=== PATIENT | male | born 1965 | race Caucasian/White ===

== ENCOUNTER 2018-01-03 21:51 | Emergency (ER) | payer MEDICARE, MEDICAID, SELFPAY ==
[2018-01-03 21:54] VITALS: BP 145/87; PULSE 72; RESP 16; TEMP 36.6; O2SAT 100; BMI 29.7
--- NOTE | 2018-01-03 22:09 | CT_ITS ---
STUDY: CT BRAIN WITHOUT CONTRAST REASON FOR EXAM: Male, 52 years old. Left arm weakness RADIATION DOSAGE (If Supplied By Facility): CTDIvol = ( 44.99 ) mGy, DLP = ( 863.60 ) mGycm TECHNIQUE: Transaxial CT imaging of the brain was performed without administration of intravenous contrast material. Individualized dose optimization techniques were used for this CT. COMPARISON: 12/06/2017. FINDINGS: Normal soft tissue structures. Normal calvarium. Normal size ventricles and extra-axial spaces for the patient's age. Normal white matter tracts of the cerebral hemispheres. Normal basal ganglia and thalami. Normal brainstem. Normal cerebellum. There is no intracranial hemorrhage. There are no findings of an acute ischemic infarction. Normal visualized paranasal sinuses. CT/Brain/Head without Contrast IMPRESSION: Normal unenhanced CT scan of the brain. Electronically Signed: Homer Kaiser MD at 23:28 EST , Service support ,
--- NOTE | 2018-01-03 22:09 | EKG12_ITS ---
Test Reason : CP Blood Pressure : / mmHG Vent. Rate : 072 BPM Atrial Rate : 072 BPM P-R Int : 176 ms QRS Dur : 100 ms QT Int : 440 ms P-R-T Axes : 050 007 050 degrees QTc Int : 481 ms Sinus rhythm with occasional Premature ventricular complexes Prolonged QT Abnormal ECG Confirmed by PENELOPE DC, SARY ([id number]), market editor GERDA MALIK ([id number] on 01/07/2018 2:11:31 PM Referred By: KRISTINE Confirmed By:SARY NEGRETE MD
--- NOTE | 2018-01-03 22:12 | RAD_ITS ---
STUDY: X-RAY CHEST REASON FOR EXAM: Male, 52 years old. Chest pain TECHNIQUE: AP COMPARISON: 11/01/2017 FINDINGS: EKG leads project over the chest. Operative changes in the lower cervical spine partially visualized. The lungs are clear and expanded. There is no demonstrated pleural abnormality. Normal size heart. Normal mediastinum and hema. Normal visualized pulmonary arteries. There is atherosclerotic tortuosity of the aortic arch and descending thoracic aorta. No acute bony process. There is no demonstrated abnormality of the visualized soft tissue structures of the upper abdomen. RAD/Chest 1 View (Portable) IMPRESSION: 1. No airspace consolidation or pleural effusion. Stable exam. Electronically Signed: Jesus Quezada MD at 22:47 EST , Service support ,
--- NOTE | 2018-01-03 22:15 | ED.DCSUM_ITS ---
- ER Visit Summary Date of Service: 01/03/18 Chief Complaint: [] Chest pain History of Present Illness: The patient is a 52 M [] planing of chest pain that started today 10 minutes ago upon arrival to the department. At rest intermittent sharp pain in the center of his chest. Occasionally gets some pain in his back. He has IVC filter secondary to a DVT remotely. He is on Xarelto. He came in however because he felt some tingling in his left arm over the last 2 days. Occasionally his arm feels weak and occasional paresthesia. He has had this before. He was admitted to the hospital last month with a full stroke workup that was negative including MRI and MRA of his head. Physical Examination: [] Vital signs reviewed General: Well-nourished well-developed Head: Normocephalic atraumatic Eyes: Pupils equal round and reactive to light extraocular movements intact ENT: TMs clear no hemotympanum no trauma Neck: Nontender full range of motion Cardiovascular: Regular rate rhythm no murmurs normal S1-S2 Respiratory: No distress clear to auscultation bilaterally chest nontender Abdomen: Soft nontender nondistended normal bowel sounds no masses Back: Nontender no CVA tenderness Extremities: Nontender is moving his left arm normally when I watch him from the hallway and texting easily and moving around. When I do the exam he acts like he cannot move his arm. I have a suspicion that he is malingering. He has normal sensation. Skin: Normal color no trauma Neuro alert oriented cranial nerves II through XII intact normal strength sensation reflexes Test Results: [] Emergency Department Course and Treatment: [] EKG shows sinus rhythm at a rate of 72. PVCs noted. No ischemia. Unchanged from prior. Chemistry normal. Troponin negative. CT head showed nothing acute. Chest x-ray negative. The patient is resting comfortably. I have a feeling the patient is having malingering. He has had multiple visits with multiple imaging studies that have been negative. He will follow-up in the last with his family doctor. He has a neuro appointment in January. I feel his chest pain is noncardiac. I feel he can follow-up. Treatment Plan: [] Disposition: [] Impression: [] Chest pain nonspecific Left arm weakness and numbness suspected malingering This note was generated with [employer] software. It may contain incorrect words, spelling, and punctuation that were not noted in review of the chart prior to signing ED Disposition - Plan for ED Patient: Disposition: Home or Assisted Living Chief Complaint: Chest Pain Instructions: ED Chest Pain NonCardiac, ED Weakness [facility] Referrals: America Houser [Primary Care Provider] -
[2018-01-03] MEDS: Aspirin 81 MG TAB.CHEW 324 MG PO (22:23)
[2018-01-03 22:47] LABS: Anion Gap 6 (5-15); BUN 13 mg/dL (7-18); BUN/Creat Ratio 12.3 RATIO (10-20); Calcium,Total 8.9 mg/dL (8.5-10.1); Chloride 107 mmol/L (98-107); Creatinine, Serum 1.06 mg/dL (0.70-1.30); EST Glomerular Filtration Rate 78 mL/min (>60); Est Glom Filt Rate - Afr Amer 94 mL/min (>60); Estimated Creatinine Clearance 88.46 ml/min; Glucose 85 mg/dL (74-106); Potassium 3.8 mmol/L (3.5-5.1); Sodium Level 143 mmol/L (136-145)
--- NOTE | 2018-01-03 22:50 | ED.DEP ---
ED Disposition - Plan for ED Patient: Disposition: Home or Assisted Living Chief Complaint: Chest Pain Instructions: ED Chest Pain NonCardiac, ED Weakness [facility] Referrals: America Houser [Primary Care Provider] -
[2018-01-03 23:36] VITALS: BP 150/90; PULSE 81; RESP 18; O2SAT 95
[2018-01-08 07:16] LABS: Bedside Glucose 80 mg/dL (70-110)
== END 2018-01-03 23:41 | disposition home or self-care (01) ==
PROVIDERS: Emergency Provider Emergency Medicine; Family Provider Family Medicine; PCP Family Medicine
DX: R07.9 Chest pain, unspecified (principal); M62.81 Muscle weakness (generalized); R20.0 Anesthesia of skin; I10 Essential (primary) hypertension; F32.9 Major depressive disorder, single episode, unspecified; F41.9 Anxiety disorder, unspecified; Z86.718 Personal history of other venous thrombosis and embolism; Z86.73 Personal history of transient ischemic attack (TIA), and cerebral infarction without residual deficits; Z79.01 Long term (current) use of anticoagulants; Z79.899 Other long term (current) drug therapy; Z72.0 Tobacco use
CPT/HCPCS: 70450; 71045; 80048; 82962; 84484; 93005; 99284; A4216

== ENCOUNTER 2018-01-26 18:34 | Emergency (ER) | payer MEDICARE, MEDICAID, SELFPAY ==
[2018-01-26 18:35] VITALS: BP 151/90; PULSE 76; RESP 16; TEMP 37; O2SAT 98; BMI 40.0
--- NOTE | 2018-01-26 18:38 | EKG12_ITS ---
Test Reason : CP Blood Pressure : / mmHG Vent. Rate : 062 BPM Atrial Rate : 062 BPM P-R Int : 138 ms QRS Dur : 108 ms QT Int : 440 ms P-R-T Axes : 006 014 047 degrees QTc Int : 446 ms Normal sinus rhythm Normal ECG Confirmed by CELIA GALLO MD ([id number]), content editor GERDA MALIK ([id number] on 01/28/2018 3:41:59 PM Referred By: Confirmed By:CELIA GALLO MD
--- NOTE | 2018-01-26 18:38 | RAD_ITS ---
STUDY: X-RAY CHEST REASON FOR EXAM: Male, 52 years old. Chest pain. TECHNIQUE: PA and lateral views of the chest. COMPARISON: November 01, 2017. FINDINGS: There is hyperinflation of the lungs consistent with chronic obstructive lung disease (COPD). There is no demonstrated pleural abnormality. Normal size heart. Normal mediastinum and hema. There is prominence of the pulmonary hilar arteries without peripheral pulmonary vascular congestion. There is atherosclerotic calcification of the aortic arch with tortuosity. There are diffuse degenerative changes of the visualized thoracic spine. Normal visualized ribs, clavicles, and shoulders. The patient has had previous surgery on the cervical spine. There is no demonstrated abnormality of the visualized soft tissue structures of the upper abdomen. RAD/Chest PA and Lateral IMPRESSION: COPD without radiographic evidence of acute cardiopulmonary disease. Electronically Signed: Maggie Verdin MD at 19:28 EDT , Service support ,
[2018-01-26 18:58] LABS: Absolute Lymphocyte Count 1.76 X10^3/ul (0.83-4.51); Basophil# 0.02 X10^3/uL; Basophil% 0.3 % (0-1); Eosinophil# 0.12 X10^3/uL; Eosinophils% 1.8 % (0-5); Hematocrit 39.4 % (40-54); Hemoglobin 13.5 g/dl (13.0-16.5); Lymphocyte # 1.76 X10^3/ul (4.0); Lymphocyte % 26.8 % (19-41); Mean Corp Hgb Conc 34.3 g/gl (32-36); Mean Corpuscular Hgb 29.9 pg (27.0-32.0); Mean Corpuscular Volume 87.4 fL (80-94); Mean Platelet Vol. 9.1 fl (6.2-12.0); Monocyte# 0.64 X10^3/uL; Monocyte% 9.7 % (0-10); Neutrophil # 4.02 X10^3/uL (2.7-7.7); Neutrophil % 61.2 % (47-70); Platelet Count 137 K/mm3 (150-450); RBC Distribution Width CV 12.8 % (11.6-14.6); RBC Distribution Width SD 41.1 fl (35.1-43.9); Red Blood Count 4.51 M/mm3 (4.6-6.2); White Blood Count 6.6 K/mm3 (4.4-11.0)
[2018-01-26 19:00] LABS: POSITIVE COUNT NO; POSITIVE DIFFERENTIAL NO; POSITIVE MORPHOLOGY NO
[2018-01-26 19:19] LABS: Anion Gap 5 (5-15); BUN 13 mg/dL (7-18); BUN/Creat Ratio 13.8 RATIO (10-20); Calcium,Total 8.6 mg/dL (8.5-10.1); Chloride 110 mmol/L (98-107); Creatinine, Serum 0.94 mg/dL (0.70-1.30); EST Glomerular Filtration Rate 89 mL/min (>60); Est Glom Filt Rate - Afr Amer 107 mL/min (>60); Estimated Creatinine Clearance 64.27 ml/min; Glucose 88 mg/dL (74-106); Potassium 3.7 mmol/L (3.5-5.1); Sodium Level 142 mmol/L (136-145)
[2018-01-26 20:08] VITALS: BP 156/96; PULSE 74; RESP 12; O2SAT 99
[2018-01-26] MEDS: Ondansetron 4 MG/2 ML Vial IV (21:52)
[2018-01-26 21:53] VITALS: BP 150/86; PULSE 55; RESP 19; O2SAT 99
[2018-01-26 22:12] VITALS: BP 141/90; PULSE 63; RESP 20; O2SAT 97
[2018-01-26 23:02] VITALS: BP 145/83; PULSE 59; RESP 18; O2SAT 99
--- NOTE | 2018-01-26 23:43 | ED.VISSUMM ---
- ER Visit Summary Date of Service: 01/26/18 Chief Complaint: Chest pain History of Present Illness: The patient is a 52 M presenting with chest pain which started around 4 PM. He states he has had intermittent pain in his left chest and left arm. It is associated with lightheadedness. He denies nausea, vomiting, diaphoresis, shortness of breath. He has a history of hypertension, early history of family heart disease and is a smoker. Previous history of DVT and he is on Xarelto. Physical Examination: Vitals are stable. Patient is afebrile. Alert no acute distress. HEENT exam is unremarkable. Neck is supple. Lungs are clear and equal bilaterally. Heart is regular rate and rhythm. Abdomen is soft nontender nondistended. Extremities are unremarkable. Skin is warm and dry. No focal neurologic deficit. Remainder of exam is unremarkable. Emergency Department Course and Treatment: EKG is sinus rhythm rate of 62. Chest x-ray shows no acute process, COPD. CBC normal except platelets 137. Chemistries unremarkable. Troponin is negative. Delta troponin was obtained and is also negative. He is given aspirin on arrival. He is given morphine. On reevaluation he is pain-free. Due to his multiple risk factors, I recommend admission for further testing. Patient refuses admission at this time. He is advised of risks of leaving AGAINST MEDICAL ADVICE including [place] and . Patient understands and signed out AGAINST MEDICAL ADVICE. Disposition: AGAINST MEDICAL ADVICE Impression: Chest pain This note was generated with [employer] dictation software. It may contain incorrect words, spelling, and punctuation that were not noted in review of the chart prior to signing ED Disposition - Plan for ED Patient: Chief Complaint: Chest Pain Referrals: America Houser [Primary Care Provider] -
--- NOTE | 2018-01-26 23:45 | ED.DEP ---
ED Disposition - Plan for ED Patient: Chief Complaint: Chest Pain Instructions: ED Chest Pain Atypical Unkn Cause Referrals: America Houser [Primary Care Provider] -
[2018-01-27 00:02] VITALS: BP 148/78; PULSE 71; RESP 18; O2SAT 99
== END 2018-01-27 00:03 | disposition home or self-care (01) ==
LOC: ED 20:04
PROVIDERS: Emergency Provider Emergency Medicine; Family Provider Family Medicine; PCP Family Medicine
DX: R07.9 Chest pain, unspecified (principal); I10 Essential (primary) hypertension; F17.200 Nicotine dependence, unspecified, uncomplicated; E03.9 Hypothyroidism, unspecified; D68.9 Coagulation defect, unspecified; Z86.718 Personal history of other venous thrombosis and embolism; Z79.01 Long term (current) use of anticoagulants; Z86.73 Personal history of transient ischemic attack (TIA), and cerebral infarction without residual deficits; Z79.899 Other long term (current) drug therapy; Z82.49 Family history of ischemic heart disease and other diseases of the circulatory system
CPT/HCPCS: 36415; 71046; 80048; 84484; 85025; 93005; 96374; 96375; 99284; J2405

== ENCOUNTER 2018-02-09 21:59 | Emergency (ER) | payer MEDICARE, MEDICAID, SELFPAY ==
[2018-02-09 22:00] VITALS: BP 146/75; PULSE 74; RESP 16; TEMP 37.1; O2SAT 99; BMI 27.2
--- NOTE | 2018-02-09 22:15 | EKG12_ITS ---
Test Reason : Blood Pressure : / mmHG Vent. Rate : 071 BPM Atrial Rate : 071 BPM P-R Int : 176 ms QRS Dur : 106 ms QT Int : 426 ms P-R-T Axes : 036 -14 047 degrees QTc Int : 462 ms Normal sinus rhythm Normal ECG Confirmed by CELIA GALLO MD ([id number]), damage assessor GERDA MALIK ([id number]) on 02/12/2018 2:52:18 PM Referred By: SHANIKA Confirmed By:CELIA GALLO MD
--- NOTE | 2018-02-09 22:34 | ED.VISSUMM ---
- ER Visit Summary Date of Service: 02/09/18 Chief Complaint: [] Dizziness History of Present Illness: The patient is a 52 M patient stated in the waiting room as he brought a friend and he felt dizzy. He did not pass out. He felt like he had double vision and has had a mild headache. He works out daily. He was on Xarelto but stopped it is he supposed to have a cystoscopy tomorrow. He has frequent visits and full workups for dizziness. He has had a negative MRI MRA of his head just a couple months ago. I saw the patient recently and he was faking neurologic complaints including weakness and slurred speech. This is secondary to malingering behavior. Tonight he was waiting outside the room until the staff came up and then faked an episode of weakness. When I went into the room he is texting on the phone and then starts shaking left arm weakness. Physical Examination: Vital signs reviewed General: Well-nourished well-developed Head: Normocephalic atraumatic Eyes: Pupils equal round and reactive to light extraocular movements intact ENT: TMs clear no hemotympanum no trauma Neck: Nontender full range of motion Cardiovascular: Regular rate rhythm no murmurs normal S1-S2 Respiratory: No distress clear to auscultation bilaterally chest nontender Abdomen: Soft nontender nondistended normal bowel sounds no masses Back: Nontender no CVA tenderness Extremities: Nontender active range of motion ?4 extremities no trauma Skin: Normal color no trauma Neuro alert oriented cranial nerves II through XII intact normal strength sensation reflexes Test Results: [] Shows sinus rhythm 71 without arrhythmia or ischemia. Emergency Department Course and Treatment: [] Light panel shows a sodium of 147, chloride 112, creatinine 1.3. At this time I feel the patient is malingering. He has these intermittent episodes and he has been doing this for some time. He has had negative workups. I do not feel he has had an acute neurologic event. During my interview with him he had no outward signs of illness. He will be discharged. Treatment Plan: [] Disposition: [] Impression: [] Confusion and dizziness with reported headache- suspected malingering This note was generated with [employer] dictation software. It may contain incorrect words, spelling, and punctuation that were not noted in review of the chart prior to signing ED Disposition - Plan for ED Patient: Chief Complaint: Dizziness Referrals: America Houser [Primary Care Provider] -
[2018-02-09 23:23] LABS: Anion Gap 9 (5-15); BUN 15 mg/dL (7-18); BUN/Creat Ratio 11.2 RATIO (10-20); Calcium,Total 8.4 mg/dL (8.5-10.1); Chloride 112 mmol/L (98-107); Creatinine, Serum 1.34 mg/dL (0.70-1.30); EST Glomerular Filtration Rate 59 mL/min (>60); Est Glom Filt Rate - Afr Amer 72 mL/min (>60); Estimated Creatinine Clearance 69.98 ml/min; Glucose 111 mg/dL (74-106); Potassium 3.7 mmol/L (3.5-5.1); Sodium Level 147 mmol/L (136-145)
--- NOTE | 2018-02-09 23:28 | ED.DEP ---
ED Disposition - Plan for ED Patient: Disposition: Home or Assisted Living Chief Complaint: Dizziness Instructions: ED Dizziness [facility] Referrals: America Houser [Primary Care Provider] -
[2018-02-09 23:39] VITALS: BP 124/78; PULSE 73; RESP 16; O2SAT 99
== END 2018-02-09 23:39 | disposition home or self-care (01) ==
PROVIDERS: Emergency Provider Emergency Medicine; Family Provider Family Medicine; PCP Family Medicine
DX: R41.0 Disorientation, unspecified (principal); R42 Dizziness and giddiness; R51 Headache; Z76.5 Malingerer [conscious simulation]; I10 Essential (primary) hypertension; E03.9 Hypothyroidism, unspecified; F41.9 Anxiety disorder, unspecified; Z86.73 Personal history of transient ischemic attack (TIA), and cerebral infarction without residual deficits; Z86.718 Personal history of other venous thrombosis and embolism; Z79.01 Long term (current) use of anticoagulants
CPT/HCPCS: 80048; 93005; 99282

== ENCOUNTER → 2018-03-06 16:03 | Outpatient (CLI) | payer MEDICARE, MEDICAID, SELFPAY ==
--- NOTE | 2018-03-06 16:12 | RAD_ITS ---
STUDY: X-RAY - CERVICAL SPINE REASON FOR EXAM: Male, 52 years old. Pain TECHNIQUE: Seven view(s) of the cervical spine were obtained. COMPARISON: Neck CTA dated October 27, 2017 FINDINGS: Normal anterior atlantoaxial articulation. Normal odontoid process. Normal cervical lordosis. A plate and screws are seen anterior to C4, C5 and C6. There is fusion of the disc at C4-5. There is mild disc space narrowing at C5-6. There is moderate foraminal narrowing on the right at C3-4. There is mild foraminal narrowing on the right at C5-6. There is mild foraminal narrowing on the left at C3-4. There is moderate foraminal narrowing on the left at C5-6. There is no prevertebral soft tissue swelling. The lung apices are unremarkable. RAD/Cerv Spine Obl/Flex/Ext Comp IMPRESSION: There are surgical changes from C4 through C6. The appearance is stable compared to the prior CT. There is normal alignment of the vertebral bodies in neutral positioning as well as flexion and extension. There are surgical changes in the discs at C4-5 and C5-6. There is bilateral foraminal narrowing at C3-4 and C5-6. Electronically Signed: Brunilda Shah MD at 16:10 EDT Tel Direct: [phone], Service support ,
== END ==
PROVIDERS: Family Provider Family Medicine; PCP Family Medicine
DX: M54.12 Radiculopathy, cervical region (principal)
CPT/HCPCS: 72052

== ENCOUNTER 2018-03-18 20:46 | Emergency (ER) | payer MEDICARE, MEDICAID, SELFPAY ==
[2018-03-18 20:46] VITALS: BP 138/92; PULSE 84; RESP 16; TEMP 36.6; O2SAT 98; BMI 27.8
--- NOTE | 2018-03-18 21:00 | ED.VISSUMM ---
- ER Visit Summary Date of Service: 03/18/18 Chief Complaint: Back pain History of Present Illness: The patient is a 52 M who has had 3 weeks of an exacerbation of his chronic back pain. He has pain in the neck and middle part of his thoracic area. He states everything makes it worse. Denies any numbness or tingling. No bowel or bladder incontinence. No urinary retention. He saw his pain management doctor who gave him tramadol but he states that that is not helping. He also takes Advil. He also takes blood thinning medications for a DVT. He does have an IVC filter in place Physical Examination: Vital signs reviewed. HEENT exam unremarkable. Heart is regular rate and rhythm without murmurs. Lungs are clear to auscultation. Abdomen is soft and nontender. Back is nontender. Extremities reveal no edema. Skin exam normal. Neurologic exam normal. Test Results: None indicated Emergency Department Course and Treatment: Patient is having an acute exacerbation of his chronic back pain. I will give him a dose of morphine and Norflex here. I will give him lidocaine patches that he can take at home. I will not give him any narcotics for home as this is chronic pain and he also is in pain management. Treatment Plan: [] Disposition: Discharge Impression: Acute on chronic back pain This note was generated with [employer] dictation software. It may contain incorrect words, spelling, and punctuation that were not noted in review of the chart prior to signing ED Disposition - Plan for ED Patient: Chief Complaint: Back Referrals: America Houser [Primary Care Provider] -
--- NOTE | 2018-03-18 21:02 | ED.DEP ---
ED Disposition - Plan for ED Patient: Disposition: Home or Assisted Living Chief Complaint: Back Instructions: ED Neck Back Pain General Prescriptions: Lidocaine [Lidoderm Patch] 1 patch TOPICAL DAILY #10 patch Referrals: America Houser [Primary Care Provider] -
[2018-03-18] MEDS: Morphine 4 MG/ML Syringe SC (21:29)
[2018-03-18] MEDS: Orphenadrine 60 MG/2 ML Ampul IM (21:29)
[2018-03-18 21:44] VITALS: BP 135/72; PULSE 75; RESP 18; O2SAT 97
== END 2018-03-18 21:47 | disposition home or self-care (01) ==
LOC: ED 21:04
PROVIDERS: Emergency Provider Emergency Medicine; Family Provider Family Medicine; PCP Family Medicine
DX: M54.6 Pain in thoracic spine (principal); G89.29 Other chronic pain; I82.409 Acute embolism and thrombosis of unspecified deep veins of unspecified lower extremity; Z95.828 Presence of other vascular implants and grafts; Z79.01 Long term (current) use of anticoagulants; Z79.899 Other long term (current) drug therapy; Z72.0 Tobacco use
CPT/HCPCS: 96372; 99282

== ENCOUNTER 2018-03-23 20:47 | Emergency (ER) | payer MEDICARE, MEDICAID, SELFPAY ==
[2018-03-23 20:49] VITALS: BP 160/86; PULSE 80; RESP 20; TEMP 36.8; O2SAT 100; BMI 27.8
--- NOTE | 2018-03-23 21:12 | ED.RN ---
PT WITH NECK AND BACK PAIN. HAS [facility] [place]. PT REPORTS TINGLING AND NUMBNESS IN BILATERAL ARMS, C/O RESTLESSNESS. HX OF NECK/BACK SURGERY.
--- NOTE | 2018-03-23 21:15 | ED.VISSUMM ---
- ER Visit Summary Date of Service: 03/23/18 Chief Complaint: [Neck and back pain] History of Present Illness: The patient is a 52 M [presents the emergency department with neck pain ?2 days. Patient states that he has chronic neck and back pain and is currently in pain management. Patient had recent x-rays of his neck and was just able to get his results today. Patient has had prior cervical fusion C4 through C6. Patient denies any recent injury. Patient describes pain going down into both arms. Patient denies weakness in extremities. Patient denies IV drug use. Patient was seen for similar complaint last week in the emergency department.] Physical Examination: [HEENT-PERRLA, EOMI. Cranial nerves II through XII grossly intact. TMs clear. Mucous membranes moist. No adenopathy. Patient has diffuse tenderness over the cervical spine. No erythema or warmth noted. Cardiovascular-regular rate and rhythm without murmur or ectopy Lungs-clear to auscultation, chest wall stable without crepitus or subcu emphysema Abdomen-normoactive bowel sounds, soft, nontender, no rebound or rigidity, no peritoneal signs. Back exam-patient has some mild tenderness over the thoracic spine. Deep tendon reflexes are plus 2 out of 4 in the upper and lower extremities. Patient has normal certified executive chef strength bilaterally. Extremities-intact ?4, normal range of motion, normal pulses, atraumatic] Test Results: [None indicated] Emergency Department Course and Treatment: [Given 1 dose of Dilaudid 1 mg IM as well as Norflex 60 mg IM and Toradol 30 mill grams IM. Patient understands I will not write him for narcotic pain medication given the chronic nature of his pain. Patient also seen his pain management doctor tomorrow.] Treatment Plan: [Patient to see his management doctor tomorrow] Disposition: [Discharged home in stable condition]. Patient understands that if symptoms continue to worsen may need further imaging such as possibly MRI to evaluate further. Impression: [Acute exacerbation of chronic neck pain.] This note was generated with [employer] dictation software. It may contain incorrect words, spelling, and punctuation that were not noted in review of the chart prior to signing ED Disposition - Plan for ED Patient: Chief Complaint: Other, Pain/Inj Referrals: America Houser [Primary Care Provider] -
--- NOTE | 2018-03-23 21:18 | ED.DCSUM_ITS ---
- ER Visit Summary Date of Service: 03/23/18 Chief Complaint: [Neck and back pain] History of Present Illness: The patient is a 52 M [presents the emergency department with neck pain ?2 days. Patient states that he has chronic neck and back pain and is currently in pain management. Patient had recent x-rays of his neck and was just able to get his results today. Patient has had prior cervical fusion C4 through C6. Patient denies any recent injury. Patient describes pain going down into both arms. Patient denies weakness in extremities. Patient denies IV drug use. Patient was seen for similar complaint last week in the emergency department.] Physical Examination: [HEENT-PERRLA, EOMI. Cranial nerves II through XII grossly intact. TMs clear. Mucous membranes moist. No adenopathy. Patient has diffuse tenderness over the cervical spine. No erythema or warmth noted. Cardiovascular-regular rate and rhythm without murmur or ectopy Lungs-clear to auscultation, chest wall stable without crepitus or subcu emphysema Abdomen-normoactive bowel sounds, soft, nontender, no rebound or rigidity, no peritoneal signs. Back exam-patient has some mild tenderness over the thoracic spine. Deep tendon reflexes are plus 2 out of 4 in the upper and lower extremities. Patient has normal wind farm support specialist strength bilaterally. Extremities-intact ?4, normal range of motion, normal pulses, atraumatic] Test Results: [None indicated] Emergency Department Course and Treatment: [Given 1 dose of Dilaudid 1 mg IM as well as Norflex 60 mg IM and Toradol 30 mill grams IM. Patient understands I will not write him for narcotic pain medication given the chronic nature of his pain. Patient also seen his pain management doctor tomorrow.] Treatment Plan: [Patient to see his management doctor tomorrow] Disposition: [Discharged home in stable condition]. Patient understands that if symptoms continue to worsen may need further imaging such as possibly MRI to evaluate further. Impression: [Acute exacerbation of chronic neck pain.] This note was generated with [employer] dictation software. It may contain incorrect words, spelling, and punctuation that were not noted in review of the chart prior to signing ED Disposition - Plan for ED Patient: Chief Complaint: Other, Pain/Inj Referrals: America Houser [Primary Care Provider] -
--- NOTE | 2018-03-23 21:19 | ED.DEP ---
ED Disposition - Plan for ED Patient: Chief Complaint: Other, Pain/Inj Instructions: ED Neck Pain No Trauma Referrals: America Houser [Primary Care Provider] - Additional Instructions: See Dr. Johnson tomorrow
--- NOTE | 2018-03-23 21:30 | ED.RN ---
LEFT A MESSAGE WITH AMARJIT ED YARD SWITCH OPERATOR FOR REFERRAL FOR POSSIBLE CARE PLAN.
[2018-03-23] MEDS: Ketorolac 30 MG/ML Syringe IM (21:36)
[2018-03-23] MEDS: Orphenadrine 60 MG/2 ML Ampul IM (21:36)
[2018-03-23] MEDS: HYDROmorphone 1 MG/ML Syringe IM (21:36)
[2018-03-23 22:12] VITALS: BP 141/86; PULSE 86; RESP 17; O2SAT 98
--- NOTE | 2018-03-23 22:12 | ED.RN ---
PT EDUCATED ON D/C INSTRUCTIONS AND VERBALIZES UNDERSTANDING. PT TO FOLLOW UP WITH TOMORROW. EDUCATED NOT TO DRIVE FOR THE NEXT 6 HOURS. AMBULATES OUT OF DEPARTMENT WITH GIRLFRIEND.
== END 2018-03-23 22:14 | disposition home or self-care (01) ==
PROVIDERS: Emergency Provider Emergency Medicine; Family Provider Family Medicine; PCP Family Medicine
DX: M54.2 Cervicalgia (principal); M54.6 Pain in thoracic spine; G89.29 Other chronic pain; E03.9 Hypothyroidism, unspecified; Z86.718 Personal history of other venous thrombosis and embolism; Z79.01 Long term (current) use of anticoagulants; Z79.899 Other long term (current) drug therapy; Z72.0 Tobacco use
CPT/HCPCS: 96372; 99282

== ENCOUNTER 2018-04-27 21:32 | Emergency (ER) | payer MEDICARE, MEDICAID, SELFPAY ==
--- NOTE | 2018-04-27 21:32 | DT_ITS ---
This patient was seen during an EMR downtime April 20, 2018 - April 27, 2018. This patient may have a combination of paper and electronic documentation or all paper documentation. All documentation is viewable within the e-chart portion of [facility] for each patient visit.
[2018-04-27 21:33] VITALS: BP 150/93; PULSE 67; RESP 16; TEMP 36.7; O2SAT 100; BMI 28.1
[2018-04-27 22:07] VITALS: BP 142/85; PULSE 72; RESP 16; O2SAT 98
[2018-04-27 22:43] LABS: Absolute Lymphocyte Count 2.04 X10^3/ul (0.83-4.51); Absolute Neutrophil Count 4.7 X10^3/uL (2.0-7.7); Basophil# 0.02 X10^3/uL; Basophil% 0.3 % (0-1); Eosinophils% 1.4 % (0-5); Hematocrit 42.3 % (40-54); Hemoglobin 14.9 g/dl (13.0-16.5); Lymphocyte # 2.04 X10^3/ul (4.0); Lymphocyte % 27.9 % (19-41); Mean Corp Hgb Conc 35.2 g/gl (32-36); Mean Corpuscular Hgb 30.4 pg (27.0-32.0); Mean Corpuscular Volume 86.3 fL (80-94); Monocyte# 0.48 X10^3/uL; Monocyte% 6.6 % (0-10); Neutrophil # 4.67 X10^3/uL (2.7-7.7); Neutrophil % 63.7 % (47-70); POSITIVE COUNT NO; POSITIVE DIFFERENTIAL NO; POSITIVE MORPHOLOGY NO; Platelet Count 152 K/mm3 (150-450); RBC Distribution Width CV 12.6 % (11.6-14.6); RBC Distribution Width SD 39.8 fl (35.1-43.9); White Blood Count 7.3 K/mm3 (4.4-11.0)
[2018-04-27 22:53] LABS: Anion Gap 5 (5-15); BUN 9 mg/dL (7-18); BUN/Creat Ratio 8.5 RATIO (10-20); Calcium,Total 8.9 mg/dL (8.5-10.1); Chloride 109 mmol/L (98-107); Creatinine, Serum 1.06 mg/dL (0.70-1.30); EST Glomerular Filtration Rate 78 mL/min (>60); Est Glom Filt Rate - Afr Amer 94 mL/min (>60); Glucose 95 mg/dL (74-106); Potassium 3.8 mmol/L (3.5-5.1); Sodium Level 145 mmol/L (136-145)
--- NOTE | 2018-04-27 23:23 | ED.DCSUM_ITS ---
- ER Visit Summary Date of Service: 04/27/18 Chief Complaint: Weakness, tingling, dizziness which he describes as vertigo and diplopia History of Present Illness: The patient is a 52 M who presents with the aforementioned chief complaint. He states the diplopia has been going on for weeks to months with no etiology. He had a similar presentation and was admitted in December with significant workup including MRI and MRA which were negative. He presently denies any dizziness. He is unable to report any exacerbating, precipitating or alleviating factors. He states he had an episode that occurred while at the gym. He states he is on disability because of cervical and lumbar disc problems. He reports a C4 through 6 fusion and L5- S1 discectomy. He presently denies dizziness. He presently denies any visual symptoms. He denies any trouble with speech or swallowing. States is having difficulty using his left upper extremity and reported shaking of his left lower extremity. He denies headache. He denies any blurred or loss of vision. He denies nausea or vomiting. He denied unsteady gait. 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 He also has an IVC filter. Physical Examination: Vital signs are remarkable for slight elevation blood pressure 142 every 3. Patient appears in no distress. He does not appear anxious. He is tanned. He demonstrated the weakness of his left upper extremity. He would attempt to touch tip of his nose. He would raise his forearm 4-6 inches from the bed and then fall to the bed. He then raised to 12 inches and it felt to the back on the fourth or fifth attempt he was able to touch his nose with no ataxia. Head is atraumatic normocephalic. Pupils are equal round reactive. Extraocular muscles are intact. Funduscopic exam is normal. TMs are pearly white with landmarks noted. Nares patent with no drainage. Posterior pharynx without erythema or exudate. Uvula is midline. There is no dysphonia or dysphasia. Trachea is midline. There is no stridor with auscultation of the neck. There is no carotid bruits noted. Heart is regular without murmur, gallop or rub. S1 and S2 are normal. Lungs are clear to auscultation with good movement of air bilaterally. He is alert and oriented ?3. Sensory is intact. DTRs are symmetric with no clonus or Babinski sign. Cranial 2 through 12 are intact. He has no cell bladder dysfunction. There was one episode when his left arm began to shake (abduction and abduction). Test Results: CBC and BMP are unremarkable. Emergency Department Course and Treatment: CBC was obtained to see if he was anemic or any abnormality would explain his unusual symptoms. Electrolytes to specifically look for hyponatremia, hypo-and hyperkalemia. Patient's neurologic exam is unusual and is not consistent with stroke or any motor or sensory deficit. Patient was told that his exam is confusing and suggestive of anything. His significant other, girlfriend, stated he is under a lot of stress this is not his first rodeo . Treatment Plan: One would expect absent deep tendon reflexes if there was a true motor deficit. His response when asked to raise his arm is not consistent with Parkinson's disease or any neurologic disorder. Concerned this represents/ has a psychological basis. Disposition: Discharged to home with significant other and follow-up with his primary care physician Dr. La Impression: Reported weakness and abnormal movement Conversion reaction This note was generated with [employer] dictation software. It may contain incorrect words, spelling, and punctuation that were not noted in review of the chart prior to signing ED Disposition - Plan for ED Patient: Disposition: Home or Assisted Living Chief Complaint: Weakness Instructions: ED Weakness UKO Referrals: Gilson Yusuf MD [Primary Care Provider] - 1-2 Days if not improving
[2018-04-27 23:29] VITALS: PULSE 67; RESP 18; O2SAT 96
== END 2018-04-27 23:31 | disposition home or self-care (01) ==
PROVIDERS: Emergency Provider Emergency Medicine; Family Provider Family Medicine; PCP Family Medicine
DX: F44.4 Conversion disorder with motor symptom or deficit (principal); R53.1 Weakness; Z86.718 Personal history of other venous thrombosis and embolism; Z79.01 Long term (current) use of anticoagulants; Z79.899 Other long term (current) drug therapy
CPT/HCPCS: 36415; 80048; 85025; 99283

== ENCOUNTER 2018-07-09 22:28 | Emergency (ER) | payer MEDICARE, MEDICAID, SELFPAY ==
[2018-07-09 22:30] VITALS: BP 137/92; PULSE 77; RESP 22; TEMP 36.8; O2SAT 99; BMI 27.9
[2018-07-09] MEDS: Morphine 4 MG/ML Syringe IM (23:28)
[2018-07-09] MEDS: Ondansetron 4 MG/2 ML Vial IM (23:28)
--- NOTE | 2018-07-09 23:44 | ED.VISSUMM ---
- ER Visit Summary Date of Service: 07/09/18 Chief Complaint: [Head and neck injury] History of Present Illness: The patient is a 52 M [presents the emergency department with complaint of head injury that occurred earlier today. Patient states that he was getting in to significant others vehicle and he struck his head on the side of the vehicle getting in. Patient initially did not think much of it but now experiencing headache and severe pain in his neck that radiates into his arms. Patient has history of chronic neck and back issues and used to be in pain management with a Dr. Johnson in [facility] up until earlier this year. Patient states that he is currently trying to find a pain management physician through the [facility] that is more local. Patient tells me he has had prior cervical spine fusion. Patient scheduled to see orthopedics on August 01 for some chronic neck and back pain issues.] Patient also currently on Xarelto for history of DVT and he does have a Charly filter in place. Physical Examination: [HEENT-PERRLA, EOMI. Cranial nerves II through XII grossly intact. TMs clear. Mucous membranes moist. No adenopathy. No external evidence of trauma to his head. Patient has diffuse C-spine tenderness as well as paracervical muscular tenderness on palpation. Cardiovascular-regular rate and rhythm without murmur or ectopy Lungs-clear to auscultation, chest wall stable without crepitus or subcu emphysema Abdomen-normoactive bowel sounds, soft, nontender, no rebound or rigidity, no peritoneal signs. Extremities-intact ?4, normal range of motion, normal pulses, atraumatic]. Patient has normal strength in the upper extremities and normal deep tendon reflexes of plus 2 out of 4 bilaterally at the bicep, tricep, and brachioradialis. Test Results: [CT scan of the brain without contrast showed nothing acute. CT scan of the cervical spine show some degenerative changes and fusion at C4 6 however no acute findings.] Emergency Department Course and Treatment: [Patient was medicated with morphine and Zofran IM.] Treatment Plan: [Patient advised to follow-up with his primary care physician and pain management for his chronic neck and back issues.] Disposition: [Discharged home in stable condition] Impression: [Closed head injury Cervical strain/radiculopathy] This note was generated with [employer] software. It may contain incorrect words, spelling, and punctuation that were not noted in review of the chart prior to signing ED Disposition - Plan for ED Patient: Chief Complaint: Other, Pain/Inj Referrals: Gilson Yusuf MD [Primary Care Provider] -
--- NOTE | 2018-07-09 23:47 | ED.DEP ---
ED Disposition - Plan for ED Patient: Chief Complaint: Other, Pain/Inj Instructions: ED Chronic Pain Management, ED Head Injury Closed, ED Sprain Strain Neck Prescriptions: traMADol [Ultram] 50 mg PO Q4H PRN PRN 3 Days #20 tab PRN Reason: Pain Cyclobenzaprine [Flexeril] 10 mg PO TID PRN #20 tab PRN Reason: Muscle Spasm Referrals: Gilson Yusuf MD [Primary Care Provider] - 5-7 Days
[2018-07-09 23:55] VITALS: BP 138/90; PULSE 70; RESP 16; O2SAT 98
== END 2018-07-10 | disposition home or self-care (01) ==
LOC: ED 23:03
PROVIDERS: Emergency Provider Emergency Medicine; Family Provider Family Medicine; PCP Family Medicine
DX: S09.90XA Unspecified injury of head, initial encounter (principal); S16.1XXA Strain of muscle, fascia and tendon at neck level, initial encounter; W22.8XXA Striking against or struck by other objects, initial encounter; Y93.89 Activity, other specified; Y92.818 Other transport vehicle as the place of occurrence of the external cause; M54.12 Radiculopathy, cervical region; G89.29 Other chronic pain; I10 Essential (primary) hypertension; E03.9 Hypothyroidism, unspecified; Z86.718 Personal history of other venous thrombosis and embolism; Z79.01 Long term (current) use of anticoagulants; Z86.73 Personal history of transient ischemic attack (TIA), and cerebral infarction without residual deficits; Z79.899 Other long term (current) drug therapy; Z72.0 Tobacco use
CPT/HCPCS: 70450; 72125; 96372; 99282; J2405

== ENCOUNTER 2018-09-14 20:58 | Emergency (ER) | payer MEDICARE, MEDICAID, SELFPAY ==
[2018-09-14 20:58] VITALS: BP 168/95; PULSE 75; RESP 18; TEMP 36.6; O2SAT 100; BMI 28.5
--- NOTE | 2018-09-14 21:25 | RAD_ITS ---
STUDY: X-RAY - LEFT SHOULDER REASON FOR EXAM: Male, 53 years old. Trauma. Pain. TECHNIQUE: 4 view(s) of the shoulder. COMPARISON: None. FINDINGS: There is no evidence of fracture or dislocation. There are no significant degenerative changes. There are no radiodense foreign bodies. RAD/Shoulder min 2 Views IMPRESSION: No fracture or dislocation. Electronically Signed: Miguel Rajan, at 21:40 EDT Tel , Service support ,
[2018-09-14] MEDS: HYDROcodone Bitartrate/Apap 5/325 Tablet PO (21:34)
--- NOTE | 2018-09-14 21:52 | ED.VISSUMM ---
- ER Visit Summary Date of Service: 09/14/18 Chief Complaint: Left shoulder injury History of Present Illness: The patient is a 53 M presenting for evaluation secondary to a left shoulder injury. Patient reports that he was changing a tire yesterday and was pulling towards him forcibly with his left arm and felt a tearing sensation in his left shoulder. Now he states he has difficulty with raising his arm above his head. He states that the pain radiates all the way down his arm. Denies any numbness or weakness. Patient is chronically on pain medication secondary to chronic neck and back problems but that is not really alleviating his pain. Physical Examination: Physical exam unremarkable except for upper extremity exam. Normal sensation motor exams of the hand wrist and elbow. Patient has limited range of motion of the shoulder secondary to pain. He has difficulty with abduction and forward flexion of the shoulder with some laxity noted. He has normal internal and external rotation of the shoulder. Normal distal pulses. Test Results: X-ray of the shoulder is negative per radiology and my personal review Emergency Department Course and Treatment: Patient presented secondary to a shoulder injury. Patient does seem to have a slight amount of laxity with abduction and forward flexion of the shoulder which is suspicious for the possibility of a rotator cuff tear. Patient was immobilized in a sling, was recommended range of motion exercises 4-5 times a day, and he will be given a referral to orthopedics for potential advanced imaging. Disposition: Discharge Impression: Sprain left rotator cuff This note was generated with [employer] dictation software. It may contain incorrect words, spelling, and punctuation that were not noted in review of the chart prior to signing ED Disposition - Plan for ED Patient: Disposition: Home or Assisted Living Chief Complaint: Upper Extremity Injury Diagnosis: Rotator cuff strain Instructions: ED Torn Rotator Cuff Referrals: Miguel John MD [STAFF PHYSICIAN] - 1-2 Weeks
--- NOTE | 2018-09-14 21:55 | ED.DCSUM_ITS ---
- ER Visit Summary Date of Service: 09/14/18 Chief Complaint: Left shoulder injury History of Present Illness: The patient is a 53 M presenting for evaluation secondary to a left shoulder injury. Patient reports that he was changing a tire yesterday and was pulling towards him forcibly with his left arm and felt a tearing sensation in his left shoulder. Now he states he has difficulty with raising his arm above his head. He states that the pain radiates all the way down his arm. Denies any numbness or weakness. Patient is chronically on pain medication secondary to chronic neck and back problems but that is not really alleviating his pain. Physical Examination: Physical exam unremarkable except for upper extremity exam. Normal sensation motor exams of the hand wrist and elbow. Patient has limited range of motion of the shoulder secondary to pain. He has difficulty w ith abduction and forward flexion of the shoulder with some laxity noted. He has normal internal and external rotation of the shoulder. Normal distal pulses. Test Results: X-ray of the shoulder is negative per radiology and my personal review Emergency Department Course and Treatment: Patient presented secondary to a shoulder injury. Patient does seem to have a slight amount of laxity with abduction and forward flexion of the shoulder which is suspicious for the possibility of a rotator cuff tear. Patient was immobilized in a sling, was recommended range of motion exercises 4-5 times a day, and he will be given a referral to orthopedics for potential advanced imaging. Disposition: Discharge Impression: Sprain left rotator cuff This note was generated with [employer] dictation software. It may contain incorrect words, spelling, and punctuation that were not noted in review of the chart prior to signing ED Disposition - Plan for ED Patient: Disposition: Home or Assisted Living Chief Complaint: Upper Extremity Injury Diagnosis: Rotator cuff strain Instructions: ED Torn Rotator Cuff Referrals: Miguel John MD [STAFF PHYSICIAN] - 1-2 Weeks
== END 2018-09-14 22:03 | disposition home or self-care (01) ==
PROVIDERS: Emergency Provider Emergency Medicine; Family Provider Family Medicine; PCP Family Medicine
DX: S43.422A Sprain of left rotator cuff capsule, initial encounter (principal); X50.0XXA Overexertion from strenuous movement or load, initial encounter; Y93.89 Activity, other specified; Z79.01 Long term (current) use of anticoagulants; Z79.899 Other long term (current) drug therapy
CPT/HCPCS: 73030; 99283

== ENCOUNTER 2018-10-30 14:28 | Emergency (ER) | payer MEDICARE, MEDICAID, SELFPAY ==
[2018-10-30 14:28] VITALS: BP 142/77; PULSE 72; RESP 16; TEMP 36.4; O2SAT 98; BMI 29.1
[2018-10-30 15:04] VITALS: O2SAT 97
--- NOTE | 2018-10-30 15:05 | RAD_ITS ---
STUDY: X-RAY CHEST REASON FOR EXAM: Male, 53 years old. Chest pain. TECHNIQUE: Single AP portable view of the chest. COMPARISON: Comparison is made with prior study dated January 26, 2018. FINDINGS: EKG electrodes are seen. Hyperinflation. Scattered calcified granulomas. There is no demonstrated pleural abnormality. Normal size heart. Normal mediastinum and hema. Normal visualized pulmonary arteries. There is atherosclerotic calcification of the aortic arch with tortuosity. Normal visualized thoracic spine. Surgical fusion is seen in the lower cervical spine. There is no demonstrated abnormality of the visualized soft tissue structures of the upper abdomen. RAD/Chest 1 View (Portable) IMPRESSION: Hyperinflation. No acute abnormality is seen. Electronically Signed: Kishan Mcmahon MD at 15:28 EST Tel [phone], Service support ,
--- NOTE | 2018-10-30 15:05 | ED.VISSUMM ---
- ER Visit Summary Date of Service: 10/30/18 Chief Complaint: Chest pain History of Present Illness: The patient is a 53 M who states this morning 0900 hours he was sitting having coffee. He developed a pressure in his chest and radiates anteriorly and posteriorly. After 1 hour it went away. Around 1300 hrs. he went walking downtown. Chest pain returned he began to feel jittery. He decided to go to the gym and was walking by the hospital he decided to stop. He notes some left arm pain but notes he has been recently diagnosed with a rotator cuff tear. No nausea vomiting. No shortness of breath. He states that taking a breath makes it feel worse. 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 Physical Examination: Afebrile vital signs stable Gen: Well-nourished well-developed Head: Normocephalic atraumatic Eyes: Perrl EOMI ENT: TMs clear no rhinorrhea moist mucous membranes Neck: Supple no lymphadenopathy no JVD nontender CVS: Regular rate rhythm no murmurs normal S1-S2 Respiratory: No distress clear to auscultation bilaterally chest nontender Abdomen: Soft nontender nondistended normal bowel sounds no masses Back: Nontender Extremity: no edema strong distal pulses symmetrically Skin: Normal color no rash Neuro: alert orientated ?3 CN II-XII intact normal strength sensation reflexes gait cerebellar Psych: Normal affect normal mood Test Results: EKG demonstrates a normal sinus rhythm at a rate of 68. Patient's initial cardiac enzymes are negative. CT Carleen of the chest was obtained because the patient has had prior DVT PE. This was negative for dissection or PE. Emergency Department Course and Treatment: Patient initially received a GI cocktail. This provided no relief. He was given Toradol. This provided no relief. Patient became very upset that he was here for a couple hours. He states that he can go home and take pain medication. He does not want to stay for a second troponin. He was advised on the risk of and heart attack. Patient appears to have the capacity to make this decision. Patient can communicate his choice. He understands risk and benefits what we have done for him and what may happen to him. He can make a logical rational choice. His choice appears to be consistent with his values Impression: 1. Chest Pain 2. Left AMA This note was generated with [employer] dictation software. It may contain incorrect words, spelling, and punctuation that were not noted in review of the chart prior to signing ED Disposition - Plan for ED Patient: Disposition: Home or Assisted Living Chief Complaint: Chest Pain Instructions: ED Chest Pain Atypical Unkn Cause Referrals: Gilson Yusuf MD [Primary Care Provider] - As soon as possible
[2018-10-30 15:25] LABS: Absolute Neutrophil Count 5.5 X10^3/uL (2.0-7.7); Basophil# 0.02 X10^3/uL; Basophil% 0.2 % (0-1); Eosinophil# 0.06 X10^3/uL; Eosinophils% 0.7 % (0-5); Hematocrit 41.3 % (40-54); Hemoglobin 14.7 g/dl (13.0-16.5); Mean Corp Hgb Conc 35.6 g/gl (32-36); Mean Corpuscular Hgb 29.8 pg (27.0-32.0); Mean Corpuscular Volume 83.8 fL (80-94); Mean Platelet Vol. 8.8 fl (6.2-12.0); Monocyte# 0.83 X10^3/uL; Monocyte% 10.2 % (0-10); Neutrophil # 5.47 X10^3/uL (2.7-7.7); Neutrophil % 67.7 % (47-70); Platelet Count 179 K/mm3 (150-450); RBC Distribution Width CV 12.5 % (11.6-14.6); Red Blood Count 4.93 M/mm3 (4.6-6.2); White Blood Count 8.1 K/mm3 (4.4-11.0)
[2018-10-30] MEDS: Mag Hydrox/Al Hydrox/Simeth 30 ML UDC PO (15:27)
[2018-10-30 15:28] VITALS: BP 149/95; PULSE 70; RESP 12; O2SAT 97
[2018-10-30 15:29] LABS: POSITIVE COUNT NO; POSITIVE DIFFERENTIAL NO; POSITIVE MORPHOLOGY NO
[2018-10-30 15:45] LABS: Anion Gap 8 (5-15); BUN 19 mg/dL (7-18); BUN/Creat Ratio 17.1 RATIO (10-20); Calcium,Total 8.9 mg/dL (8.5-10.1); Chloride 105 mmol/L (98-107); Creatinine, Serum 1.11 mg/dL (0.70-1.30); EST Glomerular Filtration Rate 73 mL/min (>60); Est Glom Filt Rate - Afr Amer 89 mL/min (>60); Glucose 93 mg/dL (74-106); Potassium 3.7 mmol/L (3.5-5.1); Sodium Level 141 mmol/L (136-145)
--- NOTE | 2018-10-30 15:54 | CT_ITS ---
STUDY: CTA CHEST REASON FOR EXAM: Male, 53 years old. Acute shortness of breath RADIATION DOSAGE (If Supplied By Facility): CTDIvol = ( 16.99 ) mGy, DLP = ( 665.98 ) mGycm TECHNIQUE: The examination was performed with the intravenous administration of 100 ml of Isovue 370 contrast material. Post-processing of the angiographic images was performed, with multiplanar reformation and 3D reconstruction. Individualized dose optimization techniques were used for this CT. COMPARISON: 10/27/2017 FINDINGS: Normal enhancement of the main pulmonary artery and right and left pulmonary arteries. Normal enhancement of the bilateral peripheral pulmonary arteries. There is no demonstrated pulmonary embolism. Normal thoracic aorta and visualized great vessels. There is no demonstrated aortic dissection. Normal heart and pericardium. Normal mediastinum. Normal hilar regions. Normal visualized trachea and bronchi. The lungs are well expanded. Normal pulmonary parenchyma. Normal pleura. Normal chest wall structures. Normal osseous structures. Normal visualized upper abdomen. CT/CTA Chest W/WO Contrast IMPRESSION: Normal CTA chest examination, without a demonstrated pulmonary embolism or arterial dissection. No significant interval change Electronically Signed: Mateo Drake MD at 17:10 EST , Service support ,
[2018-10-30 16:00] VITALS: BP 118/70; PULSE 66; RESP 13; O2SAT 97
[2018-10-30] MEDS: Ketorolac 15 MG/ML Vial IV (16:50)
[2018-10-30 17:12] VITALS: BP 134/91; PULSE 59; RESP 12; O2SAT 97
--- NOTE | 2018-10-30 17:33 | ED.RN ---
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 PT ADVISED REPEAT TROPONIN DUE TO BE DRAWN AT 1800.
--- OUTSIDE RECORDS SUMMARY | 2019-02-03 06:27 | XMS RPT_ITS ---
:1965 Author Organization OHIP Support Name Relationship Address Phone D Unavailable Unavailable Unavailable MICHELLE LÓPEZ Unavailable [address] + [address] [place] [address] D Unavailable Unavailable Unavailable MICHELLE LÓPEZ Unavailable [address] + [address] [place] [address] D Unavailable Unavailable Unavailable MICHELLE LÓPEZ Unavailable [address] + [address] [place] [address] D Unavailable Unavailable Unavailable MICHELLE LÓPEZ Unavailable [address] + [address] [place] [address] D Unavailable Unavailable Unavailable MICHELLE LÓPEZ Unavailable [address] + [address] [place] [address] D Unavailable Unavailable Unavailable MICHELLE LÓPEZ Unavailable [address] + [address] [place] [address] D Unavailable Unavailable Unavailable MICHELLE LÓPEZ Unavailable [address] + [address] [place] [address] D Unavailable Unavailable Unavailable MICHELLE LÓPEZ Unavailable [address] + [address] [place] [address] D Unavailable Unavailable Unavailable MICHELLE LÓPEZ Unavailable [address] + [address] [place] [address] D Unavailable Unavailable Unavailable MICHELLE LÓPEZ Unavailable [address] + [address] [place] [address] D Unavailable Unavailable Unavailable MICHELLE LÓPEZ Unavailable [address] + [address] [place] [address] D Unavailable Unavailable Unavailable MICHELLE LÓPEZ Unavailable [address] + [place] [address] Care Team Providers Name Role Phone WHITI, ALEXIA Primary Care Unavailable Jameson Zamora Attending Unavailable LISHNEVSKI, ALEXIA Primary Care Unavailable Jillian Jaimes Attending Unavailable LISHNEVSKI, ALEXIA Primary Care Unavailable Jameson Zamora Attending Unavailable WILLIAM CADE Referring Unavailable LISHNEVSKI, ALEXIA Primary Care Unavailable WILLIAM CADE Attending Unavailable LISHNEVSKI, ALEXIA Primary Care Unavailable Rich Rogers Attending Unavailable LISHNEVSKI, ALEXIA Primary Care Unavailable Momo Lopez Attending Unavailable KeenJustin Attending Unavailable Sinan, Gilson Primary Care Unavailable Sinan, Gilson Primary Care Unavailable UngurMomo Attending Unavailable Sinan, Gilson Primary Care Unavailable Arthur Jack Attending Unavailable WILLIAM CADE Attending Unavailable WILLIAM CADE Referring Unavailable [place], Gilson Primary Care Unavailable WILLIAM CADE Consulting Unavailable [place], Gilson Primary Care Unavailable Maciel Bal Attending Unavailable LISHNEVSKI, ALEXIA Primary Care Unavailable Veronica Ocampo Admitting Unavailable Irais Perkins Attending Unavailable Zach Denis Consulting Unavailable KASANDRA, HERBERT Y Referring Unavailable SINAN, GILSON Sorto Attending Unavailable SINANGILSON Referring Unavailable SINAN, GILSON Sorto Referring Unavailable SINAN, GILSON Sorto Attending Unavailable SINANGILSON Attending Unavailable SINAN, GILSON Sorto Referring Unavailable SINAN, GILSON Sorto Referring Unavailable SINAN, GILSON Sorto Referring Unavailable SINAN, GILSON Sorto Attending Unavailable LC GOLDMAN Attending Unavailable LC GOLDMAN Referring Unavailable LC GOLDMAN Attending Unavailable SINAN, GILSON Sorto Referring Unavailable KASANDRA, HERBERT Y Attending Unavailable LISHNOUSMANEI, ALEXIA Referring Unavailable GINNA, YANIRA F Admitting Unavailable GINNAYANIRA F Attending Unavailable YANIRA DYER F Referring Unavailable YANIRA DYER F Referring Unavailable YANIRA DYER F Referring Unavailable CHERYL DWYER Attending Unavailable Ovi BRODY Attending Unavailable Ovi BRODY Referring Unavailable Ovi MARCANO Admitting Unavailable Ovi MARCANO Attending Unavailable Ovi BRODY Primary Care Unavailable Ovi MARCANO Admitting Unavailable Ovi MARCANO Attending Unavailable Ovi BRODY Primary Care Unavailable KAASNDRA, HERBERT Y Attending Unavailable Ovi BRODY Referring Unavailable Ovi BRODY Primary Care Unavailable Ovi DYER Referring Unavailable Ovi BRODY Primary Care Unavailable Ovi DYER Admitting Unavailable Ovi DYER Attending Unavailable Ovi BRODY Primary Care Unavailable Ovi DYER Referring Unavailable Ovi DYER Referring Unavailable Ovi BRODY Primary Care Unavailable KASANDRA, HERBERT Y Referring Unavailable Ovi BRODY Primary Care Unavailable KASANDRA, HERBERT Y Referring Unavailable Ovi BRODY Primary Care Unavailable KENYON GOLDMAN Attending Unavailable Gilson Menon MD Referring Unavailable Gilson Menon MD Primary Care Unavailable KENYON GOLDMAN Referring Unavailable Gilson Menon MD Primary Care Unavailable KENYON GOLDMAN Attending Unavailable IMCA Referring Unavailable Gilson Menon MD Primary Care Unavailable PROBLEMS PROBLEMS DATE TYPE CONDITION / CODE ATTENDING STATUS SOURCE 12/02/2018 Unknown M75.112 - Incomplete WILLIAM CADE Active [place] rotator cuff tear or Community rupture of left Hospital shoulder, not Repository specified as traumatic / M75.112(ICD-10) 10/26/2018 Active Incomplete rotator LC GOLDMAN Active [place] cuff tear or rupture Clinic Other of left shoulder, [place] not specified as Repository traumatic / M75.112(ICD-10) 10/22/2018 Active Pain in left Active [place] shoulder / Clinic Other M25.512(ICD-10) [place] Repository 10/05/2018 Active Impingement syndrome LC GOLDMAN Active [place] of left shoulder / Clinic Other M75.42(ICD-10) [place] Repository 09/03/2018 Active Complication of Active [place] surgical and medical [facility] Main care, unspecified, [place] subsequent encounter Repository / T88.9XXD(ICD-10) 09/03/2018 Active Radiculopathy, Active [place] cervicothoracic [facility] Main region / [place] M54.13(ICD-10) Repository 08/17/2018 Active Radiculopathy, NA Active [place] cervical region / Clinic Main M54.12(ICD-10) [place] Repository 08/17/2018 Active Pain in thoracic NA Active [place] spine / Clinic Main M54.6(ICD-10) [place] Repository 10/30/2016 Active Nicotine dependence, NA Active [place] unspecified, Clinic Main uncomplicated / [place] F17.200(ICD-10) Repository 07/21/2018 Active Encounter for NA [facility] screening for lipoid Clinic Main disorders / [place] Z13.220(ICD-10) Repository 07/21/2018 Active Essential (primary) NA Active [place] hypertension / Clinic Main I10(ICD-10) [place] Repository 07/07/2018 Active Cervicalgia / NA Active [place] M54.2(ICD-10) Clinic Main [place] Repository 05/30/2018 Admitting Other abnormalities YULIYA, Active [facility] Diagnosis of gait and mobility [facility] / R26.89(ICD-10) Repository 05/30/2018 Admitting Cervicalgia / YULIYA, [facility] M54.2(ICD-10) [facility] Repository 05/30/2018 Admitting Unspecified disorder YULIYA, Active [facility] Diagnosis of right middle ear [facility] and mastoid / Repository H74.91(ICD-10) 05/15/2018 Unknown R53.1 - Weakness / Keen, Justin Active [place] R53.1(ICD-10) Repository 03/12/2018 Active Other general NA [facility] symptoms and signs / Clinic Main R68.89(ICD-10) [place] Repository 07/15/2018 Unknown M54.12 - WILLIAM CADE Active [place] Radiculopathy, [facility] cervical region / Hospital M54.12(ICD-10) Repository 02/10/2018 Active Gross hematuria / GINNA YANIRA F Active [place] R31.0(ICD-10) Clinic Other [place] Repository 03/25/2018 Unknown R42 - Dizziness and Shundry, Active [place] giddiness / Jameson [facility] R42(ICD-10) Hospital Repository 02/02/2018 Active Encounter for other NA Active [place] preprocedural Clinic Other examination / [place] Z01.818(ICD-10) Repository 03/05/2018 Unknown R07.9 - Chest pain, [place], Active [place] unspecified / [facility] R07.9(ICD-10) Hospital Repository 12/24/2017 Admitting Unknown / Ovi MARCANO Active [place] diagnosis UNK(Unknown) [facility] Repository PROCEDURES PROCEDURES No Procedure Records FoundRESULTS RESULTS INITAL EVALUATION (1) Observed: 11/03/2018 Status: F Source: [place] - PT 7:13 AM [facility] REPOSITORY [facility] [address] [place] [address] Fax REHABILITATION SERVICES INITIAL EVALUATION MR#: [id number] Acct: [id number] Name: AYSHA SAVAGE Rep #: [id number] : 1965 53 From: Franklin Yeh PT, Cert. MDT, OCS Referring Dr.: Status: REG RCR Insurance: MEDICARE PART A B MEDICAID Patient's Visit Information AYSHA SAVAGE is a 53 year old M referred to Physical Therapy by LC GOLDMAN with a diagnosis of LEFT RTC TEAR. Date of Evaluation: 11/02/18 Physical Therapist: Franklin Yeh PT, Cert MDT, OCS - Visit Plan Frequency: 2x /Week Duration: 4 Weeks Plan: PATIENT HAD MRI SHOWED PARTIAL TEAR. RTC/SCAPULAR STRENGTHENING,POSTURAL EX'S,MODLATIES - Subjective Findings: This 53 y/o male presenst to physical therapy with left RTC tear since Aug 2018. Patient noticed some soreness intilally then tried to change tire felt at tear with associated pain with burning stabbing pain. Patient pain located anrterior -bicep/lateral deltoid. Patient pain affects ability to raise arm [place] with ADL's ,housework tasks above 90 degrees.Patient pain affects sleeping on right side. Denies parathesia/tingling. Patient pain affects affects QOL and function.Patient seen DR vignesh MRI showed RTC tear. VOCATION: disablity. SOCIAL: single - Pain Left Shoulder Pain Intensity (Out of 10): 7 Pain Intensity Range: 10 - Objective POSTURE: mild foward posture ,rounded shoulders head foward. PALAPTION: tender AC. NEURO: inact. AROM: shoulder flexion 80 degrees ,abduction 90 degrees pain ,ER 90 degrees,IR 70 degrees. FUNCTION: pain reaching behind back ,behind head. MMT: infraspinatous 4-/5,subscapularis4/5,supraspinatous 3+/5 pain,deltoid 3+/5 pain - Special Tests R Shoulder Lift Off Test - Subscapular Tear: Negative R Shoulder Drop Sign - IS Test: Negative R Shoulder Empty Can - SS: Positive R Shoulder Belly Press - SupScap: Negative R Shoulder Neer - Impingement: Positive R Shoulder Taveras Tomi - Impingement: Positive R Shoulder Biceps Load Test - Labrum: Negative - Goals Goal 1:: Independant with HEP Goal Time Frame: 4-6 Weeks Goal 2:: Decrease shoulder pain by 50% or greater to improve function with ADL'S Goal Time Frame: 4-6 Weeks Goal 3:: Patient increase AROM shoulder flexion/abduction 150 degrees to improve function with ADL Goal Time Frame: 4-6 Weeks Goal 4:: Patient to increase strength 4/5 RTC and deltoid 4-/5 to improve function Goal Time Frame: 4-6 Weeks Goal 5:: Patient improve ALBINO quich dash score by to improve QOL. Goal Time Frame: 4-6 Weeks - Rehabilitation Potential Physical Therapy Diagnosis: This patient has pain with weakness with RTC partial tear with pin ,decrease ROM ,strength which impairs ADL'S and function above 90 degrees thus benifit from skilled PT Rehabilitation Potential: Good - Anticipated Interventions Patient/Client Instruction: Educate patient on: Condition, Plan of Care For the Purpose of:: To decrease pain, To increase ROM, To improve muscle performance and motor function, To increase tolerance to activity/condition/position, To improve ability of physical actions for home/community/work/leisure, To improve gait and locomotor functions, To decrease soft tissue restriction, To increase flexibility/ROM, To improve ability to perform tasks related to life management Therapeutic Exercise to Include: Strength training, Postural training, Passive ROM, Sanjana Exercises Comment: RTC For the Purpose of:: To decrease pain, To increase ROM, To improve muscle performance and motor function, To improve ability to perform ADL's, To increase tolerance to activity/condition/position, To improve ability of physical actions for home/community/work/leisure, To improve health of tissue, To decrease soft tissue restriction, To increase flexibility/ROM, To improve ability to perform tasks related to life management TENS: Yes IF ES: Yes Cryotherapy (ice pack, ice massage): Yes Thermo therapy (hot pack): Yes Ultrasound (thermal/non thermal): Yes For the Purpose of:: To decrease pain, To decrease swelling/inflammation, To increase ROM, To improve nutrient delivery to tissue, To increase oxygenation perfusion, To improve health of tissue, To decrease soft tissue restriction Thank you for the opportunity to evaluate your patient. For Medicare and Medicare HMO plans, please review the plan of care and approve it. It will need to be FAXED BACK to us at [phone] for Medicare purposes. For Medicare only, by signing this I certify the plan of care. Please let me know if there are questions or concerns regarding this plan of care. Physician Signature: Date: <Electronically signed by Franklin Yeh PT, Cert. T, [facility]> 11/03/18 0713 CC: LC GOLDMAN; Gilson Menon MD JLA Signed EMERGENCY DEPARTMENT Observed: 10/30/2018 Status: F Source: [place] SUMMARY 10:39 PM [facility] REPOSITORY [facility] Medical Records Department [address] [place] [address] Emergency Department Summary 10/30/18 1505 MR#: [id number] Acct: [id number] Name: AYSHA SAVAGE Rep #: [id number] : 1965 53 From: Maciel Bal DO PCP: Gilson Menon MD Status: DEP ER - ER Visit Summary Date of Service: 10/30/18 Chief Complaint: Chest pain History of Present Illness: The patient is a 53 M who states this morning 0900 hours he was sitting having coffee. He developed a pressure in his chest and radiates anteriorly and posteriorly. After 1 hour it went away. Around 1300 hrs. he went walking downtown. Chest pain returned he began to feel jittery. He decided to go to the gym and was walking by the hospital he decided to stop. He notes some left arm pain but notes he has been recently diagnosed with a rotator cuff tear. No nausea vomiting. No shortness of breath. He states that taking a breath makes it feel worse. 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 Physical Examination: Afebrile vital signs stable Gen: Well-nourished well-developed Head: Normocephalic atraumatic Eyes: Perrl EOMI ENT: TMs clear no rhinorrhea moist mucous membranes Neck: Supple no lymphadenopathy no JVD nontender CVS: Regular rate rhythm no murmurs normal S1-S2 Respiratory: No distress clear to auscultation bilaterally chest nontender Abdomen: Soft nontender nondistended normal bowel sounds no masses Back: Nontender Extremity: no edema strong distal pulses symmetrically Skin: Normal color no rash Neuro: alert orientated 3 CN II-XII intact normal strength sensation reflexes gait cerebellar Psych: Normal affect normal mood Test Results: EKG demonstrates a normal sinus rhythm at a rate of 68. Patient's initial cardiac enzymes are negative. CT Carleen of the chest was obtained because the patient has had prior DVT PE. This was negative for dissection or PE. Emergency Department Course and Treatment: Patient initially received a GI cocktail. This provided no relief. He was given Toradol. This provided no relief. Patient became very upset that he was here for a couple hours. He states that he can go home and take pain medication. He does not want to stay for a second troponin. He was advised on the risk of and heart attack. Patient appears to have the capacity to make this decision. Patient can communicate his choice. He understands risk and benefits what we have done for him and what may happen to him. He can make a logical rational choice. His choice appears to be consistent with his values Impression: 1. Chest Pain 2. Left AMA This note was generated with [employer] dictation software. It may contain incorrect words, spelling, and punctuation that were not noted in review of the chart prior to signing ED Disposition - Plan for ED Patient: Disposition: Home or Assisted Living Chief Complaint: Chest Pain Instructions: ED Chest Pain Atypical Unkn Cause Referrals: Gilson Menon MD [Primary Care Provider] - As soon as possible What to do if you have Problems For any increased pain, shortness of breath, bleeding, nausea or vomiting, chest pain, or any unexpected problems, contact your Primary Care Provider. Call [facility] ([phone]) or report to the closest Emergency Room. Call 911 if necessary. 10/30/18 2239 <Electronically signed by Maciel Bal DO> Date Maciel Bal DO Cosigner Signature (If Indicated): Date CC: Gilson Menon MD CTA CHEST W/WO Observed: 10/30/2018 Status: F Source: [place] CONTRAST 3:55 PM [facility] REPOSITORY [facility] Imaging Services [address] [place] [address] [place] [address] CTA Chest W/WO Contrast MR#: [id number] Acct: [id number] Name: AYSHA SAVAGE Rep #: [id number] : 1965 M 53 From: Óscar Drake MD PCP: Gilson Menon MD Status: REG ER Study: CTA Chest W/WO Contrast Date of Exam: 10/30/18 Exam# [id number] Ordering Dr: Maciel Bal DO STUDY: CTA CHEST REASON FOR EXAM: Male, 53 years old. Acute shortness of breath RADIATION DOSAGE (If Supplied By Facility): CTDIvol = ( 16.99 ) mGy, DLP = ( 665.98 ) mGycm TECHNIQUE: The examination was performed with the intravenous administration of 100 ml of Isovue 370 contrast material. Post-processing of the angiographic images was performed, with multiplanar reformation and 3D reconstruction. Individualized dose optimization techniques were used for this CT. COMPARISON: 10/27/2017 FINDINGS: Normal enhancement of the main pulmonary artery and right and left pulmonary arteries. Normal enhancement of the bilateral peripheral pulmonary arteries. There is no demonstrated pulmonary embolism. Normal thoracic aorta and visualized great vessels. There is no demonstrated aortic dissection. Normal heart and pericardium. Normal mediastinum. Normal hilar regions. Normal visualized trachea and bronchi. The lungs are well expanded. Normal pulmonary parenchyma. Normal pleura. Normal chest wall structures. Normal osseous structures. Normal visualized upper abdomen. CT/CTA Chest W/WO Contrast IMPRESSION: Normal CTA chest examination, without a demonstrated pulmonary embolism or arterial dissection. No significant interval change Electronically Signed: Mateo Drake MD at 17:10 EST , Service support , CC: Maciel Bal DO; Gilson Menon MD 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: Signed CBC W/DIFF, AUTOMATED Collected: 10/30/2018 Status: F Source: [place] 3:14 PM [facility] REPOSITORY TYPE CODE TESTS RESULT OUT OF RANGE REFERENCE UNITS LAB L100.1000 4.4-11.0 K/mm3 Normal WBC 8.1 LAB L100.1200 4.6-6.2 M/mm3 Normal RBC 4.93 LAB L100.1300 13.0-16.5 g/dl Normal HGB 14.7 LAB L100.1400 40-54 % Normal HCT 41.3 LAB L100.1500 80-94 fL Normal MCV 83.8 LAB L100.1600 27.0-32.0 pg Normal MCH 29.8 LAB L100.1700 32-36 g/gl Normal MCHC 35.6 LAB L100.1810 11.6-14.6 % Normal RDW CV 12.5 LAB L100.1820 35.1-43.9 fl Normal RDW SD 38.0 LAB L100.1900 150-450 K/mm3 Normal PLT 179 LAB L100.2000 6.2-12.0 fl Normal MPV 8.8 LAB L100.2100 47-70 % Normal NEUT% 67.7 LAB L100.2200 19-41 % Normal LY% 21.0 LAB L100.2300 0-10 % High MONO% 10.2 LAB L100.2400 0-5 % Normal EO% 0.7 LAB L100.2500 0-1 % Normal BASO% 0.2 LAB L100.2550 0.0-0.9 % Normal IM GRAN % 0.200 Result Comment: IG% - Immature Granulocytes (promyelocytes, myelocytes and metamyelocytes) > 1% indicates that a LEFT SHIFT is Present. LAB L100.2620 2.0-7.7 X10 3/uL Normal Absolute Neut 5.5 LAB L100.2720 0.83-4.51 X10 3/ul Normal Absolute Lymph 1.70 Performed By: #### L100.0100 #### [facility] [address] [place], [address] BASIC METABOLIC Collected: 10/30/2018 Status: F Source: [place] PROFILE ([facility]) 3:14 PM [facility] REPOSITORY TYPE CODE TESTS RESULT OUT OF RANGE REFERENCE UNITS LAB L501.0100 74-106 mg/dL Normal GLU 93 Result Comment: Please note revised GLUCOSE reference range effective 2017. LAB L501.1000 7-18 mg/dL High BUN 19 LAB L501.1100 0.70-1.30 mg/dL Normal CREAT,SERUM 1.11 Result Comment: The validity of the calculated GFR AND GFRAA in patients over 70 years has not been determined. Clinical correlation is essential. LAB L501.1110 >60 mL/min Normal EST GFR 73 Result Comment: Non- GFR Calc LAB L501.1115 >60 mL/min Normal EST GFR - AA 89 Result Comment: GFR Calc LAB L501.1255 ml/min Normal Estimated CRCL 83.50 LAB L501.1300 10-20 RATIO Normal BUN/CRE 17.1 LAB L501.2200 8.5-10 mg/dL Normal .1 CA 8.9 LAB L501.5300 136-14 mmol/L Normal 5 NA 141 LAB L501.5600 3.5-5. mmol/L Normal 1 K 3.7 LAB L501.5900 98-107 mmol/L Normal CL 105 LAB L501.6100 21.0-3 mmol/L Normal 2.0 CO2 28.0 LAB L501.6200 5-15 Normal GAP 8 Performed By: #### L500.2500, L501.4010 #### [facility] [address] [place], [address] TROPONIN-I Collected: 10/30/2018 Status: F Source: [place] 3:14 PM [facility] REPOSITORY TYPE CODE TESTS RESULT OUT OF RANGE REFERENCE UNITS LAB L501.4010 <0.045 ng/mL Normal < 0.015 TROPONIN-I Result Comment: TROPONIN-I EXPECTED VALUES <0.045 Negative 0.045 - 0.590 Consistent with Cardiac Damage > OR = 0.600 Critical Value Not every elevated troponin is indicative of LA. These values should be used with clinical judgement in examining the patient's clinical picture for diagnosis. To establish a diagnosis of LA versus myocardial injury, there must be a demonstrated rise and/or fall in the troponin values, in addition to ischemic symptoms, EKG changes, new regional wall motion abnormality, and/or angiographical evidence. PLEASE NOTE: REFERENCE RANGES EDITED 18 Performed By: #### L500.2500, L501.4010 #### [facility] [address] [place], [address] CHEST 1 VIEW Observed: 10/30/2018 Status: F Source: [place] (PORTABLE) 3:05 PM [facility] REPOSITORY [facility] Imaging Services [address] [place] [address] Chest 1 View (Portable) MR#: [id number] Acct: [id number] Name: AYSHA SAVAGE Rep #: [id number] : 1965 M 53 From: Kishan Mcmahon MD PCP: Gilson Menon MD Status: REG ER Study: Chest 1 View (Portable) Date of Exam: 10/30/18 Exam# [id number] Ordering Dr: Maciel Bal DO STUDY: X-RAY CHEST REASON FOR EXAM: Male, 53 years old. Chest pain. TECHNIQUE: Single AP portable view of the chest. COMPARISON: Comparison is made with prior study dated January 26, 2018. FINDINGS: EKG electrodes are seen. Hyperinflation. Scattered calcified granulomas. There is no demonstrated pleural abnormality. Normal size heart. Normal mediastinum and hema. Normal visualized pulmonary arteries. There is atherosclerotic calcification of the aortic arch with tortuosity. Normal visualized thoracic spine. Surgical fusion is seen in the lower cervical spine. There is no demonstrated abnormality of the visualized soft tissue structures of the upper abdomen. RAD/Chest 1 View (Portable) IMPRESSION: Hyperinflation. No acute abnormality is seen. Electronically Signed: Kishan Mcmahon MD at 15:28 EST Tel [phone], Service support , CC: Maciel Bal DO; Gilson Menon MD 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: Signed PROGRESS Observed: 10/26/2018 Status: COMPLETED Source: [place] 3:25 PM CLINIC OTHER CAMPUS REPOSITORY HNO ID: [id number] Author: Lc Goldman Service: (none) Author Type: Physician Type: Progress Notes Filed: 10/26/2018 3:27 PM Note Text: Chief Complaint: Follow up post Left shoulder MRI History: Aysha is a 53 year old male who is here for follow- up of their Left shoulder. There has been minimal improvement of symptoms. He denies fevers, chills, night sweats or other constitutional symptoms. No calf pain. He quantitates the pain as 8/10. Physical Examination: Patient is alert, oriented and in no acute distress. Examination of the C-spine reveals no palpable tenderness. There is no atrophy or asymmetry. Examination of the shoulder reveals no evidence of atrophy and the skin is intact. No obvious soft tissue or bony abnormality. He has no pain with palpation along the SC joints. He does have pain along the AC joint, greater tuberosity and subacromial space. He exhibits active FE to 90 degrees with forward elevation and passively to 150 degrees. A positive impingement sign and positive Taveras test are noted. Crepitation noted along the subacromial space with ROM. He has decreased external strength 3/5 and painful internal rotation passively and actively as compared to the other side. He has a positive empty can test as compared to the other side. He has a positive drop arm test. External rotation testing reveals less strength as well as a negative lift-off test is noted. A negative cross body adduction test is seen as well as negative Yergason?s, Speed?s, and O? Loyd?s tests. He has full ROM of both elbows and wrists. Good pulses and good cap refill noted. Gross sensation is intact. Reflexes are symmetric bilaterally. The opposite joint reveals full ROM, no pain with palpation, good stability and good strength. MRI: Small focus of the immediate-hyperintense signal within the substance of the distal supraspinatus tendon as described above, suggesting tendinosis with possible mild interstitial partial tearing. There is no other evidence of rotator cuff tear. There is a paucity of the posterior superior and inferior glenoid labral tissue without discrete labral tear or displacement. Moderate soft tissue and marrow edema at the acromioclavicular joint. Correlate clinically with symptomatology. Mild heterogeneity of marrow signal. Findings are likely on the basis of residual or reconversion hematopoietic marrow. Correlate with CBC. Assessment: Incomplete tear of left rotator cuff (primary encounter diagnosis) Plan: A discussion with Aysha Savage regarding their diagnosis and the treatment alternatives was undertaken. For pain management purposes he would like to proceed with an subacromial corticosteroid injection along the left shoulder. The patient?s left shoulder was injected with intra-articular 2cc of Kenalog and 5cc 1% Lidocaine under aseptic conditions and with the patient?s informed consent. This was well tolerated and there were no complications. In addition, he was given a formal physical therapy program emphasizing RTC strengthening and ROM. He will ice their shoulder as instructed here in the office. I will see the patient back in 6 weeks. For pain management purposes he may take OTC NSAIDs such as Advil or Tylenol. Explanation of the risks, benefits, complications and alternative treatment were explained. The risks that were explained included but were not limited to: 1. GI disturbance as serious as GI bleed and 2. Liver damage 3. Kidney damages including renal failure He was also told that if any unusual symptoms develop, that the medication should be stopped immediately and that their primary care physician as well as our office should be notified. 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 medication extermination inspector, they understand the need for medication monitoring through their primary care physician. He is aware of the potential risks and side effects of this medication as well as the expected benefits, and wishes to proceed with its use. Lc Goldman MD CNOV Observed: 10/26/2018 Status: COMPLETED Source: [facility] 2:45 PM CLINIC OTHER CAMPUS REPOSITORY Office Visit (AGPOB1) AYSHA SAVAGE ([id number]) 1965 M Date Time Provider Department 10/26/18 2:45 PM LC GOLDMAN AGPOB1 During your visit today, we recorded the following information about you: Respiration Weight Height 14/minute 100.7 kg 1.803 m Omar Brandt LPN 10/26/2018 3:27 PM Signed REVIEW OF SYSTEMS: GENERAL: Well developed, well nourished. No acute distress PAIN: Pain left shoulder CARDIOVASCULAR: Negative for chest pain, leg swelling and palpations. MSK: joint pain Left shoulder SKIN: Negative for lesions, rash, itching, metal sensitivity NEURO: Negative for seizure, trauma, numbness/tingling of extremities. ENDOCRINE: Negative for Diabetes Type 1 and Type 2 HEMATOLOGY: Clots HX Lc Goldman MD 10/26/2018 3:27 PM Signed Chief Complaint: Follow up post Left shoulder MRI History: Aysha is a 53 year old male who is here for follow- up of their Left shoulder. There has been minimal improvement of symptoms. He denies fevers, chills, night sweats or other constitutional symptoms. No calf pain. He quantitates the pain as 8/10. Physical Examination: Patient is alert, oriented and in no acute distress. Examination of the C-spine reveals no palpable tenderness. There is no atrophy or asymmetry. Examination of the shoulder reveals no evidence of atrophy and the skin is intact. No obvious soft tissue or bony abnormality. He has no pain with palpation along the SC joints. He does have pain along the AC joint, greater tuberosity and subacromial space. He exhibits active FE to 90 degrees with forward elevation and passively to 150 degrees. A positive impingement sign and positive Taveras test are noted. Crepitation noted along the subacromial space with ROM. He has decreased external strength 3/5 and painful internal rotation passively and actively as compared to the other side. He has a positive empty can test as compared to the other side. He has a positive drop arm test. External rotation testing reveals less strength as well as a negative lift-off test is noted. A negative cross body adduction test is seen as well as negative Yergason?s, Speed?s, and O? Loyd?s tests. He has full ROM of both elbows and wrists. Good pulses and good cap refill noted. Gross sensation is intact. Reflexes are symmetric bilaterally. The opposite joint reveals full ROM, no pain with palpation, good stability and good strength. MRI: Small focus of the immediate-hyperintense signal within the substance of the distal supraspinatus tendon as described above, suggesting tendinosis with possible mild interstitial partial tearing. There is no other evidence of rotator cuff tear. There is a paucity of the posterior superior and inferior glenoid labral tissue without discrete labral tear or displacement. Moderate soft tissue and marrow edema at the acromioclavicular joint. Correlate clinically with symptomatology. Mild heterogeneity of marrow signal. Findings are likely on the basis of residual or reconversion hematopoietic marrow. Correlate with CBC. Assessment: Incomplete tear of left rotator cuff (primary encounter diagnosis) Plan: A discussion with Aysha Savage regarding their diagnosis and the treatment alternatives was undertaken. For pain management purposes he would like to proceed with an subacromial corticosteroid injection along the left shoulder. The patient?s left shoulder was injected with intra-articular 2cc of Kenalog and 5cc 1% Lidocaine under aseptic conditions and with the patient?s informed consent. This was well tolerated and there were no complications. In addition, he was given a formal physical therapy program emphasizing RTC strengthening and ROM. He will ice their shoulder as instructed here in the office. I will see the patient back in 6 weeks. For pain management purposes he may take OTC NSAIDs such as Advil or Tylenol. Explanation of the risks, benefits, complications and alternative treatment were explained. The risks that were explained included but were not limited to: 1. GI disturbance as serious as GI bleed and 2. Liver damage 3. Kidney damages including renal failure He was also told that if any unusual symptoms develop, that the medication should be stopped immediately and that their primary care physician as well as our office should be notified. 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 medication extermination inspector, they understand the need for medication monitoring through their primary care physician. He is aware of the potential risks and side effects of this medication as well as the expected benefits, and wishes to proceed with its use. Lc Goldman MD Referring Provider: SELF [[id number]] Allergies As of Date: 10/26/2018 (No Known Allergies) Date Reviewed: 10/26/2018 Reviewed by: Omar (Gabriela) Little - Fully Assessed Reason for Visit: Follow Up [171] Cmt: MRI left shoulder results Primary Visit Diagnosis:Incomplete tear of left rotator cuff [M75.112] Order(s):DRAIN/INJECT LARGE JOINT/BURSA [[id number]] Order #: [id number] [] lidocaine 10 mg/mL (1 %) injection (XYLOCAINE)Disp: Rfl: [] triamcinolone acetonide 80 mg injection (KENALOG 40)Disp: Rfl: CONSULT TO PHYSICAL THERAPY (AG) [[id number]] Order #: [id number]: 1 Prescriptions as of 10/26/2018 Sig: DICLOFENAC 1 % TOPICAL GEL Apply 2 g to affected area fo* HYDROCODONE 5 MG-ACETAMINOPHE* Take 1 tablet by mouth every * RIVAROXABAN 20 MG TABLET TAKE ONE TABLET BY MOUTH ONCE* LEVOTHYROXINE 75 MCG TABLET Take 1 tablet by mouth once d* MULTIVITAMIN TABLET Take 1 tablet by mouth once d* Problem List As Of Date 10/26/2018 Noted Resolved Postlaminectomy syndrome [M96.1] INVALID FOR* Migraine with typical aura [G43.109] INVALID FOR* 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] INVALID FOR* 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* Deep vein thrombosis (DVT) (HCC) [I82.409] 04/30/2017 History of DVT of lower extremity- 2009 [Z86.71*INVALID FOR* Chronic back pain [M54.9, G89.29] INVALID FOR* Mood disorder (HCC) [F39] INVALID FOR* HTN (hypertension) [I10] Hypothyroidism [E03.9] Smoking [F17.200] Asthma [J45.909] 10/30/2016 Bipolar disease, chronic (HCC) [F31.9] INVALID FOR* Family history of colon cancer [Z80.0] INVALID FOR* Cervical spine disease [M48.9] INVALID FOR* History of colonic polyps [Z86.010] INVALID FOR* Presence of IVC filter-2010 [Z95.828] INVALID FOR* Hyperglycemia [R73.9] INVALID FOR* History of blood clots [Z86.718] INVALID FOR* Gouty arthritis of toe of left foot [M10.9] INVALID FOR* Vertebral artery disease (HCC)-right vertebral *INVALID FOR* Congenital brain anomaly (HCC)Vertebral artery *INVALID FOR* Family history of malignant neoplasm of gastroi*INVALID FOR* More... BPH without urinary obstruction [N40.0] INVALID FOR* Gross hematuria [R31.0] INVALID FOR* Prescriptions ordered this encounter Disp Refills Start End LIDOCAINE 10 MG/ML (1 %) INJECTION S* 10/26/2018 10/26/2018 Route: OTHER TRIAMCINOLONE ACETONIDE 40 MG/ML FLETCHER* 10/26/2018 10/26/2018 Route: IAtc Disposition: Return in about 6 weeks (around 12/07/2018). Follow-up and Disposition History Recorded Encounter Status:Closed by LC GOLDMAN MD on 10/26/18 PROGRESS Observed: 10/26/2018 Status: COMPLETED Source: [facility] 2:38 PM CLINIC OTHER CAMPUS REPOSITORY HNO ID: [id number] Author: Omar Brandt Service: (none) Author Type: LICENSED NURSE Type: Progress Notes Filed: 10/26/2018 3:27 PM Note Text: REVIEW OF SYSTEMS: GENERAL: Well developed, well nourished. No acute distress PAIN: Pain left shoulder CARDIOVASCULAR: Negative for chest pain, leg swelling and palpations. MSK: joint pain Left shoulder SKIN: Negative for lesions, rash, itching, metal sensitivity NEURO: Negative for seizure, trauma, numbness/tingling of extremities. ENDOCRINE: Negative for Diabetes Type 1 and Type 2 HEMATOLOGY: Clots HX MRI SHOULDER WO IV Observed: 10/22/2018 Status: F Source: [facility] 5:47 PM HEALTH SYSTEM REPOSITORY Performed at [facility] APPROVED BY: Lc Valle MD MRI LEFT SHOULDER WITHOUT IV CONTRAST: CLINICAL INDICATION: Worsening left shoulder pain following injury two months ago. COMPARISON: Left shoulder radiographs 10/05/2018. Multiplanar multisequence images are obtained of the left shoulder without IV contrast. There is a small focus of intermediate-hyperintense signal within the substance of the anterior distal supraspinatus tendon, oblique coronal fat-saturated T2-weighted images 8 and 9 of series 5. The si gnal abnormality measures 6-7 mm AP, oblique sagittal fat-saturated T2-weighted image 16 of series 6. There is no other evidence of partial or full-thickness rotator cuff tear. There is no muscle edema, atrophy or fatty replacement. The long head biceps tendon is unremarkable. The tendon is present within the bicipital groove. There is a relative paucity of posterior superior and inferior glenoid labral tissue. Otherwise, there is no evidence for glenoid labral tear. There is no sizable glenohumeral effusion or fluid distended subacromial-subdeltoid bursa. There is soft tissue edema at the acromioclavicular joint with a moderate pattern of marrow edema within the distal clavicle and acromion process. Acromioclavicular articulation is preserved. The maisha coclavicular ligaments appear uninterrupted. There is a mild heterogeneity of marrow signal with involvement of the humeral head. IMPRESSION: Small focus of the immediate-hyperintense signal within the substance of the distal supraspinatus tendon as described above, suggesting tendinosis with possible mild interstitial partial tearing. There is no other evidence of rotator cuff tear. There is a paucity of the posterior superior and inferior glenoid labral tissue without discrete labral tear or displacement. Moderate soft tissue and marrow edema at the acromioclavicular joint. Correlate clinically with symptomatology. Mild heterogeneity of marrow signal. Findings are likely on the basis of residual or reconversion hematopoietic marrow. Correlate with CBC. CNOV Observed: 10/05/2018 Status: COMPLETED Source: [facility] 2:00 PM CLINIC OTHER CAMPUS REPOSITORY Office Visit (AGPOB1) AYSHA SAVAGE ([id number]) 1965 M Date Time Provider Department 10/05/18 2:00 PM LC GOLDMANB1 During your visit today, we recorded the following information about you: Respiration Weight Height 14/minute 100.7 kg 1.803 m Omar BrandtGABRIELA 10/05/2018 1:57 PM Signed REVIEW OF SYSTEMS: GENERAL: Well developed, well nourished. No acute distress PAIN: Pain Left shoulder CARDIOVASCULAR: Negative for chest pain, leg swelling and palpations. MSK: joint pain Left shoulder SKIN: Negative for lesions, rash, itching, metal sensitivity NEURO: Negative for seizure, trauma, numbness/tingling of extremities. ENDOCRINE: Negative for Diabetes Type 1 and Type 2 HEMATOLOGY: Clots DVT hx Lc Goldman MD 10/05/2018 1:57 PM Signed Chief Complaint: Right shoulder pain Consulting Physician: Gilson Menon History: Aysha is a 53 year old male who presents with several months of Left shoulder pain. He states he had a traumatic injury, felt a tearing sensation in left shoulder while moving a tire ~ 2 weeks ago. Previously, he had left shoulder soreness for a few months due to weight-lifting. The pain is located along the superior and lateral aspect of the shoulder. The pain is typically dull but can be sharp at times. The pain does not radiate below the elbow. He denies any neck, elbow, or wrist pain. No numbness or tingling in the extremity. The pain is exacerbated by overhead activities such as putting on a shirt, combing their hair, and lifting objects away from their body. No previous injury to the shoulder. He reports significant night pain and difficulty sleeping. He also reports weakness with lifting and overhead activities. No fever, chills, night sweats, weight loss, or other constitutional symptoms. Some popping and clicking noted but no locking or catching. He quantitates the pain as 8/10. FAMILY HISTORY Problem Relation Age of Onset - Coronary Artery Disease Mother - other (CHF) Mother - Colon Cancer Father - Cancer Father - Coronary Artery Disease Brother 54 mi PAST MEDICAL HISTORY Diagnosis Date - Deep vein thrombosis (DVT) (HCC) per patient has a clotting disorder, multiple blood clots, one in each leg and in left arm - Depression - Gross hematuria - HTN (hypertension) - Hypothyroidism - Obesity - Smoking PAST SURGICAL HISTORY Procedure Laterality Date - APPENDECTOMY - HERNIA REPAIR W/MESH 1996 bilateral inguinal repair - IVC FILTER SURGICAL 2010 - LUMBAR SPINE FUSION COMBINED 2002 L5-S1 posterior - NERVE STIMULATOR,0003 insertion AND removal x 2 - PAST SURGICAL HISTORY OF cervical surgery 2014 - PAST SURGICAL HISTORY OF 2003- lumbar - PAST SURGICAL HISTORY OF thoracic surgery 2009 - SKIN / WOUND CONSULT cellulitis (right hand) Social History Marital status: Spouse name: Years of education: Number of children: Social History Main Topics Smoking status: Former Smoker Packs/day: 1.00 Years: 0.00 Types: Cigarettes Quit date: 08/25/2018 Smokeless tobacco: Never Used Alcohol use: No Drug use: No Sexual activity: Not Currently Other Topics Concern Service No Blood Transfusions No Caffeine Concern Yes Comment:excessive Occupational Exposure No Hobby Hazards No Sleep Concern No Weight Concern Yes Special Diet No Back Care No Exercise Yes Bike Helmet No Seat Belt Yes Self-Exams Yes Current Outpatient Prescriptions: diclofenac sodium (VOLTAREN) 1 % topical gel Apply 2 g to affected area four times daily. HYDROcodone-acetaminophen (NORCO) 5-325 mg per tablet Take 1 tablet by mouth every 6 hours as needed. rivaroxaban (XARELTO) 20 mg tablet TAKE ONE TABLET BY MOUTH ONCE DAILY WITH DINNER levothyroxine (SYNTHROID) 75 mcg tablet Take 1 tablet by mouth once daily. multivitamin tablet Take 1 tablet by mouth once daily. No current facility-administered medications for this visit. ALLERGIES No Known Allergies Physical Examination: Patient is alert, oriented and in no acute distress. Examination of the C-spine reveals no palpable tenderness. There is no atrophy or asymmetry. Examination of the shoulder reveals no evidence of atrophy and the skin is intact. No obvious soft tissue or bony abnormality. He has no pain with palpation along the SC joints. He does have pain along the AC joint, greater tuberosity and subacromial space. He exhibits active FE to 90 degrees with forward elevation and passively to 150 degrees. A positive impingement sign and positive Taveras test are noted. Crepitation noted along the subacromial space with ROM. He has decreased external strength 3/5 and painful internal rotation passively and actively as compared to the other side. He has a positive empty can test as compared to the other side. He has a positive drop arm test. External rotation testing reveals less strength as well as a negative lift-off test is noted. A negative cross body adduction test is seen as well as negative Yergason?s, Speed?s, and O? Loyd?s tests. He has full ROM of both elbows and wrists. Good pulses and good cap refill noted. Gross sensation is intact. Reflexes are symmetric bilaterally. The opposite joint reveals full ROM, no pain with palpation, good stability and good strength. X-ray Evaluation: An AP, Y-view, and axillary views were ordered, obtained, and reviewed today which reveal a Type II acromion. The glenohumeral joint appears intact. No tumors or fractures noted. No significant OA changes noted. Assessment: Rotator cuff impingement syndrome of left shoulder (primary encounter diagnosis) Acute pain of left shoulder Plan: I had a discussion with Aysha today regarding their diagnosis and treatment options. Secondary to his weakness and pain along the shoulder region I am suspicious for a rotator cuff tear and as a result have recommended a MRI scan. He will return once the MRI is obtained. In the meantime he will proceed with a RTC home exercise program shown to him here in the office. All of his questions were answered and he wants to proceed with the treatment plan. For pain management purposes he may take OTC NSAIDS such as Advil or Tylenol. Explanation of the risks, benefits, complications and alternative treatment were explained. The risks that were explained included but were not limited to: 1. GI disturbance as serious as GI bleed and 2. Liver damage 3. Kidney damages including renal failure. He was also told that if any unusual symptoms develop, that the medication should be stopped immediately and that his primary care physician as well as our office should be notified. If he takes this medication extermination inspector, he understands the need for medication monitoring through his primary care physician. He is aware of the potential risks and side effects of this medication as well as the expected benefits, and wishes to proceed with its use. Lc Goldman MD Referring Provider: GILSON MENON [[id number]] Allergies As of Date: 10/05/2018 (No Known Allergies) Date Reviewed: 10/05/2018 Reviewed by: Omar Haro) Little - Fully Assessed Reason for Visit: Shoulder Injury [1216] Cmt: pt states months ago the pain began with tenderness in left shoulder. pt states he works out in the gym. pt states he was changing a tired a week ago and injured his shoulder. pt states he is right handed. pt states [place] or [employer] Gel is not working. Primary Visit Diagnosis:Rotator cuff impingement syndrome of left shoulder [M75.42] Other Visit Diagnosis:Acute pain of left shoulder [M25.512] Order(s):XR SHOULDER 3V AP/Y VIEW/AXILLARY LT (AK) [[id number]] Order #: [id number] MRI SHOULDER WO IVCON LT [[id number]] Order #: [id number] FUTURE Prescriptions as of 10/05/2018 Sig: DICLOFENAC 1 % TOPICAL GEL Apply 2 g to affected area fo* HYDROCODONE 5 MG-ACETAMINOPHE* Take 1 tablet by mouth every * RIVAROXABAN 20 MG TABLET TAKE ONE TABLET BY MOUTH ONCE* LEVOTHYROXINE 75 MCG TABLET Take 1 tablet by mouth once d* MULTIVITAMIN TABLET Take 1 tablet by mouth once d* Problem List As Of Date 10/05/2018 Noted Resolved Postlaminectomy syndrome [M96.1] INVALID FOR* Migraine with typical aura [G43.109] INVALID FOR* 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] INVALID FOR* 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* Deep vein thrombosis (DVT) (HCC) [I82.409] 04/30/2017 History of DVT of lower extremity- 2009 [Z86.71*INVALID FOR* Chronic back pain [M54.9, G89.29] INVALID FOR* Mood disorder (HCC) [F39] INVALID FOR* HTN (hypertension) [I10] Hypothyroidism [E03.9] Smoking [F17.200] Asthma [J45.909] 10/30/2016 Bipolar disease, chronic (HCC) [F31.9] INVALID FOR* Family history of colon cancer [Z80.0] INVALID FOR* Cervical spine disease [M48.9] INVALID FOR* History of colonic polyps [Z86.010] INVALID FOR* Presence of IVC filter-2010 [Z95.828] INVALID FOR* Hyperglycemia [R73.9] INVALID FOR* History of blood clots [Z86.718] INVALID FOR* Gouty arthritis of toe of left foot [M10.9] INVALID FOR* Vertebral artery disease (HCC)-right vertebral *INVALID FOR* Congenital brain anomaly (HCC)Vertebral artery *INVALID FOR* Family history of malignant neoplasm of gastroi*INVALID FOR* More... BPH without urinary obstruction [N40.0] INVALID FOR* Gross hematuria [R31.0] INVALID FOR* Disposition: Return for after MRI. Follow-up and Disposition History Recorded Encounter Status:Closed by LC GOLDMAN MD on 10/05/18 PROGRESS Observed: 10/05/2018 Status: COMPLETED Source: [facility] 1:46 PM CLINIC OTHER CAMPUS REPOSITORY HNO ID: [id number] Author: Lc Goldman Service: (none) Author Type: Physician Type: Progress Notes Filed: 10/05/2018 1:57 PM Note Text: Chief Complaint: Right shoulder pain Consulting Physician: Gilson Menon History: Aysha is a 53 year old male who presents with several months of Left shoulder pain. He states he had a traumatic injury, felt a tearing sensation in left shoulder while moving a tire ~ 2 weeks ago. Previously, he had left shoulder soreness for a few months due to weight- lifting. The pain is located along the superior and lateral aspect of the shoulder. The pain is typically dull but can be sharp at times. The pain does not radiate below the elbow. He denies any neck, elbow, or wrist pain. No numbness or tingling in the extremity. The pain is exacerbated by overhead activities such as putting on a shirt, combing their hair, and lifting objects away from their body. No previous injury to the shoulder. He reports significant night pain and difficulty sleeping. He also reports weakness with lifting and overhead activities. No fever, chills, night sweats, weight loss, or other constitutional symptoms. Some popping and clicking noted but no locking or catching. He quantitates the pain as 8/10. FAMILY HISTORY Problem Relation Age of Onset - Coronary Artery Disease Mother - other (CHF) Mother - Colon Cancer Father - Cancer Father - Coronary Artery Disease Brother 54 mi PAST MEDICAL HISTORY Diagnosis Date - Deep vein thrombosis (DVT) (HCC) per patient has a clotting disorder, multiple blood clots, one in each leg and in left arm - Depression - Gross hematuria - HTN (hypertension) - Hypothyroidism - Obesity - Smoking PAST SURGICAL HISTORY Procedure Laterality Date - APPENDECTOMY - HERNIA REPAIR W/MESH 1996 bilateral inguinal repair - IVC FILTER SURGICAL 2010 - LUMBAR SPINE FUSION COMBINED 2002 L5-S1 posterior - NERVE STIMULATOR,0003 insertion AND removal x 2 - PAST SURGICAL HISTORY OF cervical surgery 2013 - PAST SURGICAL HISTORY OF 2002- lumbar - PAST SURGICAL HISTORY OF thoracic surgery 2009 - SKIN / WOUND CONSULT cellulitis (right hand) Social History Marital status: Spouse name: Years of education: Number of children: Social History Main Topics Smoking status: Former Smoker Packs/day: 1.00 Years: 0.00 Types: Cigarettes Quit date: 08/25/2018 Smokeless tobacco: Never Used Alcohol use: No Drug use: No Sexual activity: Not Currently Other Topics Concern Service No Blood Transfusions No Caffeine Concern Yes Comment:excessive Occupational Exposure No Hobby Hazards No Sleep Concern No Weight Concern Yes Special Diet No Back Care No Exercise Yes Bike Helmet No Seat Belt Yes Self-Exams Yes Current Outpatient Prescriptions: diclofenac sodium (VOLTAREN) 1 % topical gel Apply 2 g to affected area four times daily. HYDROcodone-acetaminophen (NORCO) 5-325 mg per tablet Take 1 tablet by mouth every 6 hours as needed. rivaroxaban (XARELTO) 20 mg tablet TAKE ONE TABLET BY MOUTH ONCE DAILY WITH DINNER levothyroxine (SYNTHROID) 75 mcg tablet Take 1 tablet by mouth once daily. multivitamin tablet Take 1 tablet by mouth once daily. No current facility-administered medications for this visit. ALLERGIES No Known Allergies Physical Examination: Patient is alert, oriented and in no acute distress. Examination of the C-spine reveals no palpable tenderness. There is no atrophy or asymmetry. Examination of the shoulder reveals no evidence of atrophy and the skin is intact. No obvious soft tissue or bony abnormality. He has no pain with palpation along the SC joints. He does have pain along the AC joint, greater tuberosity and subacromial space. He exhibits active FE to 90 degrees with forward elevation and passively to 150 degrees. A positive impingement sign and positive Taveras test are noted. Crepitation noted along the subacromial space with ROM. He has decreased external strength 3/5 and painful internal rotation passively and actively as compared to the other side. He has a positive empty can test as compared to the other side. He has a positive drop arm test. External rotation testing reveals less strength as well as a negative lift-off test is noted. A negative cross body adduction test is seen as well as negative Yergason?s, Speed?s, and O? Loyd?s tests. He has full ROM of both elbows and wrists. Good pulses and good cap refill noted. Gross sensation is intact. Reflexes are symmetric bilaterally. The opposite joint reveals full ROM, no pain with palpation, good stability and good strength. X-ray Evaluation: An AP, Y-view, and axillary views were ordered, obtained, and reviewed today which reveal a Type II acromion. The glenohumeral joint appears intact. No tumors or fractures noted. No significant OA changes noted. Assessment: Rotator cuff impingement syndrome of left shoulder (primary encounter diagnosis) Acute pain of left shoulder Plan: I had a discussion with Aysha today regarding their diagnosis and treatment options. Secondary to his weakness and pain along the shoulder region I am suspicious for a rotator cuff tear and as a result have recommended a MRI scan. He will return once the MRI is obtained. In the meantime he will proceed with a RTC home exercise program shown to him here in the office. All of his questions were answered and he wants to proceed with the treatment plan. For pain management purposes he may take OTC NSAIDS such as Advil or Tylenol. Explanation of the risks, benefits, complications and alternative treatment were explained. The risks that were explained included but were not limited to: 1. GI disturbance as serious as GI bleed and 2. Liver damage 3. Kidney damages including renal failure. He was also told that if any unusual symptoms develop, that the medication should be stopped immediately and that his primary care physician as well as our office should be notified. If he takes this medication skilled nursing, he understands the need for medication monitoring through his primary care physician. He is aware of the potential risks and side effects of this medication as well as the expected benefits, and wishes to proceed with its use. Lc Goldman MD PROGRESS Observed: 10/05/2018 Status: COMPLETED Source: [place] 1:40 PM CLINIC OTHER CAMPUS REPOSITORY [facility] ID: [id number] Author: Omar Brandt Service: (none) Author Type: LICENSED NURSE Type: Progress Notes Filed: 10/05/2018 1:57 PM Note Text: REVIEW OF SYSTEMS: GENERAL: Well developed, well nourished. No acute distress PAIN: Pain Left shoulder CARDIOVASCULAR: Negative for chest pain, leg swelling and palpations. MSK: joint pain Left shoulder SKIN: Negative for lesions, rash, itching, metal sensitivity NEURO: Negative for seizure, trauma, numbness/tingling of extremities. ENDOCRINE: Negative for Diabetes Type 1 and Type 2 HEMATOLOGY: Clots DVT hx PROGRESS Observed: 09/28/2018 Status: COMPLETED Source: [place] 5:44 PM CLINIC MAIN CAMPUS REPOSITORY [facility] ID: [id number] Author: Gilson eMnon Service: (none) Author Type: Physician Type: Progress Notes Filed: 09/28/2018 5:59 PM Note Text: Patient presents with: Pain (Shoulder Pain): ER follow up HPI: Patient presents today for office visit for acute visit. Nursing Notes: Leanaaniket Camarachandu OCHOA 09/28/2018 5:36 PM Signed HOSPITAL/ER FOLLOW UP: Reason for visit: left shoulder pain Which facility: [facility] Date of visit: 09/14/18 Diagnosis: left shoulder sprain Testing done: x-ray Treatment given: was given one of his own norco and a sling Current symptoms: pain is getting worse ER told him this is probably a torn rotator cuff. Sling offers no relief. Is on anticoagulation so would avoid nsiads. Sees pain management for his pain control. Xray was negative. Moved the shoulder forcibly and noted something tearing. Pain hurts with abduction. Was told to see ortho but lost the name of the referral. Gets pain down the arm. No swelling. No bruising. Icing it. They gave him a sling. Has been using advil. Suggested. We avoid oral nsaids. MEDICATIONS: Current Outpatient Prescriptions: HYDROcodone-acetaminophen (NORCO) 5-325 mg per tablet Take 1 tablet by mouth every 6 hours as needed. rivaroxaban (XARELTO) 20 mg tablet TAKE ONE TABLET BY MOUTH ONCE DAILY WITH DINNER levothyroxine (SYNTHROID) 75 mcg tablet Take 1 tablet by mouth once daily. multivitamin tablet Take 1 tablet by mouth once daily. No current facility-administered medications for this visit. ALLERGIES: ALLERGIES No Known Allergies PAST MEDICAL HISTORY Diagnosis Date - Deep vein thrombosis (DVT) (HCC) per patient has a clotting disorder, multiple blood clots, one in each leg and in left arm - Depression - Gross hematuria - HTN (hypertension) - Hypothyroidism - Obesity - Smoking PAST SURGICAL HISTORY Procedure Laterality Date - APPENDECTOMY - HERNIA REPAIR W/MESH 1996 bilateral inguinal repair - IVC FILTER SURGICAL 2010 - LUMBAR SPINE FUSION COMBINED 2002 L5-S1 posterior - NERVE STIMULATOR,0003 insertion AND removal x 2 - PAST SURGICAL HISTORY OF cervical surgery 2013 - PAST SURGICAL HISTORY OF 2002- lumbar - PAST SURGICAL HISTORY OF thoracic surgery 2008 - SKIN / WOUND CONSULT cellulitis (right hand) FAMILY HISTORY Problem Relation Age of Onset - Coronary Artery Disease Mother - other (CHF) Mother - Colon Cancer Father - Cancer Father - Coronary Artery Disease Brother 54 mi Social History Marital status: Spouse name: Years of education: Number of children: Social History Main Topics Smoking status: Former Smoker Packs/day: 1.00 Years: 0.00 Types: Cigarettes Quit date: 08/25/2018 Smokeless tobacco: Never Used Alcohol use: No Drug use: No Sexual activity: Not Currently Other Topics Concern Service No Blood Transfusions No Caffeine Concern Yes Comment:excessive Occupational Exposure No Hobby Hazards No Sleep Concern No Weight Concern Yes Special Diet No Back Care No Exercise Yes Bike Helmet No Seat Belt Yes Self-Exams Yes Reviewed current medications, allergies, past medical history, surgical history, family history and social history today. REVIEW OF SYSTEMS All other reviewed and negative other than HPI. VITALS: BP 132/82 Pulse 64 Resp 18 Wt 100.7 kg (222 lb) BMI 31.18 kg/m? Last 4 Encounter Wt Readings: Date: Wt: 09/28/2018 100.7 kg (222 lb) 08/17/2018 95.7 kg (211 lb) 07/07/2018 94.3 kg (208 lb) 02/12/2018 93 kg (205 lb) PHYSICAL EXAMINATION: General appearance: Well appearing, alert, in no acute distress, well-hydrated, well nourished. Skin: Skin color, texture, turgor normal, no suspicious rashes or lesions Shoulder: Location: left. Redness: No. Warmth: No. Tenderness to palpation: none. Swelling: No. Range of motion: decreased abduction. . Empty can test: positive. Normal pp's. Normal neuro exam. ASSESSMENT/PLAN: 1. Acute pain of left shoulder - ICD9: 719.41, ICD10: M25.512 - ice and rest. Wear sling. Can try voltaren gel. Which would be a much safer alternative given his anticoagulation. Advised to monitor for any bleeding issues. Discussed risks and benefits of new medication with the patient. Advised them to call if any side effects or questions. - CONSULT TO ORTHOPAEDICS Gilson Menon MD CNOV Observed: 09/28/2018 Status: COMPLETED Source: [place] 5:00 PM [facility] MAIN CAMPUS REPOSITORY Office Visit (FAMPWS) AYSHA SAVAGE ([id number]) 1965 M Date Time Provider Department 09/28/18 5:00 PM GILSON MENON During your visit today, we recorded the following information about you: Pulse Respiration Blood pressure Weight 64/minute 18/minute 132/82 100.7 kg Leana Nunn GABRIELA 09/28/2018 5:36 PM Signed HOSPITAL/ER FOLLOW UP: Reason for visit: left shoulder pain Which facility: [facility] Date of visit: 09/14/18 Diagnosis: left shoulder sprain Testing done: x-ray Treatment given: was given one of his own norco and a sling Current symptoms: pain is getting worse ER told him this is probably a torn rotator cuff. Sling offers no relief. Gilson Menon MD 09/28/2018 5:59 PM Signed Patient presents with: Pain (Shoulder Pain): ER follow up HPI: Patient presents today for office visit for acute visit. Nursing Notes: Leana Arline OCHOA 09/28/2018 5:36 PM Signed HOSPITAL/ER FOLLOW UP: Reason for visit: left shoulder pain Which facility: [facility] Date of visit: 09/14/18 Diagnosis: left shoulder sprain Testing done: x-ray Treatment given: was given one of his own norco and a sling Current symptoms: pain is getting worse ER told him this is probably a torn rotator cuff. Sling offers no relief. Is on anticoagulation so would avoid nsiads. Sees pain management for his pain control. Xray was negative. Moved the shoulder forcibly and noted something tearing. Pain hurts with abduction. Was told to see ortho but lost the name of the referral. Gets pain down the arm. No swelling. No bruising. Icing it. They gave him a sling. Has been using advil. Suggested. We avoid oral nsaids. MEDICATIONS: Current Outpatient Prescriptions: HYDROcodone-acetaminophen (NORCO) 5-325 mg per tablet Take 1 tablet by mouth every 6 hours as needed. rivaroxaban (XARELTO) 20 mg tablet TAKE ONE TABLET BY MOUTH ONCE DAILY WITH DINNER levothyroxine (SYNTHROID) 75 mcg tablet Take 1 tablet by mouth once daily. multivitamin tablet Take 1 tablet by mouth once daily. No current facility-administered medications for this visit. ALLERGIES: ALLERGIES No Known Allergies PAST MEDICAL HISTORY Diagnosis Date - Deep vein thrombosis (DVT) (HCC) per patient has a clotting disorder, multiple blood clots, one in each leg and in left arm - Depression - Gross hematuria - HTN (hypertension) - Hypothyroidism - Obesity - Smoking PAST SURGICAL HISTORY Procedure Laterality Date - APPENDECTOMY - HERNIA REPAIR W/MESH 1996 bilateral inguinal repair - IVC FILTER SURGICAL 2010 - LUMBAR SPINE FUSION COMBINED 2002 L5-S1 posterior - NERVE STIMULATOR,0003 insertion AND removal x 2 - PAST SURGICAL HISTORY OF cervical surgery 2013 - PAST SURGICAL HISTORY OF 2002- lumbar - PAST SURGICAL HISTORY OF thoracic surgery 2008 - SKIN / WOUND CONSULT cellulitis (right hand) FAMILY HISTORY Problem Relation Age of Onset - Coronary Artery Disease Mother - other (CHF) Mother - Colon Cancer Father - Cancer Father - Coronary Artery Disease Brother 54 mi Social History Marital status: Spouse name: Years of education: Number of children: Social History Main Topics Smoking status: Former Smoker Packs/day: 1.00 Years: 0.00 Types: Cigarettes Quit date: 08/25/2018 Smokeless tobacco: Never Used Alcohol use: No Drug use: No Sexual activity: Not Currently Other Topics Concern Service No Blood Transfusions No Caffeine Concern Yes Comment:excessive Occupational Exposure No Hobby Hazards No Sleep Concern No Weight Concern Yes Special Diet No Back Care No Exercise Yes Bike Helmet No Seat Belt Yes Self-Exams Yes Reviewed current medications, allergies, past medical history, surgical history, family history and social history today. REVIEW OF SYSTEMS All other reviewed and negative other than HPI. VITALS: BP 132/82 Pulse 64 Resp 18 Wt 100.7 kg (222 lb) BMI 31.18 kg/m? Last 4 Encounter Wt Readings: Date: Wt: 09/28/2018 100.7 kg (222 lb) 08/17/2018 95.7 kg (211 lb) 07/07/2018 94.3 kg (208 lb) 02/12/2018 93 kg (205 lb) PHYSICAL EXAMINATION: General appearance: Well appearing, alert, in no acute distress, well-hydrated, well nourished. Skin: Skin color, texture, turgor normal, no suspicious rashes or lesions Shoulder: Location: left. Redness: No. Warmth: No. Tenderness to palpation: none. Swelling: No. Range of motion: decreased abduction. . Empty can test: positive. Normal pp's. Normal neuro exam. ASSESSMENT/PLAN: 1. Acute pain of left shoulder - ICD9: 719.41, ICD10: M25.512 - ice and rest. Wear sling. Can try voltaren gel. Which would be a much safer alternative given his anticoagulation. Advised to monitor for any bleeding issues. Discussed risks and benefits of new medication with the patient. Advised them to call if any side effects or questions. - CONSULT TO ORTHOPAEDICS Gilson Menon MD Referring Provider: SELF [[id number]] Allergies As of Date: 09/28/2018 (No Known Allergies) Date Reviewed: 07/07/2018 Reviewed by: Rhoda Muhammad LPN - Fully Assessed Reason for Visit: Pain (Shoulder Pain) [1343] Cmt: ER follow up Primary Visit Diagnosis:Acute pain of left shoulder [M25.512] Order(s):diclofenac sodium (VOLTAREN) 1 % topical gelApply 2 g to affected area four times daily.Disp: 240 gRfl: 0 CONSULT TO ORTHOPAEDICS [9072] Order #: [id number]: 1 Prescriptions as of 09/28/2018 Sig: HYDROCODONE 5 MG-ACETAMINOPHE* Take 1 tablet by mouth every * RIVAROXABAN 20 MG TABLET TAKE ONE TABLET BY MOUTH ONCE* LEVOTHYROXINE 75 MCG TABLET Take 1 tablet by mouth once d* MULTIVITAMIN TABLET Take 1 tablet by mouth once d* DICLOFENAC 1 % TOPICAL GEL Apply 2 g to affected area fo* Problem List As Of Date 09/28/2018 Noted Resolved Postlaminectomy syndrome [M96.1] INVALID FOR* Migraine with typical aura [G43.109] INVALID FOR* 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) [I82.409] 04/30/2017 History of DVT of lower extremity- 2009 [Z86.71*INVALID FOR* Chronic back pain [M54.9, G89.29] INVALID FOR* Mood disorder ([facility]) [F39] INVALID FOR* HTN (hypertension) [I10] Hypothyroidism [E03.9] Smoking [F17.200] Asthma [J45.909] 10/30/2016 Bipolar disease, chronic (HCC) [F31.9] INVALID FOR* Family history of colon cancer [Z80.0] INVALID FOR* Cervical spine disease [M48.9] INVALID FOR* History of colonic polyps [Z86.010] INVALID FOR* Presence of IVC filter-2010 [Z95.828] INVALID FOR* Hyperglycemia [R73.9] INVALID FOR* History of blood clots [Z86.718] INVALID FOR* Gouty arthritis of toe of left foot [M10.9] INVALID FOR* Vertebral artery disease (HCC)-right vertebral *INVALID FOR* Congenital brain anomaly (HCC)Vertebral artery *INVALID FOR* Family history of malignant neoplasm of gastroi*INVALID FOR* More... BPH without urinary obstruction [N40.0] INVALID FOR* Gross hematuria [R31.0] INVALID FOR* Visit Notes: >> Leana Nunn LPN Mon Sep 28, 2018 5:31 PM Status: Signed HOSPITAL/ER FOLLOW UP: Reason for visit: left shoulder pain Which facility: [facility] Date of visit: 09/14/18 Diagnosis: left shoulder sprain Testing done: x-ray Treatment given: was given one of his own norco and a sling Current symptoms: pain is getting worse ER told him this is probably a torn rotator cuff. Sling offers no relief. Prescriptions ordered this encounter Disp Refills Start End DICLOFENAC 1 % TOPICAL GEL 240 g 0 09/28/2018 10/28/2018 Route: TOPICAL Sig: Apply 2 g to affected area four times daily. Encounter Status:Closed by GILSON MENON MD on 09/28/18 EMERGENCY DEPARTMENT Observed: 09/15/2018 Status: F Source: [place] SUMMARY 12:04 AM [facility] REPOSITORY [facility] Medical Records Department [address] [place] [address] Emergency Department Summary 09/14/18 2152 MR#: [id number] Acct: [id number] Name: AYSHA SAVAGE Rep #: [id number] : 1965 53 From: Arthur Jack MD PCP: Gilson Menon MD Status: DEP ER - ER Visit Summary Date of Service: 09/14/18 Chief Complaint: Left shoulder injury History of Present Illness: The patient is a 53 M presenting for evaluation secondary to a left shoulder injury. Patient reports that he was changing a tire yesterday and was pulling towards him forcibly with his left arm and felt a tearing sensation in his left shoulder. Now he states he has difficulty with raising his arm above his head. He states that the pain radiates all the way down his arm. Denies any numbness or weakness. Patient is chronically on pain medication secondary to chronic neck and back problems but that is not really alleviating his pain. Physical Examination: Physical exam unremarkable except for upper extremity exam. Normal sensation motor exams of the hand wrist and elbow. Patient has limited range of motion of the shoulder secondary to pain. He has difficulty with abduction and forward flexion of the shoulder with some laxity noted. He has normal internal and external rotation of the shoulder. Normal distal pulses. Test Results: X-ray of the shoulder is negative per radiology and my personal review Emergency Department Course and Treatment: Patient presented secondary to a shoulder injury. Patient does seem to have a slight amount of laxity with abduction and forward flexion of the shoulder which is suspicious for the possibility of a rotator cuff tear. Patient was immobilized in a sling, was recommended range of motion exercises 4-5 times a day, and he will be given a referral to orthopedics for potential advanced imaging. Disposition: Discharge Impression: Sprain left rotator cuff This note was generated with [employer] dictation software. It may contain incorrect words, spelling, and punctuation that were not noted in review of the chart prior to signing ED Disposition - Plan for ED Patient: Disposition: Home or Assisted Living Chief Complaint: Upper Extremity Injury Diagnosis: Rotator cuff strain Instructions: ED Torn Rotator Cuff Referrals: Miguel John MD [STAFF PHYSICIAN] - 1-2 Weeks What to do if you have Problems For any increased pain, shortness of breath, bleeding, nausea or vomiting, chest pain, or any unexpected problems, contact your Primary Care Provider. Call [employer] [facility] ([phone]) or report to the closest Emergency Room. Call 911 if necessary. 09/15/18 0004 <Electronically signed by Arthur Jack MD> Date Arthur Jack MD Cosigner Signature (If Indicated): Date CC: Gilson Menon MD SHOULDER MIN 2 VIEWS Observed: 09/14/2018 Status: F Source: [place] 9:18 PM [facility] REPOSITORY [facility] Imaging Services [address] [place] [address] Shoulder min 2 Views MR#: [id number] Acct: [id number] Name: AYSHA SAVAGE Rep #: [id number] : 1965 M 53 From: Miguel Rajan MD PCP: Gilson Menon MD Status: REG ER Study: Shoulder min 2 Views Date of Exam: 09/14/18 Exam# [id number] Ordering Dr: Arthur Jack MD STUDY: X-RAY - LEFT SHOULDER REASON FOR EXAM: Male, 53 years old. Trauma. Pain. TECHNIQUE: 4 view(s) of the shoulder. COMPARISON: None. FINDINGS: There is no evidence of fracture or dislocation. There are no significant degenerative changes. There are no radiodense foreign bodies. RAD/Shoulder min 2 Views IMPRESSION: No fracture or dislocation. Electronically Signed: Miguel Rajan, at 21:40 EDT Tel , Service support , CC: Arthur Jack; Gilson Menon MD 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: Signed MRI CERVICAL SPINE Observed: 09/03/2018 Status: F Source: [place] WO/W IVCON 10:25 AM CLINIC MAIN CAMPUS REPOSITORY * * *Final Report* * * DATE OF EXAM: Sep 03 2018 10:25AM [facility] 0298 - MRI CERVICAL SPINE WO/W IVCON / PROCEDURE REASON: multiple diagnoses * * * * Physician Interpretation * * * * EXAMINATION: MRI THORACIC SPINE WO/W IVCON, MRI CERVICAL SPINE WO/W IVCON CLINICAL HISTORY: Other (specify in question below) Post operative complication suspected Pain the neck and mid back. Previous surgery. TECHNIQUE: Routine cervical, thoracic, and lumbosacral spine MR protocol without and with intravenous gadolinium. MQ: [id number] Contrast: IV administration of 19ml ml of Dotarem COMPARISON: MR thoracic spine 08/13/2012. ; Cervical and thoracic radiographs 08/17/2018 RESULT: CERVICAL: Counting reference: Craniocervical junction. Anatomic Variants: None. Alignment: Alignment is anatomic. Craniocervical junction: Craniocervical junction is normal. Cord: The cervical spinal cord is within normal limits of signal intensity and morphology. No abnormal leptomeningeal or cord enhancement. Bone marrow signal/fracture: Postsurgical changes from C4- C6 instrumented anterior spinal fusion. No evidence of pathologic marrow infiltration. No evidence of prior fracture. Cervical soft tissues: The paraspinal soft tissues are within normal limits. C2-C3: Canal and foramina are patent. C3-C4: Canal and foramina are patent. C4-C5: Canal and foramina are patent. C5-C6: Uncovertebral and facet hypertrophy contribute to mild bilateral foraminal stenosis. Canal is patent. C6-C7: Disc osteophyte complex partially effaces left ventral thecal sac. Uncovertebral and facet hypertrophy contribute to mild to moderate left foraminal stenosis. C7-T1: Canal and foramina are patent. THORACIC: Counting reference: Craniocervical junction. The more conventional coagulating operator that include the lumbosacral junction are not available for comparison. Postop changes T8-T10 and the posterior elements and spinous process resection. Alignment: Alignment is anatomic. Cord: The thoracic spinal cord is within normal limits of signal intensity and morphology. No abnormal leptomeningeal or cord enhancement. Bone marrow signal/fracture: No evidence of pathologic marrow infiltration. No evidence of prior fracture. T11 intraosseous hemangioma. Thoracic soft tissues: The paraspinal soft tissues are within normal limits. Canal and foramina: Central disc herniation at T8-T9 contributes to mild canal stenosis. Central disc herniation and facet hypertrophy at T10-T11 contribute to mild/moderate canal stenosis. The thoracic canal and foramina are otherwise patent within the constraints of the study. IMPRESSION: Postoperative changes from C4 C6 anterior spinal fusion. Mild cervical thoracic spondylosis without severe canal or foraminal stenosis at any level. No significant thoracic canal or foraminal stenosis. Postoperative changes in the thoracic spine T8-T10 posterior elements. Cervical Anatomic Variant: None. Assume 7 cervical vertebrae with counting from the craniocervical junction. 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: [facility] Transcribe Date/Time: Sep 03 2018 11:33A Dictated by : ALE DA SILVA MD This examination was interpreted and the report reviewed and electronically signed by: MACIEL KRAMER MD on Sep 03 2018 12:51PM EST [id number] MRI THORACIC SPINE Observed: 09/03/2018 Status: F Source: [place] WO/W IVCON 10:25 AM [facility] REPOSITORY * * *Final Report* * * DATE OF EXAM: Sep 03 2018 10:25AM [facility] [id number] - MRI THORACIC SPINE WO/W IVCON / PROCEDURE REASON: multiple diagnoses * * * * Physician Interpretation * * * * EXAMINATION: MRI THORACIC SPINE WO/W IVCON, MRI CERVICAL SPINE WO/W IVCON CLINICAL HISTORY: Other (specify in question below) Post operative complication suspected Pain the neck and mid back. Previous surgery. TECHNIQUE: Routine cervical, thoracic, and lumbosacral spine MR protocol without and with intravenous gadolinium. MQ: [id number] Contrast: IV administration of 19ml ml of Dotarem COMPARISON: MR thoracic spine 08/13/2012. ; Cervical and thoracic radiographs 08/17/2018 RESULT: CERVICAL: Counting reference: Craniocervical junction. Anatomic Variants: None. Alignment: Alignment is anatomic. Craniocervical junction: Craniocervical junction is normal. Cord: The cervical spinal cord is within normal limits of signal intensity and morphology. No abnormal leptomeningeal or cord enhancement. Bone marrow signal/fracture: Postsurgical changes from C4- C6 instrumented anterior spinal fusion. No evidence of pathologic marrow infiltration. No evidence of prior fracture. Cervical soft tissues: The paraspinal soft tissues are within normal limits. C2-C3: Canal and foramina are patent. C3-C4: Canal and foramina are patent. C4-C5: Canal and foramina are patent. C5-C6: Uncovertebral and facet hypertrophy contribute to mild bilateral foraminal stenosis. Canal is patent. C6-C7: Disc osteophyte complex partially effaces left ventral thecal sac. Uncovertebral and facet hypertrophy contribute to mild to moderate left foraminal stenosis. C7-T1: Canal and foramina are patent. THORACIC: Counting reference: Craniocervical junction. The more conventional coagulating operator that include the lumbosacral junction are not available for comparison. Postop changes T8-T10 and the posterior elements and spinous process resection. Alignment: Alignment is anatomic. Cord: The thoracic spinal cord is within normal limits of signal intensity and morphology. No abnormal leptomeningeal or cord enhancement. Bone marrow signal/fracture: No evidence of pathologic marrow infiltration. No evidence of prior fracture. T11 intraosseous hemangioma. Thoracic soft tissues: The paraspinal soft tissues are within normal limits. Canal and foramina: Central disc herniation at T8-T9 contributes to mild canal stenosis. Central disc herniation and facet hypertrophy at T10-T11 contribute to mild/moderate canal stenosis. The thoracic canal and foramina are otherwise patent within the constraints of the study. IMPRESSION: Postoperative changes from C4 C6 anterior spinal fusion. Mild cervical thoracic spondylosis without severe canal or foraminal stenosis at any level. No significant thoracic canal or foraminal stenosis. Postoperative changes in the thoracic spine T8-T10 posterior elements. Cervical Anatomic Variant: None. Assume 7 cervical vertebrae with counting from the craniocervical junction. 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: [place] Transcribe Date/Time: Sep 03 2018 11:33A Dictated by : ALE DA SILVA MD This examination was interpreted and the report reviewed and electronically signed by: MACIEL KRAMER MD on Sep 03 2018 12:51PM EST [id number] PROGRESS Observed: 09/03/2018 Status: COMPLETED Source: [place] 10:19 AM [facility] REPOSITORY HNO ID: [id number] Author: Nelia (Tico [place] Service: (none) Author Type: Welfare Adviser Type: Progress Notes Filed: 09/03/2018 10:19 AM Note Text: Radiology Service Progress Note PATIENT NAME: Aysha Savage DATE OF SERVICE: September 03, 2018 TIME: 10:19 AM PATIENT IDENTITY VERIFICATION COMPLETED USING TWO (2) METHODS: Patient confirmed name verbally and Date of . PATIENT GENDER DATA: Male PATIENT RELEVANT IMPLANT DATA REVIEWED: Yes CONTRAST INDUCED NEPHROPATHY RISK FACTORS: Not applicable CREATININE: Creatinine Date Value Ref Range Status 07/21/2018 1.00 0.73 - 1.22 mg/dL Final 11/18/2017 0.96 0.67 - 1.17 mg/dL Final 10/21/2017 1.01 0.73 - 1.22 mg/dL Final eGFR-All Other Races Date Value Ref Range Status 07/21/2018 >60 . Final Comment: eGFR (Estimated GFR) Units of measure: mL/min/1.73 meters squared eGFR is derived from the reexpressed MDRD Study equation using the following parameters: serum creatinine, age, gender and race. The creatinine assay has been calibrated to be traceable to IDMS. An eGFR <60 mL/min/1.73m2 for >3 months is consistent with chronic kidney disease. Refer to KDOQI guidelines for clinical interpretation. In patients with unstable renal function, e.g. those with acute kidney injury, the eGFR may not accurately reflect actual GFR. eGFR- Date Value Ref Range Status 07/21/2018 >60 Final P.O.C.T. RESULTS: N/A September 03, 2018 RADIOLOGIST NOTIFIED?: No ALLERGIES: Reviewed and unchanged CONTRAST ALLERGY: NO. PERIPHERAL IV ACCESS: Ambulatory: IV type: A peripheral IV was started in the Left antecubital site with a Angio cath: 22 gauge., Site assessment: Clean,Dry and Intact, Site disposition Discontinued RADIOLOGY DEPARTMENT: MR; Exam(s) Completed: Spine: Cervical spine SIGNED BY: RT Eugenie September 03, 2018 10:19 AM PROGRESS Observed: 09/03/2018 Status: COMPLETED Source: [place] 10:17 AM [facility] REPOSITORY O ID: [id number] Author: Tico Traore (Rt) Service: (none) Author Type: Welfare Adviser Type: Progress Notes Filed: 09/03/2018 10:18 AM Note Text: Radiology Service Progress Note PATIENT NAME: Aysha Savage DATE OF SERVICE: September 03, 2018 TIME: 10:17 AM PATIENT IDENTITY VERIFICATION COMPLETED USING TWO (2) METHODS: Patient confirmed name verbally and Date of . PATIENT GENDER DATA: Male PATIENT RELEVANT IMPLANT DATA REVIEWED: Yes CONTRAST INDUCED NEPHROPATHY RISK FACTORS: Not applicable CREATININE: Creatinine Date Value Ref Range Status 07/21/2018 1.00 0.73 - 1.22 mg/dL Final 11/18/2017 0.96 0.67 - 1.17 mg/dL Final 10/21/2017 1.01 0.73 - 1.22 mg/dL Final eGFR-All Other Races Date Value Ref Range Status 07/21/2018 >60 . Final Comment: eGFR (Estimated GFR) Units of measure: mL/min/1.73 meters squared eGFR is derived from the reexpressed MDRD Study equation using the following parameters: serum creatinine, age, gender and race. The creatinine assay has been calibrated to be traceable to IDMS. An eGFR <60 mL/min/1.73m2 for >3 months is consistent with chronic kidney disease. Refer to KDOQI guidelines for clinical interpretation. In patients with unstable renal function, e.g. those with acute kidney injury, the eGFR may not accurately reflect actual GFR. eGFR- Date Value Ref Range Status 07/21/2018 >60 Final P.O.C.T. RESULTS: N/A September 03, 2018 RADIOLOGIST NOTIFIED?: No ALLERGIES: Reviewed and unchanged CONTRAST ALLERGY: NO. PERIPHERAL IV ACCESS: Ambulatory: IV type: A peripheral IV was started in the Left antecubital site with a Angio cath: 22 gauge., Site assessment: Clean,Dry and Intact, Site disposition Discontinued RADIOLOGY DEPARTMENT: MR; Exam(s) Completed: Spine: Thoracic spine SIGNED BY: RT Eugenie September 03, 2018 10:17 AM [facility] Observed: 09/03/2018 Status: COMPLETED Source: [place] 12:00 AM [facility] REPOSITORY Telephone (FAMPWS) AYSHA SAVAGE ([id number]) 1965 M Date Time Provider Department 09/03/18 GILSON MENON During your visit today, we recorded the following information about you: Gilson Menon MD 09/03/2018 1:05 PM Signed Let him know mri shows no acute changes in his spine. Still refer to spine surgery. Order already placed. Carolann Sosa LPN, LPN 09/03/2018 1:14 PM Signed Spoke with pt gave information provided. Pt voices understanding. Carolann Sosa LPN, LPN 09/03/2018 1:16 PM Signed Closed on accident.Please assist in scheduling to Spine center. February09/04/2018 10:27 AM Signed Scheduled Allergies As of Date: 09/03/2018 (No Known Allergies) Date Reviewed: 07/07/2018 Reviewed by: Rhoda Muhammad LPN - Fully Assessed Reason for Visit: Results [95] Prescriptions as of 09/03/2018 Sig: HYDROCODONE 5 MG-ACETAMINOPHE* Take 1 tablet by mouth every * RIVAROXABAN 20 MG TABLET TAKE ONE TABLET BY MOUTH ONCE* LEVOTHYROXINE 75 MCG TABLET Take 1 tablet by mouth once d* MULTIVITAMIN TABLET Take 1 tablet by mouth once d* Problem List As Of Date 09/03/2018 Noted Resolved Postlaminectomy syndrome [M96.1] INVALID FOR* Migraine with typical aura [G43.109] INVALID FOR* 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] INVALID FOR* 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* Deep vein thrombosis (DVT) (HCC) [I82.409] 04/30/2017 History of DVT of lower extremity- 2009 [Z86.71*INVALID FOR* Chronic back pain [M54.9, G89.29] INVALID FOR* Mood disorder (HCC) [F39] INVALID FOR* HTN (hypertension) [I10] Hypothyroidism [E03.9] Smoking [F17.200] Asthma [J45.909] 10/30/2016 Bipolar disease, chronic (HCC) [F31.9] INVALID FOR* Family history of colon cancer [Z80.0] INVALID FOR* Cervical spine disease [M48.9] INVALID FOR* History of colonic polyps [Z86.010] INVALID FOR* Presence of IVC filter-2010 [Z95.828] INVALID FOR* Hyperglycemia [R73.9] INVALID FOR* History of blood clots [Z86.718] INVALID FOR* Gouty arthritis of toe of left foot [M10.9] INVALID FOR* Vertebral artery disease (HCC)-right vertebral *INVALID FOR* Congenital brain anomaly (HCC)Vertebral artery *INVALID FOR* Family history of malignant neoplasm of gastroi*INVALID FOR* More... BPH without urinary obstruction [N40.0] INVALID FOR* Gross hematuria [R31.0] INVALID FOR* Encounter Status:Closed by CAROLANN SOSA LPN on 09/03/18 XR CERVICAL 4V Observed: 08/17/2018 Status: F Source: [place] AP/LAT/FLX/EXT 11:38 AM [facility] REPOSITORY * * *Final Report* * * DATE OF EXAM: Aug 17 2018 11:38AM [facility] [id number] - XR CERVICAL 4V AP/LAT/FLX/EXT / PROCEDURE REASON: multiple diagnoses * * * * Physician Interpretation * * * * 2 studies: Cervical spine/thoracic spine Cervical spine: HISTORY: Cervical radiculopathy Acute midline thoracic back pain No injury. Hx of prior surgery. Posterior neck and thoracic pain increasing over the last 4 months. Pain radiates down both arms to mid back. TECHNIQUE: Views obtained: XR THORACIC 3V AP/LAT/SWIMMERS, XR CERVICAL 4V AP/LAT/FLX/EXT Comparison: 07/07/2018. RESULT: Findings: Evidence of anterior fusion C4-C6 with a plate and multiple screws Disk spaces: Well-preserved. Spine alignment: The vertebra are in good alignment. No significant change in alignment with flexion and extension is seen. No fractures or dislocations are seen. Impression #1:(Cervical spine) : Postsurgical changes otherwise unremarkable. Thoracic spine: HISTORY: Indication: Cervical radiculopathy Acute midline thoracic back pain No injury. Hx of prior surgery. Posterior neck and thoracic pain increasing over the last 4 months. Pain radiates down both arms to mid back. No injury. Hx of prior surgery. Posterior neck and thoracic pain increasing over the last 4 months. Pain radiates down both arms to mid back. TECHNIQUE: Views obtained: Three views- AP lateral and swimmers views Comparison: 05/21/2015. RESULT: Findings: Moderate disc space narrowing in the mid and upper thoracic vertebral levels. Hhe vertebra are in good alignment. No fractures or dislocations are seen. IMPRESSION #2:(Thoracic spine) : Degenerative changes as discussed. Similar to the previous study 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: [employer] Transcribe Date/Time: Aug 17 2018 6:03P Dictated by : RUSSELL GORDON DO This examination was interpreted and the report reviewed and electronically signed by: RUSSELL GORDON DO on Aug 17 2018 6:06PM EST [id number] XR THORACIC 3V Observed: 08/17/2018 Status: F Source: [place] AP/LAT/SWIMMERS 11:38 AM [facility] REPOSITORY * * *Final Report* * * DATE OF EXAM: Aug 17 2018 11:38AM [facility] [id number] - XR THORACIC 3V AP/LAT/SWIMMERS / PROCEDURE REASON: multiple diagnoses * * * * Physician Interpretation * * * * 2 studies: Cervical spine/thoracic spine Cervical spine: HISTORY: Cervical radiculopathy Acute midline thoracic back pain No injury. Hx of prior surgery. Posterior neck and thoracic pain increasing over the last 4 months. Pain radiates down both arms to mid back. TECHNIQUE: Views obtained: XR THORACIC 3V AP/LAT/SWIMMERS, XR CERVICAL 4V AP/LAT/FLX/EXT Comparison: 07/07/2018. RESULT: Findings: Evidence of anterior fusion C4-C6 with a plate and multiple screws Disk spaces: Well-preserved. Spine alignment: The vertebra are in good alignment. No significant change in alignment with flexion and extension is seen. No fractures or dislocations are seen. Impression #1:(Cervical spine) : Postsurgical changes otherwise unremarkable. Thoracic spine: HISTORY: Indication: Cervical radiculopathy Acute midline thoracic back pain No injury. Hx of prior surgery. Posterior neck and thoracic pain increasing over the last 4 months. Pain radiates down both arms to mid back. No injury. Hx of prior surgery. Posterior neck and thoracic pain increasing over the last 4 months. Pain radiates down both arms to mid back. TECHNIQUE: Views obtained: Three views- AP lateral and swimmers views Comparison: 05/21/2015. RESULT: Findings: Moderate disc space narrowing in the mid and upper thoracic vertebral levels. Hhe vertebra are in good alignment. No fractures or dislocations are seen. IMPRESSION #2:(Thoracic spine) : Degenerative changes as discussed. Similar to the previous study 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: [employer] Transcribe Date/Time: Aug 17 2018 6:03P Dictated by : RUSSELL GORDON DO This examination was interpreted and the report reviewed and electronically signed by: RUSSELL GORDON DO on Aug 17 2018 6:06PM EST [id number] PROGRESS Observed: 08/17/2018 Status: COMPLETED Source: [place] 11:26 AM [facility] REPOSITORY HNO ID: [id number] Author: Kaitlynn Gamino (Rt) [place] Service: (none) Author Type: Welfare Adviser Type: Progress Notes Filed: 08/17/2018 11:38 AM Note Text: Radiology Service Progress Note PATIENT NAME: Aysha Savage DATE OF SERVICE: August 17, 2018 TIME: 11:26 AM PATIENT IDENTITY VERIFICATION COMPLETED USING TWO (2) METHODS: Patient confirmed name verbally and Date of . PATIENT GENDER DATA: Male PATIENT RELEVANT IMPLANT DATA REVIEWED: Not Applicable RADIOLOGY DEPARTMENT: General X-ray: Exam(s) Completed: Spine X-Ray(s): Cervical AP / LAT / FLEX-EXT and Thoracic PERIPHERAL IV DATA: Not applicable SIGNED BY: RT Anamaria August 17, 2018 11:26 AM PROGRESS Observed: 08/17/2018 Status: COMPLETED Source: [place] 10:42 AM [facility] REPOSITORY HNO ID: [id number] Author: Gilson Menon Service: (none) Author Type: Physician Type: Progress Notes Filed: 08/17/2018 3:22 PM Note Text: Patient presents with: Back Pain: since summer time HPI: Patient presents today for office visit for follow up. Seeing Dr. Johnson(sp?) in [place]. He is supposed to go back to see him on the . Is concerned about pain in his neck and thoracic spine. Has had new pain in his neck. Started over the summer. No trauma. Last ct was of the soft tissues of his neck. No xrays since 01/31. Pain into both arms. Some arm weakness. Left is greater than right. No new pain in the legs. He was scheduled to see spine center but cancelled at the request of his pain management doc. His initial c spine surgery was done at [facility]. No xrays or films were done. He wants an mri done or other work up. No worsening of pain if he coughs or sneezes. He specifically also wants to see a surgeon. MEDICATIONS: Current Outpatient Prescriptions: HYDROcodone-acetaminophen (NORCO) 5-325 mg per tablet Take 1 tablet by mouth every 6 hours as needed. rivaroxaban (XARELTO) 20 mg tablet TAKE ONE TABLET BY MOUTH ONCE DAILY WITH DINNER levothyroxine (SYNTHROID) 75 mcg tablet Take 1 tablet by mouth once daily. multivitamin tablet Take 1 tablet by mouth once daily. No current facility-administered medications for this visit. ALLERGIES: ALLERGIES No Known Allergies PAST MEDICAL HISTORY Diagnosis Date - Deep vein thrombosis (DVT) (HCC) per patient has a clotting disorder, multiple blood clots, one in each leg and in left arm - Depression - Gross hematuria - HTN (hypertension) - Hypothyroidism - Obesity - Smoking PAST SURGICAL HISTORY Procedure Laterality Date - APPENDECTOMY - HERNIA REPAIR W/MESH 1996 bilateral inguinal repair - IVC FILTER SURGICAL 2010 - LUMBAR SPINE FUSION COMBINED 2002 L5-S1 posterior - NERVE STIMULATOR,0003 insertion AND removal x 2 - PAST SURGICAL HISTORY OF cervical surgery 2013 - PAST SURGICAL HISTORY OF 2002- lumbar - PAST SURGICAL HISTORY OF thoracic surgery 2008 - SKIN / WOUND CONSULT cellulitis (right hand) FAMILY HISTORY Problem Relation Age of Onset - Coronary Artery Disease Mother - other (CHF) Mother - Colon Cancer Father - Cancer Father - Coronary Artery Disease Brother 54 mi Social History Marital status: Spouse name: Years of education: Number of children: Social History Main Topics Smoking status: Current Every Day Smoker Packs/day: 1.00 Years: 0.00 Types: Cigarettes Smokeless tobacco: Never Used Alcohol use: No Drug use: No Sexual activity: Not Currently Other Topics Concern Service No Blood Transfusions No Caffeine Concern Yes Comment:excessive Occupational Exposure No Hobby Hazards No Sleep Concern No Weight Concern Yes Special Diet No Back Care No Exercise Yes Bike Helmet No Seat Belt Yes Self-Exams Yes Reviewed current medications, allergies, past medical history, surgical history, family history and social history today. REVIEW OF SYSTEMS All other reviewed and negative other than HPI. HEALTH MAINTENANCE: Reviewed health maintenance issues today and recommended the following in detail. BP CONTROLLED (<130/80) due on 1982 DTAP,TDAP,TD(1 - Tdap) due on 1983 INFLUENZA(1) due on 07/18/2018 VITALS: BP 132/80 Pulse 68 Resp 20 Wt 95.7 kg (211 lb) BMI 29.64 kg/m? Last 4 Encounter Wt Readings: Date: Wt: 08/17/2018 95.7 kg (211 lb) 07/07/2018 94.3 kg (208 lb) 02/12/2018 93 kg (205 lb) 02/02/2018 93 kg (205 lb) PHYSICAL EXAMINATION: General appearance: Well appearing, alert, in no acute distress, well-hydrated, well nourished. Skin: Skin color, texture, turgor normal, no suspicious rashes or lesions Head: Normocephalic, no masses, lesions, tenderness or abnormalities Neck: Supple,neg spurling's Lungs: Lungs clear to auscultation. No wheezing, rhonchi, rales Heart: RRR without murmur, gallop, or rubs. No ectopy Abdomen: Normal abdominal exam, Abdomen soft, non-tender. Bowel sounds normal. No masses, organomegaly Extremities: No deformities, edema, skin discoloration, clubbing or cyanosis. Good capillary refill. Neuro: Gait normal. Reflexes normal and symmetric. Sensation grossly intact. Tender over midline of neck and thoracic spine. ASSESSMENT/PLAN: 1. Cervical radiculopathy - ICD9: 723.4, ICD10: M54.12 (primary diagnosis) - Consider mri depending on xrays. - Red flags for re-assessment reviewed with patient in detail. - XR THORACIC GENERAL 3V AP/LAT/SWIMMERS - XR CERV OTHER 4V AP/LAT/FLX/EXT - CONSULT TO SPINE SURGERY 2. Acute midline thoracic back pain - ICD9: 724.1, ICD10: M54.6 - XR THORACIC GENERAL 3V AP/LAT/SWIMMERS - XR CERV OTHER 4V AP/LAT/FLX/EXT - CONSULT TO SPINE SURGERY Gilson Menon MD CNOV Observed: 08/17/2018 Status: COMPLETED Source: [place] 10:00 AM [facility] REPOSITORY [facility] AYSHA SAVAGE ([id number]) 1965 M Date Time Provider Department 08/17/18 10:00 AM GILSON MENON During your visit today, we recorded the following information about you: Pulse Respiration Blood pressure Weight 68/minute 20/minute 132/80 95.7 kg Gilson Menon MD 08/17/2018 3:22 PM Signed Patient presents with: Back Pain: since summer time HPI: Patient presents today for office visit for follow up. Seeing Dr. Johnson(sp?) in [place]. He is supposed to go back to see him on the . Is concerned about pain in his neck and thoracic spine. Has had new pain in his neck. Started over the summer. No trauma. Last ct was of the soft tissues of his neck. No xrays since 01/31. Pain into both arms. Some arm weakness. Left is greater than right. No new pain in the legs. He was scheduled to see spine center but cancelled at the request of his pain management doc. His initial c spine surgery was done at [facility]. No xrays or films were done. He wants an mri done or other work up. No worsening of pain if he coughs or sneezes. He specifically also wants to see a surgeon. MEDICATIONS: Current Outpatient Prescriptions: HYDROcodone-acetaminophen (NORCO) 5-325 mg per tablet Take 1 tablet by mouth every 6 hours as needed. rivaroxaban (XARELTO) 20 mg tablet TAKE ONE TABLET BY MOUTH ONCE DAILY WITH DINNER levothyroxine (SYNTHROID) 75 mcg tablet Take 1 tablet by mouth once daily. multivitamin tablet Take 1 tablet by mouth once daily. No current facility-administered medications for this visit. ALLERGIES: ALLERGIES No Known Allergies PAST MEDICAL HISTORY Diagnosis Date - Deep vein thrombosis (DVT) (HCC) per patient has a clotting disorder, multiple blood clots, one in each leg and in left arm - Depression - Gross hematuria - HTN (hypertension) - Hypothyroidism - Obesity - Smoking PAST SURGICAL HISTORY Procedure Laterality Date - APPENDECTOMY - HERNIA REPAIR W/MESH 1996 bilateral inguinal repair - IVC FILTER SURGICAL 2010 - LUMBAR SPINE FUSION COMBINED 2002 L5-S1 posterior - NERVE STIMULATOR,0003 insertion AND removal x 2 - PAST SURGICAL HISTORY OF cervical surgery 2013 - PAST SURGICAL HISTORY OF 2002- lumbar - PAST SURGICAL HISTORY OF thoracic surgery 2009 - SKIN / WOUND CONSULT cellulitis (right hand) FAMILY HISTORY Problem Relation Age of Onset - Coronary Artery Disease Mother - other (CHF) Mother - Colon Cancer Father - Cancer Father - Coronary Artery Disease Brother 54 mi Social History Marital status: Spouse name: Years of education: Number of children: Social History Main Topics Smoking status: Current Every Day Smoker Packs/day: 1.00 Years: 0.00 Types: Cigarettes Smokeless tobacco: Never Used Alcohol use: No Drug use: No Sexual activity: Not Currently Other Topics Concern Service No Blood Transfusions No Caffeine Concern Yes Comment:excessive Occupational Exposure No Hobby Hazards No Sleep Concern No Weight Concern Yes Special Diet No Back Care No Exercise Yes Bike Helmet No Seat Belt Yes Self-Exams Yes Reviewed current medications, allergies, past medical history, surgical history, family history and social history today. REVIEW OF SYSTEMS All other reviewed and negative other than HPI. HEALTH MAINTENANCE: Reviewed health maintenance issues today and recommended the following in detail. BP CONTROLLED (<130/80) due on 1982 DTAP,TDAP,TD(1 - Tdap) due on 1983 INFLUENZA(1) due on 07/18/2018 VITALS: BP 132/80 Pulse 68 Resp 20 Wt 95.7 kg (211 lb) BMI 29.64 kg/m? Last 4 Encounter Wt Readings: Date: Wt: 08/17/2018 95.7 kg (211 lb) 07/07/2018 94.3 kg (208 lb) 02/12/2018 93 kg (205 lb) 02/02/2018 93 kg (205 lb) PHYSICAL EXAMINATION: General appearance: Well appearing, alert, in no acute distress, well-hydrated, well nourished. Skin: Skin color, texture, turgor normal, no suspicious rashes or lesions Head: Normocephalic, no masses, lesions, tenderness or abnormalities Neck: Supple,neg spurling's Lungs: Lungs clear to auscultation. No wheezing, rhonchi, rales Heart: RRR without murmur, gallop, or rubs. No ectopy Abdomen: Normal abdominal exam, Abdomen soft, non-tender. Bowel sounds normal. No masses, organomegaly Extremities: No deformities, edema, skin discoloration, clubbing or cyanosis. Good capillary refill. Neuro: Gait normal. Reflexes normal and symmetric. Sensation grossly intact. Tender over midline of neck and thoracic spine. ASSESSMENT/PLAN: 1. Cervical radiculopathy - ICD9: 723.4, ICD10: M54.12 (primary diagnosis) - Consider mri depending on xrays. - Red flags for re-assessment reviewed with patient in detail. - XR THORACIC GENERAL 3V AP/LAT/SWIMMERS - XR CERV OTHER 4V AP/LAT/FLX/EXT - CONSULT TO SPINE SURGERY 2. Acute midline thoracic back pain - ICD9: 724.1, ICD10: M54.6 - XR THORACIC GENERAL 3V AP/LAT/SWIMMERS - XR CERV OTHER 4V AP/LAT/FLX/EXT - CONSULT TO SPINE SURGERY Gilson Menon MD Referring Provider: SELF [200] Allergies As of Date: 08/17/2018 (No Known Allergies) Date Reviewed: 07/07/2018 Reviewed by: Rhoda Muhammad LPN - Fully Assessed Reason for Visit: Back Pain [12] Cmt: since summer time Primary Visit Diagnosis:Cervical radiculopathy [M54.12] Other Visit Diagnosis:Acute midline thoracic back pain [M54.6] Order(s):XR THORACIC GENERAL 3V AP/LAT/SWIMMERS [[id number]] Order #: [id number] FUTURE XR CERV OTHER 4V AP/LAT/FLX/EXT [[id number]] Order #: [id number] FUTURE CONSULT TO SPINE SURGERY [[id number]] Order #: [id number]: 1 Prescriptions as of 08/17/2018 Sig: HYDROCODONE 5 MG-ACETAMINOPHE* Take 1 tablet by mouth every * RIVAROXABAN 20 MG TABLET TAKE ONE TABLET BY MOUTH ONCE* LEVOTHYROXINE 75 MCG TABLET Take 1 tablet by mouth once d* MULTIVITAMIN TABLET Take 1 tablet by mouth once d* Problem List As Of Date 08/17/2018 Noted Resolved Postlaminectomy syndrome [M96.1] INVALID FOR* Migraine with typical aura [G43.109] INVALID FOR* 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) [I82.409] 04/30/2017 History of DVT of lower extremity- 2009 [Z86.71*INVALID FOR* Chronic back pain [M54.9, G89.29] INVALID FOR* Mood disorder (HCC) [F39] INVALID FOR* HTN (hypertension) [I10] Hypothyroidism [E03.9] Smoking [F17.200] Asthma [J45.909] 10/30/2016 Bipolar disease, chronic (HCC) [F31.9] INVALID FOR* Family history of colon cancer [Z80.0] INVALID FOR* Cervical spine disease [M48.9] INVALID FOR* History of colonic polyps [Z86.010] INVALID FOR* Presence of IVC filter-2010 [Z95.828] INVALID FOR* Hyperglycemia [R73.9] INVALID FOR* History of blood clots [Z86.718] INVALID FOR* Gouty arthritis of toe of left foot [M10.9] INVALID FOR* Vertebral artery disease (HCC)-right vertebral *INVALID FOR* Congenital brain anomaly (HCC)Vertebral artery *INVALID FOR* Family history of malignant neoplasm of gastroi*INVALID FOR* More... BPH without urinary obstruction [N40.0] INVALID FOR* Gross hematuria [R31.0] INVALID FOR* Disposition: Return if symptoms worsen or fail to improve. Follow-up and Disposition History Recorded Encounter Status:Closed by GILSON MENON MD on 08/17/18 CBC AND DIFFERENTIAL Collected: 07/21/2018 Status: F Source: [place] 9:14 AM [facility] REPOSITORY TYPE CODE TESTS RESULT OUT OF REFERENCE UNITS RANGE LAB WBC 3.70-11.00 k/uL WBC 6.39 LAB RBC 4.20-6.00 m/uL RBC 4.88 LAB HGB 13.0-17.0 g/dL Hemoglobin 14.4 LAB HCT 39.0-51.0 % Hematocrit 44.4 LAB MCV 80.0-100.0 fL MCV 91.0 LAB MCH 26.0-34.0 pG MCH 29.5 LAB MCHC 30.5-36.0 g/dL MCHC 32.4 LAB RDWCV 11.5-15.0 % RDW-CV 12.8 LAB PLTCT 150-400 k/uL Platelet Count 180 LAB MPV 9.0-12.7 fL MPV 9.7 LAB ANEUT % Neut% 56.8 LAB AANEUT 1.45-7.50 k/uL Abs Neut 3.61 LAB ALYMP % Lymph% 29.9 LAB AALYMP 1.00-4.00 k/uL Abs Lymph 1.91 LAB AMONO % Ector% 9.5 LAB AAMONO <0.87 k/uL Abs Ector 0.61 LAB AEOS % Eosin% 3.3 LAB AAEOS <0.46 k/uL Abs Eosin 0.21 LAB ABASO % Baso% 0.5 LAB AABASO <0.11 k/uL Abs Baso 0.03 LAB AUNRBC 0 /100 WBC NRBCs 0.0 LAB ABNRBC <0.01 k/uL Absolute nRBC <0.01 LAB DTYP DTYPE Auto Diff Performed By: #### CBCDIF, CMP, LIPB #### [facility] [address] [place], [place] [address] COMP METABOLIC PANEL Collected: 07/21/2018 Status: F Source: [place] 9:14 AM [facility] REPOSITORY TYPE CODE TESTS RESULT OUT OF REFERENCE UNITS RANGE LAB TP 6.3-8.0 g/dL Protein, Total 6.5 LAB ALB 3.9-4.9 g/dL Albumin 4.2 LAB CA 8.5-10.2 mg/dL Calcium, Total 8.8 LAB TBIL 0.2-1.3 mg/dL Bilirubin, Total 0.4 LAB ALKP 36-108 U/L Alkaline Phosphatase 42 LAB AST 14-40 U/L AST 21 LAB GLU 74-99 mg/dL Glucose 96 Result Comment: The [place] Diabetes Association (ADA) provides guidance for cutoff values for fasting glucose and random glucose. The ADA defines fasting as no caloric intake for at least 8 hours. Fas ting plasma glucose results between 100 to 125 mg/dL indicate increased risk for diabetes (prediabetes). Fasting plasma glucose results greater than or equal to 126 mg/dL meet the criteria for diagnosis of diabetes. In the absence of unequivocal hyperglycemia, results should be confirmed by repeat testing. In a patient with classic symptoms of hyperglycemia or hyperglycemic crisis, random plasma glucose results greater than or equal to 200 mg/dL meet the criteria for diagnosis of diabetes. Reference: Standards of Medical Care in Diabetes 2016, [place] Diabetes [employer]. Diabetes Care. 2016.39(Suppl 1). LAB BUN 9-24 mg/dL BUN 19 LAB CRET 0.73-1.22 mg/dL Creatinine 1.00 LAB NA 136-144 mmol/L Sodium 143 LAB K 3.7-5.1 mmol/L Potassium 4.4 LAB CL 97-105 mmol/L Chloride 103 LAB CO2 22-30 mmol/L CO2 26 LAB AGAP 9-18 mmol/L Anion Gap 14 LAB ALT 10-54 U/L ALT 14 LAB GFRAA eGFR- Amer. >60 LAB GFRNAA . eGFR-All Other Races >60 Result Comment: eGFR (Estimated GFR) Units of measure: mL/min/1.73 meters squared eGFR is derived from the reexpressed MDRD Study equation using the following parameters: serum creatinine, age, gender and race. The creatinine assay has been calibrated to be traceable to IDMS. An eGFR <60 mL/min/1.73m2 for >3 months is consistent with chronic kidney disease. Refer to KDOQI guidelines for clinical interpretation. In patients with unstable renal function, e.g. those with acute kidney injury, the eGFR may not accurately reflect actual GFR. Performed By: #### CBCDIF, CMP, LIPB #### [facility] [address] [place], [place] [address] LIPID PANEL, BASIC Collected: 07/21/2018 Status: F Source: [place] 9:14 AM [facility] REPOSITORY TYPE CODE TESTS RESULT OUT OF REFERENCE UNITS RANGE LAB CHOL <200 mg/dL Cholesterol 116 Result Comment: <200 mg/dL, Desirable 200-239 mg/dL, Borderline high >239 mg/dL, High LAB TRIGLY <150 mg/dL Triglyceride 80 Result Comment: <150 mg/dL, Normal 150-199 mg/dL, Borderline high 200-499 mg/dL, High >499 mg/dL, Very high LAB HDL >39 mg/dL HDL-Cholesterol Low 30 Result Comment: 40-59 mg/dL, Acceptable >59 mg/dL, High: Negative risk factor for coronary heart disease <40 mg/dL, Low: Positive risk factor for coronary heart disease LAB LDL <100 mg/dL LDL-Cholesterol 70 Result Comment: <100 mg/dL, Optimal 100-129 mg/dL, Near optimal/above optimal 130-159 mg/dL, Borderline high 160-189 mg/dL, High >189 mg/dL, Very high Secondary prevention optimal LDL Cholesterol levels are recommended to be < 70 mg/dL LAB NONHDL <130 mg/dL Non HDL Cholesterol 86 Result Comment: <130 mg/dL, Optimal 130-159 mg/dL, Near optimal/above optimal 160-189 mg/dL, Borderline high 190-219 mg/dL, High >219 mg/dL, Very high Secondary prevention optimal non HDL Cholesterol levels are recommended to be < 100 mg/dL LAB FT hrs Fasting Time 10 LAB VLDL <30 mg/dL VLDL Cholesterol 16 LAB TCHDL <5.10 TC:HDL Ratio 3.87 LAB LDLHDL <2.54 LDL:HDL Ratio 2.33 Result Comment: Reference: 1. National Cholesterol Education Program ATP III Guideline At-A-Glance Quick Desk Reference: National Heart, Lung, and Blood [place]. National Institutes of Health. 2001: NIH Publication No. 01-3305. 2. An International Atherosclerosis Society position paper: global recommendations for the management of dyslipidemia: executive summary, Atherosclerosis. 2014: 232(2):410-413. Performed By: #### CBCDIF, CMP, LIPB #### [facility] [address], [place] [address] DISCHARGE INSTRUCTION Observed: 07/09/2018 Status: F Source: [place] 11:49 PM [facility] REPOSITORY [facility] Medical Records Department [address] [place] [address] Discharge Instruction 07/09/18 2347 MR#: [id number] Acct: [id number] Name: AYSHA SAVAGE Rep #: [id number] : 1965 52 From: Momo Lopez DO PCP: Gilson Menon MD Status: REG ER ED Disposition - Plan for ED Patient: Chief Complaint: Other, Pain/Inj Instructions: ED Chronic Pain Management, ED Head Injury Closed, ED Sprain Strain Neck Prescriptions: traMADol [Ultram] 50 mg PO Q4H PRN PRN 3 Days #20 tab PRN Reason: Pain Cyclobenzaprine [Flexeril] 10 mg PO TID PRN #20 tab PRN Reason: Muscle Spasm Referrals: Gilson Menon MD [Primary Care Provider] - 5-7 Days What to do if you have Problems For any increased pain, shortness of breath, bleeding, nausea or vomiting, chest pain, or any unexpected problems, contact your Primary Care Provider. Call [employer] [facility] ([phone]) or report to the closest Emergency Room. Call 911 if necessary. 07/09/18 2349 <Electronically signed by Momo Lopez DO> Date Momo Lopez DO Cosigner Signature (If Indicated): Date CC: Gilson Menon MD EMERGENCY DEPARTMENT Observed: 07/09/2018 Status: F Source: [place] SUMMARY 11:47 PM [facility] REPOSITORY [facility] Medical Records Department [address] [place] [address] Emergency Department Summary 07/09/18 2344 MR#: [id number] Acct: [id number] Name: AYSHA SAVAGE Rep #: [id number] : 1965 52 From: Momo Lopez DO PCP: Gilson Menon MD Status: REG ER - ER Visit Summary Date of Service: 07/09/18 Chief Complaint: [Head and neck injury] History of Present Illness: The patient is a 52 M [presents the emergency department with complaint of head injury that occurred earlier today. Patient states that he was getting in to significant others vehicle and he struck his head on the side of the vehicle getting in. Patient initially did not think much of it but now experiencing headache and severe pain in his neck that radiates into his arms. Patient has history of chronic neck and back issues and used to be in pain management with a Dr. Johnson in [facility] up until earlier this year. Patient states that he is currently trying to find a pain management physician through the [facility] that is more local. Patient tells me he has had prior cervical spine fusion. Patient scheduled to see orthopedics on August 01 for some chronic neck and back pain issues.] Patient also currently on Xarelto for history of DVT and he does have a [place] filter in place. Physical Examination: [HEENT-PERRLA, EOMI. Cranial nerves II through XII grossly intact. TMs clear. Mucous membranes moist. No adenopathy. No external evidence of trauma to his head. Patient has diffuse C-spine tenderness as well as paracervical muscular tenderness on palpation. Cardiovascular-regular rate and rhythm without murmur or ectopy Lungs-clear to auscultation, chest wall stable without crepitus or subcu emphysema Abdomen-normoactive bowel sounds, soft, nontender, no rebound or rigidity, no peritoneal signs. Extremities-intact 4, normal range of motion, normal pulses, atraumatic]. Patient has normal strength in the upper extremities and normal deep tendon reflexes of plus 2 out of 4 bilaterally at the bicep, tricep, and brachioradialis. Test Results: [CT scan of the brain without contrast showed nothing acute. CT scan of the cervical spine show some degenerative changes and fusion at C4 6 however no acute findings.] Emergency Department Course and Treatment: [Patient was medicated with morphine and Zofran IM.] Treatment Plan: [Patient advised to follow-up with his primary care physician and pain management for his chronic neck and back issues.] Disposition: [Discharged home in stable condition] Impression: [Closed head injury Cervical strain/radiculopathy] This note was generated with [employer] dictation software. It may contain incorrect words, spelling, and punctuation that were not noted in review of the chart prior to signing ED Disposition - Plan for ED Patient: Chief Complaint: Other, Pain/Inj Referrals: Gilson Menon MD [Primary Care Provider] - What to do if you have Problems For any increased pain, shortness of breath, bleeding, nausea or vomiting, chest pain, or any unexpected problems, contact your Primary Care Provider. Call [facility] ([phone]) or report to the closest Emergency Room. Call 911 if necessary. 07/09/18 7112 <Electronically signed by Momo Lopez DO> Date Momo Lopez DO Cosigner Signature (If Indicated): Date CC: Gilson Menon MD BRAIN/HEAD WITHOUT Observed: 07/09/2018 Status: F Source: [place] 10:59 PM [facility] REPOSITORY [facility] Imaging Services [address] [place] [address] Brain/Head without Contrast MR#: [id number] Acct: [id number] Name: AYSHA SAVAGE Rep #: [id number] : 1965 M 52 From: Miguel Rajan MD PCP: Gilson Menon MD Status: REG ER Study: Brain/Head without Contrast Date of Exam: 07/09/18 Exam# [id number] Ordering Dr: Momo Lopez DO STUDY: CT BRAIN WITHOUT CONTRAST REASON FOR EXAM: Male, 52 years old. Trauma RADIATION DOSAGE (If Supplied By Facility): CTDIvol = ( 44.99 ) mGy, DLP = ( 829.85 ) mGycm TECHNIQUE: Transaxial CT imaging of the brain was performed without administration of intravenous contrast material. Individualized dose optimization techniques were used for this CT. COMPARISON: 01/03/2018 FINDINGS: There is no acute bleed or infarct. There are normal white matter tracts. The ventricles are normal in configuration. There is no hydrocephalus. The visualized paranasal sinuses are clear. The mastoid air cells are well aerated. There is no skull fracture. CT/Brain/Head without Contrast IMPRESSION: No acute intracranial abnormality. Electronically Signed: Miguel Rajan, at 23:34 EDT Tel , Service support , CC: Momo Lopez DO; Gilson Menon MD 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: Signed SPINE CERVICAL Observed: 07/09/2018 Status: F Source: [place] WITHOUT CONTRAS 10:59 PM [facility] REPOSITORY [facility] Imaging Services [address] [place] [address] Spine Cervical without Contras MR#: [id number] Acct: [id number] Name: AYSHA SAVAGE Rep #: [id number] : 1965 M 52 From: Miguel Rajan MD PCP: Gilson Menon MD Status: REG ER Study: Spine Cervical without Contras Date of Exam: 07/09/18 Exam# [id number] Ordering Dr: Momo Lopez DO STUDY: CT CERVICAL SPINE WITHOUT CONTRAST REASON FOR EXAM: Male, 52 years old. Trauma RADIATION DOSAGE (If Supplied By Facility): CTDIvol = ( 23.82 ) mGy, DLP = ( 462.19 ) mGycm TECHNIQUE: High resolution transaxial imaging was performed without contrast material. Sagittal and coronal images were reconstructed. Individualized dose optimization techniques were used for this CT. COMPARISON: CTA neck dated 10/27/2017. FINDINGS: There is no evidence of fracture or dislocation in the cervical spine. There are stable postsurgical changes from anterior fusion of C4-C6. The hardware is intact and alignment is satisfactory. There are stable mild degenerative changes. The visualized paraspinal soft tissues are within normal limits. CT/Spine Cervical without Contras IMPRESSION: No fracture or dislocation in the cervical spine. Stable post surgical and degenerative changes. Electronically Signed: Miguel Rajan, at 23:38 EDT Tel , Service support , CC: Momo Lopez DO; Gilson Menon MD 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: Signed XR CERVICAL 4V Observed: 07/07/2018 Status: F Source: [place] AP/LAT/OBL 9:28 AM [facility] REPOSITORY * * *Final Report* * * DATE OF EXAM: Jul 07 2018 9:28AM WOX [id number] - XR CERVICAL 4V AP/LAT/OBL / PROCEDURE REASON: Cervicalgia * * * * Physician Interpretation * * * * HISTORY: Neck pain COMPARISON: There are no prior relevant examinations available for comparison. RESULT: 4 views of the cervical spine demonstrate multilevel degenerative change with vertebral body osteophytosis and disc space narrowing, greatest at C4-5, C5-6 and C6-C7 where there is anterior screw plate device from prior anterior fusion.. There are no vertebral body compression deformities and alignment is well maintained. Bilateral oblique views demonstrate mild to moderate foraminal narrowing at C5-6 laterally secondary to osteophytosis. The atlantoaxial interval and craniocervical junction are intact. There is no prevertebral soft tissue abnormality. IMPRESSION: Postsurgical and degenerative changes as detailed in report. 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: SAJAN Transcribe Date/Time: Jul 07 2018 12:42P Dictated by : ANNIKA NG MD This examination was interpreted and the report reviewed and electronically signed by: ANNIKA NG MD on Jul 07 2018 12:43PM EST [id number] Observed: 07/07/2018 Status: COMPLETED Source: [place] 9:16 AM [facility] REPOSITORY HNO ID: [id number] Author: Kaitlynn Gamino (Rt) [place] Service: (none) Author Type: Welfare Adviser Type: Progress Notes Filed: 07/07/2018 9:28 AM Note Text: Radiology Service Progress Note PATIENT NAME: Aysha Savage DATE OF SERVICE: July 07, 2018 TIME: 9:16 AM PATIENT IDENTITY VERIFICATION COMPLETED USING TWO (2) METHODS: Patient confirmed name verbally and Date of . PATIENT GENDER DATA: Male PATIENT RELEVANT IMPLANT DATA REVIEWED: Not Applicable RADIOLOGY DEPARTMENT: General X-ray: Exam(s) Completed: Spine X-Ray(s): Cervical AP / LAT / OBL PERIPHERAL IV DATA: Not applicable SIGNED BY: RT Anamaria July 07, 2018 9:16 AM PROGRESS Observed: 07/07/2018 Status: COMPLETED Source: [place] 8:32 AM [facility] REPOSITORY HNO ID: [id number] Author: Gilson Menon Service: (none) Author Type: Physician Type: Progress Notes Filed: 07/07/2018 9:08 AM Note Text: Patient presents with: Establish Care HPI: Patient presents today for office visit for establishing care. His main issue is his neck. Has pain that goes up his jaw. Can stay there for up to a half hour and his back when he walks. Has been bothering him most of the summer. Has had MRI's in the past. Has had previous surgery in the past by [facility]. Does get pain that goes down the arms. No new numbness. No new weakness. Has not seen anyone since he had surgery. Never really been right since surgery. HTN: Patient is compliant with meds Off of meds by watching diet. Denies side effects: Yes. Chest pain: No. Dyspnea: No. Edema: No. Palpitations: No. Syncope: No. Headache: No. Dizziness: Occasional. Psych: overall doing well. Still seeing counselor regularly. Off of meds. HYPOTHYROID: Patient is compliant with medications: Yes Patient has changes in energy: Yes Patient has changes in hair or skin: No Patient has temperature intolerance: No Patient has weight changes: No ANTICOAGULATION: Patient is on xarelto for recurrent dvt's Length of treatment: indefinite. Has a filter in for ? Seven years. . Bleeding or bruising No. Neuro: has seen neurologist and was to be followed with in the past for spells where he becomes dazed etc. . He was to follow up with her in April of this past year. Wants a local neurologist. Has had for years. Says his eye moves out. Has had mri's on his brain. Was to have eeg, carotids. He has been seen by several physicians for it. He never becomes syncopal. He wants his ivc filter removed. Apparently saw a plant and instrument engineer in the past who diagnosed him with a clotting disorder. Is on xarelto. MEDICATIONS: Current Outpatient Prescriptions: levothyroxine (SYNTHROID) 75 mcg tablet Take 1 tablet by mouth once daily. XARELTO 20 mg tablet TAKE ONE TABLET BY MOUTH ONCE DAILY WITH DINNER multivitamin tablet Take 1 tablet by mouth once daily. No current facility-administered medications for this visit. ALLERGIES: ALLERGIES No Known Allergies PAST MEDICAL HISTORY Diagnosis Date - Deep vein thrombosis (DVT) (HCC) per patient has a clotting disorder, multiple blood clots, one in each leg and in left arm - Depression - Gross hematuria - HTN (hypertension) - Hypothyroidism - Obesity - Smoking PAST SURGICAL HISTORY Procedure Laterality Date - APPENDECTOMY - HERNIA REPAIR W/MESH 1996 bilateral inguinal repair - IVC FILTER SURGICAL 2010 - LUMBAR SPINE FUSION COMBINED 2002 L5-S1 posterior - NERVE STIMULATOR,0003 insertion AND removal x 2 - PAST SURGICAL HISTORY OF cervical surgery 2013 - PAST SURGICAL HISTORY OF 2003- lumbar - PAST SURGICAL HISTORY OF thoracic surgery 2009 - SKIN / WOUND CONSULT cellulitis (right hand) FAMILY HISTORY Problem Relation Age of Onset - Coronary Artery Disease Mother - other (CHF) Mother - Colon Cancer Father - Cancer Father - Coronary Artery Disease Brother 54 me Social History Marital status: Spouse name: Years of education: Number of children: Social History Main Topics Smoking status: Current Every Day Smoker Packs/day: 1.00 Years: 0.00 Types: Cigarettes Smokeless tobacco: Never Used Alcohol use: No Drug use: No Sexual activity: Not Currently Other Topics Concern Service No Blood Transfusions No Caffeine Concern Yes Comment:excessive Occupational Exposure No Hobby Hazards No Sleep Concern No Weight Concern Yes Special Diet No Back Care No Exercise Yes Bike Helmet No Seat Belt Yes Self-Exams Yes Discussed tobacco cessation, including risks of continued use. Offered assistance to help quit if patient desires. Reviewed current medications, allergies, past medical history, surgical history, family history and social history today. REVIEW OF SYSTEMS GI: Negative for change in bowel habit : saw urology in the past for hematuria. had his prostate checked. All other reviewed and negative other than HPI. HEALTH MAINTENANCE: Reviewed health maintenance issues today and recommended the following in detail. DTAP,TDAP,TD(1 - Tdap) due on 1983 INFLUENZA(1) due on 07/18/2018 VITALS: BP 128/86 Pulse 80 Temp (!) 35.6 ?C (96 ?F) (Tympanic) Resp 20 Ht 179.7 cm (5' 10.75) Wt 94.3 kg (208 lb) BMI 29.22 kg/m? Last 4 Encounter Wt Readings: Date: Wt: 07/07/2018 94.3 kg (208 lb) 02/12/2018 93 kg (205 lb) 02/02/2018 93 kg (205 lb) 01/12/2018 93 kg (205 lb) PHYSICAL EXAMINATION: General appearance: Well appearing, alert, in no acute distress, well-hydrated, well nourished. Skin: Skin color, texture, turgor normal, no suspicious rashes or lesions Oropharynx: Lips, mucosa, and tongue normal, teeth and gums normal, oropharynx normal Neck: Supple, no adenopathy; thyroid symmetric, normal size, no bruits Lungs: Lungs clear to auscultation. No wheezing, rhonchi, rales Heart: RRR without murmur, gallop, or rubs. No ectopy Abdomen: Normal abdominal exam, Abdomen soft, non-tender. Bowel sounds normal. No masses, organomegaly Extremities: No deformities, edema, skin discoloration, clubbing or cyanosis. Good capillary refill. Musculoskeletal: No joint swelling, deformity, or tenderness Peripheral pulses: Normal Neuro: Gait normal. Reflexes normal and symmetric. Sensation grossly intact. ASSESSMENT/PLAN: 1. Essential hypertension - ICD9: 401.9, ICD10: I10 (primary diagnosis) - good control - Encouraged dietary sodium restriction/DASH diet - Goal of BP <140/90 - COMP METABOLIC PANEL - CBC + DIFF 2. Smoking - ICD9: 305.1, ICD10: F17.200 - Cessation encouraged. - Physiologic and physical aspects of tobacco addiction as well as strategies for quitting were discussed. - Counseling was given focusing on the harmful effects of this addiction especially given the patient's medical condition(s) which will be worsened because of the chemicals in tobacco. - CBC + DIFF 3. Screening for lipid disorders - ICD9: V77.91, ICD10: Z13.220 - LIPID PANEL BASIC 4. Spells of decreased attentiveness - ICD9: 780.99, ICD10: R68.89 - see neurology. 5. Neck pain - ICD9: 723.1, ICD10: M54.2 - get xrays. Consider spine surgery or physical therapy. 6. Presence of IVC filter-2010 - ICD9: V45.89, ICD10: Z95.828 - will help him get set up with vascular. 7. Bipolar disease, chronic (HCC) - ICD9: 296.80, ICD10: F31.9 - continue to see psych. 8. History of DVT of lower extremity- 2009 - ICD9: V12.51, ICD10: Z86.718 - continue meds. - RIVAROXABAN 20 MG TABLET 9. Acquired hypothyroidism - ICD9: 244.9, ICD10: E03.9 - had just had tsh done. 10. Mood disorder (HCC) - ICD9: 296.90, ICD10: F39 - as above. 11. Family history of colon cancer - ICD9: V16.0, ICD10: Z80.0 - continue colon cancer screening. Gilson Menon MD RTO in six months. and prn. CNOV Observed: 07/07/2018 Status: COMPLETED Source: [place] 8:00 AM [facility] [facility] RE[facility] Office Visit (FAMPWS) AYSHA SAVAGE ([id number]) 1965 M Date Time Provider Department 07/07/18 8:00 AM GILSON MENON During your visit today, we recorded the following information about you: Temperature Pulse Respiration Blood pressure 96 degrees 80/minute 20/minute 128/86 Weight Height 94.3 kg 1.797 m Gilson Menon MD 07/07/2018 9:08 AM Signed Patient presents with: Establish Care HPI: Patient presents today for office visit for establishing care. His main issue is his neck. Has pain that goes up his jaw. Can stay there for up to a half hour and his back when he walks. Has been bothering him most of the summer. Has had MRI's in the past. Has had previous surgery in the past by [facility]. Does get pain that goes down the arms. No new numbness. No new weakness. Has not seen anyone since he had surgery. Never really been right since surgery. HTN: Patient is compliant with meds Off of meds by watching diet. Denies side effects: Yes. Chest pain: No. Dyspnea: No. Edema: No. Palpitations: No. Syncope: No. Headache: No. Dizziness: Occasional. Psych: overall doing well. Still seeing counselor regularly. Off of meds. HYPOTHYROID: Patient is compliant with medications: Yes Patient has changes in energy: Yes Patient has changes in hair or skin: No Patient has temperature intolerance: No Patient has weight changes: No ANTICOAGULATION: Patient is on xarelto for recurrent dvt's Length of treatment: indefinite. Has a filter in for ? Seven years. . Bleeding or bruising No. Neuro: has seen neurologist and was to be followed with in the past for spells where he becomes dazed etc. . He was to follow up with her in April of this past year. Wants a local neurologist. Has had for years. Says his eye moves out. Has had mri's on his brain. Was to have eeg, carotids. He has been seen by several physicians for it. He never becomes syncopal. He wants his ivc filter removed. Apparently saw a plant and instrument engineer in the past who diagnosed him with a clotting disorder. Is on xarelto. MEDICATIONS: Current Outpatient Prescriptions: levothyroxine (SYNTHROID) 75 mcg tablet Take 1 tablet by mouth once daily. XARELTO 20 mg tablet TAKE ONE TABLET BY MOUTH ONCE DAILY WITH DINNER multivitamin tablet Take 1 tablet by mouth once daily. No current facility-administered medications for this visit. ALLERGIES: ALLERGIES No Known Allergies PAST MEDICAL HISTORY Diagnosis Date - Deep vein thrombosis (DVT) (HCC) per patient has a clotting disorder, multiple blood clots, one in each leg and in left arm - Depression - Gross hematuria - HTN (hypertension) - Hypothyroidism - Obesity - Smoking PAST SURGICAL HISTORY Procedure Laterality Date - APPENDECTOMY - HERNIA REPAIR W/MESH 1996 bilateral inguinal repair - IVC FILTER SURGICAL 2010 - LUMBAR SPINE FUSION COMBINED 2002 L5-S1 posterior - NERVE STIMULATOR,0003 insertion AND removal x 2 - PAST SURGICAL HISTORY OF cervical surgery 2013 - PAST SURGICAL HISTORY OF 2002- lumbar - PAST SURGICAL HISTORY OF thoracic surgery 2008 - SKIN / WOUND CONSULT cellulitis (right hand) FAMILY HISTORY Problem Relation Age of Onset - Coronary Artery Disease Mother - other (CHF) Mother - Colon Cancer Father - Cancer Father - Coronary Artery Disease Brother 54 mi Social History Marital status: Spouse name: Years of education: Number of children: Social History Main Topics Smoking status: Current Every Day Smoker Packs/day: 1.00 Years: 0.00 Types: Cigarettes Smokeless tobacco: Never Used Alcohol use: No Drug use: No Sexual activity: Not Currently Other Topics Concern Service No Blood Transfusions No Caffeine Concern Yes Comment:excessive Occupational Exposure No Hobby Hazards No Sleep Concern No Weight Concern Yes Special Diet No Back Care No Exercise Yes Bike Helmet No Seat Belt Yes Self-Exams Yes Discussed tobacco cessation, including risks of continued use. Offered assistance to help quit if patient desires. Reviewed current medications, allergies, past medical history, surgical history, family history and social history today. REVIEW OF SYSTEMS GI: Negative for change in bowel habit : saw urology in the past for hematuria. had his prostate checked. All other reviewed and negative other than HPI. HEALTH MAINTENANCE: Reviewed health maintenance issues today and recommended the following in detail. DTAP,TDAP,TD(1 - Tdap) due on 1983 INFLUENZA(1) due on 07/18/2018 VITALS: BP 128/86 Pulse 80 Temp (!) 35.6 ?C (96 ?F) (Tympanic) Resp 20 Ht 179.7 cm (5' 10.75) Wt 94.3 kg (208 lb) BMI 29.22 kg/m? Last 4 Encounter Wt Readings: Date: Wt: 07/07/2018 94.3 kg (208 lb) 02/12/2018 93 kg (205 lb) 02/02/2018 93 kg (205 lb) 01/12/2018 93 kg (205 lb) PHYSICAL EXAMINATION: General appearance: Well appearing, alert, in no acute distress, well-hydrated, well nourished. Skin: Skin color, texture, turgor normal, no suspicious rashes or lesions Oropharynx: Lips, mucosa, and tongue normal, teeth and gums normal, oropharynx normal Neck: Supple, no adenopathy; thyroid symmetric, normal size, no bruits Lungs: Lungs clear to auscultation. No wheezing, rhonchi, rales Heart: RRR without murmur, gallop, or rubs. No ectopy Abdomen: Normal abdominal exam, Abdomen soft, non-tender. Bowel sounds normal. No masses, organomegaly Extremities: No deformities, edema, skin discoloration, clubbing or cyanosis. Good capillary refill. Musculoskeletal: No joint swelling, deformity, or tenderness Peripheral pulses: Normal Neuro: Gait normal. Reflexes normal and symmetric. Sensation grossly intact. ASSESSMENT/PLAN: 1. Essential hypertension - ICD9: 401.9, ICD10: I10 (primary diagnosis) - good control - Encouraged dietary sodium restriction/DASH diet - Goal of BP <140/90 - COMP METABOLIC PANEL - CBC + DIFF 2. Smoking - ICD9: 305.1, ICD10: F17.200 - Cessation encouraged. - Physiologic and physical aspects of tobacco addiction as well as strategies for quitting were discussed. - Counseling was given focusing on the harmful effects of this addiction especially given the patient's medical condition(s) which will be worsened because of the chemicals in tobacco. - CBC + DIFF 3. Screening for lipid disorders - ICD9: V77.91, ICD10: Z13.220 - LIPID PANEL BASIC 4. Spells of decreased attentiveness - ICD9: 780.99, ICD10: R68.89 - see neurology. 5. Neck pain - ICD9: 723.1, ICD10: M54.2 - get xrays. Consider spine surgery or physical therapy. 6. Presence of IVC filter-2010 - ICD9: V45.89, ICD10: Z95.828 - will help him get set up with vascular. 7. Bipolar disease, chronic (HCC) - ICD9: 296.80, ICD10: F31.9 - continue to see psych. 8. History of DVT of lower extremity- 2009 - ICD9: V12.51, ICD10: Z86.718 - continue meds. - RIVAROXABAN 20 MG TABLET 9. Acquired hypothyroidism - ICD9: 244.9, ICD10: E03.9 - had just had tsh done. 10. Mood disorder (HCC) - ICD9: 296.90, ICD10: F39 - as above. 11. Family history of colon cancer - ICD9: V16.0, ICD10: Z80.0 - continue colon cancer screening. Gilson Menon MD RTO in six months. and prn. Referring Provider: SELF [200] Allergies As of Date: 07/07/2018 (No Known Allergies) Date Reviewed: 07/07/2018 Reviewed by: Rhoda Muhammad LPN - Fully Assessed Reason for Visit: Establish Care [42] Primary Visit Diagnosis:Essential hypertension [I10] Other Visit Diagnoses:Smoking [F17.200] Screening for lipid disorders [Z13.220] Spells of decreased attentiveness [R68.89] Neck pain [M54.2] Presence of IVC filter-2010 [Z95.828] Bipolar disease, chronic (HCC) [F31.9] History of DVT of lower extremity- 2009 [Z86.718] Acquired hypothyroidism [E03.9] Mood disorder (HCC) [F39] Family history of colon cancer [Z80.0] Order(s):rivaroxaban (XARELTO) 20 mg tabletTAKE ONE TABLET BY MOUTH ONCE DAILY WITH DINNERDisp: 90 tabletRfl: 1 LIPID PANEL BASIC [SQLIPB] Order #: [id number] FUTURE COMP METABOLIC PANEL [SQCMP] Order #: [id number] FUTURE CBC + DIFF [SQCBCDIF] Order #: [id number] FUTURE XR CERV OTHER 4V AP/LAT/OBL [5557478] Order #: [id number] FUTURE CONSULT TO NEUROLOGY [9019] Order #: [id number]: 1 CONSULT TO VASCULAR SURGERY [9042] Order #: [id number]: 1 Prescriptions as of 07/07/2018 Sig: RIVAROXABAN 20 MG TABLET TAKE ONE TABLET BY MOUTH ONCE* LEVOTHYROXINE 75 MCG TABLET Take 1 tablet by mouth once d* MULTIVITAMIN TABLET Take 1 tablet by mouth once d* Problem List As Of Date 07/07/2018 Noted Resolved Postlaminectomy syndrome [M96.1] INVALID FOR* Migraine with typical aura [G43.109] INVALID FOR* 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] INVALID FOR* 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* Deep vein thrombosis (DVT) (HCC) [I82.409] 04/30/2017 History of DVT of lower extremity- 2009 [Z86.71*INVALID FOR* Chronic back pain [M54.9, G89.29] INVALID FOR* Mood disorder (HCC) [F39] INVALID FOR* HTN (hypertension) [I10] Hypothyroidism [E03.9] Smoking [F17.200] Asthma [J45.909] 10/30/2016 Bipolar disease, chronic (HCC) [F31.9] INVALID FOR* Family history of colon cancer [Z80.0] INVALID FOR* Cervical spine disease [M48.9] INVALID FOR* History of colonic polyps [Z86.010] INVALID FOR* Presence of IVC filter-2010 [Z95.828] INVALID FOR* Hyperglycemia [R73.9] INVALID FOR* History of blood clots [Z86.718] INVALID FOR* Gouty arthritis of toe of left foot [M10.9] INVALID FOR* Vertebral artery disease (HCC)-right vertebral *INVALID FOR* Congenital brain anomaly (HCC)Vertebral artery *INVALID FOR* Family history of malignant neoplasm of gastroi*INVALID FOR* More... BPH without urinary obstruction [N40.0] INVALID FOR* Gross hematuria [R31.0] INVALID FOR* Prescriptions ordered this encounter Disp Refills Start End RIVAROXABAN 20 MG TABLET 90 t* 1 07/07/2018 Sig: TAKE ONE TABLET BY MOUTH ONCE DAILY WITH DINNER Medications Discontinued During This Encounter topiramate (TOPAMAX) 25 mg tablet 30 t* 5 02/12/2018 07/07/2018 Route: ORAL Sig: Take 1 tablet by mouth daily at bedtime. Patient not taking: Reported on 07/07/2018 Disc: Reason for discontinue is not on file. magnesium oxide (MAG-OX) 400 mg tabl* 30 t* 6 02/12/2018 07/07/2018 Route: ORAL Sig: Take 1 tablet by mouth once daily. Patient not taking: Reported on 07/07/2018 Disc: Reason for discontinue is not on file. busPIRone (BUSPAR) 10 mg tablet 04/06/2017 07/07/2018 Class: Historical Med Route: ORAL Sig: Take 10 mg by mouth three times daily. Disc: Reason for discontinue is not on file. venlafaxine (EFFEXOR) 75 mg tablet 07/07/2018 Class: Historical Med Route: ORAL Sig: Take 37.5 mg by mouth once daily. Disc: Reason for discontinue is not on file. XARELTO 20 mg tablet 90 t* 1 02/06/2018 07/07/2018 Cmt: This prescription was filled on 02/06/2018. Any refills authorized will be placed on file. Sig: TAKE ONE TABLET BY MOUTH ONCE DAILY WITH DINNER Disc: Reason for discontinue is not on file. Disposition: Return in about 6 months (around 01/07/2019). Follow-up and Disposition History Recorded Encounter Status:Closed by GILSON MENON MD on 07/07/18 CT HEAD WITHOUT Observed: 05/30/2018 Status: F Source: [employer] CONTRAST 3:58 AM SYSTEM ([place]) REPOSITORY EXAM: CT HEAD WITHOUT CONTRAST , 05/30/2018 CLINICAL STATEMENT: Ataxia. Suspected stroke. COMPARISON: None. TECHNIQUE: CT examination of the head without IV contrast. Dose reduction techniques were achieved by using automated exposure control and/or adjustment of mA and/or kV according to patient size and/or use of iterative reconstruction technique. FINDINGS: No acute ischemia is seen in a major vascular distribution. There is no intracranial hemorrhage, edema, mass effect, or midline shift. The brain parenchyma, ventricles and extraaxial CSF spaces appear normal for age. The paranasal sinuses and left mastoid air cells are clear. A moderate size right mastoid effusion is noted. IMPRESSION: 1. No acute intracranial process. 2. Moderate size right mastoid effusion. CT NECK WITH CONTRAST Observed: 05/30/2018 Status: F Source: [employer] 3:58 AM SYSTEM ([place] REPOSITORY EXAM: CT NECK WITH CONTRAST CLINICAL STATEMENT: 52-year-old male with neck pain, area of palpable concern. COMPARISON: Head CT of the same day is reviewed. There is no more remote imaging. TECHNIQUE: CT examination of the soft tissues of the neck following?the administration of 75 mL Omnipaque 350 intravenous contrast. Coronal and sagittal reformations were performed. ? Dose reduction techniques were achieved by using automated exposure control and/or adjustment of mA and/or kV according to patient size and/or use of iterative reconstruction technique. FINDINGS: Visualized intracranial contents and orbits appear unremarkable. Visualized paranasal sinuses are normally aerated. Left mastoid is normally aerated. There is fluid within the right mastoid. Middle ear cavities are normally aerated. Airway contours are normal. Salivary glands and thyroid appear unremarkable. There is a subcentimeter nodule within the right lobe of the thyroid seen on image 67. There is normal enhancement of the vascular structures of the neck. No mass or adenopathy is identified. A BB has been placed on the skin surface just to the right at the midline at the C2 level. No underlying mass is identified. Musculature within the region appear symmetric and unremarkable. There has been previous ACDF at C4/C5/C6. There is near complete osseous interbody fusion at C4/C5. Visualized portion of the superior chest is unremarkable. IMPRESSION: Overall largely unremarkable CT imaging of the soft tissues of the neck. A BB has been placed on the skin surface just to the right of the posterior midline at the C2 level. No underlying mass is present. Underlying musculature appears symmetric and unremarkable. There has been previous ACDF at the C4/C5/C6 level. There is again noted right mastoid effusion. CBC Collected: 05/30/2018 Status: F Source: [employer] 2:35 AM SYSTEM ([place] REPOS[place] TYPE CODE TESTS RESULT OUT OF REFERENCE UNITS RANGE LAB WBC 3.6-11.0 /cmm WBC COUNT 7.3 LAB RBC 4.0-6.1 /cmm RBC COUNT 4.67 LAB HGB 14.0-18.0 G/DL HEMOGLOBIN 14.3 LAB HCT 42.0-52.0 % Low HEMATOCRIT 40.0 LAB MCV 80.0-100.0 FL MCV 85.6 LAB MCH 26.0-35.0 PG MCH 30.7 LAB MCHC 27.0-37.0 G/DL MCHC 35.9 LAB RDW 11.5-14.5 % RDW 12.9 LAB PLTC 130.0-400.0 /cmm PLATELET COUNT 155 LAB MPV 7.4-11.0 FL MPV 7.5 LAB DTYPE % DTYPE AUTO DIFF LAB NEUT 37.0-75.0 % NEUTROPHIL 56.3 LAB LYMP 20.0-55.0 % LYMPHOCYTE 31.6 LAB AOMONO 0.0-10.0 % MONOCYTE 8.5 LAB EOS 0.0-11.0 % EOSINOPHIL 3.2 LAB BASO 0.0-2.0 % BASOPHIL 0.4 LAB ANC 1.0-7.0 x10 ABSOLUTE NEUTROPHIL COUNT 4.1 LAB ALYM X10 ABSOLUTE LYMPHOCYTE 2.30 LAB AMONO X10 ABSOLUTE MONOCYTE 0.6 LAB AEO X10 ABSOLUTE EOS 0.20 LAB ABAS X10 ABSOLUTE BAS 0.0 Result Comment: Testing performed at [place] [address] Performed By: #### ACBC, ESR, ITROT, PT, CMPF, CREACT #### [place] [address] ESR Collected: 05/30/2018 Status: F Source: [employer] 2:35 AM SYSTEM ([place] REPOSITORY TYPE CODE TESTS RESULT OUT OF RANGE REFERENCE UNITS LAB ESR MM/HR ESR 1 Result Comment: Testing performed at [place] [address] Performed By: #### ACBC, ESR, ITROT, PT, CMPF, CREACT #### [place] [address] ISTAT TROPONIN I Collected: 05/30/2018 Status: F Source: [employer] 2:35 AM [place] ([place] REPOS[place] TYPE CODE TESTS RESULT OUT OF REFERENCE UNITS RANGE LAB ITRO 0-0.08 ng/mL ISTAT TROPONIN <0.02 I Result Comment: Testing performed at [place] [address] Performed By: #### ACBC, ESR, ITROT, PT, CMPF, CREACT #### Testing performed at [place] [id number] PROTIME Collected: 05/30/2018 Status: F Source: [employer] 2:35 AM [place] ([place] REPOS[place] TYPE CODE TESTS RESULT OUT OF REFERENCE UNITS RANGE LAB PT1 11.6-14.0 SEC PROTIME 13.8 LAB INR 0.88-1.12 INR 1.12 Result Comment: 2.0-3.0 THERAPEUTIC RANGE 2.5-3.5 PROSTHETIC VALVE RANGE Testing performed at [place] [address] Performed By: #### ACBC, ESR, ITROT, PT, CMPF, CREACT #### Testing performed at [facility] [address] [place] [address] CMP FASTING Collected: 05/30/2018 Status: F Source: [employer] 2:35 AM [place] REPOS[place]ORY TYPE CODE TESTS RESULT OUT OF REFERENCE UNITS RANGE LAB GLF 70-100 MG/DL High GLUCOSE 118 FASTING Result Comment: NORMAL <100 mg/dL PREDIABETES 101-126 mg/dL DIABETES 126 mg/dL or higher LAB BUN 7-20 MG/DL BLOOD UREA 19 NITROGEN LAB CRET 0.7-1.2 MG/DL CREATININE SERUM 0.9 LAB NA 137-145 MMOL/L SODIUM 142 LAB K 3.5-5.1 MMOL/L POTASSIUM 3.6 LAB CL 98-107 MMOL/L CHLORIDE 107 LAB CA 8.4-10.2 MG/DL CALCIUM 9.1 LAB TP 6.3-8.2 GM/DL TOTAL PROTEIN 6.6 LAB ALB 3.5-5.0 G/dl ALBUMIN 4.1 LAB TBIL 0.2-1.3 MG/DL BILIRUBIN TOTAL 0.2 LAB AST 17-59 IU/L AST 25 LAB ALKP 38-126 IU/L ALK 46 PHOSPHATASE LAB CO2 22-30 MMOL/L CO2 27 LAB AG 1.3-2.2 RATIO A:G RATIO 1.6 LAB ALT 21-72 IU/L ALT 23 LAB GFR ml/min/1.73s q.m EST. GFR,Non >60 LAB GFRB ml/min/1.73s q.m EST. GFR, >60 [facility] GFRCOM GFR Information Average GFR for 50-59 years old = 93. Result Comment: Chronic Kidney disease, GFR = <60. Kidney failure, GFR = <15. The GFR estimate is not adjusted for extreme body surface area or acute process, nor has it been validated for women or ethnic groups other than and . Testing performed at [place] [address] Performed By: #### ACBC, ESR, ITROT, PT, CMPF, CREACT #### Testing performed at [place] [id number] C REACTIVE PROTEIN Collected: 05/30/2018 Status: F [facility] AM [facility] ([place] REPOSITORY TYPE CODE TESTS RESULT OUT OF REFERENCE UNITS RANGE LAB CREACT 0-10 MG/L C REACTIVE <5.0 PROTEIN Result Comment: Testing performed at [place] [address] Performed By: #### ACBC, ESR, ITROT, PT, CMPF, CREACT #### [place] [address] DOWNTIME REPORT Observed: 05/06/2018 Status: F Source: [facility] 1:39 PM [facility] Medical Records Department [address] [place] [address] Downtime Report MR#: [id number] Acct: [id number] Name: AYSHA SAVAGE A Rep #: [id number] : 1965 52 From: Wilemr Malik MD PCP: Gilson Menon MD Status: DEP ER This patient was seen during an EMR downtime April 20, 2018 - April 27, 2018. This patient may have a combination of paper and electronic documentation or all paper documentation. All documentation is viewable within the e-chart portion of [facility] for each patient visit. EMERGENCY DEPARTMENT Observed: 04/27/2018 Status: F Source: [facility] SUMMARY 11:23 PM [facility] Medical Records Department [address] [place] [address] Emergency Department Summary 04/27/18 2315 MR#: [id number] Acct: [id number] Name: AYSHA SAVAGE Rep #: [id number] : 1965 52 From: Justin Keen MD PCP: Gilson Menon MD Status: REG ER - ER Visit Summary Date of Service: 04/27/18 Chief Complaint: Weakness, tingling, dizziness which he describes as vertigo and diplopia History of Present Illness: The patient is a 52 M who presents with the aforementioned chief complaint. He states the diplopia has been going on for weeks to months with no etiology. He had a similar presentation and was admitted in December with significant workup including MRI and MRA which were negative. He presently denies any dizziness. He is unable to report any exacerbating, precipitating or alleviating factors. He states he had an episode that occurred while at the gym. He states he is on disability because of cervical and lumbar disc problems. He reports a C4 through 6 fusion and L5-S1 discectomy. He presently denies dizziness. He presently denies any visual symptoms. He denies any trouble with speech or swallowing. States is having difficulty using his left upper extremity and reported shaking of his left lower extremity. He denies headache. He denies any blurred or loss of vision. He denies nausea or vomiting. He denied unsteady gait. 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 He also has an IVC filter. Physical Examination: Vital signs are remarkable for slight elevation blood pressure 142 every 3. Patient appears in no distress. He does not appear anxious. He is tanned. He demonstrated the weakness of his left upper extremity. He would attempt to touch tip of his nose. He would raise his forearm 4-6 inches from the bed and then fall to the bed. He then raised to 12 inches and it felt to the back on the fourth or fifth attempt he was able to touch his nose with no ataxia. Head is atraumatic normocephalic. Pupils are equal round reactive. Extraocular muscles are intact. Funduscopic exam is normal. TMs are pearly white with landmarks noted. Nares patent with no drainage. Posterior pharynx without erythema or exudate. Uvula is midline. There is no dysphonia or dysphasia. Trachea is midline. There is no stridor with auscultation of the neck. There is no carotid bruits noted. Heart is regular without murmur, gallop or rub. S1 and S2 are normal. Lungs are clear to auscultation with good movement of air bilaterally. He is alert and oriented 3. Sensory is intact. DTRs are symmetric with no clonus or Babinski sign. Cranial 2 through 12 are intact. He has no cell bladder dysfunction. There was one episode when his left arm began to shake (abduction and abduction). Test Results: CBC and BMP are unremarkable. Emergency Department Course and Treatment: CBC was obtained to see if he was anemic or any abnormality would explain his unusual symptoms. Electrolytes to specifically look for hyponatremia, hypo-and hyperkalemia. Patient's neurologic exam is unusual and is not consistent with stroke or any motor or sensory deficit. Patient was told that his exam is confusing and suggestive of anything. His significant other, girlfriend, stated he is under a lot of stress this is not his first rodeo . Treatment Plan: One would expect absent deep tendon reflexes if there was a true motor deficit. His response when asked to raise his arm is not consistent with Parkinson's disease or any neurologic disorder. Concerned this represents/has a psychological basis. Disposition: Discharged to home with significant other and follow-up with his primary care physician Dr. La Impression: Reported weakness and abnormal movement Conversion reaction This note was generated with [employer] dictation software. It may contain incorrect words, spelling, and punctuation that were not noted in review of the chart prior to signing ED Disposition - Plan for ED Patient: Disposition: Home or Assisted Living Chief Complaint: Weakness Instructions: ED Weakness [facility] Referrals: Gilson Menon MD [Primary Care Provider] - 1-2 Days if not improving What to do if you have Problems For any increased pain, shortness of breath, bleeding, nausea or vomiting, chest pain, or any unexpected problems, contact your Primary Care Provider. Call [facility] ([phone]) or report to the closest Emergency Room. Call 911 if necessary. 04/27/18 0136 <Electronically signed by Justin Keen MD> Date Justin Keen MD Cosigner Signature (If Indicated): Date CC: Gilson Menon MD CBC W/DIFF, AUTOMATED Collected: 04/27/2018 Status: F Source: [facility] 10:35 PM [facility] REPOSITORY TYPE CODE TESTS RESULT OUT OF RANGE REFERENCE UNITS LAB L100.1000 4.4-11.0 K/mm3 Normal WBC 7.3 LAB L100.1200 4.6-6.2 M/mm3 Normal RBC 4.90 LAB L100.1300 13.0-16.5 g/dl Normal HGB 14.9 LAB L100.1400 40-54 % Normal HCT 42.3 LAB L100.1500 80-94 fL Normal MCV 86.3 LAB L100.1600 27.0-32.0 pg Normal MCH 30.4 LAB L100.1700 32-36 g/gl Normal MCHC 35.2 LAB L100.1810 11.6-14.6 % Normal RDW CV 12.6 LAB L100.1820 35.1-43.9 fl Normal RDW SD 39.8 LAB L100.1900 150-450 K/mm3 Normal PLT 152 LAB L100.2000 6.2-12.0 fl Normal MPV 9.0 LAB L100.2100 47-70 % Normal NEUT% 63.7 LAB L100.2200 19-41 % Normal LY% 27.9 LAB L100.2300 0-10 % Normal MONO% 6.6 LAB L100.2400 0-5 % Normal EO% 1.4 LAB L100.2500 0-1 % Normal BASO% 0.3 LAB L100.2550 0.0-0.9 % Normal IM GRAN % 0.100 Result Comment: IG% - Immature Granulocytes (promyelocytes, myelocytes and metamyelocytes) > 1% indicates that a LEFT SHIFT is Present. LAB L100.2620 2.0-7.7 X10 3/uL Normal Absolute Neut 4.7 LAB L100.2720 0.83-4.51 X10 3/ul Normal Absolute Lymph 2.04 Performed By: #### L100.0100 #### [facility] [address] [place], [place], [address] BASIC METABOLIC Collected: 04/27/2018 Status: F Source: [facility] PROFILE (BMP) 10:35 PM [facility] HOSPITAL REPOSITORY TYPE CODE TESTS RESULT OUT OF RANGE REFERENCE UNITS LAB L501.0100 74-106 mg/dL Normal GLU 95 Result Comment: Please note revised GLUCOSE reference range effective 2017. LAB L501.1000 7-18 mg/dL Normal BUN 9 LAB L501.1100 0.70-1.30 mg/dL Normal CREAT,SERUM 1.06 Result Comment: The validity of the calculated GFR AND GFRAA in patients over 70 years has not been determined. Clinical correlation is essential. LAB L501.1110 >60 mL/min Normal EST GFR 78 Result Comment: Non- GFR Calc LAB L501.1115 >60 mL/min Normal EST GFR - AA 94 Result Comment: GFR Calc LAB L501.1300 10-20 RATIO Low BUN/CRE 8.5 LAB L501.2200 8.5-10.1 mg/dL Normal CA 8.9 LAB L501.5300 136-145 mmol/L Normal NA 145 LAB L501.5600 3.5-5.1 mmol/L Normal K 3.8 LAB L501.5900 98-107 mmol/L High CL 109 LAB L501.6100 21.0-32.0 mmol/L Normal CO2 31.0 LAB L501.6200 5-15 Normal GAP 5 Performed By: #### L500.2500 #### [facility] [address] [facility] [place], [address] DISCHARGE INSTRUCTION Observed: 03/23/2018 Status: F Source: [place] 9:19 PM [facility] REPOSITORY [facility] Medical Records Department [address] [place] [address] Discharge Instruction 03/23/182118 MR#: [id number] Acct: [id number] Name: AYSHA SAVAGE A Rep #: [id number] : 1965 52 From: Momo Lopez DO PCP: GERA BRODY Status: REG ER ED Disposition - Plan for ED Patient: Chief Complaint: Other, Pain/Inj Instructions: ED Neck Pain No Trauma Referrals: Gera Brody [Primary Care Provider] - Additional Instructions: See Dr. Johnson tomorrow What to do if you have Problems For any increased pain, shortness of breath, bleeding, nausea or vomiting, chest pain, or any unexpected problems, contact your Primary Care Provider. Call [facility] ([phone]) or report to the closest Emergency Room. Call 911 if necessary. 03/23/182118 <Electronically signed by Momo Lopez DO> Date Momo Lopez DO Cosigner Signature (If Indicated): Date CC: GERA BRODY EMERGENCY DEPARTMENT Observed: 03/23/2018 Status: F Source: [place] SUMMARY 9:18 PM [facility] REPOSITORY [facility] Medical Records Department [address] [place] [address] Emergency Department Summary 03/23/182114 MR#: [id number] Acct: [id number] Name: AYSHA SAVAGE Rep #: [id number] : 1965 52 From: Momo Lopez DO PCP: GERA BRODY Status: REG ER - ER Visit Summary Date of Service: 03/23/18 Chief Complaint: [Neck and back pain] History of Present Illness: The patient is a 52 M [presents the emergency department with neck pain 2 days. Patient states that he has chronic neck and back pain and is currently in pain management. Patient had recent x-rays of his neck and was just able to get his results today. Patient has had prior cervical fusion C4 through C6. Patient denies any recent injury. Patient describes pain going down into both arms. Patient denies weakness in extremities. Patient denies IV drug use. Patient was seen for similar complaint last week in the emergency department.] Physical Examination: [HEENT-PERRLA, EOMI. Cranial nerves II through XII grossly intact. TMs clear. Mucous membranes moist. No adenopathy. Patient has diffuse tenderness over the cervical spine. No erythema or warmth noted. Cardiovascular-regular rate and rhythm without murmur or ectopy Lungs-clear to auscultation, chest wall stable without crepitus or subcu emphysema Abdomen-normoactive bowel sounds, soft, nontender, no rebound or rigidity, no peritoneal signs. Back exam-patient has some mild tenderness over the thoracic spine. Deep tendon reflexes are plus 2 out of 4 in the upper and lower extremities. Patient has normal precipitation equipment tender strength bilaterally. Extremities-intact 4, normal range of motion, normal pulses, atraumatic] Test Results: [None indicated] Emergency Department Course and Treatment: [Given 1 dose of Dilaudid 1 mg IM as well as Norflex 60 mg IM and Toradol 30 mill grams IM. Patient understands I will not write him for narcotic pain medication given the chronic nature of his pain. Patient also seen his pain management doctor tomorrow.] Treatment Plan: [Patient to see his management doctor tomorrow] Disposition: [Discharged home in stable condition]. Patient understands that if symptoms continue to worsen may need further imaging such as possibly MRI to evaluate further. Impression: [Acute exacerbation of chronic neck pain.] This note was generated with [employer] dictation software. It may contain incorrect words, spelling, and punctuation that were not noted in review of the chart prior to signing ED Disposition - Plan for ED Patient: Chief Complaint: Other, Pain/Inj Referrals: Gera Brody [Primary Care Provider] - What to do if you have Problems For any increased pain, shortness of breath, bleeding, nausea or vomiting, chest pain, or any unexpected problems, contact your Primary Care Provider. Call [facility] ([phone]) or report to the closest Emergency Room. Call 911 if necessary. 03/23/182117 <Electronically signed by Momo Lopez DO> Date Momo Lopez DO Cosigner Signature (If Indicated): Date CC: GERA BRODY EMERGENCY DEPARTMENT Observed: 03/18/2018 Status: F Source: [place] SUMMARY 9:02 PM [facility] REPOSITORY [facility] Medical Records Department [address] [place] [address] Emergency Department Summary 03/18/18 2100 MR#: [id number] Acct: [id number] Name: AYSHA SAVAGE Rep #: [id number] : 1965 52 From: Rich Rogers MD PCP: GERA BRODY Status: PRE ER - ER Visit Summary Date of Service: 03/18/18 Chief Complaint: Back pain History of Present Illness: The patient is a 52 M who has had 3 weeks of an exacerbation of his chronic back pain. He has pain in the neck and middle part of his thoracic area. He states everything makes it worse. Denies any numbness or tingling. No bowel or bladder incontinence. No urinary retention. He saw his pain management doctor who gave him tramadol but he states that that is not helping. He also takes Advil. He also takes blood thinning medications for a DVT. He does have an IVC filter in place Physical Examination: Vital signs reviewed. HEENT exam unremarkable. Heart is regular rate and rhythm without murmurs. Lungs are clear to auscultation. Abdomen is soft and nontender. Back is nontender. Extremities reveal no edema. Skin exam normal. Neurologic exam normal. Test Results: None indicated Emergency Department Course and Treatment: Patient is having an acute exacerbation of his chronic back pain. I will give him a dose of morphine and Norflex here. I will give him lidocaine patches that he can take at home. I will not give him any narcotics for home as this is chronic pain and he also is in pain management. Treatment Plan: [] Disposition: Discharge Impression: Acute on chronic back pain This note was generated with [employer] dictation software. It may contain incorrect words, spelling, and punctuation that were not noted in review of the chart prior to signing ED Disposition - Plan for ED Patient: Chief Complaint: Back Referrals: Gera Brody [Primary Care Provider] - What to do if you have Problems For any increased pain, shortness of breath, bleeding, nausea or vomiting, chest pain, or any unexpected problems, contact your Primary Care Provider. Call [employer] [facility] ([phone]) or report to the closest Emergency Room. Call 911 if necessary. 03/18/182101 <Electronically signed by Rich Rogers MD> Date Rich Rogers MD Cosigner Signature (If Indicated): Date CC: GERA BRODY DISCHARGE INSTRUCTION Observed: 03/18/2018 Status: F Source: [place] 9:02 PM [facility] REPOSITORY [facility] Medical Records Department [address] [place] [address] Discharge Instruction 03/18/182101 MR#: [id number] Acct: [id number] Name: AYSHA SAVAGE Rep #: [id number] : 1965 52 From: Rich Rogers MD PCP: GERA BRODY Status: PRE ER ED Disposition - Plan for ED Patient: Disposition: Home or Assisted Living Chief Complaint: Back Instructions: ED Neck Back Pain General Prescriptions: Lidocaine [Lidoderm Patch] 1 patch TOPICAL DAILY #10 patch Referrals: Gera Brody [Primary Care Provider] - What to do if you have Problems For any increased pain, shortness of breath, bleeding, nausea or vomiting, chest pain, or any unexpected problems, contact your Primary Care Provider. Call [facility] ([phone]) or report to the closest Emergency Room. Call 911 if necessary. 03/18/182101 <Electronically signed by Rich Rogers MD> Date Rich Rogers MD Cosigner Signature (If Indicated): Date CC: GERA BRODY HEPATIC FUNCTN PANEL Collected: 03/12/2018 Status: F Source: [place] 12:38 PM [facility] REPOSITORY TYPE CODE TESTS RESULT OUT OF REFERENCE UNITS RANGE LAB ALB 3.9-4.9 g/dL Albumin 4.5 LAB TBIL 0.2-1.3 mg/dL Bilirubin, Total 0.4 LAB CBIL <0.2 mg/dL Bilirubin,Conjuga <0.2 juarez LAB ALKP 36-108 U/L Alkaline Phosphatase 55 LAB AST 14-40 U/L AST 23 LAB ALT 10-54 U/L ALT 15 LAB TP 6.3-8.0 g/dL Protein, Total 7.3 Performed By: #### HFP, MG1, TSH, B12, SERFOL #### [facility] [address] [phone] MAGNESIUM Collected: 03/12/2018 Status: F Source: [place] 12:[address] [place] [address] REPOSITORY TYPE CODE TESTS RESULT OUT OF REFERENCE UNITS RANGE LAB MG 1.7-2.3 mg/dL Magnesium 2.1 Performed By: #### HFP, MG1, TSH, B12, SERFOL #### [place] [phone] TSH Collected: 03/12/2018 Status: F Source: [place] [address] [place] [address] REPOSITORY TYPE CODE TESTS RESULT OUT OF RANGE REFERENCE UNITS LAB TSH 0.400-5.500 uU/mL TSH 2.790 Performed By: #### HFP, MG1, TSH, B12, SERFOL #### [place] [phone] VITAMIN B12 Collected: 03/12/2018 Status: F Source: [place] [address] [place] [address] REPOSITORY TYPE CODE TESTS RESULT OUT OF REFERENCE UNITS RANGE LAB B12 232-1245 pg/mL Vitamin B12 628 Performed By: #### HFP, MG1, TSH, B12, SERFOL #### [facility] [address] [phone] FOLATE, SERUM Collected: 03/12/2018 Status: F Source: [place] [address] [place] [address] REPOSITORY TYPE CODE TESTS RESULT OUT OF REFERENCE UNITS RANGE LAB SERFOL >4.7 ng/mL Folate, 17.2 Serum Performed By: #### HFP, MG1, TSH, B12, SERFOL #### [facility] [address] [id number] CERV SPINE OBL/FLEX/EXT Observed: 03/06/2018 Status: F Source: [place] COMP 4:12 PM [facility] REPOSITORY [facility] Imaging Services [address] [place] [address] Cerv Spine Obl/Flex/Ext Comp MR#: [id number] Acct: [id number] Name: AYSHA SAVAGE Rep #: [id number] : 1965 M 52 From: Brunilda Shah MD PCP: GERA BRODY Status: REG CLI Study: Cerv Spine Obl/Flex/Ext Comp Date of Exam: 03/06/18 Exam# [id number] Ordering Dr: GLORIA ROLAND STUDY: X-RAY - CERVICAL SPINE REASON FOR EXAM: Male, 52 years old. Pain TECHNIQUE: Seven view(s) of the cervical spine were obtained. COMPARISON: Neck CTA dated October 27, 2017 FINDINGS: Normal anterior atlantoaxial articulation. Normal odontoid process. Normal cervical lordosis. A plate and screws are seen anterior to C4, C5 and C6. There is fusion of the disc at C4-5. There is mild disc space narrowing at C5-6. There is moderate foraminal narrowing on the right at C3-4. There is mild foraminal narrowing on the right at C5-6. There is mild foraminal narrowing on the left at C3-4. There is moderate foraminal narrowing on the left at C5-6. There is no prevertebral soft tissue swelling. The lung apices are unremarkable. RAD/Cerv Spine Obl/Flex/Ext Comp IMPRESSION: There are surgical changes from C4 through C6. The appearance is stable compared to the prior CT. There is normal alignment of the vertebral bodies in neutral positioning as well as flexion and extension. There are surgical changes in the discs at C4-5 and C5-6. There is bilateral foraminal narrowing at C3-4 and C5-6. Electronically Signed: Brunilda Shah MD at 16:10 EDT Tel Direct: [phone], Service support , CC: GERA BRODY; GLORIA ROLAND 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: Signed PROGRESS Observed: 02/12/2018 Status: COMPLETED Source: [place] 4:00 PM CLINIC OTHER CAMPUS REPOSITORY O ID: [id number] Author: Herbert Slaughter Service: (none) Author Type: Physician Type: Progress Notes Filed: 06/09/2018 4:39 PM Note Text: NEUROLOGY CONSULT NOTE Please leave note in paper medical record. Previous records (physician notes, laboratory reports, and radiology reports) and imaging studies were reviewed and summarized as below. My recommendations will be communicated back to the patient's consulting physician(s) by way of shared medical record. REFERRING PHYSICIAN: Gera Brody MD [address] [facility] [address] [facility] [address] Accompanied by: Self ASSESSMENT: 52 year old male with atypical spells . These episodes can be seizure ,migraine or TIA CURRENTLY ON Xarelto for anticoagulation but continue to get these spells with no new finding on MRI Brain PLAN: ---> Office Visit on 02/12/18 -EEG ROUTINE NEURO -US CAROTID BILAT -VITAMIN B12 BLOOD -TSH BLD -MAGNESIUM BLD -FOLATE SERUM -HEPATIC FUNCTION PNL ---> Follow-up: 1-2 months, Tests results will be discussed in the follow up appointment Medications side effects explained and discussed with the patient . CC: SPELLS HxCC: 52 year old male , who presents for evaluation of TIA like episodes . Takes xarelto because of clotting disorder, Colonoscopy scheduled but not done because of anticoagulation . For the last 5 to 7 years facial right eye deviates to the right takes half hour Headache pressure feeliung takes half hour than it goes away For the last 6 years .these spells remain unsolved xarelto for 6 years at the same time when Disoriented during the spell Eyes goes to right , One seizure on wellbuterin 1998 then he stopped the wellbuterin Frequency of spells one in a month with headache following He gets headache once a week Several admissions to the hospital for stroke work up after complaining of focal weakness or numbness Has seen several neurologists in the past ,for the same problem ,no diagnosis found On further neurologic questioning, the patient denies. No new blurry, double or loss of vision. No new loss of hearing, vertigo, or tinnitus. No dysarthria, dysphonia or dysphagia. No new imbalance, frequent falls or incoordination. No bowel or bladder incontinence. No saddle anesthesia. No muscular atrophy or fasciculations. RECENT LABS: WBC (thou/cmm) Date Value 11/18/2017 7.3 RBC (mil/cmm) Date Value 11/18/2017 4.47 Hemoglobin (g/dL) Date Value 12/26/2015 14.8 HGB (g/dL) Date Value 11/18/2017 13.4 Hematocrit (%) Date Value 11/18/2017 39.4 (L) MCV (fl) Date Value 11/18/2017 88.1 MCH (pg) Date Value 11/18/2017 30.0 MCHC (%) Date Value 11/18/2017 34.0 Platelet Count (thou/cmm) Date Value 11/18/2017 165 MPV (fl) Date Value 11/18/2017 9.3 Last BMP (Basic Metabolic Panel) Lab Results Component Value Date NA 143 11/18/2017 Lab Results Component Value Date K 3.9 11/18/2017 Lab Results Component Value Date CHLOR 108 11/18/2017 Lab Results Component Value Date CO2 26 11/18/2017 Lab Results Component Value Date BUN 13 11/18/2017 Lab Results Component Value Date CREAT 0.96 11/18/2017 Lab Results Component Value Date GLUC 97 11/18/2017 Lab Results Component Value Date ANION 13 11/18/2017 Lab Results Component Value Date CA 9.3 11/18/2017 TSH Date Value Ref Range Status 10/21/2017 2.130 0.400 - 5.500 uU/mL Final B12: RECENT IMAGING/DIAGNOSTICS: --MRI/MRA/MRV Brain w/wocontrast (//): --MRI Cervical Spine w/wo contrast (/: --EEG (/): PMH: PAST MEDICAL HISTORY Diagnosis Date - Deep vein thrombosis (DVT) (HCC) per patient has a clotting disorder, multiple blood clots, one in each leg and in left arm - Depression - Gross hematuria - HTN (hypertension) - Hypothyroidism - Obesity - Smoking PSH: PAST SURGICAL HISTORY Procedure Laterality Date - APPENDECTOMY - HERNIA REPAIR W/MESH 1996 bilateral inguinal repair - IVC FILTER SURGICAL 2010 - LUMBAR SPINE FUSION COMBINED 2002 L5-S1 posterior - NERVE STIMULATOR,0003 insertion AND removal x 2 - PAST SURGICAL HISTORY OF cervical surgery 2013 - PAST SURGICAL HISTORY OF 2002- lumbar - PAST SURGICAL HISTORY OF thoracic surgery 2008 - SKIN / WOUND CONSULT cellulitis (right hand) CURRENT MEDS: No current hospital medications on file. Current Outpatient Prescriptions: XARELTO 20 mg tablet TAKE ONE TABLET BY MOUTH ONCE DAILY WITH DINNER levothyroxine (SYNTHROID) 75 mcg tablet Take 1 tablet by mouth once daily. busPIRone (BUSPAR) 10 mg tablet Take 10 mg by mouth three times daily. venlafaxine (EFFEXOR) 75 mg tablet Take 37.5 mg by mouth once daily. multivitamin tablet Take 1 tablet by mouth once daily. No current facility-administered medications for this visit. ALLERGIES: ALLERGIES No Known Allergies FMH: FAMILY HISTORY Problem Relation Age of Onset - Coronary Artery Disease Mother - CHF [OTHER] Mother - Colon Cancer Father - Cancer Father - Coronary Artery Disease Brother 54 mi SOCIAL: Social History Marital status: Spouse name: Years of education: Number of children: Social History Main Topics Smoking status: Current Every Day Smoker Packs/day: 1.00 Years: 0.00 Types: Cigarettes Smokeless status: Never Used Alcohol use: No Drug use: No Sexual activity: Not Currently Other Topics Concern Service No Blood Transfusions No Caffeine Concern Yes Comment:excessive Occupational Exposure No Hobby Hazards No Sleep Concern No Weight Concern Yes Special Diet No Back Care No Exercise Yes Bike Helmet No Seat Belt Yes Self-Exams Yes REVIEW OF SYSTEMS (In addition to HPI): GEN: No fever/chills. No significant weight loss in last 6 months. HEENT: No recent head trauma. No recent URI. NECK: No recent neck trauma. CARDIO: No chest pain. No palpitations. No dizziness. No syncope. RESP: No SOB or GODINEZ. No cough. GI: No nausea. No vomiting. No diarrhea. No constipation. No fecal incontinence. No melena. : No incontinence. No hesitancy. No frequency. No dysuria. No hematuria. MUSCULO: No myalgias. No arthralgias. NEURO: As per HPI. PSYCH: No depression. No anxiety. PHYSICAL EXAM: BP 136/82 (BP Site: Right Arm, BP Position: Sitting, BP Cuff Size: Regular Adult) Pulse 74 Temp 37.2 ?C (98.9 ?F) (Temporal Artery) Ht 182.9 cm (6') Wt 93 kg (205 lb) SpO2 96% BMI 27.8 kg/m2 GEN: Alert. NAD. Normal affect. Cooperative. HEENT: No icterus. Normal mucosa. No temporal artery tenderness. Fundoscopic exam unremarkable. NECK/BACK: No meningismus. No lymphadenopathy. No significant paraspinal neck or shoulder musculature tenderness or hypertonicity. No spinous process tenderness. CV: RRR. No M/G/R/C. No carotid bruits. RESP: CTA b/l. EXT: No cyanosis. No edema. No erythema. SKIN: No rashes. No lesions. NEUROLOGICAL: MENTAL STATUS: Alert and oriented x 3. Recent and remote memory intact. Immediate memory intact by 3 item recall and 7 digit recall. Attention knowledge intact. Speech fluent .Normal clock drawing. Normal copy of pentagon intersection. Reading intact. Writing intact. Comprehension intact. CN: II: Visual moss intact. PERRLA. No Papilledema. III, IV, : EOMI. No ptosis present. Normal saccades. V: Symmetric facial sensation to PP. VII: Face symmetric. VIII: Hearing symmetric. No nystagmus. IX, X: Symmetric palatal rise. XI: Symmetric shoulder shrug. XII: Tongue midline with symmetric movements. MOTOR: Finger tap normal. No involuntary movement seen during today's exam. Normal tone and strength. Right Upper Extremity: (of 5) Left Upper Extremity: (of 5) Deltoid 5 Deltoid 5 Biceps 5 Biceps 5 Triceps 5 Triceps 5 Finger extensors 5 Finger extensors 5 Finger flexors 5 Finger flexors 5 Dorsal interossei 5 Dorsal interossei 5 Abductor pollicis 5 Abductor pollicis 5 Right Lower Extremity: (of 5) Left Lower Extremity: (of 5) Hip flexors 5 Hip flexors 5 Hip extensors 5 Hip extensors 5 Knee flexors 5 Knee flexors 5 Knee extensors 5 Knee extensors 5 Dorsiflexors 5 Dorsiflexors 5 Plantarflexors 5 Plantarflexors 5 REFLEXES: Biceps ++ Biceps ++ Brachioradialis ++ Brachioradialis ++ Triceps ++ Triceps ++ Patellar ++ Patellar ++ Ankle jerk ++ Ankle jerk ++ Plantar response down Plantar response down Plantar response flexor b/l. No clonus. Negative Baum/Troemner. Negative palmomental, grasp, rooting, snouting and glabellar blink reflexes. SENSATION: PP, Proprioception, Vibration intact and symmetric. Negative Romberg. CEREBELLAR: Normal F-N-F. Normal H-S. No dysmetria. No nystagmus. GAIT: Stable primary gait. Normal tandem gait. Herbert Slaughter M.D. [facility] [place] Department of Neurology February 12, 2018 Total time in minutes spent with patient, reviewing records, labs, imaging, formulating plan, and documentin minutes with more than 50% of the time spent in patient education/counselling/coordinating care with the patient and /or family. CNOV Observed: 02/12/2018 Status: COMPLETED Source: [place] 4:00 PM [facility] OTHER CAMPUS REPOSITORY Office Visit (SILASEURRP) AYSHA SAVAGE ([id number]) 1965 M Date Time Provider Department 02/12/18 4:00 PM HERBERT SLAUGHTER During your visit today, we recorded the following information about you: Temperature Pulse Blood pressure Weight 98.9 degrees 74/minute 136/82 93 kg Height 1.829 m Herbert Slaughter MD 06/09/2018 4:39 PM Signed NEUROLOGY CONSULT NOTE Please leave note in paper medical record. Previous records (physician notes, laboratory reports, and radiology reports) and imaging studies were reviewed and summarized as below. My recommendations will be communicated back to the patient's consulting physician(s) by way of shared medical record. REFERRING PHYSICIAN: Gera Brody MD [address] [facility] [address] [facility] [address] Accompanied by: Self ASSESSMENT: 52 year old male with atypical spells . These episodes can be seizure ,migraine or TIA CURRENTLY ON Xarelto for anticoagulation but continue to get these spells with no new finding on MRI Brain PLAN: ---> Office Visit on 02/12/18 -EEG ROUTINE NEURO -US CAROTID BILAT -VITAMIN B12 BLOOD -TSH BLD -MAGNESIUM BLD -FOLATE SERUM -HEPATIC FUNCTION PNL ---> Follow-up: 1-2 months, Tests results will be discussed in the follow up appointment Medications side effects explained and discussed with the patient . CC: SPELLS HxCC: 52 year old male , who presents for evaluation of TIA like episodes . Takes xarelto because of clotting disorder, Colonoscopy scheduled but not done because of anticoagulation . For the last 5 to 7 years facial right eye deviates to the right takes half hour Headache pressure feeliung takes half hour than it goes away For the last 6 years .these spells remain unsolved xarelto for 6 years at the same time when Disoriented during the spell Eyes goes to right , One seizure on wellbuterin 1998 then he stopped the wellbuterin Frequency of spells one in a month with headache following He gets headache once a week Several admissions to the hospital for stroke work up after complaining of focal weakness or numbness Has seen several neurologists in the past ,for the same problem ,no diagnosis found On further neurologic questioning, the patient denies. No new blurry, double or loss of vision. No new loss of hearing, vertigo, or tinnitus. No dysarthria, dysphonia or dysphagia. No new imbalance, frequent falls or incoordination. No bowel or bladder incontinence. No saddle anesthesia. No muscular atrophy or fasciculations. RECENT LABS: WBC (thou/cmm) Date Value 11/18/2017 7.3 RBC (mil/cmm) Date Value 11/18/2017 4.47 Hemoglobin (g/dL) Date Value 12/26/2015 14.8 HGB (g/dL) Date Value 11/18/2017 13.4 Hematocrit (%) Date Value 11/18/2017 39.4 (L) MCV (fl) Date Value 11/18/2017 88.1 MCH (pg) Date Value 11/18/2017 30.0 MCHC (%) Date Value 11/18/2017 34.0 Platelet Count (thou/cmm) Date Value 11/18/2017 165 MPV (fl) Date Value 11/18/2017 9.3 Last BMP (Basic Metabolic Panel) Lab Results Component Value Date NA 143 11/18/2017 Lab Results Component Value Date K 3.9 11/18/2017 Lab Results Component Value Date CHLOR 108 11/18/2017 Lab Results Component Value Date CO2 26 11/18/2017 Lab Results Component Value Date BUN 13 11/18/2017 Lab Results Component Value Date CREAT 0.96 11/18/2017 Lab Results Component Value Date GLUC 97 11/18/2017 Lab Results Component Value Date ANION 13 11/18/2017 Lab Results Component Value Date CA 9.3 11/18/2017 TSH Date Value Ref Range Status 10/21/2017 2.130 0.400 - 5.500 uU/mL Final B12: RECENT IMAGING/DIAGNOSTICS: --MRI/MRA/MRV Brain w/wocontrast (//): --MRI Cervical Spine w/wo contrast (/: --EEG (/): PMH: PAST MEDICAL HISTORY Diagnosis Date - Deep vein thrombosis (DVT) (HCC) per patient has a clotting disorder, multiple blood clots, one in each leg and in left arm - Depression - Gross hematuria - HTN (hypertension) - Hypothyroidism - Obesity - Smoking PSH: PAST SURGICAL HISTORY Procedure Laterality Date - APPENDECTOMY - HERNIA REPAIR W/MESH 1996 bilateral inguinal repair - IVC FILTER SURGICAL 2010 - LUMBAR SPINE FUSION COMBINED 2002 L5-S1 posterior - NERVE STIMULATOR,0003 insertion AND removal x 2 - PAST SURGICAL HISTORY OF cervical surgery 2013 - PAST SURGICAL HISTORY OF 2002- lumbar - PAST SURGICAL HISTORY OF thoracic surgery 2008 - SKIN / WOUND CONSULT cellulitis (right hand) CURRENT MEDS: No current hospital medications on file. Current Outpatient Prescriptions: XARELTO 20 mg tablet TAKE ONE TABLET BY MOUTH ONCE DAILY WITH DINNER levothyroxine (SYNTHROID) 75 mcg tablet Take 1 tablet by mouth once daily. busPIRone (BUSPAR) 10 mg tablet Take 10 mg by mouth three times daily. venlafaxine (EFFEXOR) 75 mg tablet Take 37.5 mg by mouth once daily. multivitamin tablet Take 1 tablet by mouth once daily. No current facility-administered medications for this visit. ALLERGIES: ALLERGIES No Known Allergies FMH: FAMILY HISTORY Problem Relation Age of Onset - Coronary Artery Disease Mother - CHF [OTHER] Mother - Colon Cancer Father - Cancer Father - Coronary Artery Disease Brother 54 mi SOCIAL: Social History Marital status: Spouse name: Years of education: Number of children: Social History Main Topics Smoking status: Current Every Day Smoker Packs/day: 1.00 Years: 0.00 Types: Cigarettes Smokeless status: Never Used Alcohol use: No Drug use: No Sexual activity: Not Currently Other Topics Concern Service No Blood Transfusions No Caffeine Concern Yes Comment:excessive Occupational Exposure No Hobby Hazards No Sleep Concern No Weight Concern Yes Special Diet No Back Care No Exercise Yes Bike Helmet No Seat Belt Yes Self-Exams Yes REVIEW OF SYSTEMS (In addition to HPI): GEN: No fever/chills. No significant weight loss in last 6 months. HEENT: No recent head trauma. No recent URI. NECK: No recent neck trauma. CARDIO: No chest pain. No palpitations. No dizziness. No syncope. RESP: No SOB or GODINEZ. No cough. GI: No nausea. No vomiting. No diarrhea. No constipation. No fecal incontinence. No melena. : No incontinence. No hesitancy. No frequency. No dysuria. No hematuria. MUSCULO: No myalgias. No arthralgias. NEURO: As per HPI. PSYCH: No depression. No anxiety. PHYSICAL EXAM: BP 136/82 (BP Site: Right Arm, BP Position: Sitting, BP Cuff Size: Regular Adult) Pulse 74 Temp 37.2 ?C (98.9 ?F) (Temporal Artery) Ht 182.9 cm (6') Wt 93 kg (205 lb) SpO2 96% BMI 27.8 kg/m2 GEN: Alert. NAD. Normal affect. Cooperative. HEENT: No icterus. Normal mucosa. No temporal artery tenderness. Fundoscopic exam unremarkable. NECK/BACK: No meningismus. No lymphadenopathy. No significant paraspinal neck or shoulder musculature tenderness or hypertonicity. No spinous process tenderness. CV: RRR. No M/G/R/C. No carotid bruits. RESP: CTA b/l. EXT: No cyanosis. No edema. No erythema. SKIN: No rashes. No lesions. NEUROLOGICAL: MENTAL STATUS: Alert and oriented x 3. Recent and remote memory intact. Immediate memory intact by 3 item recall and 7 digit recall. Attention knowledge intact. Speech fluent .Normal clock drawing. Normal copy of pentagon intersection. Reading intact. Writing intact. Comprehension intact. CN: II: Visual moss intact. PERRLA. No Papilledema. III, IV, : EOMI. No ptosis present. Normal saccades. V: Symmetric facial sensation to PP. VII: Face symmetric. VIII: Hearing symmetric. No nystagmus. IX, X: Symmetric palatal rise. XI: Symmetric shoulder shrug. XII: Tongue midline with symmetric movements. MOTOR: Finger tap normal. No involuntary movement seen during today's exam. Normal tone and strength. Right Upper Extremity: (of 5) Left Upper Extremity: (of 5) Deltoid 5 Deltoid 5 Biceps 5 Biceps 5 Triceps 5 Triceps 5 Finger extensors 5 Finger extensors 5 Finger flexors 5 Finger flexors 5 Dorsal interossei 5 Dorsal interossei 5 Abductor pollicis 5 Abductor pollicis 5 Right Lower Extremity: (of 5) Left Lower Extremity: (of 5) Hip flexors 5 Hip flexors 5 Hip extensors 5 Hip extensors 5 Knee flexors 5 Knee flexors 5 Knee extensors 5 Knee extensors 5 Dorsiflexors 5 Dorsiflexors 5 Plantarflexors 5 Plantarflexors 5 REFLEXES: Biceps ++ Biceps ++ Brachioradialis ++ Brachioradialis ++ Triceps ++ Triceps ++ Patellar ++ Patellar ++ Ankle jerk ++ Ankle jerk ++ Plantar response down Plantar response down Plantar response flexor b/l. No clonus. Negative Baum/Troemner. Negative palmomental, grasp, rooting, snouting and glabellar blink reflexes. SENSATION: PP, Proprioception, Vibration intact and symmetric. Negative Romberg. CEREBELLAR: Normal F-N-F. Normal H-S. No dysmetria. No nystagmus. GAIT: Stable primary gait. Normal tandem gait. Herbert Slaughter M.D. [facility] [place] Department of Neurology February 12, 2018 Total time in minutes spent with patient, reviewing records, labs, imaging, formulating plan, and documentin minutes with more than 50% of the time spent in patient education/counselling/coordinating care with the patient and /or family. Referring Provider: GERA BRODY [[id number]] Allergies As of Date: 02/12/2018 (No Known Allergies) Date Reviewed: 02/12/2018 Reviewed by: Alyssa Sosa) Patsy - Fully Assessed Primary Visit Diagnosis:Spells of decreased attentiveness [R68.89] Order(s):EEG ROUTINE NEURO [9372643] Order #: [id number] VITAMIN B12 BLOOD [SQB12] Order #: [id number] FUTURE TSH BLD [SQTSH] Order #: [id number] FUTURE MAGNESIUM BLD [SQMG1] Order #: [id number] FUTURE FOLATE SERUM [SQSERFOL] Order #: [id number] FUTURE HEPATIC FUNCTION PNL [SQHFP] Order #: [id number] FUTURE magnesium oxide (MAG-OX) 400 mg tabletTake 1 tablet by mouth once daily.Disp: 30 tabletRfl: 6 US CAROTID BILAT [[id number]] Order #: [id number] FUTURE topiramate (TOPAMAX) 25 mg tabletTake 1 tablet by mouth daily at bedtime.Disp: 30 tabletRfl: 5 Prescriptions as of 02/12/2018 Sig: XARELTO 20 MG TABLET TAKE ONE TABLET BY MOUTH ONCE* X LEVOTHYROXINE 75 MCG TABLET Take 1 tablet by mouth once d* BUSPIRONE 10 MG TABLET Take 10 mg by mouth three mary* VENLAFAXINE 75 MG TABLET Take 37.5 mg by mouth once da* MULTIVITAMIN TABLET Take 1 tablet by mouth once d* MAGNESIUM OXIDE 400 MG TABLET Take 1 tablet by mouth once d* TOPIRAMATE 25 MG TABLET Take 1 tablet by mouth daily * X RIVAROXABAN 20 MG TABLET Take 1 tablet by mouth daily * X LISINOPRIL 20 MG TABLET Take 1 tablet by mouth once d* X MELOXICAM 7.5 MG TABLET Take 15 mg by mouth once norma* X METOPROLOL SUCCINATE ER 50 MG* TAKE 1 TABLET BY MOUTH EVERY * X MORPHINE ER 15 MG TABLET,EXTE* Take 15 mg by mouth twice solo* Medication notes this encounter BUSPIRONE 10 MG TABLET >> Alyssa Garner CMA 02/12/2018 3:36 PM >> ALYSSA GARNER CMA Christina Feb 12, 2018 3:36 PM Problem List As Of Date 02/12/2018 Noted Resolved Postlaminectomy syndrome [M96.1] INVALID FOR* Migraine with typical aura [G43.109] INVALID FOR* 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] INVALID FOR* 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* Deep vein thrombosis (DVT) (HCC) [I82.409] 04/30/2017 History of DVT of lower extremity- 2009 [Z86.71*INVALID FOR* Chronic back pain [M54.9, G89.29] INVALID FOR* Mood disorder (HCC) [F39] INVALID FOR* HTN (hypertension) [I10] Hypothyroidism [E03.9] Smoking [F17.200] Asthma [J45.909] 10/30/2016 Bipolar disease, chronic (HCC) [F31.9] INVALID FOR* Family history of colon cancer [Z80.0] INVALID FOR* Cervical spine disease [M48.9] INVALID FOR* History of colonic polyps [Z86.010] INVALID FOR* Presence of IVC filter-2010 [Z95.828] INVALID FOR* Hyperglycemia [R73.9] INVALID FOR* History of blood clots [Z86.718] INVALID FOR* Gouty arthritis of toe of left foot [M10.9] INVALID FOR* Vertebral artery disease (HCC)-right vertebral *INVALID FOR* Congenital brain anomaly (HCC)Vertebral artery *INVALID FOR* Family history of malignant neoplasm of gastroi*INVALID FOR* More... BPH without urinary obstruction [N40.0] INVALID FOR* Gross hematuria [R31.0] INVALID FOR* Prescriptions ordered this encounter Disp Refills Start End MAGNESIUM OXIDE 400 MG TABLET 30 t* 6 02/12/2018 Route: ORAL Sig: Take 1 tablet by mouth once daily. TOPIRAMATE 25 MG TABLET 30 t* 5 02/12/2018 Route: ORAL Sig: Take 1 tablet by mouth daily at bedtime. Encounter Status:Closed by HERBERT SLAUGHTER MD on 06/09/18 12 LEAD ELECTROCARDIOGRAM Observed: 02/12/2018 Status: F Source: [place] 2:52 PM [facility] REPOSITORY [facility] Cardiovascular Services [address] [place] [id number] 12 Lead EKG 02/09/185 MR#: [id number] Acct: [id number] Name: AYSHA SAVAGE Rep #: [id number] : 1965 52 From: Aston Obrien MD Attending Dr: Status: DEP ER Ordering Dr: Jameson Zamora MD Date: 02/09/18 Location: ED Sex: M C Admitted: Test Reason : Blood Pressure : / mmHG Vent. Rate : 071 BPM Atrial Rate : 071 BPM P-R Int : 176 ms QRS Dur : 106 ms QT Int : 426 ms P-R-T Axes : 036 -14 047 degrees QTc Int : 462 ms Normal sinus rhythm Normal ECG Confirmed by ASTON OBRIEN MD ([id number]), telegraph editor GERDA MALIK ([id number]) on 02/12/2018 2:52:18 PM Referred By: SHANIKA Confirmed By:ASTON OBRIEN MD 02/12/18 1452 Date Aston Obrien MD CC: GERA BRODY; Jameson Zamora MD Signed ANES POST Observed: 02/10/2018 Status: COMPLETED Source: [place] 4:00 PM [facility] OTHER CAMPUS REPOSITORY O ID: [id number] Author: Jered Patel Service: Anesthesiology Author Type: Physician Type: Anesthesia PostOp Filed: 02/10/2018 9:51 PM Note Text: POST ANESTHESIA EVALUATION NOTE SERVICE DATE: 02/10/2018 SERVICE TIME: 9:51 PM : 1965 Vitals: 02/10/18 1230 02/10/18 1445 02/10/18 1515 Temp: 36.5 ?C (97.7 ?F) 36.3 ?C (97.3 ?F) 36.1 ?C (97 ?F) 02/10/18 1230 02/10/18 1445 02/10/18 1500 02/10/18 1515 BP: 138/88 135/69 (!) 132/43 129/70 02/10/18 1445 02/10/18 1500 02/10/18 1515 02/10/18 1530 Pulse: (!) 58 60 60 62 02/10/18 1445 02/10/18 1500 02/10/18 1515 02/10/18 1530 Resp: 17 13 12 13 02/10/18 1445 02/10/18 1500 02/10/18 1515 02/10/18 1530 SpO2: 100% 100% 98% 98% Validated Vital Signs: Yes POST ANES STATUS: No apparent anesthetic complications. The patient is appropriately hydrated with stable respiratory and cardiovascular status. Patient has safe and adequate airway control. The patient has appropriate pain relief and no significant post operative nausea or vomiting. The patient has achieved baseline mental status. Further assessment by Anesthesia Service: None Other Remarks: SIGNATURE: Jered Patel MD PATIENT NAME: Aysha Savage DATE: February 10, 2018 TIME: 9:51 PM PAGER/CONTACT #: [phone] OPERATIVE NO Observed: 02/10/2018 Status: COMPLETED Source: [place] 3:28 PM [facility] REPOSITORY HNO ID: [id number] Author: Armen Earl Service: Urology Author Type: Resident Type: Operative Report Filed: 02/10/2018 3:32 PM Note Text: Attestation signed by Yanira Dyer at 02/10/2018 4:27 PM I was present for the entire case and was immediately available to provide assistance during any critical and sandra portions of the surgery Yanira Dyer MD UROLOGY OPERATIVE REPORT PATIENT NAME: Aysha Savage DATE OF : 1965 TODAY'S DATE: 02/10/18 PreOp Dx: Gross hematuria PostOp Dx: Same Operation: Cystoscopy, retrograde pyelograms, digital rectal exam Surgeon: Yanira Dyer MD Assist: Armen Earl MD EBL Minimal Drains/Stent: None Young: None Specimen: None Medications/fluids: Per anesthesia notes Condition To PACU Indications: Aysha Savage is a 52 year old patient who presents with gross hematuria. After having a discussion on treatment options, risks and benefits, the patient wishes to proceed forward with surgical intervention Description of Procedure: Patient was brought to the operating room and identified using name band/number. A thorough time out was performed and everyone present was in agreement. Patient was placed on OR table. Anesthesia and lines were maintained by the anesthesia team. Patient was placed in the dorsal lithotomy position, prepped with Betadine, and draped in the usual sterile fashion. Pressure points were padded. A 21 Uzbek sheath rigid cystoscope was advanced through the urethra and into the bladder. There was mild bilateral lateral lobe hypertrophy of the prostate. After thorough inspection bladder mucosa appeared normal with two ureteral orifices in orthotopic position. Retrograde pyelograms were performed. A 8 cost[place] rican cone tip catheter was used to inject contrast to opacify the ureters and renal pelvis. No filling defects or hydronephrosis were appreciated. The bladder was drained and the scope was removed. Then a digital rectal exam was performed to examine the prostate. The prostate was not enlarged, and was smooth, firm and without nodules. Patient awoken from anesthesia having tolerated the procedure well. Aysha Savage Was transferred to recovery room. SIGNATURE: Armen Earl MD PATIENT NAME: Aysha Savage DATE: 02/10/2018 TIME: 3:28 PM PAGER: [phone] BRIEF OP NOT Observed: 02/10/2018 Status: COMPLETED Source: [place] 3:27 PM [facility] OTHER CAMPUS REPOSITORY O ID: [id number] Author: Armen Earl Service: Urology Author Type: Resident Type: Brief Op Note Filed: 02/10/2018 3:28 PM Note Text: Attestation signed by Yanira Dyer at 02/10/2018 4:27 PM I was present for the entire case and was immediately available to provide assistance during any critical and sandra portions of the surgery Yanira Deyr MD UROLOGY BRIEF OPERATIVE NOTE Date: 02/10/2018 Patient Name: Aysha Savage Date of : 1965 Surgeon: Yanira Dyer MD Renal Medicine Specialist: Armen Earl MD Anesthesia: General Preop Diagnosis: Hematuria Postop Diagnosis: Same Procedure: Cystoscopy, retrograde pyelograms, digital rectal exam Estimated Blood Loss: <50cc Findings: See OP note Specimens: None Complications: None SIGNATURE: Armen Earl MD PATIENT NAME: Aysha Savage DATE: February 10, 2018 TIME: 3:27 PM PAGER/CONTACT #: [phone] UROGRAM RETROGRADE Observed: 02/10/2018 Status: F Source: [place] 2:15 PM [facility] REPOSITORY Performed at [facility] APPROVED BY: Franklin Guy MD Exam: Fluoroscopy performed during Cystoscopy on 02/10/2018 14:03: Indication: Gross hematuria. Finding: There are a total of 2 intraoperative fluoroscopic images submitted for interpretation. There is retrograde opacification of the right and left collecting system. The visualized collecting systems dem onstrate no hydroureteronephrosis, obvious filling defect, or focal stricture. An IVC filter is noted. Spinal fusion hardware is noted in the lower lumbar spine. Fluoroscopy was performed without a radiologist in attendance. Please refer to the procedure report by the performing physician for additional details. Total Fluoroscopy Time: 0.6 minutes. IMPRESSION: Intraoperative fluoroscopy as described above. ANES PREOP Observed: 02/10/2018 Status: COMPLETED Source: [place] 12:20 PM [facility] REPOSITORY O ID: [id number] Author: Arthur Armas Service: Anesthesiology Author Type: Physician Type: Anesthesia PreOp Filed: 02/10/2018 12:21 PM Note Text: ANESTHESIOLOGY DAY OF SURGERY NOTE SERVICE DATE: 02/10/2018 SERVICE TIME: 12:20 PM : 1965 Procedure(s) (LRB): CYSTOSCOPY, RETROPYELOGRAM (N/A) Surgeon(s): Yanira Dyer Estimated body mass index is 27.8 kg/(m2) as calculated from the following: Height as of this encounter: 182.9 cm (6'). Weight as of this encounter: 93 kg (205 lb). 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 - NOT a seizure d/o , no tumors, not TIA History of DVT of lower extremity- 2009 Chronic Back Pain Mood Disorder (Hcc) Htn (Hypertension) Hypothyroidism Smoking Bipolar Disease, Chronic (Hcc) Family History of Colon Cancer Cervical Spine Disease History of Colonic Polyps Presence of IVC filter-2010 Hyperglycemia History of Blood Clots Gouty Arthritis of Toe of Left Foot 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 posterior cerebral arteries 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 posterior cerebral arteries Family History of Malignant Neoplasm of Gastrointestinal Tract Bph Without Urinary Obstruction Gross Hematuria PAST MEDICAL HISTORY Diagnosis Date - Deep vein thrombosis (DVT) (HCC) per patient has a clotting disorder, multiple blood clots, one in each leg and in left arm - Depression - Gross hematuria - HTN (hypertension) - Hypothyroidism - Obesity - Smoking PAST SURGICAL HISTORY Procedure Laterality Date - APPENDECTOMY - HERNIA REPAIR W/MESH 1996 bilateral inguinal repair - IVC FILTER SURGICAL 2010 - LUMBAR SPINE FUSION COMBINED 2002 L5-S1 posterior - NERVE STIMULATOR,0003 insertion AND removal x 2 - PAST SURGICAL HISTORY OF cervical surgery 2014 - PAST SURGICAL HISTORY OF 2003- lumbar - PAST SURGICAL HISTORY OF thoracic surgery 2008 - SKIN / WOUND CONSULT cellulitis (right hand) FAMILY HISTORY Problem Relation Age of Onset - Coronary Artery Disease Mother - CHF [OTHER] Mother - Colon Cancer Father - Cancer Father - Coronary Artery Disease Brother 54 mi Social History: Social History Substance Use Topics - Smoking status: Current Every Day Smoker Packs/day: 1.00 Types: Cigarettes - Smokeless tobacco: Never Used - Alcohol use No No current facility-administered medications on file prior to encounter. Current Outpatient Prescriptions on File Prior to Encounter: levothyroxine (SYNTHROID) 75 mcg tablet Take 1 tablet by mouth once daily. lisinopril (PRINIVIL) 20 mg tablet Take 1 tablet by mouth once daily. meloxicam (MOBIC) 7.5 mg tablet Take 15 mg by mouth once daily as needed for Pain. metoprolol succinate ER (TOPROL XL) 50 mg 24 hr tablet TAKE 1 TABLET BY MOUTH EVERY DAY busPIRone (BUSPAR) 10 mg tablet Take 10 mg by mouth once daily. morphine SR (MS CONTIN, ORAMORPH SR) 15 mg 12 hr tablet Take 15 mg by mouth twice daily. venlafaxine (EFFEXOR) 75 mg tablet Take 37.5 mg by mouth once daily. multivitamin tablet Take 1 tablet by mouth once daily. No current facility-administered medications for this encounter. Allergies: ALLERGIES No Known Allergies DOS EXAM: Adequate NPO status: Yes Anesthetic risks, benefits, alternatives, personnel and consent discussed: Yes Patient agrees to proceed: Yes Previous Anesthesia: No history of adverse event. Airway Assessment: MP 1; Neck ROM: Full ROM without neurologic symptoms; Airway Evaluation: No significant abnormalities Symptoms of Sleep Apnea: Hypertension, Age over 50 (52 year old) and Male gender Dentition: Teeth intact Additional Physical Exam: Lungs: Patient health status unchanged since recent history and physical. See history and physical for exam findings. Cardiac: Patient health status unchanged since recent history and physical. See history and physical for exam findings. Additional Pertinent Findings: N/A Blood Products: Not anticipated for this procedure. Anesthetic Plan: General, Standard ASA Monitors Pain Management Plan: Parenteral or Oral ASA Class: 3 Other Medical Problems: None Chronic Beta Fern medication administered within 24 hours: Yes I have interviewed and examined the patient. I have reviewed the medical record and/or the pre-anesthesia evaluation, pertinent labs, and test results. Significant changes in the patient's condition since the History and Physical, not otherwise documented in primary service progress notes: No This contains updated information obtained within 48 hours of Surgery/Procedure. SIGNATURE: Arthur Armas MD PATIENT NAME: Aysha Savage DATE: February 10, 2018 TIME: 12:20 PM CSN: [id number] EMERGENCY DEPARTMENT Observed: 02/10/2018 Status: F Source: [place] SUMMARY 2:19 AM [facility] REPOSITORY [facility] Medical Records Department [address] [place] [address] Emergency Department Summary 02/09/18 2234 MR#: [id number] Acct: [id number] Name: AYSHA SAVAGE Rep #: [id number] : 1965 52 From: Jameson Zamora MD PCP: GERA BRODY Status: DEP ER - ER Visit Summary Date of Service: 02/09/18 Chief Complaint: [] Dizziness History of Present Illness: The patient is a 52 M patient stated in the waiting room as he brought a friend and he felt dizzy. He did not pass out. He felt like he had double vision and has had a mild headache. He works out daily. He was on Xarelto but stopped it is he supposed to have a cystoscopy tomorrow. He has frequent visits and full workups for dizziness. He has had a negative MRI MRA of his head just a couple months ago. I saw the patient recently and he was faking neurologic complaints including weakness and slurred speech. This is secondary to malingering behavior. Tonight he was waiting outside the room until the staff came up and then faked an episode of weakness. When I went into the room he is texting on the phone and then starts shaking left arm weakness. Physical Examination: Vital signs reviewed General: Well-nourished well-developed Head: Normocephalic atraumatic Eyes: Pupils equal round and reactive to light extraocular movements intact ENT: TMs clear no hemotympanum no trauma Neck: Nontender full range of motion Cardiovascular: Regular rate rhythm no murmurs normal S1-S2 Respiratory: No distress clear to auscultation bilaterally chest nontender Abdomen: Soft nontender nondistended normal bowel sounds no masses Back: Nontender no CVA tenderness Extremities: Nontender active range of motion 4 extremities no trauma Skin: Normal color no trauma Neuro alert oriented cranial nerves II through XII intact normal strength sensation reflexes Test Results: [] Shows sinus rhythm 71 without arrhythmia or ischemia. Emergency Department Course and Treatment: [] Light panel shows a sodium of 147, chloride 112, creatinine 1.3. At this time I feel the patient is malingering. He has these intermittent episodes and he has been doing this for some time. He has had negative workups. I do not feel he has had an acute neurologic event. During my interview with him he had no outward signs of illness. He will be discharged. Treatment Plan: [] Disposition: [] Impression: [] Confusion and dizziness with reported headache- suspected malingering This note was generated with [employer] dictation software. It may contain incorrect words, spelling, and punctuation that were not noted in review of the chart prior to signing ED Disposition - Plan for ED Patient: Chief Complaint: Dizziness Referrals: Gera Brody [Primary Care Provider] - What to do if you have Problems For any increased pain, shortness of breath, bleeding, nausea or vomiting, chest pain, or any unexpected problems, contact your Primary Care Provider. Call [facility] ([phone]) or report to the closest Emergency Room. Call 911 if necessary. 02/10/18 0219 <Electronically signed by Jameson Zamora MD> Date Jameson Zamora MD Cosigner Signature (If Indicated): Date CC: GERA BRODY DISCHARGE INSTRUCTION Observed: 02/10/2018 Status: F Source: [place] 2:19 AM [facility] Medical Records Department [address] [place] [id number] Discharge Instruction 02/09/18 2328 MR#: [id number] Acct: [id number] Name: AYSHA SAVAGE Rep #: [id number] : 1965 52 From: Jameson Zamora MD PCP: GERA BRODY Status: [facility] ER ED Disposition - Plan for ED Patient: Disposition: Home or Assisted Living Chief Complaint: Dizziness Instructions: ED Dizziness [facility]O Referrals: Gera rBody [Primary Care Provider] - What to do if you have Problems For any increased pain, shortness of breath, bleeding, nausea or vomiting, chest pain, or any unexpected problems, contact your Primary Care Provider. Call [facility] ([phone]) or report to the closest Emergency Room. Call 911 if necessary. 02/10/18 0219 <Electronically signed by Jameson Zamora MD> Date Jameson Zamora MD Cosigner Signature (If Indicated): Date CC: GERA HAND Observed: 02/10/2018 Status: COMPLETED Source: [place] 12:00 AM CLINIC OTHER CAMPUS REPOSITORY Telephone (AKPRAD) AYSHA SAVAGE ([id number]) 1965 M Date Time Provider Department 02/10/18 YANIRA DYER During your visit today, we recorded the following information about you: Yanira Dyer MD 02/10/2018 2:25 PM Signed S/p negative cysto and HUSSAIN- tell pt to call if any additional bleeding, no f/u needed Maritza Rincon 02/11/2018 9:09 AM Signed LM for patient to call back. Maritza Nava Coord Allergies As of Date: 02/10/2018 (No Known Allergies) Date Reviewed: 02/10/2018 Reviewed by: Koki (Rn) VALERIA Krishnamurthy - Fully Assessed Reason for Visit: Post Op [174] Prescriptions as of 02/10/2018 Sig: XARELTO 20 MG TABLET TAKE ONE TABLET BY MOUTH ONCE* LEVOTHYROXINE 75 MCG TABLET Take 1 tablet by mouth once d* BUSPIRONE 10 MG TABLET Take 10 mg by mouth once norma* VENLAFAXINE 75 MG TABLET Take 37.5 mg by mouth once da* MULTIVITAMIN TABLET Take 1 tablet by mouth once d* Problem List As Of Date 02/10/2018 Noted Resolved Postlaminectomy syndrome [M96.1] INVALID FOR* Migraine with typical aura [G43.109] INVALID FOR* 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] INVALID FOR* 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* Deep vein thrombosis (DVT) (HCC) [I82.409] 04/30/2017 History of DVT of lower extremity- 2009 [Z86.71*INVALID FOR* Chronic back pain [M54.9, G89.29] INVALID FOR* Mood disorder (HCC) [F39] INVALID FOR* HTN (hypertension) [I10] Hypothyroidism [E03.9] Smoking [F17.200] Asthma [J45.909] 10/30/2016 Bipolar disease, chronic (HCC) [F31.9] INVALID FOR* Family history of colon cancer [Z80.0] INVALID FOR* Cervical spine disease [M48.9] INVALID FOR* History of colonic polyps [Z86.010] INVALID FOR* Presence of IVC filter-2010 [Z95.828] INVALID FOR* Hyperglycemia [R73.9] INVALID FOR* History of blood clots [Z86.718] INVALID FOR* Gouty arthritis of toe of left foot [M10.9] INVALID FOR* Vertebral artery disease (HCC)-right vertebral *INVALID FOR* Congenital brain anomaly (HCC)Vertebral artery *INVALID FOR* Family history of malignant neoplasm of gastroi*INVALID FOR* More... BPH without urinary obstruction [N40.0] INVALID FOR* Gross hematuria [R31.0] INVALID FOR* Encounter Status:Closed by YANIRA DYER MD on 02/10/18 YAZAN Observed: 02/10/2018 Status: COMPLETED Source: [place] 12:00 AM [facility] REPOSITORY Telephone ([facility]) AYSHA SAVAGE ([id number]) 1965 M Date Time Provider Department 02/10/18 YANIRA DYER During your visit today, we recorded the following information about you: Yanira Dyer MD 02/10/2018 2:46 PM Signed See if PCP has a PSA- if not will have to order one- thx Georgie Latham CMA 02/10/2018 2:53 PM Signed PSA in [facility] from 10/2017. 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] Prescriptions as of 02/10/2018 Sig: XARELTO 20 MG TABLET TAKE ONE TABLET BY MOUTH ONCE* LEVOTHYROXINE 75 MCG TABLET Take 1 tablet by mouth once d* BUSPIRONE 10 MG TABLET Take 10 mg by mouth once norma* VENLAFAXINE 75 MG TABLET Take 37.5 mg by mouth once da* MULTIVITAMIN TABLET Take 1 tablet by mouth once d* Problem List As Of Date 02/10/2018 Noted Resolved Postlaminectomy syndrome [M96.1] INVALID FOR* Migraine with typical aura [G43.109] INVALID FOR* 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] INVALID FOR* 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* Deep vein thrombosis (DVT) (HCC) [I82.409] 04/30/2017 History of DVT of lower extremity- 2009 [Z86.71*INVALID FOR* Chronic back pain [M54.9, G89.29] INVALID FOR* Mood disorder (HCC) [F39] INVALID FOR* HTN (hypertension) [I10] Hypothyroidism [E03.9] Smoking [F17.200] Asthma [J45.909] 10/30/2016 Bipolar disease, chronic (HCC) [F31.9] INVALID FOR* Family history of colon cancer [Z80.0] INVALID FOR* Cervical spine disease [M48.9] INVALID FOR* History of colonic polyps [Z86.010] INVALID FOR* Presence of IVC filter-2010 [Z95.828] INVALID FOR* Hyperglycemia [R73.9] INVALID FOR* History of blood clots [Z86.718] INVALID FOR* Gouty arthritis of toe of left foot [M10.9] INVALID FOR* Vertebral artery disease (HCC)-right vertebral *INVALID FOR* Congenital brain anomaly (HCC)Vertebral artery *INVALID FOR* Family history of malignant neoplasm of gastroi*INVALID FOR* More... BPH without urinary obstruction [N40.0] INVALID FOR* Gross hematuria [R31.0] INVALID FOR* Encounter Status:Closed by YANIRA DYER MD on 02/10/18 BASIC METABOLIC Collected: 02/09/2018 Status: F Source: [place] PROFILE (BMP) 11:00 PM [facility] REPOSITORY TYPE CODE TESTS RESULT OUT OF RANGE REFERENCE UNITS LAB L501.0100 74-106 mg/dL High GLU 111 Result Comment: Fasting Glucose result from 100 to 125 mg/dL suggests IMPAIRED HOMEOSTASIS per A.D.A. criteria. Please note revised GLUCOSE reference range effective 2017. LAB L501.1000 7-18 mg/dL Normal BUN 15 LAB L501.1100 0.70-1.30 mg/dL High CREAT,SERUM 1.34 Result Comment: The validity of the calculated GFR AND GFRAA in patients over 70 years has not been determined. Clinical correlation is essential. LAB L501.1110 >60 mL/min Low EST GFR 59 Result Comment: Non- GFR Calc LAB L501.1115 >60 mL/min Normal EST GFR - AA 72 Result Comment: GFR Calc LAB L501.1255 ml/min Normal Estimated CRCL 69.98 LAB L501.1300 10-20 RATIO Normal BUN/CRE 11.2 LAB L501.2200 8.5-10 mg/dL Low .1 CA 8.4 LAB L501.5300 136-14 mmol/L High 5 NA 147 LAB L501.5600 3.5-5. mmol/L Normal 1 K 3.7 LAB L501.5900 98-107 mmol/L High CL 112 LAB L501.6100 21.0-3 mmol/L Normal 2.0 CO2 26.0 LAB L501.6200 5-15 Normal GAP 9 Performed By: #### L500.2500 #### [facility] [address], [address] OBSOLETE Observed: 02/06/2018 Status: COMPLETED Source: [place] 12:00 AM CLINIC OTHER [place] REPOSITORY Refill ([facility]) SHAWNAYSHA Riley ([id number]) 1965 M Date Time Provider Department 02/06/18 GERA BRODY [facility] During your visit today, we recorded the following information about you: Atul Ramirez CMA 02/06/2018 10:00 AM Signed Pharmacy faxed requesting the following refill. Pending Prescriptions Disp Refills XARELTO 20 MG TABLET 90 tablet 1 Sig: TAKE ONE TABLET BY MOUTH ONCE DAILY WITH DINNER ADRIANA: No Last refill: 11/11/2017 Patient last appointment: 10/27/2017 Patient next appointment: 04/27/2018 Patient Phone numbers: [phone] (home) Request is for script(s) to be escript to pharmacy. 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 ENGINEER - Fully Assessed Reason for Visit: Refill Request [94] Cmt: Xarelto Reason For Visit History Recorded Order(s):XARELTO 20 mg tabletTAKE ONE TABLET BY MOUTH ONCE DAILY WITH DINNERDisp: 90 tabletRfl: 1 Prescriptions as of 02/06/2018 Sig: XARELTO 20 MG TABLET TAKE ONE TABLET BY MOUTH ONCE* LEVOTHYROXINE 75 MCG TABLET Take 1 tablet by mouth once d* LISINOPRIL 20 MG TABLET Take 1 tablet by mouth once d* MELOXICAM 7.5 MG TABLET Take 15 mg by mouth once norma* METOPROLOL SUCCINATE ER 50 MG* TAKE 1 TABLET BY MOUTH EVERY * BUSPIRONE 10 MG TABLET Take 10 mg by mouth once norma* MORPHINE ER 15 MG TABLET,EXTE* Take 15 mg by mouth twice solo* VENLAFAXINE 75 MG TABLET Take 37.5 mg by mouth once da* MULTIVITAMIN TABLET Take 1 tablet by mouth once d* Problem List As Of Date 02/06/2018 Noted Resolved Postlaminectomy syndrome [M96.1] INVALID FOR* Migraine with typical aura [G43.109] INVALID FOR* 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] INVALID FOR* 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* Deep vein thrombosis (DVT) (HCC) [I82.409] 04/30/2017 History of DVT of lower extremity- 2009 [Z86.71*INVALID FOR* Chronic back pain [M54.9, G89.29] INVALID FOR* Mood disorder (HCC) [F39] INVALID FOR* HTN (hypertension) [I10] Hypothyroidism [E03.9] Smoking [F17.200] Asthma [J45.909] 10/30/2016 Bipolar disease, chronic (HCC) [F31.9] INVALID FOR* Family history of colon cancer [Z80.0] INVALID FOR* Cervical spine disease [M48.9] INVALID FOR* History of colonic polyps [Z86.010] INVALID FOR* Presence of IVC filter-2010 [Z95.828] INVALID FOR* Hyperglycemia [R73.9] INVALID FOR* History of blood clots [Z86.718] INVALID FOR* Gouty arthritis of toe of left foot [M10.9] INVALID FOR* Vertebral artery disease (HCC)-right vertebral *INVALID FOR* Congenital brain anomaly (HCC)Vertebral artery *INVALID FOR* Family history of malignant neoplasm of gastroi*INVALID FOR* More... BPH without urinary obstruction [N40.0] INVALID FOR* Gross hematuria [R31.0] INVALID FOR* Prescriptions ordered this encounter Disp Refills Start End XARELTO 20 MG TABLET 90 t* 1 02/06/2018 Cmt: This prescription was filled on 02/06/2018. Any refills authorized will be placed on file. Sig: TAKE ONE TABLET BY MOUTH ONCE DAILY WITH DINNER Medications Discontinued During This Encounter rivaroxaban (XARELTO) 20 mg tablet 90 t* 1 11/11/2017 02/06/2018 Route: ORAL Sig: Take 1 tablet by mouth daily with dinner. Disc: Reason for discontinue is not on file. Encounter Status:Closed by GERA BRODY on 02/06/18 PROGRESS Observed: 02/03/2018 Status: COMPLETED Source: [place] 11:37 AM [facility] OTHER CAMPUS REPOSITORY HNO ID: [id number] Author: Nicci Andres APRN.CNP Service: Anesthesiology Author Type: Nurse Practitioner Type: Progress Notes Filed: 02/03/2018 11:57 AM Note Text: RED DOT FOLLOW UP: I reviewed the chart in [facility] , ED note from nickie 01/03/18. CT scan brain 01/03/18 with anesthesia . Per this patient is ok to proceed with planned procedure. PROGRESS Observed: 02/02/2018 Status: COMPLETED Source: [place] 12:15 PM [facility] REPOSITORY HNO ID: [id number] Author: Atul Arthur Service: (none) Author Type: Nurse Practitioner Type: Progress Notes Filed: 02/02/2018 12:19 PM Note Text: Please have anesthesia review. Per patient- suppose to have colonoscopy but was told needs a neurology clearance first. Has not seen a neurologist. For several years patient has been having stroke symptoms. Left face turns numb and left arm becomes weak. Last episode on 12/2017. Sometimes patient has the symptoms once a week. Then may go an entire month without symptoms. Patient had CT of the head which was negative- in chart 01/03/2018. Patient has a history of blood clots. 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 Patient has an IVC filter. Per patient he has a clotting disorder but unaware of what kind of disorder. PCP prescribes Xarelto. Observed: 02/02/2018 Status: F Source: [facility] CULT URINE 12:03 PM HEALTH SYSTEM REPOSITORY Test performed at [facility] <10,000 CFU/ml gram positive organisms cultured. No further identification or susceptibility testing will be performed. Plates will be held for 5 days. Performed By: #### C_URI #### [facility] [address] Observed: 02/02/2018 Status: COMPLETED Source: [place] 11:20 AM [facility] OTHER [place] REPOSITORY PAT (AKT) AYSHA SAVAGE ([id number]) 1965 M Date Time Provider Department 02/02/18 11:20 AM PST [facility] During your visit today, we recorded the following information about you: Temperature Pulse Respiration Blood pressure 97.9 degrees 73/minute 18/minute 152/92 Weight Height 93 kg 1.829 m Atul Arthur, HOSPITALITY RECRUITER 02/02/2018 12:17 PM Signed HISTORY AND PHYSICAL EXAMINATION SERVICE DATE: 02/02/2018 SERVICE TIME: 1120 AM PRIMARY CARE PHYSICIAN: Gera Brody MD REASON FOR VISIT: Aysha Savage is a 52 year old male who is scheduled for surgery with Dr. Yanira Dyer. Here for pre op HANDamp;P. 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 Symptoms Nov 2017. Happened for 2 days and then resolved on own. Nocturia one time per night. Denies dysuria. Positive urgency and frequency. Denies pain at this time. Denies family history of prostate cancer. PAST MEDICAL HISTORY Diagnosis Date - Deep vein thrombosis (DVT) (HCC) per patient has a clotting disorder, multiple blood clots, one in each leg and in left arm - Depression - Gross hematuria - HTN (hypertension) - Hypothyroidism - Obesity - Smoking PAST SURGICAL HISTORY Procedure Laterality Date - APPENDECTOMY - HERNIA REPAIR W/MESH 1996 bilateral inguinal repair - IVC FILTER SURGICAL 2010 - LUMBAR SPINE FUSION COMBINED 2002 L5-S1 posterior - NERVE STIMULATOR,0003 insertion ANDamp; removal x 2 - PAST SURGICAL HISTORY OF cervical surgery 2013 - PAST SURGICAL HISTORY OF 2002- lumbar - PAST SURGICAL HISTORY OF thoracic surgery 2009 - SKIN / WOUND CONSULT cellulitis (right hand) FAMILY HISTORY Problem Relation Age of Onset - Coronary Artery Disease Mother - CHF [OTHER] Mother - Colon Cancer Father - Cancer Father - Coronary Artery Disease Brother 54 mi SOCIAL HISTORY: Social History Marital status: Single Spouse name: Years of education: Number of children: Social History Main Topics Smoking status: Current Every Day Smoker Packs/day: 1.00 Years: 0.00 Types: Cigarettes Smokeless status: Never Used Alcohol use: No Drug use: No Sexual activity: Not Currently Other Topics Concern Service No Blood Transfusions No Caffeine Concern Yes Comment:excessive Occupational Exposure No Hobby Hazards No Sleep Concern No Weight Concern Yes Special Diet No Back Care No Exercise Yes Bike Helmet No Seat Belt Yes Self-Exams Yes Prior to Admission medications as of 02/02/18 1140 Medication Sig Last Dose Taking rivaroxaban (XARELTO) 20 mg tablet Take 1 tablet by mouth daily with dinner. Yes levothyroxine (SYNTHROID) 75 mcg tablet Take 1 tablet by mouth once daily. Yes venlafaxine (EFFEXOR) 75 mg tablet Take 37.5 mg by mouth once daily. Yes multivitamin tablet Take 1 tablet by mouth once daily. Yes lisinopril (PRINIVIL) 20 mg tablet Take 1 tablet by mouth once daily. meloxicam (MOBIC) 7.5 mg tablet Take 15 mg by mouth once daily as needed for Pain. metoprolol succinate ER (TOPROL XL) 50 mg 24 hr tablet TAKE 1 TABLET BY MOUTH EVERY DAY busPIRone (BUSPAR) 10 mg tablet Take 10 mg by mouth once daily. morphine SR (MS CONTIN, ORAMORPH SR) 15 mg 12 hr tablet Take 15 mg by mouth twice daily. No medication comments found. ALLERGIES No Known Allergies REVIEW OF SYSTEMS: PAIN ASSESSMENT: General: Denies fever, chills, and unexpected weight change. Neuro: Denies dizziness and headaches. Symptoms of stroke off and on for the past several years. Respiratory: Denies SOB. Cardiovascular: Denies CP and palpitations. GI: Denies abd pain and N/V/C. : see HPI Endocrine: No history of diabetes. Hematology: on xarelto for clotting disorder Psych: positive anxiety/depression. Musculoskeletal: Denies joint pain and swelling. Skin: Denies open sores and rashes. Objective PHYSICAL EXAM: VITALS: BP 152/92 Pulse 73 Temp 97.9 Resp 18 Ht 6' 0ANDquot; (1.83m) Wt 205 lb (93.0kg) SpO2 100% BMI 27.80 kg/(m2). General: NAD. Cooperative. Skin: Skin is warm, no rashes, and no open sores. HEENT: Normocephalic. Cardiovascular: Normal S1 ANDamp; S2. RRR. Lungs: CTA. No respiratory distress. Abdomen: Soft. +BS Extremities: No edema. Neurological: Alert and oriented to person, place, and time. Pulses: radial pulses +2 Diagnostic tests reviewed for today's visit: Lab Value Units Date High Low HB 13.4 g/dL 11/18/2017 17.4 13.2 HCT 39.4 % 11/18/2017 50.7 39.6 WBC 7.3 thou/c* 11/18/2017 9.7 4.4 PLT 165 thou/c* 11/18/2017 370 150 NA 143 mEq/L 11/18/2017 145 136 K 3.9 mEq/L 11/18/2017 5.1 3.5 GLUC 97 mg/dL 11/18/2017 99 70 BUN 13 mg/dL 11/18/2017 20 9 CREAT 0.96 mg/dL 11/18/2017 1.17 0.67 ALT 25 U/L 11/18/2017 78 12 AST 28 U/L 11/18/2017 46 15 TBILI 0.5 mg/dL 11/18/2017 1.0 0.2 TSH 2.130 uU/mL 10/21/2017 5.500 0.400 Hemoglobin A1C (%) Date Value 10/21/2017 5.4 Assessment/Plan METS: Climb a flight of stairs or walk up a hill (5.50 METs) ANESTHESIA FINDINGS: Intubation History: No history of difficult intubation Significant Anesthesia Considerations: None PLAN Diagnosis: Gross hematuria Planned Procedure: CYSTOSCOPY, RETROPYELOGRAM CONSULTS: Instructed patient of follow up with PCP on when to stop Xarelto- PCP prescribes the xarelto Please have anesthesia review. Per patient- suppose to have colonoscopy but was told needs a neurology clearance first. Has not seen a neurologist. For several years patient has been having stroke symptoms. Left face turns numb and left arm becomes weak. Last episode on 12/2017. Sometimes patient has the symptoms once a week. Then may go an entire month without symptoms. Patient had CT of the head which was negative- in chart. Patient has a history of blood clots. 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 Patient has an IVC filter. Per patient he has a clotting disorder but unaware of disorder. PCP prescribes Xarelto. The Following Tests/Procedures Have Been Initiated: Paper order from surgeon entered into [employer] urine culture Planned Anesthetic: MAC Instructions Given to Patient: Patient given verbal and written preop instructions and voices comprehension and compliance. SIGNATURE: Atul Arthur APRN PATIENT NAME: Aysha Savage DATE: February 02, 2018 TIME: 8:47 AM PAGER/CONTACT #: Atul Arthur APRN 02/02/2018 11:53 AM Addendum PATIENT PREOPERATIVE INSTRUCTIONS Surgery: 02/10/2018 Time: 1:10 PM Arrive: 11:10 AM [facility]: [phone], [address] [id number] Dietary Restrictions: - Nothing to eat or drink after midnight except for a sip of water with approved medications. Blood Thinning Medications: Please call PCP regarding xarelto- when to stop for surgery? - Stop NSAIDS (Ibuprofen, Advil, Aleve, Motrin, Celebrex, Mobic, etc.) 5-6 days before surgery, or as directed by your surgeon. - Do NOT stop aspirin or other anticoagulants (Coumadin, Plavix, and Xarelto) without consulting with your hop farmer or prescribing physician. - Stop Vitamin E, ALL multi-vitamins, herbals and dietary supplements 5-6 days before surgery. - You may take Tylenol (Acetaminophen) or any of your pain medications that do not contain aspirin or NSAIDS as needed. Medications: Synthroid, effexor Approved medications to take the morning of surgery with a sip of water: BP, Heart, thyroid, psych, seizure, and pain medications (excluding NSAIDS). Use inhalers as prescribed. Please bring inhalers. Call PCP or edge polisher for directions regarding your diabetes medications for the night before and day of surgery. If you start any new medications after today's visit, please contact the surgery center above. Important Reminders: - If you use CPAP/BIPAP, bring the machine with you to the surgery center. - If you are prescribed inhalers for breathing, continue using them AND bring them to the surgery center. - Candy, mints, gum and tobacco products are NOT permitted the morning of surgery. - Hearing aids, dentures and glasses may be worn the morning of surgery. - NO jewelry, body piercings, makeup, hairpins or contacts are to be worn the day of surgery. If you develop symptoms such as a fever, cold, or flu, or have other changes to your health within TWO DAYS of scheduled surgery or the morning of surgery, please contact the surgery center above. Personal Belongings: - Leave ALL valuables and money at home or with family members. Please arrive 2 hours before surgery Please be aware that emergency situations arise, which may delay or change your surgical time. If this happens, we will notify you as soon as possible and regret any inconvenience. Atul Arthur APRN 02/02/2018 12:19 PM Addendum Please have anesthesia review. Per patient- suppose to have colonoscopy but was told needs a neurology clearance first. Has not seen a neurologist. For several years patient has been having stroke symptoms. Left face turns numb and left arm becomes weak. Last episode on 12/2017. Sometimes patient has the symptoms once a week. Then may go an entire month without symptoms. Patient had CT of the head which was negative- in chart 01/03/2018. Patient has a history of blood clots. 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 Patient has an IVC filter. Per patient he has a clotting disorder but unaware of what kind of disorder. PCP prescribes Xarelto. Referring Provider: YANIRA DYER [[id number]] Allergies As of Date: 02/02/2018 (No Known Allergies) Date Reviewed: 02/02/2018 Reviewed by: Atul Arthur - Fully Assessed Reason for Visit: Hematuria [335] Primary Visit Diagnosis:Pre-op exam [Z01.818] Order(s):URINE CULTURE [SQURCUL] Order #: [id number] FUTURE Prescriptions as of 02/02/2018 Sig: RIVAROXABAN 20 MG TABLET Take 1 tablet by mouth daily * LEVOTHYROXINE 75 MCG TABLET Take 1 tablet by mouth once d* VENLAFAXINE 75 MG TABLET Take 37.5 mg by mouth once da* MULTIVITAMIN TABLET Take 1 tablet by mouth once d* LISINOPRIL 20 MG TABLET Take 1 tablet by mouth once d* MELOXICAM 7.5 MG TABLET Take 15 mg by mouth once norma* METOPROLOL SUCCINATE ER 50 MG* TAKE 1 TABLET BY MOUTH EVERY * BUSPIRONE 10 MG TABLET Take 10 mg by mouth once norma* MORPHINE ER 15 MG TABLET,EXTE* Take 15 mg by mouth twice solo* Medication notes this encounter LISINOPRIL 20 MG TABLET >> Atul Arthur, 02/02/2018 11:38 AM >> ATUL ARTHUR [facility] FriFeb 02, 2018 11:38 AM Not taking MELOXICAM 7.5 MG TABLET >> Atul Arthur, 02/02/2018 11:38 AM >> ATUL ARTHUR HOSPITALITY RECRUITER FriFeb 02, 2018 11:38 AM Not taking METOPROLOL SUCCINATE ER 50 MG TABLET,EXTENDED RELEASE 24 HR >> Atul Arthur, 02/02/2018 11:38 AM >> ATUL ARTHUR HOSPITALITY RECRUITER FriFeb 02, 2018 11:38 AM Not taking BUSPIRONE 10 MG TABLET >> Atul Arthur, 02/02/2018 11:38 AM >> ATUL ARTHUR [facility] FriFeb 02, 2018 11:38 AM Not taking MORPHINE ER 15 MG TABLET,EXTENDED RELEASE >> Atul Arthur, 02/02/2018 11:39 AM >> ATUL ARTHUR [facility] FriFeb 02, 2018 11:39 AM Not taking Problem List As Of Date 02/02/2018 Noted Resolved Postlaminectomy syndrome [M96.1] INVALID FOR* Migraine with typical aura [G43.109] INVALID FOR* 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) [I82.409] 04/30/2017 History of DVT of lower extremity- 2009 [Z86.71*INVALID FOR* Chronic back pain [M54.9, G89.29] INVALID FOR* Mood disorder (HCC) [F39] INVALID FOR* HTN (hypertension) [I10] Hypothyroidism [E03.9] Smoking [F17.200] Asthma [J45.909] 10/30/2016 Bipolar disease, chronic (HCC) [F31.9] INVALID FOR* Family history of colon cancer [Z80.0] INVALID FOR* Cervical spine disease [M48.9] INVALID FOR* History of colonic polyps [Z86.010] INVALID FOR* Presence of IVC filter-2010 [Z95.828] INVALID FOR* Hyperglycemia [R73.9] INVALID FOR* History of blood clots [Z86.718] INVALID FOR* Gouty arthritis of toe of left foot [M10.9] INVALID FOR* Vertebral artery disease (HCC)-right vertebral *INVALID FOR* Congenital brain anomaly (HCC)Vertebral artery *INVALID FOR* Family history of malignant neoplasm of gastroi*INVALID FOR* More... BPH without urinary obstruction [N40.0] INVALID FOR* Gross hematuria [R31.0] INVALID FOR* Other instructions from your clinician: PATIENT PREOPERATIVE INSTRUCTIONS Surgery: 02/10/2018 Time: 1:10 PM Arrive: 11:10 AM [facility]: [phone], [address] [id number] Dietary Restrictions: - Nothing to eat or drink after midnight except for a sip of water with approved medications. Blood Thinning Medications: Please call PCP regarding xarelto- when to stop for surgery? - Stop NSAIDS (Ibuprofen, Advil, Aleve, Motrin, Celebrex, Mobic, etc.) 5-6 days before surgery, or as directed by your surgeon. - Do NOT stop aspirin or other anticoagulants (Coumadin, Plavix, and Xarelto) without consulting with your hop farmer or prescribing physician. - Stop Vitamin E, ALL multi-vitamins, herbals and dietary supplements 5-6 days before surgery. - You may take Tylenol (Acetaminophen) or any of your pain medications that do not contain aspirin or NSAIDS as needed. Medications: Synthroid, effexor Approved medications to take the morning of surgery with a sip of water: BP, Heart, thyroid, psych, seizure, and pain medications (excluding NSAIDS). Use inhalers as prescribed. Please bring inhalers. Call PCP or edge polisher for directions regarding your diabetes medications for the night before and day of surgery. If you start any new medications after today's visit, please contact the surgery center above. Important Reminders: - If you use CPAP/BIPAP, bring the machine with you to the surgery center. - If you are prescribed inhalers for breathing, continue using them AND bring them to the surgery center. - Candy, mints, gum and tobacco products are NOT permitted the morning of surgery. - Hearing aids, dentures and glasses may be worn the morning of surgery. - NO jewelry, body piercings, makeup, hairpins or contacts are to be worn the day of surgery. If you develop symptoms such as a fever, cold, or flu, or have other changes to your health within TWO DAYS of scheduled surgery or the morning of surgery, please contact the surgery center above. Personal Belongings: - Leave ALL valuables and money at home or with family members. Please arrive 2 hours before surgery Please be aware that emergency situations arise, which may delay or change your surgical time. If this happens, we will notify you as soon as possible and regret any inconvenience. Encounter Status:Closed by ATUL ARTHUR APRN on 02/02/18 HISTORY PHYSICAL Observed: 02/02/2018 Status: COMPLETED Source: [place] 8:47 AM CLINIC OTHER CAMPUS REPOSITORY O ID: [id number] Author: Atul Arthur Service: (none) Author Type: Nurse Practitioner Type: HANDP Filed: 02/02/2018 12:17 PM Note Text: HISTORY AND PHYSICAL EXAMINATION SERVICE DATE: 02/02/2018 SERVICE TIME: 1120 AM PRIMARY CARE PHYSICIAN: Gera Brody MD REASON FOR VISIT: Aysha Savage is a 52 year old male who is scheduled for surgery with Dr. Yanira Dyer. Here for pre op HANDP. 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 Symptoms Nov 2017. Happened for 2 days and then resolved on own. Nocturia one time per night. Denies dysuria. Positive urgency and frequency. Denies pain at this time. Denies family history of prostate cancer. PAST MEDICAL HISTORY Diagnosis Date - Deep vein thrombosis (DVT) (HCC) per patient has a clotting disorder, multiple blood clots, one in each leg and in left arm - Depression - Gross hematuria - HTN (hypertension) - Hypothyroidism - Obesity - Smoking PAST SURGICAL HISTORY Procedure Laterality Date - APPENDECTOMY - HERNIA REPAIR W/MESH 1996 bilateral inguinal repair - IVC FILTER SURGICAL 2010 - LUMBAR SPINE FUSION COMBINED 2002 L5-S1 posterior - NERVE STIMULATOR,0003 insertion AND removal x 2 - PAST SURGICAL HISTORY OF cervical surgery 2013 - PAST SURGICAL HISTORY OF 2003- lumbar - PAST SURGICAL HISTORY OF thoracic surgery 2008 - SKIN / WOUND CONSULT cellulitis (right hand) FAMILY HISTORY Problem Relation Age of Onset - Coronary Artery Disease Mother - CHF [OTHER] Mother - Colon Cancer Father - Cancer Father - Coronary Artery Disease Brother 54 mi SOCIAL HISTORY: Social History Marital status: Single Spouse name: Years of education: Number of children: Social History Main Topics Smoking status: Current Every Day Smoker Packs/day: 1.00 Years: 0.00 Types: Cigarettes Smokeless status: Never Used Alcohol use: No Drug use: No Sexual activity: Not Currently Other Topics Concern Service No Blood Transfusions No Caffeine Concern Yes Comment:excessive Occupational Exposure No Hobby Hazards No Sleep Concern No Weight Concern Yes Special Diet No Back Care No Exercise Yes Bike Helmet No Seat Belt Yes Self-Exams Yes Prior to Admission medications as of 02/02/18 1140 Medication Sig Last Dose Taking rivaroxaban (XARELTO) 20 mg tablet Take 1 tablet by mouth daily with dinner. Yes levothyroxine (SYNTHROID) 75 mcg tablet Take 1 tablet by mouth once daily. Yes venlafaxine (EFFEXOR) 75 mg tablet Take 37.5 mg by mouth once daily. Yes multivitamin tablet Take 1 tablet by mouth once daily. Yes lisinopril (PRINIVIL) 20 mg tablet Take 1 tablet by mouth once daily. meloxicam (MOBIC) 7.5 mg tablet Take 15 mg by mouth once daily as needed for Pain. metoprolol succinate ER (TOPROL XL) 50 mg 24 hr tablet TAKE 1 TABLET BY MOUTH EVERY DAY busPIRone (BUSPAR) 10 mg tablet Take 10 mg by mouth once daily. morphine SR (MS CONTIN, ORAMORPH SR) 15 mg 12 hr tablet Take 15 mg by mouth twice daily. No medication comments found. ALLERGIES No Known Allergies REVIEW OF SYSTEMS: PAIN ASSESSMENT: General: Denies fever, chills, and unexpected weight change. Neuro: Denies dizziness and headaches. Symptoms of stroke off and on for the past several years. Respiratory: Denies SOB. Cardiovascular: Denies CP and palpitations. GI: Denies abd pain and N/V/C. : see HPI Endocrine: No history of diabetes. Hematology: on xarelto for clotting disorder Psych: positive anxiety/depression. Musculoskeletal: Denies joint pain and swelling. Skin: Denies open sores and rashes. Objective PHYSICAL EXAM: VITALS: BP 152/92 Pulse 73 Temp 97.9 Resp 18 Ht 6' 0 (1.83m) Wt 205 lb (93.0kg) SpO2 100% BMI 27.80 kg/(m2). General: NAD. Cooperative. Skin: Skin is warm, no rashes, and no open sores. HEENT: Normocephalic. Cardiovascular: Normal S1 AND S2. RRR. Lungs: CTA. No respiratory distress. Abdomen: Soft. +BS Extremities: No edema. Neurological: Alert and oriented to person, place, and time. Pulses: radial pulses +2 Diagnostic tests reviewed for today's visit: Lab Value Units Date High Low HB 13.4 g/dL 11/18/2017 17.4 13.2 HCT 39.4 % 11/18/2017 50.7 39.6 WBC 7.3 thou/c* 11/18/2017 9.7 4.4 PLT 165 thou/c* 11/18/2017 370 150 NA 143 mEq/L 11/18/2017 145 136 K 3.9 mEq/L 11/18/2017 5.1 3.5 GLUC 97 mg/dL 11/18/2017 99 70 BUN 13 mg/dL 11/18/2017 20 9 CREAT 0.96 mg/dL 11/18/2017 1.17 0.67 ALT 25 U/L 11/18/2017 78 12 AST 28 U/L 11/18/2017 46 15 TBILI 0.5 mg/dL 11/18/2017 1.0 0.2 TSH 2.130 uU/mL 10/21/2017 5.500 0.400 Hemoglobin A1C (%) Date Value 10/21/2017 5.4 Assessment/Plan METS: Climb a flight of stairs or walk up a hill (5.50 METs) ANESTHESIA FINDINGS: Intubation History: No history of difficult intubation Significant Anesthesia Considerations: None PLAN Diagnosis: Gross hematuria Planned Procedure: CYSTOSCOPY, RETROPYELOGRAM CONSULTS: Instructed patient of follow up with PCP on when to stop Xarelto- PCP prescribes the xarelto Please have anesthesia review. Per patient- suppose to have colonoscopy but was told needs a neurology clearance first. Has not seen a neurologist. For several years patient has been having stroke symptoms. Left face turns numb and left arm becomes weak. Last episode on 12/2017. Sometimes patient has the symptoms once a week. Then may go an entire month without symptoms. Patient had CT of the head which was negative- in chart. Patient has a history of blood clots. 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 Patient has an IVC filter. Per patient he has a clotting disorder but unaware of disorder. PCP prescribes Xarelto. The Following Tests/Procedures Have Been Initiated: Paper order from surgeon entered into [facility]- urine culture Planned Anesthetic: MAC Instructions Given to Patient: Patient given verbal and written preop instructions and voices comprehension and compliance. SIGNATURE: Atul Arthur APRN PATIENT NAME: Aysha Savage DATE: February 02, 2018 TIME: 8:47 AM PAGER/CONTACT #: [phone] LEAD ELECTROCARDIOGRAM Observed: 01/28/2018 Status: F Source: [place] 3:42 PM [facility] REPOSITORY [facility] Cardiovascular Services [address] [place] [id number] 12 Lead EKG 01/26/18 1843 MR#: [id number] Acct: [id number] Name: AYSHA SAVAGE Rep #: [id number] : 1965 52 From: Aston Obrien MD Attending Dr: Status: DEP ER Ordering Dr: Provider, Dionicio P. Date: 01/26/18 Location: ED Sex: M C Admitted: Test Reason : CP Blood Pressure : / mmHG Vent. Rate : 062 BPM Atrial Rate : 062 BPM P-R Int : 138 ms QRS Dur : 108 ms QT Int : 440 ms P-R-T Axes : 006 014 047 degrees QTc Int : 446 ms Normal sinus rhythm Normal ECG Confirmed by ASTON OBRIEN MD ([id number]), telegraph editor GERDA MALIK ([id number]) on 01/28/2018 3:41:59 PM Referred By: Confirmed By:ASTON OBRIEN MD 01/28/18 1542 Date Aston Obrien MD CC: GERA BRODY; ED PHYSICIAN PROVIDER Signed EMERGENCY DEPARTMENT Observed: 01/27/2018 Status: F Source: [place] SUMMARY 3:30 AM [facility] REPOSITORY [facility] Medical Records Department [address] [place] [id number] Emergency Department Summary 01/26/18 2343 MR#: [id number] Acct: [id number] Name: AYSHA SAVAGE Rep #: [id number] : 1965 52 From: Jillian Jaimes MD PCP: GERA BRODY Status: DEP ER - ER Visit Summary Date of Service: 01/26/18 Chief Complaint: Chest pain History of Present Illness: The patient is a 52 M presenting with chest pain which started around 4 PM. He states he has had intermittent pain in his left chest and left arm. It is associated with lightheadedness. He denies nausea, vomiting, diaphoresis, shortness of breath. He has a history of hypertension, early history of family heart disease and is a smoker. Previous history of DVT and he is on Xarelto. Physical Examination: Vitals are stable. Patient is afebrile. Alert no acute distress. HEENT exam is unremarkable. Neck is supple. Lungs are clear and equal bilaterally. Heart is regular rate and rhythm. Abdomen is soft nontender nondistended. Extremities are unremarkable. Skin is warm and dry. No focal neurologic deficit. Remainder of exam is unremarkable. Emergency Department Course and Treatment: EKG is sinus rhythm rate of 62. Chest x-ray shows no acute process, COPD. CBC normal except platelets 137. Chemistries unremarkable. Troponin is negative. Delta troponin was obtained and is also negative. He is given aspirin on arrival. He is given morphine. On reevaluation he is pain- free. Due to his multiple risk factors, I recommend admission for further testing. Patient refuses admission at this time. He is advised of risks of leaving AGAINST MEDICAL ADVICE including LA and . Patient understands and signed out AGAINST MEDICAL ADVICE. Disposition: AGAINST MEDICAL ADVICE Impression: Chest pain This note was generated with [employer] dictation software. It may contain incorrect words, spelling, and punctuation that were not noted in review of the chart prior to signing ED Disposition - Plan for ED Patient: Chief Complaint: Chest Pain Referrals: Gera Brody [Primary Care Provider] - What to do if you have Problems For any increased pain, shortness of breath, bleeding, nausea or vomiting, chest pain, or any unexpected problems, contact your Primary Care Provider. Call [facility] ([phone]) or report to the closest Emergency Room. Call 911 if necessary. 01/27/18 0330 <Electronically signed by Jillian Jaimes MD> Date Jillian Jaimes MD Cosigner Signature (If Indicated): Date CC: GERA BRODY DISCHARGE INSTRUCTION Observed: 01/26/2018 Status: F Source: [place] 11:45 PM [facility] REPOSITORY [facility] Medical Records Department [address] [place] [address] Discharge Instruction 01/26/18 2345 MR#: [id number] Acct: [id number] Name: AYSHA SAVAGE Rep #: [id number] : 1965 52 From: Jillian Jaimes MD PCP: GERA BRODY Status: REG ER ED Disposition - Plan for ED Patient: Chief Complaint: Chest Pain Instructions: ED Chest Pain Atypical Unkn Cause Referrals: Gera Brody [Primary Care Provider] - What to do if you have Problems For any increased pain, shortness of breath, bleeding, nausea or vomiting, chest pain, or any unexpected problems, contact your Primary Care Provider. Call [facility] ([phone]) or report to the closest Emergency Room. Call 911 if necessary. 01/26/18 6266 <Electronically signed by Jillian Jaimes MD> Date Jillian Jaimes MD Cosigner Signature (If Indicated): Date CC: GERA BRODY TROPONIN-I Collected: 01/26/2018 Status: F Source: [place] 10:10 PM [facility] REPOSITORY Order Comment: 'TROP' Serial specimen #1, #2, #3, or #4: 2 TYPE CODE TESTS RESULT OUT OF RANGE REFERENCE UNITS LAB L501.4010 <0.06 ng/mL Normal < 0.02 TROPONIN-I Result Comment: TROPONIN-I EXPECTED VALUES <0.05 NEGATIVE 0.06 - 0.59 AT RISK OF LA > OR = 0.60 SUGGEST LA Performed By: #### L501.4010 #### [facility] [address] [place], [address] CBC W/DIFF, AUTOMATED Collected: 01/26/2018 Status: F Source: [place] 6:50 PM [facility] REPOSITORY TYPE CODE TESTS RESULT OUT OF RANGE REFERENCE UNITS LAB L100.1000 4.4-11.0 K/mm3 Normal WBC 6.6 LAB L100.1200 4.6-6.2 M/mm3 Low RBC 4.51 LAB L100.1300 13.0-16.5 g/dl Normal HGB 13.5 LAB L100.1400 40-54 % Low HCT 39.4 LAB L100.1500 80-94 fL Normal MCV 87.4 LAB L100.1600 27.0-32.0 pg Normal MCH 29.9 LAB L100.1700 32-36 g/gl Normal MCHC 34.3 LAB L100.1810 11.6-14.6 % Normal RDW CV 12.8 LAB L100.1820 35.1-43.9 fl Normal RDW SD 41.1 LAB L100.1900 150-450 K/mm3 Low PLT 137 LAB L100.2000 6.2-12.0 fl Normal MPV 9.1 LAB L100.2100 47-70 % Normal NEUT% 61.2 LAB L100.2200 19-41 % Normal LY% 26.8 LAB L100.2300 0-10 % Normal MONO% 9.7 LAB L100.2400 0-5 % Normal EO% 1.8 LAB L100.2500 0-1 % Normal BASO% 0.3 LAB L100.2550 0.0-0.9 % Normal IM GRAN % 0.200 Result Comment: IG% - Immature Granulocytes (promyelocytes, myelocytes and metamyelocytes) > 1% indicates that a LEFT SHIFT is Present. LAB L100.2620 2.0-7.7 X10 3/uL Normal Absolute Neut 4.0 LAB L100.2720 0.83-4.51 X10 3/ul Normal Absolute Lymph 1.76 Performed By: #### L100.0100 #### [facility] [address] [place], [address] BASIC METABOLIC Collected: 01/26/2018 Status: F Source: [place] PROFILE ([facility]) 6:50 PM [facility] REPOSITORY Order Comment: 'TROP' Serial specimen #1, #2, #3, or #4: 1 TYPE CODE TESTS RESULT OUT OF RANGE REFERENCE UNITS LAB L501.0100 74-106 mg/dL Normal GLU 88 Result Comment: Please note revised GLUCOSE reference range effective 2017. LAB L501.1000 7-18 mg/dL Normal BUN 13 LAB L501.1100 0.70-1.30 mg/dL Normal CREAT,SERUM 0.94 Result Comment: The validity of the calculated GFR AND GFRAA in patients over 70 years has not been determined. Clinical correlation is essential. LAB L501.1110 >60 mL/min Normal EST GFR 89 Result Comment: Non- GFR Calc LAB L501.1115 >60 mL/min Normal EST GFR - AA 107 Result Comment: GFR Calc LAB L501.1255 ml/min Normal Estimated CRCL 64.27 LAB L501.1300 10-20 RATIO Normal BUN/CRE 13.8 LAB L501.2200 8.5-10 mg/dL Normal .1 CA 8.6 LAB L501.5300 136-14 mmol/L Normal 5 NA 142 LAB L501.5600 3.5-5. mmol/L Normal 1 K 3.7 LAB L501.5900 98-107 mmol/L High CL 110 LAB L501.6100 21.0-3 mmol/L Normal 2.0 CO2 27.0 LAB L501.6200 5-15 Normal GAP 5 Performed By: #### L500.2500, L501.4010 #### [facility] [address] [facility] [place], [place], [address] TROPONIN-I Collected: 01/26/2018 Status: F Source: [place] 6:50 PM [facility] REPOSITORY Order Comment: 'TROP' Serial specimen #1, #2, #3, or #4: 1 TYPE CODE TESTS RESULT OUT OF RANGE REFERENCE UNITS LAB L501.4010 <0.06 ng/mL Normal < 0.02 TROPONIN-I Result Comment: TROPONIN-I EXPECTED VALUES <0.05 NEGATIVE 0.06 - 0.59 AT RISK OF LA > OR = 0.60 SUGGEST LA Performed By: #### L500.2500, L501.4010 #### [facility] [address] [place], [place], [address] CHEST PA AND LATERAL Observed: 01/26/2018 Status: F Source: [place] 6:38 PM [facility] REPOSITORY [facility] Imaging Services [address] [place] [address] Chest PA and Lateral MR#: [id number] Acct: [id number] Name: AYSHA SAVAGE Rep #: [id number] : 1965 M 52 From: Maggie Malik MD PCP: GERA BRODY Status: PRE ER Study: Chest PA and Lateral Date of Exam: 01/26/18 Exam# [id number] Ordering Dr: Vidhi, Ed P. STUDY: X-RAY CHEST REASON FOR EXAM: Male, 52 years old. Chest pain. TECHNIQUE: PA and lateral views of the chest. COMPARISON: November 01, 2017. FINDINGS: There is hyperinflation of the lungs consistent with chronic obstructive lung disease (COPD). There is no demonstrated pleural abnormality. Normal size heart. Normal mediastinum and hema. There is prominence of the pulmonary hilar arteries without peripheral pulmonary vascular congestion. There is atherosclerotic calcification of the aortic arch with tortuosity. There are diffuse degenerative changes of the visualized thoracic spine. Normal visualized ribs, clavicles, and shoulders. The patient has had previous surgery on the cervical spine. There is no demonstrated abnormality of the visualized soft tissue structures of the upper abdomen. RAD/Chest PA and Lateral IMPRESSION: COPD without radiographic evidence of acute cardiopulmonary disease. Electronically Signed: Maggie Malik MD at 19:28 EDT , Service support , CC: GERA BRODY; ED PHYSICIAN PROVIDER 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: Signed HOSP Observed: 01/12/2018 Status: COMPLETED Source: [place] 12:00 AM CLINIC OTHER CAMPUS REPOSITORY Patient:Aysha Savage MRN: <[id number]> Height:6' 0(1.829 m) Weight:205 lb (92.987 kg) Outpatient Medications as of 02/10/18: levothyroxine (SYNTHROID) 75 mcg tablet busPIRone (BUSPAR) 10 mg tablet venlafaxine (EFFEXOR) 75 mg tablet multivitamin tablet XARELTO 20 mg tablet Admission/Clinic Administered Medications as of 02/10/18: ceFAZolin iv piggyback 2 g in D5W (iso-osmotic) 100 mL (ANCEF) lactated ringers infusion meperidine (PF) 12.5 mg injection (DEMEROL) fentaNYL 50 mcg/mL 50 mcg injection (SUBLIMAZE) morphine 3 mg injection oxyCODONE IR 5 mg tab(s) (ROXICODONE) ondansetron (PF) 4 mg injection (ZOFRAN) prochlorperazine 10 mg injection (COMPAZINE) Problem List: Postlaminectomy syndrome [M96.1] Migraine with typical aura [G43.109] 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] 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 for this - NOT a seizure d/o , no tumors, not TIA [G43.119] History of DVT of lower extremity- 2009 [Z86.718] Chronic back pain [M54.9, G89.29] Mood disorder (HCC) [F39] HTN (hypertension) [I10] Hypothyroidism [E03.9] Smoking [F17.200] Bipolar disease, chronic (HCC) [F31.9] Family history of colon cancer [Z80.0] 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 Pending Prescriptions Disp Refills XARELTO 20 MG TABLET 90 tablet 1 Sig: TAKE ONE TABLET BY MOUTH ONCE DAILY WITH DINNER ADRIANA: No Last refill: 11/11/2017 Patient last appointment: 10/27/2017 Patient next appointment: 04/27/2018 Patient Phone numbers: [phone] (home) Request is for script(s) to be escript to pharmacy. Atul Ramirez CMA Progress Notes (PRE SURG TESTING [facility]): Atul Arthur, [email or web address] PASTRANA 02/02/2018 12:17 PM Signed HISTORY AND PHYSICAL EXAMINATION SERVICE DATE: 02/02/2018 SERVICE TIME: 1120 AM PRIMARY CARE PHYSICIAN: Gera Brody MD REASON FOR VISIT: Aysha Savage is a 52 year old male who is scheduled for surgery with Dr. Yanira Dyer. Here for pre op HANDP. 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 Symptoms Nov 2017. Happened for 2 days and then resolved on own. Nocturia one time per night. Denies dysuria. Positive urgency and frequency. Denies pain at this time. Denies family history of prostate cancer. PAST MEDICAL HISTORY Diagnosis Date - Deep vein thrombosis (DVT) (HCC) per patient has a clotting disorder, multiple blood clots, one in each leg and in left arm - Depression - Gross hematuria - HTN (hypertension) - Hypothyroidism - Obesity - Smoking PAST SURGICAL HISTORY Procedure Laterality Date - APPENDECTOMY - HERNIA REPAIR W/MESH 1996 bilateral inguinal repair - IVC FILTER SURGICAL 2010 - LUMBAR SPINE FUSION COMBINED 2002 L5-S1 posterior - NERVE STIMULATOR,0003 insertion AND removal x 2 - PAST SURGICAL HISTORY OF cervical surgery 2014 - PAST SURGICAL HISTORY OF 2003- lumbar - PAST SURGICAL HISTORY OF thoracic surgery 2008 - SKIN / WOUND CONSULT cellulitis (right hand) FAMILY HISTORY Problem Relation Age of Onset - Coronary Artery Disease Mother - CHF [OTHER] Mother - Colon Cancer Father - Cancer Father - Coronary Artery Disease Brother 54 mi SOCIAL HISTORY: Social History Marital status: Single Spouse name: Years of education: Number of children: Social History Main Topics Smoking status: Current Every Day Smoker Packs/day: 1.00 Years: 0.00 Types: Cigarettes Smokeless status: Never Used Alcohol use: No Drug use: No Sexual activity: Not Currently Other Topics Concern Service No Blood Transfusions No Caffeine Concern Yes Comment:excessive Occupational Exposure No Hobby Hazards No Sleep Concern No Weight Concern Yes Special Diet No Back Care No Exercise Yes Bike Helmet No Seat Belt Yes Self-Exams Yes Prior to Admission medications as of 02/02/18 1140 Medication Sig Last Dose Taking rivaroxaban (XARELTO) 20 mg tablet Take 1 tablet by mouth daily with dinner. Yes levothyroxine (SYNTHROID) 75 mcg tablet Take 1 tablet by mouth once daily. Yes venlafaxine (EFFEXOR) 75 mg tablet Take 37.5 mg by mouth once daily. Yes multivitamin tablet Take 1 tablet by mouth once daily. Yes lisinopril (PRINIVIL) 20 mg tablet Take 1 tablet by mouth once daily. meloxicam (MOBIC) 7.5 mg tablet Take 15 mg by mouth once daily as needed for Pain. metoprolol succinate ER (TOPROL XL) 50 mg 24 hr tablet TAKE 1 TABLET BY MOUTH EVERY DAY busPIRone (BUSPAR) 10 mg tablet Take 10 mg by mouth once daily. morphine SR (MS CONTIN, ORAMORPH SR) 15 mg 12 hr tablet Take 15 mg by mouth twice daily. No medication comments found. ALLERGIES No Known Allergies REVIEW OF SYSTEMS: PAIN ASSESSMENT: General: Denies fever, chills, and unexpected weight change. Neuro: Denies dizziness and headaches. Symptoms of stroke off and on for the past several years. Respiratory: Denies SOB. Cardiovascular: Denies CP and palpitations. GI: Denies abd pain and N/V/C. : see HPI Endocrine: No history of diabetes. Hematology: on xarelto for clotting disorder Psych: positive anxiety/depression. Musculoskeletal: Denies joint pain and swelling. Skin: Denies open sores and rashes. Objective PHYSICAL EXAM: VITALS: BP 152/92 Pulse 73 Temp 97.9 Resp 18 Ht 6' 0 (1.83m) Wt 205 lb (93.0kg) SpO2 100% BMI 27.80 kg/(m2). General: NAD. Cooperative. Skin: Skin is warm, no rashes, and no open sores. HEENT: Normocephalic. Cardiovascular: Normal S1 AND S2. RRR. Lungs: CTA. No respiratory distress. Abdomen: Soft. +BS Extremities: No edema. Neurological: Alert and oriented to person, place, and time. Pulses: radial pulses +2 Diagnostic tests reviewed for today's visit: Lab Value Units Date High Low HB 13.4 g/dL 11/18/2017 17.4 13.2 HCT 39.4 % 11/18/2017 50.7 39.6 WBC 7.3 thou/c* 11/18/2017 9.7 4.4 PLT 165 thou/c* 11/18/2017 370 150 NA 143 mEq/L 11/18/2017 145 136 K 3.9 mEq/L 11/18/2017 5.1 3.5 GLUC 97 mg/dL 11/18/2017 99 70 BUN 13 mg/dL 11/18/2017 20 9 CREAT 0.96 mg/dL 11/18/2017 1.17 0.67 ALT 25 U/L 11/18/2017 78 12 AST 28 U/L 11/18/2017 46 15 TBILI 0.5 mg/dL 11/18/2017 1.0 0.2 TSH 2.130 uU/mL 10/21/2017 5.500 0.400 Hemoglobin A1C (%) Date Value 10/21/2017 5.4 Assessment/Plan METS: Climb a flight of stairs or walk up a hill (5.50 METs) ANESTHESIA FINDINGS: Intubation History: No history of difficult intubation Significant Anesthesia Considerations: None PLAN Diagnosis: Gross hematuria Planned Procedure: CYSTOSCOPY, RETROPYELOGRAM CONSULTS: Instructed patient of follow up with PCP on when to stop Xarelto- PCP prescribes the xarelto Please have anesthesia review. Per patient- suppose to have colonoscopy but was told needs a neurology clearance first. Has not seen a neurologist. For several years patient has been having stroke symptoms. Left face turns numb and left arm becomes weak. Last episode on 12/2017. Sometimes patient has the symptoms once a week. Then may go an entire month without symptoms. Patient had CT of the head which was negative- in chart. Patient has a history of blood clots. 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 Patient has an IVC filter. Per patient he has a clotting disorder but unaware of disorder. PCP prescribes Xarelto. The Following Tests/Procedures Have Been Initiated: Paper order from surgeon entered into [employer] urine culture Planned Anesthetic: MAC Instructions Given to Patient: Patient given verbal and written preop instructions and voices comprehension and compliance. SIGNATURE: Atul Arthur APRN PATIENT NAME: Aysha Savage DATE: February 02, 2018 TIME: 8:47 AM PAGER/CONTACT #: Atul Arthur APRN.CNP, APRN.CNP 02/02/2018 11:53 AM Addendum PATIENT PREOPERATIVE INSTRUCTIONS Surgery: 02/10/2018 Time: 1:10 PM Arrive: 11:10 AM [facility]: [phone], [address] [place], [place] [address] Dietary Restrictions: - Nothing to eat or drink after midnight except for a sip of water with approved medications. Blood Thinning Medications: Please call PCP regarding xarelto- when to stop for surgery? - Stop NSAIDS (Ibuprofen, Advil, Aleve, Motrin, Celebrex, Mobic, etc.) 5-6 days before surgery, or as directed by your surgeon. - Do NOT stop aspirin or other anticoagulants (Coumadin, Plavix, and Xarelto) without consulting with your hop farmer or prescribing physician. - Stop Vitamin E, ALL multi-vitamins, herbals and dietary supplements 5-6 days before surgery. - You may take Tylenol (Acetaminophen) or any of your pain medications that do not contain aspirin or NSAIDS as needed. Medications: Synthroid, effexor Approved medications to take the morning of surgery with a sip of water: BP, Heart, thyroid, psych, seizure, and pain medications (excluding NSAIDS). Use inhalers as prescribed. Please bring inhalers. Call PCP or edge polisher for directions regarding your diabetes medications for the night before and day of surgery. If you start any new medications after today's visit, please contact the surgery center above. Important Reminders: - If you use CPAP/BIPAP, bring the machine with you to the surgery center. - If you are prescribed inhalers for breathing, continue using them AND bring them to the surgery center. - Candy, mints, gum and tobacco products are NOT permitted the morning of surgery. - Hearing aids, dentures and glasses may be worn the morning of surgery. - NO jewelry, body piercings, makeup, hairpins or contacts are to be worn the day of surgery. If you develop symptoms such as a fever, cold, or flu, or have other changes to your health within TWO DAYS of scheduled surgery or the morning of surgery, please contact the surgery center above. Personal Belongings: - Leave ALL valuables and money at home or with family members. Please arrive 2 hours before surgery Please be aware that emergency situations arise, which may delay or change your surgical time. If this happens, we will notify you as soon as possible and regret any inconvenience. Previous Version Atul Arthur, HOSPITALITY RECRUITER.SOFTWARE QUALITY AUTOMATION ENGINEER, HOSPITALITY RECRUITER.SOFTWARE QUALITY AUTOMATION ENGINEER 02/02/2018 12:19 PM Addendum Please have anesthesia review. Per patient- suppose to have colonoscopy but was told needs a neurology clearance first. Has not seen a neurologist. For several years patient has been having stroke symptoms. Left face turns numb and left arm becomes weak. Last episode on 12/2017. Sometimes patient has the symptoms once a week. Then may go an entire month without symptoms. Patient had CT of the head which was negative- in chart 01/03/2018. Patient has a history of blood clots. 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 Patient has an IVC filter. Per patient he has a clotting disorder but unaware of what kind of disorder. PCP prescribes Xarelto. Previous Version 12 LEAD ELECTROCARDIOGRAM Observed: 01/07/2018 Status: F Source: [place] 2:11 PM [facility] REPOSITORY [facility] Cardiovascular Services [address] [place] [address] 12 Lead EKG 01/03/18 2151 MR#: [id number] Acct: [id number] Name: AYSHA SAVAGE Rep #: [id number] : 1965 52 From: Fausto Dean MD Attending Dr: Status: DEP ER Ordering Dr: Jameson Zamora MD Date: 01/03/18 Location: ED Sex: M C Admitted: Test Reason : CP Blood Pressure : / mmHG Vent. Rate : 072 BPM Atrial Rate : 072 BPM P-R Int : 176 ms QRS Dur : 100 ms QT Int : 440 ms P-R-T Axes : 050 007 050 degrees QTc Int : 481 ms Sinus rhythm with occasional Premature ventricular complexes Prolonged QT Abnormal ECG Confirmed by PENELOPE DC, FAUSTO ([id number]), telegraph editor GERDA MALIK ([id number]) on 01/07/2018 2:11:31 PM Referred By: KRISTINE Confirmed By:FAUSTO DEAN MD 01/07/18 1411 Date Fausto Dean MD CC: GERA BRODY; Jameson Zamora MD Signed EMERGENCY DEPARTMENT Observed: 01/04/2018 Status: F Source: [place] SUMMARY 6:55 AM [facility] REPOSITORY [facility] Medical Records Department [address] [place] [address] Emergency Department Summary 01/03/18 2213 MR#: [id number] Acct: [id number] Name: AYSHA SAVAGE Rep #: [id number] : 1965 52 From: Jameson Zamora MD PCP: GERA BRODY Status: DEP ER - ER Visit Summary Date of Service: 01/03/18 Chief Complaint: [] Chest pain History of Present Illness: The patient is a 52 M [] planing of chest pain that started today 10 minutes ago upon arrival to the department. At rest intermittent sharp pain in the center of his chest. Occasionally gets some pain in his back. He has IVC filter secondary to a DVT remotely. He is on Xarelto. He came in however because he felt some tingling in his left arm over the last 2 days. Occasionally his arm feels weak and occasional paresthesia. He has had this before. He was admitted to the hospital last month with a full stroke workup that was negative including MRI and MRA of his head. Physical Examination: [] Vital signs reviewed General: Well-nourished well-developed Head: Normocephalic atraumatic Eyes: Pupils equal round and reactive to light extraocular movements intact ENT: TMs clear no hemotympanum no trauma Neck: Nontender full range of motion Cardiovascular: Regular rate rhythm no murmurs normal S1-S2 Respiratory: No distress clear to auscultation bilaterally chest nontender Abdomen: Soft nontender nondistended normal bowel sounds no masses Back: Nontender no CVA tenderness Extremities: Nontender is moving his left arm normally when I watch him from the hallway and texting easily and moving around. When I do the exam he acts like he cannot move his arm. I have a suspicion that he is malingering. He has normal sensation. Skin: Normal color no trauma Neuro alert oriented cranial nerves II through XII intact normal strength sensation reflexes Test Results: [] Emergency Department Course and Treatment: [] EKG shows sinus rhythm at a rate of 72. PVCs noted. No ischemia. Unchanged from prior. Chemistry normal. Troponin negative. CT head showed nothing acute. Chest x-ray negative. The patient is resting comfortably. I have a feeling the patient is having malingering. He has had multiple visits with multiple imaging studies that have been negative. He will follow-up in the last with his family doctor. He has a neuro appointment in January. I feel his chest pain is noncardiac. I feel he can follow-up. Treatment Plan: [] Disposition: [] Impression: [] Chest pain nonspecific Left arm weakness and numbness suspected malingering This note was generated with [employer] dictation software. It may contain incorrect words, spelling, and punctuation that were not noted in review of the chart prior to signing ED Disposition - Plan for ED Patient: Disposition: Home or Assisted Living Chief Complaint: Chest Pain Instructions: ED Chest Pain NonCardiac, ED Weakness [facility] Referrals: Gera Brody [Primary Care Provider] - What to do if you have Problems For any increased pain, shortness of breath, bleeding, nausea or vomiting, chest pain, or any unexpected problems, contact your Primary Care Provider. Call [employer] [facility] ([phone]) or report to the closest Emergency Room. Call 911 if necessary. 01/04/18 0655 <Electronically signed by Jameson Zamora MD> Date Jameson Zamora MD Cosigner Signature (If Indicated): Date CC: GERA BRODY DISCHARGE INSTRUCTION Observed: 01/04/2018 Status: F Source: [place] 6:55 AM [facility] REPOSITORY [facility] Medical Records Department [address] [place] [address] Discharge Instruction 01/03/180 MR#: [id number] Acct: [id number] Name: AYSHA SAVAGE Rep #: [id number] : 1965 52 From: Jameson Zamora MD PCP: GERA BRODY Status: DEP ER ED Disposition - Plan for ED Patient: Disposition: Home or Assisted Living Chief Complaint: Chest Pain Instructions: ED Chest Pain NonCardiac, ED Weakness UKO Referrals: Gera Brody [Primary Care Provider] - What to do if you have Problems For any increased pain, shortness of breath, bleeding, nausea or vomiting, chest pain, or any unexpected problems, contact your Primary Care Provider. Call [facility] ([phone]) or report to the closest Emergency Room. Call 911 if necessary. 01/04/18 0655 <Electronically signed by Jameson Zamora MD> Date Jameson Zamora MD Cosigner Signature (If Indicated): Date CC: GERA BRODY BASIC METABOLIC Collected: 01/03/2018 Status: F Source: [place] PROFILE (BMP) 10:29 PM [facility] REPOSITORY Order Comment: 'TROP' Serial specimen #1, #2, #3, or #4: 1 TYPE CODE TESTS RESULT OUT OF RANGE REFERENCE UNITS LAB L501.0100 74-106 mg/dL Normal GLU 85 Result Comment: Please note revised GLUCOSE reference range effective 2017. LAB L501.1000 7-18 mg/dL Normal BUN 13 LAB L501.1100 0.70-1.30 mg/dL Normal CREAT,SERUM 1.06 Result Comment: The validity of the calculated GFR AND GFRAA in patients over 70 years has not been determined. Clinical correlation is essential. LAB L501.1110 >60 mL/min Normal EST GFR 78 Result Comment: Non- GFR Calc LAB L501.1115 >60 mL/min Normal EST GFR - AA 94 Result Comment: GFR Calc LAB L501.1255 ml/min Normal Estimated CRCL 88.46 LAB L501.1300 10-20 RATIO Normal BUN/CRE 12.3 LAB L501.2200 8.5-10 mg/dL Normal .1 CA 8.9 LAB L501.5300 136-14 mmol/L Normal 5 NA 143 LAB L501.5600 3.5-5. mmol/L Normal 1 K 3.8 LAB L501.5900 98-107 mmol/L Normal CL 107 LAB L501.6100 21.0-3 mmol/L Normal 2.0 CO2 30.0 LAB L501.6200 5-15 Normal GAP 6 Performed By: #### L500.2500, L501.4010 #### [facility] [place], [address] TROPONIN-I Collected: 01/03/2018 Status: F Source: [place] 10:29 PM [facility] REPOSITORY Order Comment: 'TROP' Serial specimen #1, #2, #3, or #4: 1 TYPE CODE TESTS RESULT OUT OF RANGE REFERENCE UNITS LAB L501.4010 <0.06 ng/mL Normal < 0.02 TROPONIN-I Result Comment: TROPONIN-I EXPECTED VALUES <0.05 NEGATIVE 0.06 - 0.59 AT RISK OF LA > OR = 0.60 SUGGEST LA Performed By: #### L500.2500, L501.4010 #### [facility] [address] [place], [address] CHEST 1 VIEW Observed: 01/03/2018 Status: F Source: [place] (PORTABLE) 10:11 PM [facility] REPOSITORY [facility] Imaging Services [address] [place] [address] Chest 1 View (Portable) MR#: [id number] Acct: [id number] Name: AYSHA SAVAGE Rep #: [id number] : 1965 M 52 From: Jesus Quezada MD PCP: GERA BRODY Status: REG ER Study: Chest 1 View (Portable) Date of Exam: 01/03/18 Exam# [id number] Ordering Dr: Jameson Zamora MD STUDY: X-RAY CHEST REASON FOR EXAM: Male, 52 years old. Chest pain TECHNIQUE: AP COMPARISON: 11/01/2017 FINDINGS: EKG leads project over the chest. Operative changes in the lower cervical spine partially visualized. The lungs are clear and expanded. There is no demonstrated pleural abnormality. Normal size heart. Normal mediastinum and hema. Normal visualized pulmonary arteries. There is atherosclerotic tortuosity of the aortic arch and descending thoracic aorta. No acute bony process. There is no demonstrated abnormality of the visualized soft tissue structures of the upper abdomen. RAD/Chest 1 View (Portable) IMPRESSION: 1. No airspace consolidation or pleural effusion. Stable exam. Electronically Signed: Jesus Quezada MD at 22:47 EST , Service support , CC: GERA BRODY; Jameson Zamora MD 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: Signed BRAIN/HEAD WITHOUT Observed: 01/03/2018 Status: F Source: [place] CONTRAST 10:11 PM [facility] REPOSITORY [facility] Imaging Services [address] [place] [address] Brain/Head without Contrast MR#: [id number] Acct: [id number] Name: AYSHA SAVAGE Rep #: [id number] : 1965 M 52 From: Homer Kaiser MD PCP: GERA BRODY Status: REG ER Study: Brain/Head without Contrast Date of Exam: 01/03/18 Exam# [id number] Ordering Dr: Jameson Zamora MD STUDY: CT BRAIN WITHOUT CONTRAST REASON FOR EXAM: Male, 52 years old. Left arm weakness RADIATION DOSAGE (If Supplied By Facility): CTDIvol = ( 44.99 ) mGy, DLP = ( 863.60 ) mGycm TECHNIQUE: Transaxial CT imaging of the brain was performed without administration of intravenous contrast material. Individualized dose optimization techniques were used for this CT. COMPARISON: 12/06/2017. FINDINGS: Normal soft tissue structures. Normal calvarium. Normal size ventricles and extra-axial spaces for the patient's age. Normal white matter tracts of the cerebral hemispheres. Normal basal ganglia and thalami. Normal brainstem. Normal cerebellum. There is no intracranial hemorrhage. There are no findings of an acute ischemic infarction. Normal visualized paranasal sinuses. CT/Brain/Head without Contrast IMPRESSION: Normal unenhanced CT scan of the brain. Electronically Signed: Homer Kaiser MD at 23:28 EST , Service support , CC: GERA BRODY; Jameson Zamora MD 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: Signed BEDSIDE GLUCOSE Collected: 01/03/2018 Status: F Source: [place] 9:48 PM [facility] REPOSITORY TYPE CODE TESTS RESULT OUT OF RANGE REFERENCE UNITS LAB L501.080 70-110 mg/dL Normal BEDSIDE GLU 80 Result Comment: MANAGEMENT OF PATIENT CARE PER NURSING PROTOCOL Performed By: #### L501.080 #### [facility] Point of Care [address] [place] [address] DISCHARGE SUMMARY Observed: 12/23/2017 Status: F Source: [place] 7:40 AM [facility] REPOSITORY [facility] Medical Records Department [address] [place] [address] Discharge Summary 12/06/17 1318 MR#: [id number] Acct: [id number] Name: AYSHA SAVAGE Rep #: [id number] : 1965 52 From: Brandy GUSMAN PCP: GERA BRODY Status: DIS BINDU Y Location: [place] [address] ADDENDUM by UZMA Chaney on 12/06/17 at 1333 12/06/17 1333 <Electronically signed by Brandy GUSMAN> Date Brandy Chaney cc: UZMA Chaney; GERA BRODY; Irais Perkins * Signed Discharge Date and Diagnosis Date of Admission: 12/06/17 Date of Discharge: 12/06/17 - Primary Discharge Diagnosis Active and Suspected Problems 1. Suspected atypical migraine- CVA ruled out. - Secondary Discharge Diagnosis Chronic Problems History of back surgery (Chronic) Chronic pain (Chronic) Smoker (Chronic) History of DVT (deep vein thrombosis) (Chronic) S/P IVC filter (Chronic) HTN (hypertension) (Chronic) Hypothyroidism (Chronic) Anxiety and depression (Chronic) Hospital Course and Treatment Imaging Results: Diagnostic Data Brain CT 12/06/17 01:11 IMPRESSION: 1. No evidence of an acute intracranial abnormality. Electronically Signed: Martin Lassiter MD at 3:11 EST Tel , Service support , Brain MRI 12/06/17 04:47 IMPRESSION: No evidence of infarct or hemorrhage. Electronically Signed: Gilson Berry MD at 13:01 EST Tel , Service support , Neck MRA 12/06/17 04:47 IMPRESSION: Normal bilateral cervical carotid and vertebral arteries. Electronically Signed: Gilson Berry MD at 13:05 EST Tel , Service support , Operations: None Procedures: 2-D Echocardiogram Summary of Care Provided: The patient is a 52 year old M admitted 12/06/2017 due to left- sided facial numbness and left upper extremity paresthesia. Patient had associated headache. Denies changes in vision, slurred speech, facial droop, focal deficits. Symptoms resolved within 45 minutes. Patient denies further symptoms with the exception of continued headache. He has a past medical history of hypertension, hypothyroidism, overweight, chronic tobacco use, history of DVT with unspecified clotting disorder status post IVC filter on Xarelto therapy, anxiety, depression, chronic pain syndrome. CVA ruled out. Suspect atypical migraine. Symptoms have resolved with the exception of continued headache. Brain MRI with no evidence of infarct or hemorrhage. MRA of neck shows normal bilateral cervical carotid and vertebral arteries. Lab work unremarkable. Lipid panel within normal limits. Patient was given dose of IV Decadron and 1 dose of oral Depakote prior to discharge for headache. If patient has persistent migraine, recommend follow-up with primary care physician. Other chronic medical conditions as noted above are stable at this time. Echocardiogram pending at discharge. Patient seen and examined prior to discharge. Heart rate regular rate and rhythm. Lungs clear. Neuro grossly intact. Abdomen soft, nontender. Vital signs stable. Patient was encouraged to quit smoking. Patient is stable for discharge home. To follow-up with primary care physician in 1 week. Discharge Diet: No Restrictions Discharge Activity: Return to Normal Activity Call your doctor if you observe: Fever of 101 or Higher, Numbness or Tingling, Dizziness, Fainting spells, Chest pain, Increased palpitations (irregular heartbeat) Home Medications: Medications to take at Discharge Levothyroxine [Synthroid] 75 mcg PO DAILY 09/05/17 Multivitamin [Daily Multiple Vitamin] 1 each PO DAILY 09/05/17 Rivaroxaban [Xarelto] 20 mg PO DAILY 09/05/17 Venlafaxine XR [Effexor Xr] 37.5 mg PO DAILY 09/05/17 BusPIRone [Buspar] 10 mg PO TID 12/06/17 Primary Care Physician: Gera Brody [Primary Care Provider] - Please follow up with your Primary Care Physician in: 1 Week Disposition: Home Minutes spent on discharge:: 35 Patient Condition:: Stable Meaningful Use Info Meaningful Use Diagnoses (Choose all that apply): None applicable 12/06/17 1332 <Electronically signed by Brandy Chaney THEATRE MANAGER-C> Date Brandy Chaney THEATRE MANAGER-C Cosigner Signature (if applicable): Date CC: THEATRE MANAGER-C Brandy Chaney; GERA BRODY; Irais Perkins Signed CNPN Observed: 12/22/2017 Status: COMPLETED Source: [place] 12:00 AM [facility] REPOSITORY Telephone ([facility]) AYSHA SAVAGE ([id number]) 1965 M Date Time Provider Department 12/22/17 GERA BRODY [facility] During your visit today, we recorded the following information about you: Martín Gardner Certified Medication Technician 12/22/2017 1:39 PM Signed Order placed via [facility] online referrals portal for consult to neurology. Referral # [id number] Martín Gardner Certified Medication Technician 12/24/2017 2:49 PM Signed Good Afternoon, This e-mail is a confirmation that your patient listed below has been scheduled for an appointment with [facility] Neurology, should you have any questions or concerns regarding this appointment please contact the appropriate office directly: Medical Records (Please Note) x Medical Records Are Not Required: Referring Office ANDamp; Specialist Are Both On [facility]. Medical Records Are Required: Fax Appropriate Records Including: Order, Last Office Note, ANDamp; Any Necessary Imaging/Labs/Etc. To: Additional Office Location Information ANDamp; Phone Numbers x [facility] ? [address] [facility], [address], [place] [id number] ? Allergies As of Date: 12/22/2017 (No Known Allergies) Date Reviewed: 12/09/2017 Reviewed by: Yanira Dyer - Fully Assessed Reason for Visit: CONSULT TO NEUROLOGY [Other] Prescriptions as of 12/22/2017 Sig: RIVAROXABAN 20 MG TABLET Take 1 tablet by mouth daily * LEVOTHYROXINE 75 MCG TABLET Take 1 tablet by mouth once d* LISINOPRIL 20 MG TABLET Take 1 tablet by mouth once d* MELOXICAM 7.5 MG TABLET Take 15 mg by mouth once norma* METOPROLOL SUCCINATE ER 50 MG* TAKE 1 TABLET BY MOUTH EVERY * BUSPIRONE 10 MG TABLET Take 10 mg by mouth once norma* MORPHINE ER 15 MG TABLET,EXTE* Take 15 mg by mouth twice solo* VENLAFAXINE 75 MG TABLET Take 37.5 mg by mouth once da* MULTIVITAMIN TABLET Take 1 tablet by mouth once d* Problem List As Of Date 12/22/2017 Noted Resolved Postlaminectomy syndrome [M96.1] INVALID FOR* Migraine with typical aura [G43.109] INVALID FOR* 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) [I82.409] 04/30/2017 History of DVT of lower extremity- 2009 [Z86.71*INVALID FOR* Chronic back pain [M54.9, G89.29] INVALID FOR* Mood disorder ([facility]) [F39] INVALID FOR* HTN (hypertension) [I10] Hypothyroidism [E03.9] Smoking [F17.200] Asthma [J45.909] 10/30/2016 Bipolar disease, chronic ([facility]) [F31.9] INVALID FOR* Family history of colon cancer [Z80.0] INVALID FOR* Cervical spine disease [M48.9] INVALID FOR* History of colonic polyps [Z86.010] INVALID FOR* Presence of IVC filter-2010 [Z95.828] INVALID FOR* Hyperglycemia [R73.9] INVALID FOR* History of blood clots [Z86.718] INVALID FOR* Gouty arthritis of toe of left foot [M10.9] INVALID FOR* Vertebral artery disease (HCC)-right vertebral *INVALID FOR* Congenital brain anomaly (HCC)Vertebral artery *INVALID FOR* Family history of malignant neoplasm of gastroi*INVALID FOR* More... BPH without urinary obstruction [N40.0] INVALID FOR* Gross hematuria [R31.0] INVALID FOR* Encounter Status:Closed by MARTÍN HUA on 12/22/17 YAZAN Observed: 12/19/2017 Status: COMPLETED Source: [place] 12:00 AM [facility] OTHER [place] REPOSITORY Telephone ([facility]) AYSHA SAVAGE ([id number]) 1965 M Date Time Provider Department 12/19/17 GERA BRODY [facility] During your visit today, we recorded the following information about you: Atul Ramirez CMA 12/19/2017 3:55 PM Signed Sharita from the colorectal [facility] called stating that the pt is scheduled for a colonoscopy with them on Dec 24. She stated that she wants to know if it is ok for the pt to go off of his Xarelto. She stated that the pt was in [facility] with symptoms of a stroke on 12/10/2017 but a stroke was ruled out (hospital encounter is in epic) she states that he is still having symptoms and wanted to know if you feel it would be an issue for him to go off of his Xarelto. Please advise. DANNIE Melara MD 12/20/2017 3:16 PM Signed Tell the patient that since he is still having symptoms I I want the patient to be evaluated by neurology as an outpt then , and their opinion on stopping xarelto prior to colonoscopy . So he will have to reschedule until evaluated and cleared by neurology . Please notify Sharita As well. Merced Rothman 12/22/2017 4:30 PM Addendum Patient is aware and will wait for a call to schedule with Neurology. Colonoscopy has already been cancelled in [facility] but I will call Sharita tomorrow when she gets back in. Merced Blackwood Rothman 12/23/2017 9:25 AM Signed Khadijah from the Colorectal center is aware of this. 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] Other Visit Diagnoses:Transient cerebral ischemia, unspecified type [G45.9] Preoperative clearance-for colonoscopy [Z01.818] History of blood clots [Z86.718] Order(s):CONSULT TO NEUROLOGY [9019] Order #: [id number]: 1 Prescriptions as of 12/19/2017 Sig: RIVAROXABAN 20 MG TABLET Take 1 tablet by mouth daily * LEVOTHYROXINE 75 MCG TABLET Take 1 tablet by mouth once d* LISINOPRIL 20 MG TABLET Take 1 tablet by mouth once d* MELOXICAM 7.5 MG TABLET Take 15 mg by mouth once norma* METOPROLOL SUCCINATE ER 50 MG* TAKE 1 TABLET BY MOUTH EVERY * BUSPIRONE 10 MG TABLET Take 10 mg by mouth once norma* MORPHINE ER 15 MG TABLET,EXTE* Take 15 mg by mouth twice solo* VENLAFAXINE 75 MG TABLET Take 37.5 mg by mouth once da* MULTIVITAMIN TABLET Take 1 tablet by mouth once d* Problem List As Of Date 12/19/2017 Noted Resolved Postlaminectomy syndrome [M96.1] INVALID FOR* Migraine with typical aura [G43.109] INVALID FOR* 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] INVALID FOR* 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* Deep vein thrombosis (DVT) (HCC) [I82.409] 04/30/2017 History of DVT of lower extremity- 2009 [Z86.71*INVALID FOR* Chronic back pain [M54.9, G89.29] INVALID FOR* Mood disorder (HCC) [F39] INVALID FOR* HTN (hypertension) [I10] Hypothyroidism [E03.9] Smoking [F17.200] Asthma [J45.909] 10/30/2016 Bipolar disease, chronic (HCC) [F31.9] INVALID FOR* Family history of colon cancer [Z80.0] INVALID FOR* Cervical spine disease [M48.9] INVALID FOR* History of colonic polyps [Z86.010] INVALID FOR* Presence of IVC filter-2010 [Z95.828] INVALID FOR* Hyperglycemia [R73.9] INVALID FOR* History of blood clots [Z86.718] INVALID FOR* Gouty arthritis of toe of left foot [M10.9] INVALID FOR* Vertebral artery disease (HCC)-right vertebral *INVALID FOR* Congenital brain anomaly (HCC)Vertebral artery *INVALID FOR* Family history of malignant neoplasm of gastroi*INVALID FOR* More... BPH without urinary obstruction [N40.0] INVALID FOR* Gross hematuria [R31.0] INVALID FOR* Encounter Status:Closed by GERA BRODY on 12/20/17 PROGRESS Observed: 12/18/2017 Status: COMPLETED Source: [place] 2:00 PM CLINIC OTHER CAMPUS REPOSITORY HNO ID: [id number] Author: Vijaya Oliva (Manisha) MANISHA Martin Service: (none) Author Type: Nurse Practitioner Type: Progress Notes Filed: 12/18/2017 2:53 PM Note Text: Chart routed to anesthesia for review given recent presentation to [facility] for possible TIA while on anticoagulation, unknown clotting disorder. Per Dr. Ike Malik, anesthesiologist, recommends waiting 3 months after ischemic stroke for an elective procedure per AHA 2014 perioperative guidelines. Will notify scheduling to cancel procedure. DISCHARGE INSTRUCTION Observed: 12/06/2017 Status: F Source: [place] 1:28 PM [facility] REPOSITORY [facility] Medical Records Department [address] [place] [address] [place] [address] Instructions for Home/Discharge Instructions 12/06/17 1315 MR#: [id number] Acct: [id number] Name: AYSHA SAVAGE Rep #: [id number] : 1965 52 From: Brandy GUSMAN PCP: GERA BRODY Status: ADM BINDU - Discharge Diagnoses Current Active Problems: Current Active and Chronic Problems History of DVT (deep vein thrombosis) (Chronic) S/P IVC filter (Chronic) HTN (hypertension) (Chronic) Hypothyroidism (Chronic) Anxiety and depression (Chronic) TIA (transient ischemic attack) (Acute) Cephalgia (Acute) You will use the following diet at home:: No restrictions Discharge Activity: Return to Normal Activity Call your doctor if you observe: Fever of 101 or Higher, Numbness or Tingling, Dizziness, Fainting spells, Chest pain, Increased palpitations (irregular heartbeat) Allergies/Adverse Reactions: Allergies No Known Allergies Allergy (Verified 12/06/17 00:48) Medications to take at Discharge Levothyroxine [Synthroid] 75 mcg PO DAILY 09/05/17 Multivitamin [Daily Multiple Vitamin] 1 each PO DAILY 09/05/17 Rivaroxaban [Xarelto] 20 mg PO DAILY 09/05/17 Venlafaxine XR [Effexor Xr] 37.5 mg PO DAILY 09/05/17 BusPIRone [Buspar] 10 mg PO TID 12/06/17 Primary Care Physician: Gera rBody [Primary Care Provider] - Please follow up with your Primary Care Physician in: 1 Week Proposed Discharge Date: 12/06/17 12/06/17 1328 <Electronically signed by Brandy GUSMAN> Date Brandy GUSMAN CC: GERA BRODY CBC-COMPLETE BLOOD CNT Collected: 12/06/2017 Status: F Source: [place] 5:41 AM [facility] REPOSITORY TYPE CODE TESTS RESULT OUT OF RANGE REFERENCE UNITS LAB L100.1000 4.4-11.0 K/mm3 Normal WBC 6.7 LAB L100.1200 4.6-6.2 M/mm3 Low RBC 4.29 LAB L100.1300 13.0-16.5 g/dl Low HGB 12.9 LAB L100.1400 40-54 % Low HCT 38.8 LAB L100.1500 80-94 fL Normal MCV 90.4 LAB L100.1600 27.0-32.0 pg Normal MCH 30.1 LAB L100.1700 32-36 g/gl Normal MCHC 33.2 LAB L100.1810 11.6-14.6 % Normal RDW CV 12.6 LAB L100.1820 35.1-43.9 fl Normal RDW SD 41.3 LAB L100.1900 150-450 K/mm3 Low PLT 144 LAB L100.2000 6.2-12.0 fl Normal MPV 9.8 Performed By: #### L100.0500 #### [facility] [address] [place], [address] BASIC METABOLIC Collected: 12/06/2017 Status: F Source: [place] PROFILE ([facility]) 5:41 AM [facility] REPOSITORY TYPE CODE TESTS RESULT OUT OF RANGE REFERENCE UNITS LAB L501.0100 70-110 mg/dL Normal GLU 100 LAB L501.1000 7-18 mg/dL Normal BUN 14 LAB L501.1100 0.70-1.30 mg/dL Normal 1.02 CREAT,SERUM Result Comment: The validity of the calculated GFR AND GFRAA in patients over 70 years has not been determined. Clinical correlation is essential. LAB L501.1110 >60 mL/min Normal EST GFR 81 Result Comment: Non- GFR Calc LAB L501.1115 >60 mL/min Normal EST GFR - AA 98 Result Comment: GFR Calc LAB L501.1255 ml/min Normal Estimated CRCL 91.93 LAB L501.1300 10-20 RATIO Normal BUN/CRE 13.7 LAB L501.2200 8.5-10 mg/dL Low .1 CA 8.4 LAB L501.5300 136-14 mmol/L Normal 5 NA 144 LAB L501.5600 3.5-5. mmol/L Normal 1 K 3.7 LAB L501.5900 98-107 mmol/L Normal CL 107 LAB L501.6100 21.0-3 mmol/L Normal 2.0 CO2 29.0 LAB L501.6200 5-15 Normal GAP 8 Performed By: #### L500.2500, L500.4100, L501.5200, L501.9520 #### [facility] [address] [place], [place], [id number] LIPID PROFILE Collected: 12/06/2017 Status: F Source: [place] 5:41 AM [facility] REPOSITORY TYPE CODE TESTS RESULT OUT OF RANGE REFERENCE UNITS LAB L501.4900 200 mg/dL Normal CHOL 92 Result Comment: <200 mg/dL Desirable 200-240 mg/dL Borderline >240 mg/dL High Risk LAB L501.5000 mg/dL Normal TRIG 111 Result Comment: The drugs N-Acetylcysteine and Metamizole may falsely depress this assay. Serum Triglycerides Reference Interval Normal <150 mg/dL Borderline high 150 - 199 mg/dL High 200 - 499 mg/dL Very High > or = 500 mg/dL LAB L501.6400 mg/dL Low HDL 29 Result Comment: The drugs N-Acetylcysteine and Metamizole may falsely depress this assay. Reference Range HDL <40 mg/dL Low HDL Cholesterol HDL >or= 60 mg/dL High HDL Cholesterol LAB L501.6500 0-130 mg/dL Normal LDL 41 LAB L501.6600 5-40 mg/dL Normal VLDL 22 Performed By: #### L500.2500, L500.4100, L501.5200, L501.9520 #### [facility] [address] [place], [place], [id number] MAGNESIUM Collected: 12/06/2017 Status: F Source: [place] 5:41 AM [facility] REPOSITORY TYPE CODE TESTS RESULT OUT OF RANGE REFERENCE UNITS LAB L501.5200 1.6-2.6 mg/dL Normal MG 2.0 Result Comment: Please note revised Magnesium reference range effective 2017. Performed By: #### L500.2500, L500.4100, L501.5200, L501.9520 #### [facility] [address] [place], [place], [id number] THYROID STIM HORMONE Collected: 12/06/2017 Status: F Source: [place] ([facility]) 5:41 AM [facility] REPOSITORY TYPE CODE TESTS RESULT OUT OF RANGE REFERENCE UNITS LAB L501.9520 0.358-3.74 uIU/mL High TSH 5.39 Performed By: #### L500.2500, L500.4100, L501.5200, L501.9520 #### [facility] [address] [place], [address] BRAIN WITHOUT Observed: 12/06/2017 Status: F Source: [place] CONTRAST 4:48 AM [facility] REPOSITORY [facility] Imaging Services [address] [place] [address] Brain without Contrast MR#: [id number] Acct: [id number] Name: AYSHA SAVAGE Rep #: [id number] : 1965 M 52 From: Gilson Berry MD PCP: GERA BRODY Status: ADM BINDU Study: Brain without Contrast Date of Exam: 12/06/17 Exam# [id number] Ordering Dr: Veronica Ocampo STUDY: MRI BRAIN WITHOUT CONTRAST REASON FOR EXAM: Male, 52 years old. CVA with left facial and arm numbness TECHNIQUE: Standardized multiplanar fat and water weighted pulse sequences were obtained. COMPARISON: CT 12/06/2017 FINDINGS: Normal size of the ventricles and extra-axial spaces for the patient's age. Normal white matter tracts of the supratentorial brain. Normal bilateral basal ganglia. Normal thalami. There is no extra-axial fluid accumulation. Normal flow voids within the major intracranial circulation suggesting patency by spin echo criteria. Normal sella turcica, pituitary gland, infundibular stalk, optic chiasm and hypothalamus. Normal tectal plate and pineal gland. Normal midbrain, liza and medulla. Normal cerebellum. Normal basal cisterns. Normal bilateral temporal bones. Normal bilateral internal auditory canals. No demonstrated orbital abnormality, within the constraints of a routine brain study. Normal visualized paranasal sinuses. Right mastoid sinus disease. Normal visualized soft tissue structures. Normal visualized upper cervical spine. MRI/Brain without Contrast IMPRESSION: No evidence of infarct or hemorrhage. Electronically Signed: Gilson Berry MD at 13:01 EST Tel , Service support , CC: GERA BRODY; Veronica Ocampo 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: Signed MRA NECK WITHOUT Observed: 12/06/2017 Status: F Source: [place] CONTRAST 4:48 AM [facility] REPOSITORY [facility] Imaging Services [address] [place] [address] MRA Neck without Contrast MR#: [id number] Acct: [id number] Name: AYSHA SAVAGE Rep #: [id number] : 1965 M 52 From: Gilson Berry MD PCP: GERA BRODY Status: ADM BINDU Study: MRA Neck without Contrast Date of Exam: 12/06/17 Exam# [id number] Ordering Dr: Veronica Ocampo STUDY: MRA NECK WITHOUT CONTRAST REASON FOR EXAM: Male, 52 years old. CVA and left arm numbness TECHNIQUE: Source images were obtained, MIPs were performed. The study was performed unenhanced. COMPARISON: CTA neck 10/27/2017 FINDINGS: RIGHT CAROTID ARTERIES: Normal right common carotid artery (CCA). Normal right common carotid bulb. Normal origin of the right internal carotid (ICA) artery without a hemodynamically significant stenosis. Normal visualized cervical portion of the right internal carotid artery. Normal origin of the right external carotid artery (ECA). LEFT CAROTID ARTERIES: Normal left common carotid artery (CCA). Normal left common carotid bulb. Normal origin of the left internal carotid (ICA) artery without a hemodynamically significant stenosis. Normal visualized cervical portion of the left internal carotid artery. Normal origin of the left external carotid artery (ECA). VERTEBRAL ARTERIES: Normal antegrade flow within the bilateral vertebral artery without a hemodynamically significant stenosis. MRI/MRA Neck without Contrast IMPRESSION: Normal bilateral cervical carotid and vertebral arteries. Electronically Signed: Gilson Berry MD at 13:05 EST Tel , Service support , CC: GERA BRODY; Veronica Ocampo 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: Signed HISTORY AND PHYSICAL Observed: 12/06/2017 Status: F Source: [place] EXAM 4:13 AM [facility] REPOSITORY [facility] Medical Records Department [address] [place] [address] History and Physical 12/06/17 0337 MR#: [id number] Acct: [id number] Name: AYSHA SAVAGE Rep #: [id number] : 1965 52 From: Veronica Ocampo PCP: GERA BRODY Status: ADM BINDU Y Location: [place] [address] Problem List (1) History of DVT (deep vein thrombosis) Status: Chronic (2) S/P IVC filter Status: Chronic (3) HTN (hypertension) Status: Chronic Qualifiers: Hypertension type: essential hypertension Qualified Code(s): I10 - Essential (primary) hypertension (4) Hypothyroidism Status: Chronic Qualifiers: Hypothyroidism type: unspecified Qualified Code(s): E03.9 - Hypothyroidism, unspecified (5) Anxiety and depression Status: Chronic (6) History of back surgery Status: Chronic (7) Chronic pain Status: Chronic Qualifiers: Chronic pain type: chronic pain syndrome Qualified Code(s): G89.4 - Chronic pain syndrome (8) Smoker Status: Chronic History of Present Illness Date of Admission: 12/06/17 Chief Complaint: Left sided facial and LUE paresthesias The patient is a 52 y/o M w/ PMHx: HTN, Hypothyroidism, Overweight, Chronic Tobacco use, Hx Frequent DVT w/ Unspecified Clotting Disorder s/p IVC Filter on Xarelto, Anxiety and Depression, Chronic Pain Syndrome who presents to the [facility] ED on 12/06/17 with history of onset left sided facial and LUE paresthesias, LUE weakness, L sided facial drop at midnight which lasted 45 minutes w/ associated slurred speech. In the ED sxs resolution except mild residual LUE paresthesias. Onset was witnessed per significant. In the ED work-up included AF, HR 70s, BP 130.73, RR 13, 100% on 2L NC, unremarkable CBC, normal coags, unremarkable BMP, trop < 0.02, CT head without acute findings. In the ED patient administered morphine. Past Medical History Past Medical History (Chronic Problems): Chronic Problems History of back surgery (Chronic) Chronic pain (Chronic) Smoker (Chronic) History of DVT (deep vein thrombosis) (Chronic) S/P IVC filter (Chronic) HTN (hypertension) (Chronic) Hypothyroidism (Chronic) Anxiety and depression (Chronic) Allergies No Known Allergies Allergy (Verified 12/06/17 00:48) Home Medications: Ambulatory Orders Medication Instructions Recorded Levothyroxine [Synthroid] 75 mcg PO DAILY 09/05/17 Multivitamin [Daily Multiple 1 each PO DAILY 09/05/17 Surgical History: - - IVCF placement, back/neck surgery, appendectomy, nerve stimulator and removal, BL inguinal hernia repair. Psychiatric History: Anxiety, Depression Smoking Status: Current every day smoker Tobacco Use: Cigarettes - 1 ppd. Alcohol: None Drugs: None - *Family History Sibling History Items: Heart Disease Maternal History Items: Heart Disease Paternal History Items: Cancer Review of Systems Constitutional: Denies: Chills, Fever, Weight Change HEENT: Reports: Head Aches. Denies: Sinus Congestion, Sinus Drainage Cardiovascular: Denies: Chest Pain, Palpitations Respiratory: Denies: Cough, Shortness of breath at rest, Sputum production Gastrointestinal: Denies: Abdominal Pain, Nausea, Vomiting Genitourinary: Denies: Dysuria Musculoskeletal: Reports: Back Pain. Denies: Joint Pain, Joint Tenderness Skin: Denies: Rash, Wounds Neurological: Reports: Slurred speech, Focal weakness, Numbness, Tingling Psychiatric: Reports: Anxiety, Depression. Denies: Homicidal Ideations, Suicidal Ideations Hematologic/ Lymphatic: Denies: Easy Bruising, Easy Bleeding VTE Information - Inpt Only VTE Present on Admission: No VTE Mechan Device Prophylaxis: SCD's VTE Pharm Prophylaxis ordered?: No Reason prophylaxis not ordered:: Treatment Not Indicated Subjective: Seated upright in the ED bed, NAD, currently notes near complete resolution prior sxs. Objective: Physical Examination: General: awake, alert, oriented x 3 and cooperative, seated upright in the ED bed in no apparent distress. Skin: normal color, turgor, no icterus, cyanosis. HEENT: AT/NC, EOMI, PERRLA, MMM, no carotid bruits or JVD noted. Lungs: CTA bilaterally, moderate effort, mild decrease BL bases, no rales, ronchi or wheezing. Heart: Regular rate and rhythm; no gallop, rub audible. Abdomen: soft, NTTP, ND, normal BS, no HSM. Extremities: no cyanosis, clubbing, or edema. Neurological: patient awake, alert, oriented x 3; cognitive function intact; pupils equally reactive to light and accomodation; cranial nerves II-XII grossly normal, moving all 4 extremities, no focal deficits, strength preserved, only residual anterior LUE forearm minimal numbness, negative babinski BL. Psychiatric: affect appears normal, no acute evidence of depressive or anxiety feelings. - Physical Exam Vital Signs Temp Pulse Resp BP Pulse Ox 97.8 F 72 21 H 130/73 H 100 12/06/17 00:49 12/06/17 02:41 12/06/17 02:41 12/06/17 02:41 12/06/17 02:41 Oxygen Flow Rate 2 Oxygen Delivery Method Nasal Cannula Weight: 220 lb 3.869 oz Body Mass Index (BMI) 29.8 Finger Stick Blood Glucose 93 Laboratory Tests Past 24 Hrs POC Glucose POC Glucose 93 Assessment/Plan The patient is a 52 y/o M w/ PMHx: HTN, Hypothyroidism, Overweight, Chronic Tobacco use, Hx Frequent DVT w/ Unspecified Clotting Disorder s/p IVC Filter on Xarelto, Anxiety and Depression, Chronic Pain Syndrome who presents to the [facility] ED on 12/06/17 with history of onset left sided facial and LUE paresthesias, LUE weakness, L sided facial drop at midnight which lasted 45 minutes w/ associated slurred speech. (1) L sided paresthesias, LUE Weakness, L Facial Droop w/ Near Resolution concerning for TIA, CVA: Will admit to PCU, will obtain MRI Brain, MRA Head and Neck, ECHO, PT/OT/Speech/Nutrition evaluation per protocol. Will consult Neurology for evaluation given notable clotting history, current on xarelto, given current presentation may need transition to coumadin but will await patient evaluation per Neurology. Will allow permissive HTN, maintain on xarelto pending Neurology evaluation this AM as recent dose < 24 hours, encourage strongly tobacco cessation, statin w/ AM FLP, fall precautions. (2) Tobacco Abuse: Encouraged cessation, inpatient consultation per RT, NR if desired. (3) Hypothyroidism: Continue home synthroid regimen, TSH pending. (4) Hypertension: No regimen listed, permissive currently, appropriate BP in the ED. (5) Anxiety and Depression: Maintain on home regimen buspar, effexor. (6) Chronic Pain Syndrome: Not on regimen, prior nerve stimulator s/p removal. (7) Unspecified Clotting Disorder: Noted history DVT BL LE as well as UE, s/p IVC filter placement, initially on coumadin w/ transition to xarelto. He denies any failure history on coumadin prior. Discussed possible need to transition back to coumadin. (8) DVT Prophylaxis: SCDs, xarelto. Code Visit OBSV E AND M: [id number] Initial observation care L3 12/06/17 0413 <Electronically signed by Veronica Ocampo > Date Veronica Ocampo Cosigner Signature: Date (if applicable) CC: GERA BRODY; Veronica Ocampo Signed EMERGENCY DEPARTMENT Observed: 12/06/2017 Status: F Source: [place] SUMMARY 3:47 AM [facility] REPOSITORY [facility] Medical Records Department [address] [place] [address] Emergency Department Summary 12/06/17 0344 MR#: [id number] Acct: [id number] Name: AYSHA SAVAGE Rep #: [id number] : 1965 52 From: Robinson Rodriguez PCP: GERA BRODY Status: REG ER - ER Visit Summary Date of Service: 12/06/17 Chief Complaint: Left side paresthesia History of Present Illness: The patient is a 52 M sudden paresthesia left arm and face starting at midnight. Signet mother witnessed slurred speech and drooping of left face. States there is weakness of left arm. Symptoms lasted 45 minutes resolved on arrival to the ED. No history of similar. History of clotting disorder along with DVT in the legs and left upper extremity. He is on Xarelto, no missed doses. No history of strokes in the past. Tobacco history. Complains of headache posterior head and neck. Had neck fusion in the past. There is no falls or injuries. Physical Examination: General: Alert and oriented 3, no acute distress HEENT: Normocephalic, atraumatic. Moist mucosa membranes Neck: supple, nontender. No meningismus Cardiovascular: Regular rate and rhythm, no murmurs Respiratory: Normal breath sounds, symmetric, no distress Abdomen: Soft, nontender, nondistended Extremities: Nontender, no edema, pulses intact 4 Neuro: no focal neurological deficits. Cranial nerves II through XII intact. NIH equals 1 for paresthesia left upper extremity. Test Results: EKG: Sinus rhythm, rate of 70, no ST changes. No T-wave inversions. CT head negative. Labs normal. Emergency Department Course and Treatment: Patient strokelike symptoms, workup initiated. EKG normal sinus, CT head negative. Is given morphine 2 doses for headache symptoms reevaluation remains stable. Discussed with hospitalist, Dr. Ocampo for admission for stroke workup. Treatment Plan: [] Disposition: Admission Impression: 1. TIA 2. Cephalgia This note was generated with [employer] dictation software. It may contain incorrect words, spelling, and punctuation that were not noted in review of the chart prior to signing ED Disposition - Plan for ED Patient: Disposition: Acute Care [facility] Chief Complaint: Neuro S/Sx Diagnosis: TIA (transient ischemic attack), Cephalgia Referrals: Gera Brody [Primary Care Provider] - What to do if you have Problems For any increased pain, shortness of breath, bleeding, nausea or vomiting, chest pain, or any unexpected problems, contact your Primary Care Provider. Call [employer] [facility] ([phone]) or report to the closest Emergency Room. Call 911 if necessary. 12/06/17 0347 <Electronically signed by Robinson Rodriguez> Date Robinson Rodriguez Cosigner Signature (If Indicated): Date CC: GERA BRODY BRAIN/HEAD WITHOUT Observed: 12/06/2017 Status: F Source: [place] CONTRAST 1:13 AM [facility] REPOSITORY [facility] Imaging Services [address] [place] [address] Brain/Head without Contrast MR#: [id number] Acct: [id number] Name: AYSHA SAVAGE Rep #: [id number] : 1965 M 52 From: Martin Lassiter MD PCP: GERA BRODY Status: REG ER Study: Brain/Head without Contrast Date of Exam: 12/06/17 Exam# [id number] Ordering Dr: Robinson Michel DO STUDY: CT BRAIN WITHOUT CONTRAST REASON FOR EXAM: Male, 52 years old. Left-sided arm and face numbness. RADIATION DOSAGE (If Supplied By Facility): CTDIvol = ( 44.99 ) mGy, DLP = ( 846.73 ) mGycm TECHNIQUE: Transaxial CT imaging of the brain was performed without administration of intravenous contrast material. Individualized dose optimization techniques were used for this CT. COMPARISON: None. FINDINGS: Normal soft tissue structures. Normal calvarium. Normal size ventricles and extra-axial spaces for the patient's age. Normal white matter tracts of the cerebral hemispheres. Normal basal ganglia and thalami. Normal brainstem. Normal cerebellum. There is no intracranial hemorrhage. There are no findings of an acute ischemic infarction. Normal visualized paranasal sinuses. Opacification an sclerosis of the right mastoid air cells. CT/Brain/Head without Contrast IMPRESSION: 1. No evidence of an acute intracranial abnormality. Electronically Signed: Martin Lassiter MD at 3:11 EST Tel , Service support , CC: GERA BRODY; Robinson Michel 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: Signed CBC W/DIFF, AUTOMATED Collected: 12/06/2017 Status: F Source: [place] 1:00 AM [facility] REPOSITORY TYPE CODE TESTS RESULT OUT OF RANGE REFERENCE UNITS LAB L100.1000 4.4-11.0 K/mm3 Normal WBC 7.3 LAB L100.1200 4.6-6.2 M/mm3 Low RBC 4.40 LAB L100.1300 13.0-16.5 g/dl Normal HGB 13.7 LAB L100.1400 40-54 % Low HCT 38.8 LAB L100.1500 80-94 fL Normal MCV 88.2 LAB L100.1600 27.0-32.0 pg Normal MCH 31.1 LAB L100.1700 32-36 g/gl Normal MCHC 35.3 LAB L100.1810 11.6-14.6 % Normal RDW CV 12.4 LAB L100.1820 35.1-43.9 fl Normal RDW SD 39.0 LAB L100.1900 150-450 K/mm3 Normal PLT 175 LAB L100.2000 6.2-12.0 fl Normal MPV 9.5 LAB L100.2100 47-70 % Normal NEUT% 57.1 LAB L100.2200 19-41 % Normal LY% 30.1 LAB L100.2300 0-10 % Normal MONO% 9.6 LAB L100.2400 0-5 % Normal EO% 2.7 LAB L100.2500 0-1 % Normal BASO% 0.4 LAB L100.2550 0.0-0.9 % Normal IM GRAN % 0.100 Result Comment: IG% - Immature Granulocytes (promyelocytes, myelocytes and metamyelocytes) > 1% indicates that a LEFT SHIFT is Present. LAB L100.2620 2.0-7.7 X10 3/uL Normal Absolute Neut 4.2 LAB L100.2720 0.83-4.51 X10 3/ul Normal Absolute Lymph 2.19 Performed By: #### L100.0100 #### [facility] [address] [place], [place], [id number] BASIC METABOLIC Collected: 12/06/2017 Status: F Source: [place] PROFILE ([facility]) 1:00 AM [facility] REPOSITORY Order Comment: 'TROP' Serial specimen #1, #2, #3, or #4: 1 TYPE CODE TESTS RESULT OUT OF RANGE REFERENCE UNITS LAB L501.0100 70-110 mg/dL Normal GLU 102 LAB L501.1000 7-18 mg/dL Normal BUN 14 LAB L501.1100 0.70-1.30 mg/dL Normal 1.17 CREAT,SERUM Result Comment: The validity of the calculated GFR AND GFRAA in patients over 70 years has not been determined. Clinical correlation is essential. LAB L501.1110 >60 mL/min Normal EST GFR 69 Result Comment: Non- GFR Calc LAB L501.1115 >60 mL/min Normal EST GFR - AA 84 Result Comment: GFR Calc LAB L501.1255 ml/min Normal Estimated CRCL 80.14 LAB L501.1300 10-20 RATIO Normal BUN/CRE 12.0 LAB L501.2200 8.5-10 mg/dL Normal .1 CA 8.8 LAB L501.5300 136-14 mmol/L Normal 5 NA 145 LAB L501.5600 3.5-5. mmol/L Normal 1 K 3.7 LAB L501.5900 98-107 mmol/L High CL 109 LAB L501.6100 21.0-3 mmol/L Normal 2.0 CO2 29.0 LAB L501.6200 5-15 Normal GAP 7 Performed By: #### L500.2500, L501.4010 #### [facility] [address] [place], [place], [address] TROPONIN-I Collected: 12/06/2017 Status: F Source: [place] 1:00 AM [facility] REPOSITORY Order Comment: 'TROP' Serial specimen #1, #2, #3, or #4: 1 TYPE CODE TESTS RESULT OUT OF RANGE REFERENCE UNITS LAB L501.4010 <0.06 ng/mL Normal < 0.02 TROPONIN-I Result Comment: TROPONIN-I EXPECTED VALUES <0.05 NEGATIVE 0.06 - 0.59 AT RISK OF LA > OR = 0.60 SUGGEST LA Performed By: #### L500.2500, L501.4010 #### [facility] [address] [place], [address] PROTHROMBIN TIME W/INR Collected: 12/06/2017 Status: F Source: [place] 1:00 AM [facility] REPOSITORY TYPE CODE TESTS RESULT OUT OF RANGE REFERENCE UNITS LAB L300.4150 11.7-14.9 SECONDS Normal PROTIME 13.9 LAB L300.4200 Normal INR 1.1 Performed By: #### L300.3900, L300.4310 #### [facility] [address] [place], [address] PARTIAL THROMBOPLAST Collected: 12/06/2017 Status: F Source: [place] TIME 1:00 AM [facility] REPOSITORY TYPE CODE TESTS RESULT OUT OF RANGE REFERENCE UNITS LAB L300.4310 24.1-36.2 Seconds Normal PTT 29.6 Performed By: #### L300.3900, L300.4310 #### [facility] [address] [place], [address] BEDSIDE GLUCOSE Collected: 12/06/2017 Status: F Source: [place] 12:56 AM [facility] REPOSITORY TYPE CODE TESTS RESULT OUT OF RANGE REFERENCE UNITS LAB L501.080 70-110 mg/dL Normal BEDSIDE GLU 93 Result Comment: MANAGEMENT OF PATIENT CARE PER NURSING PROTOCOL Performed By: #### L501.080 #### [facility] Point of Care [address] [place] [address] ALLERGIES ALLERGIES DATE TYPE / CODE NAME / CODE REACTION SEVERITY SOURCE 10/30/2018 Drug No Known Unknown [facility] Allergy/416 Allergies/Z26862 Hospital 793144(SNOM 0388(RXNORM) Repository ED CT) NG/[id number] NO KNOWN [facility] 6(SNOMED ALLERGIES Health [facility]) Repository Drug NO KNOWN [facility] Class/38600 ALLERGIES [facility] 1003(SNOMED Repository CT) ENCOUNTERS ENCOUNTERS ADMIT/DISCHARGE ACCOUNT NUMBER ADMITTING ENCOUNTER LOCATION SOURCE CLASS 12/02/2018 [id number] Ambulatory [facility] ding:PT Repository 10/30/2018/10/30/20 [id number] Emergency Nickie [address] ding:ED Repository 10/26/2018/10/26/20 [id number] Ambulatory [address] Other [place] Repository 10/26/2018/10/26/20 [id number] Ambulatory [address] MEDICAL Repository CENTERBuildi ng:AGPOB1 10/22/2018/10/22/20 [id number] Ambulatory [address] Other [place] Repository 10/22/2018/10/22/20 [id number] Ambulatory [address] MEDICAL Repository CENTERBuildi ng:AKMRB 10/05/2018/10/05/20 [id number] Ambulatory [address] Other [place] Repository 10/05/2018/10/05/20 [id number] Ambulatory [address] MEDICAL Repository CENTERBuildi ng:AGPOB1 09/28/2018/09/29/20 [id number] Ambulatory [address] Main [place] Repository 09/14/2018/09/14/20 [id number] Emergency [address] ding:ED Repository 09/03/2018/09/03/20 [id number] Ambulatory [address] Main [place] Repository 09/03/2018/09/03/20 [id number] Ambulatory [address] Main [place] Repository 08/17/2018/08/17/20 [id number] Ambulatory [address] Main [place] Repository 08/17/2018/08/18/20 [id number] Ambulatory [address] Main [place] Repository 07/24/2018 [id number] Ambulatory [facility] Main [place] Repository 07/21/2018/07/21/20 [id number] Ambulatory [address] Main [place] Repository 07/09/2018/07/10/20 [id number] Emergency Nickie [address] ding:ED Repository 07/07/2018/07/07/20 [id number] Ambulatory [address] Main [place] Repository 07/07/2018/07/08/20 [id number] Ambulatory [address] Main [place] Repository 05/30/2018/05/30/20 [id number] Emergency [address] [place] [address] EDRoom: System ([place]) I171Vvx: Repository E009 04/27/2018/04/27/20 [id number] Emergency [address] ding:ED Repository 04/27/2018 [id number] Ambulatory [facility] MEDICAL Repository CENTERBuildi ng:[id number] 03/23/2018/03/23/20 [id number] Emergency [address] ding:ED Repository 03/23/2018 [id number] Ambulatory [facility] MEDICAL Repository CENTERBuildi ng:AKVASLB 03/23/2018 [id number] Ambulatory [facility] MEDICAL Repository CENTERBuildi ng:AKNEUR 03/18/2018/03/18/20 [id number] Emergency [address] ding:ED Repository 03/12/2018 [id number] Ambulatory [facility] [place] Repository 03/06/2018 [id number] Ambulatory [facility] ding:MTRAD Repository 02/12/2018/02/13/20 [id number] Ambulatory [address] Other [place] Repository 02/12/2018/02/13/20 [id number] Ambulatory [address] MEDICAL Repository CENTERBuildi ng:AGNEURRP 02/10/2018/02/11/20 [id number] YANIRA DYER Ambulatory [address] Other [place] Repository 02/10/2018/02/11/20 [id number] Ovi DYER Inpatient [address] MEDICAL Repository CENTERBuildi ng:AKORRoom: POOLBed: 25 02/09/2018/02/10/20 [id number] Emergency [address] ding:ED Repository 02/02/2018 [id number] Ambulatory [facility] Repository 02/02/2018/02/03/20 [id number] Ambulatory [address] MEDICAL Repository CENTERBuildi ng:AKLB 02/02/2018 [id number] Ambulatory [facility] Repository 02/02/2018 [id number] Ambulatory [facility] MEDICAL Repository CENTERBuildi ng:AKPAT 01/26/2018/01/28/20 [id number] Emergency Nickie Nickie 18 [facility] ding:ED Repository 01/03/2018/01/03/20 [id number] Emergency [place] Nickie 18 [facility] ding:ED Repository 12/24/2017 [id number] SALVINO, Ambulatory WASAMUEL Telfordsamuel Moore M.D. [facility] MEDICAL Repository CENTERBuildi ng:AKASCOR 12/24/2017 [id number] KRYS Ambulatory WASAMUEL Telfordsamuel Moore M.D. [facility] MEDICAL Repository CENTERBuildi ng:AKASCOR 12/06/2017/12/06/19 [id number] White, Ambulatory [place] 18 [facility] ding:PCURoom Repository : MCZ262Yxo: 1 PAYERS PAYERS ENCOUNTER GUARANTOR PAYER SUBSCRIBER SOURCE 12/02/2018 SOLANGE ALTAGRACIA E Primary AYSHA Riley ELEAZARXDOB: Nickie [address] Insurance:MEDICARE [id number] [id number]: (330) Number: Repository [phone] () [id number] Date:2005-12-18 12/02/2018 Secondary AYSHA Riley ISABELLAB: Nickie [facility] [id number] Community ic Number: [facility] [id number] Repository Date:2018-10-17 12/02/2018 Tertiary NOT GIVENUNK Nickie Insurance:SELF PAY [facility] Number: Effective Repository Date:2018-10-27 10/30/2018 AYSHA Riley [id number] E Primary AYSHA Riley ELEAZARXDOB: [place] [address] Insurance:MEDICARE [id number] [place] [id number]: (330) Number: Repository [phone] () [id number] Date:2018-10-30 10/30/2018 Secondary AYSHA Riley SHAWNDOB: [place] Insurance:MEDICAIDPol [id number] Community icy Number: [facility] [id number] Repository Date:2018-10-30 10/30/2018 Tertiary NOT GIVENUNK [place] Insurance:SELF PAY [facility] Number: Effective Repository Date:2018-10-30 10/26/2018 AYSHA BUSHXDOB: Primary AYSHA Riley MARXDOB: [facility] E Insurance:MEDICARE A [id number] Regional Medical CenterT AND BPolicy Number: Repository [address] [place] [address] [id number]: (330) Date: [phone] () 10/26/2018 Secondary AYSHA Riley MARXDOB: [facility] Insurance:[place] [id number] [facility] MEDICAIDPolicy Repository Number: [id number] Date: 10/22/2018 SOLANGE MARXDOB: Primary SOLANGE MARXDOB: [facility] E Insurance:MEDICARE A [id number] [facility] AND [facility] Number: Repository [address] [place] [address] [id number]: (330) Date: [phone] () 10/22/2018 Secondary SOLANGE MARXDOB: [facility] Insurance:[place] [id number] [facility] MEDICAIDPolicy Repository Number: [id number] Date: 10/05/2018 SOLANGE ELEAZARXDOB: Primary AYSHA Riley MARXDOB: [facility] E Insurance:MEDICARE A [id number] Spohn [facility] AND olicy Number: Repository [address] [place] [address] [id number]: (330) Date: [phone] () 10/05/2018 Secondary SOLANGE MARXDOB: [facility] Insurance:[place] [id number] [facility] MEDICAIDPolicy Repository Number: [id number] Date: 09/14/2018 SOLANGE [id number] E Primary AYSHA Riley MARXDOB: Nickie [address] Insurance:MEDICARE [id number] PART A [facility] [address]Jbm: (330) Number: Repository [phone] () [id number] Date:2018-09-14 09/14/2018 Secondary AYSHA SAVAGEDOB: Nickie Insurance:MEDICAIDPol [id number] Community icy Number: Hospital [id number] Repository Date:2018-09-14 09/14/2018 Tertiary NOT GIVENUNK Nickie Insurance:SELF PAY [facility] Number: Effective Repository Date:2018-09-14 07/09/2018 AYSHA FRIAS E Primary AYSHA SAVAGEDOB: Nickie [address] Insurance:MEDICARE [id number] [address] [address]Enu: (330) Number: Repository [phone] () [id number] Date:2018-07-09 07/09/2018 Secondary AYSHA MASONB: [place] Insurance:MEDICAIDPol [id number] Community icy Number: Hospital [id number] Repository Date:2018-07-09 07/09/2018 Tertiary NOT GIVENUNK [place] Insurance:SELF PAY [facility] Number: Effective Repository Date:2018-07-09 04/27/2018 AYSHA [id number] E Primary AYSHA BUSHXDOB: Nickie [address] Insurance:MEDICARE [id number] [address] [address]Yxh: (330) Number: Repository [phone] () [id number] Date:2018-04-27 04/27/2018 Secondary AYSHA MASONB: [place] Insurance:MEDICAIDPol [id number] Community icy Number: Hospital [id number] Repository Date:2018-04-27 04/27/2018 Tertiary NOT GIVENUNK [place] Insurance:SELF PAY [facility] Number: Effective Repository Date:2018-04-27 03/23/2018 AYSHA Riley [id number] E Primary AYSHA SAVAGEDOB: Nickie [address] Insurance:MEDICARE [id number] [address]Ukb: (330) Number: Repository [phone] () [id number] Date:2018-03-23 03/23/2018 Secondary SOLANGE MARXDOB: [place] Insurance:[facility] [id number] Community icy Number: Hospital [id number] Repository Date:2018-03-23 03/23/2018 Tertiary NOT GIVENUNK Nickie Insurance:SELF PAY [facility] Number: Effective Repository Date:2018-03-23 03/23/2018 SOLANGE MARXDOB: Primary SOLANGE MARXDOB: [facility] E Insurance:MEDICARE A [id number] Spohn Hospital [facility] AND BPolicy Number: Repository [address] [place] [address] [id number]: (330) Date: () 03/23/2018 Secondary SOLANGE MARXDOB: [facility] Insurance:[place] [id number] [facility] MEDICAIDPolicy Repository Number: [id number] Date: 03/23/2018 SOLANGE MARXDOB: Primary SOLANGE MARXDOB: [facility] E Insurance:MEDICARE A [id number] Spohn Hospital [facility] AND [facility] Number: Repository [address] [place] [address] [id number]: (330) Date: () 03/23/2018 Secondary SOLANGE MARXDOB: [facility] Insurance:[place] [id number] P. [facility] MEDICAIDPolregional medical center Repository Number: [id number] Date: 03/18/2018 AYSHA Riley [id number] E Primary AYSHA Riley MARXDOB: Nickie [address] Insurance:MEDICARE [id number] PART A [facility] [address]Ayo: (330) Number: Repository [phone] () [id number] Date:2018-03-18 03/18/2018 Secondary SOLANGE MARXDOB: [place] Insurance:[facility]ID[facility] [id number] Community icy Number: Hospital [id number] Repository Date:2018-03-18 03/18/2018 Tertiary NOT GIVENUNK Nickie Insurance:SELF PAY Community [facility] Number: Effective Repository Date:2018-03-18 03/06/2018 SOLANGE [id number] E Primary SOLANGE MARXDOB: Nickie [address] Insurance:MEDICARE [id number] PART A [facility] [address]Twq: (330) Number: Repository [phone] () [id number] Date:2018-03-06 03/06/2018 Secondary SOLANGE MARXDOB: [place] Insurance:MEDICAIDPol [id number] [facility] Number: Hospital [id number] Repository Date:2018-03-06 03/06/2018 Tertiary NOT GIVENUNK [place] Insurance:SELF PAY [facility] Number: Effective Repository Date:2018-03-06 02/12/2018 SOLANGE MARXDOB: Primary SOLANGE MARXDOB: [facility] E Insurance:MEDICARE A [id number] P. Reuther Psychiatric Hospital [address] AND [facility] Number: Repository [address] [place] [address] [id number]: (330) Date: [phone] () 02/12/2018 Secondary SOLANGE MARXDOB: [facility] Insurance:[place] [id number] [facility] MEDICAIDPolicy Repository Number: [id number] Date: 02/10/2018 SOLANGE MARXDOB: Primary SOLANGE MARXDOB: [facility] E Insurance:MEDICARE A [id number] P. Reuther Psychiatric [facility] [address] AND olicy Number: Repository [address] [place] [address] [id number]: (330) Date: [phone] () 02/10/2018 Secondary SOLANGE MARXDOB: [facility] Insurance:[place] [id number] [facility] MEDICAIDPolicy Repository Number: [id number] Date: 02/09/2018 AYSHA Riley [id number] E Primary SOLANGE MARXDOB: [place] [address] Insurance:MEDICARE [id number] PART A [facility] [address]Fgl: (330) Number: Repository [phone] () [id number] Date:2018-02-09 02/09/2018 Secondary SOLANGE MARXDOB: [place] Insurance:MEDICAIDPol [id number] Community icy Number: Hospital [id number] Repository Date:2018-02-09 02/09/2018 Tertiary NOT GIVENUNK Nickie Insurance:SELF PAY [facility] Number: Effective Repository Date:2018-02-09 02/02/2018 SOLANGE MARXDOB: Primary SOLANGE MARXDOB: [facility] E Insurance:MEDICARE A [id number] Spohn Hospital – [facility] AND [facility] Number: Repository [address] [place] [address] [id number]: (330) Date: [phone] () 02/02/2018 Secondary SOLANGE MARXDOB: [facility] Insurance:[place] [id number] [facility] MEDICAIDPolicy Repository Number: [id number] Date: 02/02/2018 SOLANGE MARXDOB: Primary SOLANGE MARXDOB: [facility] E Insurance:MEDICARE A [id number] Spohn Hospital [facility] AND [facility] Number: Repository [address] [place] [address] [id number]: (330) Date: [phone] () 02/02/2018 Secondary SOLANGE MARXDOB: [facility] Insurance:[place] [id number] P. Reuther Psychiatric Hospital [facility]ID[facility] Repository Number: [id number] Date: 01/26/2018 SOLANGE [id number] E Primary SOLANGE MARXDOB: [place] [address] Insurance:MEDICARE [id number] PART A [facility] [id number]: (330) Number: Repository [phone] () [id number] Date:2018-01-26 01/26/2018 Secondary SOLANGE MARXDOB: [place] Insurance:MEDICAIDPol [id number] [facility] icy Number: Hospital [id number] Repository Date:2018-01-26 01/26/2018 Tertiary NOT GIVENUNK [place] Insurance:SELF PAY [facility] Number: Effective Repository Date:2018-01-26 01/03/2018 AYSHA Riley [id number] E Primary SOLANGE MARXDOB: [place] [address] Insurance:MEDICARE [id number] PART A [facility] [address]Csp: (330) Number: Repository [phone] () [id number] Date:2018-01-03 01/03/2018 Secondary SOLANGE MARXDOB: [place] Insurance:[facility]ID[facility] [id number] Health Number: Hospital [id number] Repository Date:2018-01-03 01/03/2018 Tertiary NOT GIVENUNK Nickie Insurance:SELF PAY [facility] Number: Effective Repository Date:2018-01-03 12/24/2017 AYSHA Riley SHAWNDOB: Primary SOLANGE MARXDOB: [facility] S Insurance:MEDICARE A [id number] Hospital Lima Number: Repository [address] [place] [address] [id number]: (330) Date: [phone] () 12/24/2017 Secondary SOLANGE MARXDOB: [facility] Insurance:[place] [id number] [facility] MEDICAIDPolicy Repository Number: [id number] Date: 12/24/2017 SOLANGE MARXDOB: Primary SOLANGE MARXDOB: [facility] S Insurance:MEDICARE A [id number] Hospital Lima Number: Repository [address] [place] [address] [id number]: (330) Date: [phone] () 12/24/2017 Secondary SOLANGE MARXDOB: [facility] Insurance:[place] [id number] [facility] MEDICAIDPolicy Repository Number: [id number] Date: 12/06/2017 Aysha Frias E Primary Aysha BushxDOB: Nickie Marry Insurance:MEDICARE [id number] A [facility] [address]Wcl: (330) Number: Repository [phone] () [id number] Date:2017-12-06 12/06/2017 Secondary Aysha Guzman: [place] Insurance:[facility]ID[facility] [id number] [facility] Number: [facility] [id number] Repository Date:2017-12-06 12/06/2017 Tertiary NOT GIVENUNK [place] Insurance:SELF PAY Community [facility] Number: Effective Repository Date:2017-12-06
== END 2018-10-30 17:48 | disposition left against medical advice (07) ==
PROVIDERS: Emergency Provider Emergency Medicine; Family Provider Family Medicine; PCP Family Medicine
DX: R07.9 Chest pain, unspecified (principal); Z53.21 Procedure and treatment not carried out due to patient leaving prior to being seen by health care provider; E03.9 Hypothyroidism, unspecified; Z86.718 Personal history of other venous thrombosis and embolism; Z86.73 Personal history of transient ischemic attack (TIA), and cerebral infarction without residual deficits; Z87.891 Personal history of nicotine dependence; Z79.01 Long term (current) use of anticoagulants; Z79.899 Other long term (current) drug therapy
CPT/HCPCS: 71045; 71275; 80048; 84484; 85025; 93005; 96374; 99284; Q9967; A4216

== ENCOUNTER 2018-12-02 13:30 | Outpatient (RCR) | payer MEDICARE, MEDICAID, SELFPAY ==
--- NOTE | 2018-11-02 14:07 | HP.PTEVAL_ITS ---
Patient's Visit Information AYSHA ESCOBAR is a 53 year old M referred to Physical Therapy by JASSI GOLDMAN with a diagnosis of LEFT RTC TEAR. Date of Evaluation: 11/02/18 Physical Therapist: Franklin Yeh PT, Cert MDT, [facility] - Visit Plan Frequency: 2x /Week Duration: 4 Weeks Plan: PATIENT HAD MRI SHOWED PARTIAL TEAR. RTC/SCAPULAR STRENGTHENING,POSTURAL EX'S,MODLATIES - Subjective Findings: This 53 y/o male presenst to physical therapy with left RTC tear since Aug 2018. Patient noticed some soreness intilally then tried to change tire felt at tear with associated pain with burning stabbing pain. Patient pain located anrterior -bicep/lateral deltoid. Patient pain affects ability to raise arm OH with ADL's ,housework tasks above 90 degrees.Patient pain affects sleeping on right side. Denies parathesia/tingling. Patient pain affects affects QOL and function.Patient seen DR did MRI showed RTC tear. VOCATION: disablity. SOCIAL: single - Pain Left Shoulder Pain Intensity (Out of 10): 7 Pain Intensity Range: 10 - Objective POSTURE: mild foward posture ,rounded shoulders head foward. PALAPTION: tender AC. NEURO: inact. AROM: shoulder flexion 80 degrees ,abduction 90 degrees pain ,ER 90 degrees,IR 70 degrees. FUNCTION: pain reaching behind back ,behind head. MMT: infraspinatous 4-/5,subscapularis4/5,supraspinatous 3+/5 pain,deltoid 3+/5 pain - Special Tests R Shoulder Lift Off Test - Subscapular Tear: Negative R Shoulder Drop Sign - IS Test: Negative R Shoulder Empty Can - SS: Positive R Shoulder Belly Press - SupScap: Negative R Shoulder Neer - Impingement: Positive R Shoulder Taveras Tomi - Impingement: Positive R Shoulder Biceps Load Test - Labrum: Negative - Goals Goal 1:: Independant with HEP Goal Time Frame: 4-6 Weeks Goal 2:: Decrease shoulder pain by 50% or greater to improve function with ADL'S Goal Time Frame: 4-6 Weeks Goal 3:: Patient increase AROM shoulder flexion/abduction 150 degrees to improve function with ADL Goal Time Frame: 4-6 Weeks Goal 4:: Patient to increase strength 4/5 RTC and deltoid 4-/5 to improve function Goal Time Frame: 4-6 Weeks Goal 5:: Patient improve ALBINO quich dash score by to improve QOL. Goal Time Frame: 4-6 Weeks - Rehabilitation Potential Physical Therapy Diagnosis: This patient has pain with weakness with RTC partial tear with pin ,decrease ROM ,strength which impairs ADL'S and function above 90 degrees thus benifit from skilled PT Rehabilitation Potential: Good - Anticipated Interventions Patient/Client Instruction: Educate patient on: Condition, Plan of Care For the Purpose of:: To decrease pain, To increase ROM, To improve muscle performance and motor function, To increase tolerance to activity/condition/position, To improve ability of physical actions for home/community/work/leisure, To improve gait and locomotor functions, To decrease soft tissue restriction, To increase flexibility/ROM, To improve ability to perform tasks related to life management Therapeutic Exercise to Include: Strength training, Postural training, Passive ROM, Sanjana Exercises Comment: RTC For the Purpose of:: To decrease pain, To increase ROM, To improve muscle performance and motor function, To improve ability to perform ADL's, To increase tolerance to activity/condition/position, To improve ability of physical actions for home/community/work/leisure, To improve health of tissue, To decrease soft tissue restriction, To increase flexibility/ROM, To improve ability to perform tasks related to life management TENS: Yes IF ES: Yes Cryotherapy (ice pack, ice massage): Yes Thermo therapy (hot pack): Yes Ultrasound (thermal/non thermal): Yes For the Purpose of:: To decrease pain, To decrease swelling/inflammation, To increase ROM, To improve nutrient delivery to tissue, To increase oxygenation perfusion, To improve health of tissue, To decrease soft tissue restriction Thank you for the opportunity to evaluate your patient. For Medicare and Medicare HMO plans, please review the plan of care and approve it. It will need to be FAXED BACK to us at [phone] for Medicare purposes. For Medicare only, by signing this I certify the plan of care. Please let me know if there are questions or concerns regarding this plan of care. Physician Signature: Date:
--- OUTSIDE RECORDS SUMMARY | 2019-02-04 03:47 | XMS RPT_ITS ---
:1965 Author Organization OHIP Support Name Relationship Address Phone D Unavailable Unavailable Unavailable MICHELLE LÓPEZ Unavailable [address] + [address] [place] [address] D Unavailable Unavailable Unavailable MICHELLE LÓPEZ Unavailable [address] + [address] [place] [address] D Unavailable Unavailable Unavailable MICHELLE LÓPEZ Unavailable [address] + [address] [place] [address] D Unavailable Unavailable Unavailable MICHELLE LÓPEZ Unavailable [address] + [address] [place] [address] D Unavailable Unavailable Unavailable MICHELLE LÓPEZ Unavailable [address] + [address] [place] [address] D Unavailable Unavailable Unavailable MICHELLE LÓPEZ Unavailable [address] + [address] [place] [address] D Unavailable Unavailable Unavailable MICHELLE LÓPEZ Unavailable [address] + [address] [place] [address] D Unavailable Unavailable Unavailable MICHELLE LÓPEZ Unavailable [address] + [address] [place] [address] D Unavailable Unavailable Unavailable MICHELLE LÓPEZ Unavailable [address] + [address] [place] [address] D Unavailable Unavailable Unavailable MICHELLE LÓPEZ Unavailable [address] + [address] [place] [address] D Unavailable Unavailable Unavailable MICHELLE LÓPEZ Unavailable [address] + [address] [place] [address] D Unavailable Unavailable Unavailable MICHELLE LÓPEZ Unavailable [address] + [place] [address] Care Team Providers Name Role Phone LISBAIRONI, ALEXIA Primary Care Unavailable Jameson Zamora Attending [...] CADE Attending Unavailable WILLIAM CADE Referring Unavailable Flippin, Gilson Primary Care Unavailable WILLIAM CADE Consulting Unavailable Flippin, Gilson Primary Care Unavailable Maciel Bal Attending Unavailable LISHNEVSKI, ALEXIA Primary Care Unavailable Veronica Ocampo Admitting Unavailable Irais Perkins Attending Unavailable Zach Denis Consulting Unavailable GILSON MENON Attending Unavailable SINANGILSON Referring Unavailable SINAN, GILSON Sorto Attending Unavailable SINANGILSON Attending Unavailable SINANGILSON Referring Unavailable SINAN, GILSON Sorto Referring Unavailable SINAN, GILSON Sorto Attending Unavailable KASANDRA, HERBERT Y Referring Unavailable SINAN, GILSON Sorto Referring Unavailable SINAN, GILSON Sorto Referring Unavailable GINNAYANIRA LEWIS Referring Unavailable GINNAYANIRA Referring Unavailable GINNAYANIRA Admitting Unavailable GINNAYANIRA Attending Unavailable GINNAYANIRA F Referring Unavailable KASANDRA, HERBERT Y Attending Unavailable LISHNEVSKI, ALEXIA Referring Unavailable LC GOLDMAN Attending Unavailable GILSON MENON Referring Unavailable LC GOLDMAN Referring Unavailable LC GOLDMAN Attending Unavailable CHERYL DWYER Attending Unavailable Ovi BRODY Attending Unavailable Ovi BRODY Referring Unavailable Ovi MARCANO Admitting Unavailable Ovi MARCANO Attending Unavailable Ovi BRODY Primary Care Unavailable Ovi MARCANO Admitting Unavailable Ovi MARCANO Attending Unavailable Ovi BRODY Primary Care Unavailable KASANDRA, HERBERT Y Attending Unavailable Ovi BRODY Referring [...] M75.112(ICD-10) 10/26/2018 Active Incomplete rotator LC GOLDMAN [facility] cuff tear or rupture Clinic Other of left shoulder, [place] not specified as Repository traumatic / M75.112(ICD-10) 10/05/2018 Active Impingement syndrome LC GOLDMAN Active [facility] of left shoulder / Clinic Other M75.42(ICD-10) [place] Repository 10/05/2018 Active Pain in left LC GOLDMAN [facility] shoulder / Clinic Other M25.512(ICD-10) [place] Repository 09/03/2018 Active Complication of Active [facility] surgical and medical [facility] Main care, unspecified, [place] subsequent encounter Repository / T88.9XXD(ICD-10) 09/03/2018 Active Radiculopathy, Active [facility] cervicothoracic [facility] Main region / [place] M54.13(ICD-10) Repository 08/17/2018 Active Radiculopathy, NA Active [facility] cervical region / Clinic Main M54.12(ICD-10) [place] Repository 08/17/2018 Active Pain in thoracic NA Active [facility] spine / Clinic Main M54.6(ICD-10) [place] Repository 10/30/2016 Active Nicotine dependence, NA Active [facility] unspecified, Clinic Main uncomplicated / [place] F17.200(ICD-10) Repository 07/21/2018 Active Encounter for NA [facility] screening for lipoid Clinic Main disorders / [place] Z13.220(ICD-10) Repository 07/21/2018 Active Essential (primary) NA Active [facility] hypertension / Clinic Main I10(ICD-10) [place] Repository 07/07/2018 Active Cervicalgia / NA Active [facility] M54.2(ICD-10) Clinic Main [place] Repository 05/30/2018 Admitting Other abnormalities YULIYA, Active [facility] Diagnosis of gait and mobility [facility] ([place] / R26.89(ICD-10) Repository 05/30/2018 Admitting Cervicalgia / [facility], [facility] Diagnosis M54.2(ICD-10) [facility] Repository 05/30/2018 Admitting Unspecified disorder YULYIA, [facility] Diagnosis of right middle ear [facility] and mastoid / Repository H74.91(ICD-10) 05/15/2018 Unknown R53.1 - Weakness / Keen, Justin Active [place] R53.1(ICD-10) [facility] Repository 03/12/2018 Active Other general NA Active [facility] symptoms and signs / Clinic Main R68.89(ICD-10) [place] Repository 07/15/2018 Unknown M54.12 - WILLIAM CADE Active [place] Radiculopathy, [facility] cervical region / Hospital M54.12(ICD-10) Repository 02/10/2018 Active Gross hematuria / GINNA YANIRA F Active [place] R31.0(ICD-10) Clinic Other [place] Repository 03/25/2018 Unknown R42 - Dizziness and Shundry, Active [place] giddiness / Jameson [facility] R42(ICD-10) Hospital Repository 02/02/2018 Active Encounter for other NA Active [facility] preprocedural Clinic Other examination / [place] Z01.818(ICD-10) Repository 03/05/2018 Unknown R07.9 - Chest pain, [place], Active [facility] unspecified / [facility] R07.9(ICD-10) Hospital Repository 12/24/2017 Admitting Unknown / Ovi MARCANO Active [place] [facility] diagnosis UNK(Unknown) [facility] Repository PROCEDURES PROCEDURES No Procedure Records FoundRESULTS RESULTS INITAL EVALUATION (1) Observed: 11/03/2018 Status: F Source: [place] - PT 7:[address] [facility] REPOSITORY [facility] Physical Therapy [facility] [address] [place] [address] Fax REHABILITATION SERVICES INITIAL EVALUATION MR#: [id number] Acct: [id number] Name: AYSHA SAVAGE Rep #: [id number] : 1965 53 From: Franklin Yeh PT, [...] to be FAXED BACK to us at [phone] for Medicare purposes. For Medicare only, by signing this I certify the plan of care. Please let me know if there are questions or concerns regarding this plan of care. Physician Signature: Date: <Electronically signed by Franklin Yeh PT, Cert. T, OCS> 11/03/18 0713 CC: LC GOLDMAN; Gilson Menon MD JLA Signed EMERGENCY DEPARTMENT Observed: 10/30/2018 Status: F Source: [place] SUMMARY 10:[address] [facility] REPOSITORY [facility] Medical Records Department [address] [place] [address] Emergency Department Summary 10/30/18 1505 MR#: [id number] Acct: [id number] Name: AYSHA SAVAGE Rep #: [id number] : 1965 53 From: Maciel Bal DO [...] Left AMA This note was generated with ClaraStream dictation software. It may contain incorrect words, [...] your Primary Care Provider. Call [facility] ([phone]) or report to the closest Emergency Room. Call 911 if necessary. 10/30/18 2239 <Electronically signed by Maciel Bal DO> Date Maciel Bal DO Cosigner Signature (If Indicated): Date CC: Gilson Menon MD CTA CHEST W/WO Observed: 10/30/2018 Status: F Source: [place] CONTRAST 3:[address] [facility] REPOSITORY [facility] Imaging Services [address] [place] [address] CTA Chest W/WO Contrast MR#: [id number] Acct: [id number] Name: AYSHA SAVAGE Rep #: [id number] : 1965 M 53 From: Óscar Drake MD PCP: Gilson Menon MD Status: REG ER Study: CTA Chest W/WO Contrast Date of Exam: 10/30/18 Exam# [id number] Ordering Dr: Maciel Bal DO STUDY: CTA [...] EST , Service support , CC: Maciel Menon MD Zyglo Technician: Signed CBC W/DIFF, AUTOMATED Collected: 10/30/2018 Status: F Source: [place] 3:[address] [facility] REPOSITORY TYPE CODE TESTS RESULT OUT OF [...] Lymph 1.70 Performed By: #### L100.0100 #### [facility] Laboratory [address] [place], [place], [address] BASIC METABOLIC Collected: 10/30/2018 Status: F Source: [place] PROFILE ([facility]) 3:[address] [facility] REPOSITORY TYPE CODE TESTS RESULT OUT OF [...] 8 Performed By: #### L500.2500, L501.4010 #### [facility] [address] [place], [address] TROPONIN-I Collected: 10/30/2018 Status: F Source: [place] 3:[address] [facility] REPOSITORY TYPE CODE TESTS RESULT OUT OF RANGE REFERENCE UNITS LAB L501.4010 <0.045 ng/mL Normal < 0.015 TROPONIN-I Result Comment: TROPONIN-I EXPECTED VALUES <0.045 Negative 0.045 - 0.590 Consistent with Cardiac Damage > OR = 0.600 Critical Value Not every elevated troponin is indicative of IL. These values should be used with clinical judgement in examining the patient's clinical picture for diagnosis. To establish a diagnosis of IL versus myocardial injury, there must be a demonstrated rise and/or fall in the troponin values, in addition to ischemic symptoms, EKG changes, new regional wall motion abnormality, and/or angiographical evidence. PLEASE NOTE: REFERENCE RANGES EDITED 18 Performed By: #### L500.2500, L501.4010 #### [facility] [address] [place], [address] CHEST 1 VIEW Observed: 10/30/2018 Status: F Source: [place] (PORTABLE) 3:[address] [facility] REPOSITORY [facility] Imaging Services [address] [place] [address] Chest 1 View (Portable) MR#: [id number] Acct: [id number] Name: AYSHA SAVAGE Rep #: [id number] : 1965 M 53 From: Kishan Mcmahon MD PCP: Gilson Menon MD Status: REG ER Study: Chest 1 View (Portable) Date of Exam: 10/30/18 Exam# [id number] Ordering Dr: Maciel Bal DO STUDY: X-RAY [...] Kishan Mcmahon MD at 15:28 EST Tel [phone], Service support , CC: Maciel Bal DO; Gilson Menon MD Zyglo Technician: Signed PROGRESS Observed: 10/26/2018 Status: COMPLETED Source: [place] 3:25 PM CLINIC OTHER CAMPUS REPOSITORY HNO ID: [id number] Author: Lc Goldman Service: (none) Author Type: [...] be notified. 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 He is aware of the potential risks and side effects of this medication as well as the expected benefits, and wishes to proceed with its use. Lc Goldman MD CNOV Observed: 10/26/2018 Status: COMPLETED Source: [place] 2:45 PM CLINIC OTHER CAMPUS REPOSITORY Office Visit (AGPOB1) AYSHA SAVAGE ([id number]) 1965 M Date Time Provider Department 10/26/18 [...] be notified. 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, they understand the need for medication monitoring [...] left rotator cuff [M75.112] Order(s):DRAIN/INJECT LARGE JOINT/BURSA [09190UZX] Order #: [id number] [] lidocaine 10 mg/mL (1 %) injection (XYLOCAINE)Disp: Rfl: [] triamcinolone acetonide 80 mg injection (KENALOG 40)Disp: Rfl: CONSULT TO PHYSICAL THERAPY (AG) [[id number]] Order #: [id number]: 1 Prescriptions as of 10/26/2018 Sig: DICLOFENAC [...] 10/26/18 PROGRESS Observed: 10/26/2018 Status: COMPLETED Source: [place] 2:38 PM CLINIC OTHER CAMPUS REPOSITORY HNO ID: [id number] Author: Omar Brandt Service: (none) Author Type: [...] WO IV Observed: 10/22/2018 Status: F Source: [facility] 5:47 PM HEALTH SYSTEM REPOSITORY Performed at [facility] APPROVED BY: Lc Valle MD MRI LEFT [...] CBC. 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 If he takes this medication retirement, he understands the need for medication monitoring through his primary care physician. He is aware of the potential risks and side effects of this medication as well as the expected benefits, and wishes to proceed with its use. Lc Goldman MD Referring Provider: GILSON MENON [[id number]] Allergies As of Date: 10/05/2018 (No Known [...] states he is right handed. pt states [place] or Voltaren Gel is not working. Primary Visit Diagnosis:Rotator cuff impingement syndrome of left shoulder [M75.42] Other Visit Diagnosis:Acute pain of left shoulder [M25.512] Order(s):XR SHOULDER 3V AP/Y VIEW/AXILLARY LT ([place]) [[id number]] Order #: [id number] MRI SHOULDER WO IVCON LT [6560103] Order #: [id number] FUTURE Prescriptions as of 10/05/2018 Sig: DICLOFENAC [...] 10/05/18 PROGRESS Observed: 10/05/2018 Status: COMPLETED Source: [place] 1:46 PM CLINIC OTHER CAMPUS REPOSITORY HNO ID: [id number] Author: Lc Goldman Service: (none) Author Type: [...] be notified. 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 He is aware of the potential risks and side effects of this medication as well as the expected benefits, and wishes to proceed with its use. Lc Goldman MD PROGRESS Observed: 10/05/2018 Status: COMPLETED Source: [place] 1:40 PM CLINIC OTHER CAMPUS REPOSITORY O ID: [id number] Author: Omar Brandt Service: (none) Author Type: [...] hx PROGRESS Observed: 09/28/2018 Status: COMPLETED Source: [place] 5:44 PM CL[facility] MAIN CAMPUS REPOSITORY O ID: [id number] Author: Gilson Menon Service: (none) Author Type: Physician Type: Progress Notes Filed: 09/28/2018 5:59 PM Note Text: Patient presents with: Pain (Shoulder Pain): ER follow up HPI: Patient presents today for office visit for acute visit. Nursing Notes: Leanaaniket Camarachandu OCHOA 09/28/2018 5:36 PM Signed HOSPITAL/ER FOLLOW UP: Reason for visit: left shoulder pain Which facility: [facility] Date of visit: 09/14/18 Diagnosis: left [...] MD CNOV Observed: 09/28/2018 Status: COMPLETED Source: [place] 5:00 PM [facility]IN CAMP[facility] REPOSITORY Office Visit (FAMPWS) AYSHA SAVAGE ([id number]) 1965 Date Time Provider Department 09/28/18 5:00 PM GILSON MENON During your visit today, we recorded the following information about you: Pulse Respiration Blood pressure Weight 64/minute 18/minute 132/82 100.7 kg Leana Nunn GABRIELA 09/28/2018 5:36 PM Signed HOSPITAL/ER FOLLOW UP: Reason for visit: left shoulder pain Which facility: [facility] Date of visit: 09/14/18 Diagnosis: left [...] for visit: left shoulder pain Which facility: [facility] Date of visit: 09/14/18 Diagnosis: left [...] daily.Disp: 240 gRfl: 0 CONSULT TO ORTHOPAEDICS [9648] Order #: [id number]: 1 Prescriptions as of 09/28/2018 Sig: HYDROCODONE [...] been se*INVALID FOR* Deep vein thrombosis (DVT) ([facility]) [I82.409] 04/30/2017 History of DVT of lower [...] for visit: left shoulder pain Which facility: [facility] Date of visit: 09/14/18 Diagnosis: left [...] EMERGENCY DEPARTMENT Observed: 09/15/2018 Status: F Source: [place] SUMMARY 12:[address] [facility] REPOSITORY [facility] Medical Records Department [address] [place] [address] Emergency Department Summary 09/14/18 2152 MR#: [id number] Acct: [id number] Name: AYSHA SAVAGE Rep #: [id number] : 1965 53 From: Arthur Jack MD [...] rotator cuff This note was generated with ClaraStream dictation software. It may contain incorrect words, [...] problems, contact your Primary Care Provider. Call [facility] ([phone]) or report to the closest Emergency Room. Call 911 if necessary. 09/15/18 0004 <Electronically signed by Arthur Jack MD> Date Arthur Jack MD Cosigner Signature (If Indicated): Date CC: Gilson Menon MD SHOULDER MIN 2 VIEWS Observed: 09/14/2018 Status: F Source: [place] 9:[address] [facility] REPOSITORY [facility] Imaging Services [address] [place] [address] Shoulder min 2 Views MR#: [id number] Acct: [id number] Name: AYSHA SAVAGE Rep #: [id number] : 1965 M 53 From: Miguel Rajan MD PCP: Gilson Menon MD Status: REG ER Study: Shoulder min 2 Views Date of Exam: 09/14/18 Exam# [id number] Ordering Dr: Arthur Jack MD STUDY: X-RAY [...] , CC: Arthur Jack; Gilson Menon MD Zyglo Technician: Signed MRI CERVICAL SPINE Observed: 09/03/2018 Status: F Source: [place] WO/W IVCON 10:25 AM CLINIC MAIN CAMPUS REPOSITORY * * *Final Report* * * DATE OF EXAM: Sep 03 2018 10:25AM [place] 0298 - MRI CERVICAL SPINE WO/W IVCON [...] Counting reference: Craniocervical junction. The more conventional residential air sealing technician that include the lumbosacral junction are not [...] vertebrae with counting from the craniocervical junction. Zyglo Technician: PSCB Transcribe Date/Time: Sep 03 2018 11:33A Dictated by : ALE DA SILVA MD This examination was interpreted and the report reviewed and electronically signed by: MACIEL KRAMER MD on Sep 03 2018 12:51PM EST [id number] MRI THORACIC SPINE Observed: 09/03/2018 Status: F Source: [place] WO/W IVCON 10:25 AM [facility] REPOSITORY * * *Final Report* * * DATE OF EXAM: Sep 03 2018 10:25AM [facility] 0326 - MRI THORACIC SPINE WO/W [...] Counting reference: Craniocervical junction. The more conventional residential air sealing technician that include the lumbosacral junction are not [...] vertebrae with counting from the craniocervical junction. Zyglo Technician: SAJAN Transcribe Date/Time: Sep 03 2018 11:33A Dictated by : ALE DA SILVA MD This examination was interpreted and the report reviewed and electronically signed by: MACIEL KRAMER MD on Sep 03 2018 12:51PM EST [id number] PROGRESS Observed: 09/03/2018 Status: COMPLETED Source: [place] 10:19 AM [facility] REPOSITORY O ID: [id number] Author: Tico Traore (Rt) Service: (none) Author Type: Shoe Fitter Type: Progress Notes Filed: 09/03/2018 10:19 AM [...] AM PROGRESS Observed: 09/03/2018 Status: COMPLETED Source: [place] 10:17 AM [facility] REPOSITORY [facility] ID: [id number] Author: Tico Traore (Rt) Service: (none) Author Type: Shoe Fitter Type: Progress Notes Filed: 09/03/2018 10:18 AM [...] AM YAZAN Observed: 09/03/2018 Status: COMPLETED Source: [place] 12:00 AM [facility] REPOSITORY Telephone (FAMPWS) AYSHA SAVAGE ([id number]) 1965 M Date Time Provider Department 09/03/18 [...] accident.Please assist in scheduling to Spine center. February Anastasia09/04/2018 10:27 AM Signed Scheduled Allergies As of [...] CERVICAL 4V Observed: 08/17/2018 Status: F Source: [place] AP/LAT/FLX/EXT 11:38 AM [facility] [place] REPOSITORY * * *Final Report* * * [...] as discussed. Similar to the previous study Zyglo Technician: PSCB Transcribe Date/Time: Aug 17 2018 6:03P Dictated by : RUSSELL GORDON DO This examination was interpreted and the report reviewed and electronically signed by: RUSSELL GORDON DO on Aug 17 2018 6:06PM EST [id number] XR THORACIC 3V Observed: 08/17/2018 Status: F Source: [place] AP/LAT/SWIMMERS 11:38 AM [facility] [place] REPOSITORY * * *Final Report* * * [...] as discussed. Similar to the previous study Zyglo Technician: PSCB Transcribe Date/Time: Aug 17 2018 6:03P Dictated by : RUSSELL GORDON DO This examination was interpreted and the report reviewed and electronically signed by: RUSSELL GORDON DO on Aug 17 2018 6:06PM EST [id number] PROGRESS Observed: 08/17/2018 Status: COMPLETED Source: [place] 11:26 AM [facility] REPOSITORY HNO ID: [id number] Author: Kaitlynn Gamino (Rt) Tico Urban Service: (none) Author Type: Shoe Fitter Type: Progress Notes Filed: 08/17/2018 11:38 AM [...] AM PROGRESS Observed: 08/17/2018 Status: COMPLETED Source: [place] 10:42 AM [facility] REPOSITORY HNO ID: [id number] Author: Gilson Menon Service: (none) Author Type: Physician Type: Progress Notes Filed: 08/17/2018 3:22 PM Note Text: Patient presents with: Back Pain: since summer time HPI: Patient presents today for office visit for follow up. Seeing Dr. Johnson(sp?) in [place]. He is supposed to go back to [...] initial c spine surgery was done at [facility]. No xrays or films were done. He [...] 4V AP/LAT/FLX/EXT - CONSULT TO SPINE SURGERY MD PILLO SinghOV Observed: 08/17/2018 Status: COMPLETED Source: [place] 10:00 AM [facility] REPOSITORY [facility] ([id number]) 1965 M Date Time Provider Department 08/17/18 10:00 AM GILSON MENON During your visit today, we recorded the following information about you: Pulse Respiration Blood pressure Weight 68/minute 20/minute 132/80 95.7 kg Gilson Menon MD 08/17/2018 3:22 PM Signed Patient presents with: Back Pain: since summer time HPI: Patient presents today for office visit for follow up. Seeing Dr. Johnson(sp?) in [place]. He is supposed to go back to [...] initial c spine surgery was done at [facility]. No xrays or films were done. He [...] pain [M54.6] Order(s):XR THORACIC GENERAL 3V AP/LAT/SWIMMERS [[id number]] Order #: [id number] FUTURE XR CERV OTHER 4V AP/LAT/FLX/EXT [[id number]] Order #: [id number] FUTURE CONSULT TO SPINE SURGERY [3154631] Order #: [id number]: 1 Prescriptions as of 08/17/2018 Sig: HYDROCODONE [...] been se*INVALID FOR* Deep vein thrombosis (DVT) ([facility]ER[facility]) [I82.409] 04/30/2017 History of DVT of lower [...] AND DIFFERENTIAL Collected: 07/21/2018 Status: F Source: [place] 9:14 AM [facility] [place] REPOSITORY TYPE CODE TESTS RESULT OUT OF [...] k/uL Abs Lymph 1.91 LAB AMONO % [place]% 9.5 LAB AAMONO <0.87 k/uL Abs [place] 0.61 LAB AEOS % Eosin% 3.3 LAB AAEOS <0.46 k/uL Abs Eosin 0.21 LAB ABASO % Baso% 0.5 LAB AABASO <0.11 k/uL Abs Baso 0.03 LAB AUNRBC 0 /100 WBC NRBCs 0.0 LAB ABNRBC <0.01 k/uL Absolute nRBC <0.01 LAB DTYP DTYPE Auto Diff Performed By: #### CBCDIF, CMP, LIPB #### [facility] [address] [place], [place] [address] COMP METABOLIC PANEL Collected: 07/21/2018 Status: F Source: [place] 9:14 AM [facility] REPOSITORY TYPE CODE TESTS RESULT OUT OF REFERENCE UNITS RANGE LAB TP 6.3-8.0 g/dL Protein, Total 6.5 LAB ALB 3.9-4.9 g/dL Albumin 4.2 LAB CA 8.5-10.2 mg/dL Calcium, Total 8.8 LAB TBIL 0.2-1.3 mg/dL Bilirubin, Total 0.4 LAB ALKP 36-108 U/L Alkaline Phosphatase 42 LAB AST 14-40 U/L AST 21 LAB GLU 74-99 mg/dL Glucose 96 Result Comment: The [place] Diabetes Association (ADA) provides guidance for cutoff [...] Standards of Medical Care in Diabetes 2016, [place] [employer]. Diabetes Care. 2016.39(Suppl 1). LAB [...] Performed By: #### CBCDIF, CMP, LIPB #### [facility] [address] [place], [place] [address] LIPID PANEL, BASIC Collected: 07/21/2018 Status: F Source: [place] 9:14 AM [facility] REPOSITORY TYPE CODE TESTS RESULT [...] Desk Reference: National Heart, Lung, and Blood Sparkill. National Institutes of Health. 2001: NIH Publication No. 01-3305. 2. An International Atherosclerosis Society position paper: global recommendations for the management of dyslipidemia: executive summary, Atherosclerosis. 2014: 232(2):410-413. Performed By: #### CBCDIF, CMP, LIPB #### [facility] [address] [place], [place] [address] DISCHARGE INSTRUCTION Observed: 07/09/2018 Status: F Source: [place] 11:[address] [facility] REPOSITORY [facility] Medical Records Department [address] [place] [address] Discharge Instruction 07/09/18 2347 MR#: [id number] Acct: [id number] Name: AYSHA SAVAGE Rep #: [id number] : 1965 52 From: Momo Lopez DO [...] your Primary Care Provider. Call [facility] ([phone]) or report to the closest Emergency Room. Call 911 if necessary. 07/09/18 2349 <Electronically signed by Momo Lopez DO> Date Momo Lopez DO Cosigner Signature (If Indicated): Date CC: Gilson Menon MD EMERGENCY DEPARTMENT Observed: 07/09/2018 Status: F Source: [place] SUMMARY 11:[address] [facility] REPOSITORY [facility] Medical Records Department [address] [place] [address] Emergency Department Summary 07/09/18 2344 MR#: [id number] Acct: [id number] Name: AYSHA SAVAGE Rep #: [id number] : 1965 52 From: Momo Lopez DO [...] pain management with a Dr. Johnson in [facility] up until earlier this year. Patient states that he is currently trying to find a pain management physician through the [facility] that is more local. Patient tells me he has had prior cervical spine fusion. Patient scheduled to see orthopedics on August 01 for some chronic neck and back pain issues.] Patient also currently on Xarelto for history of DVT and he does have a [place] filter in place. Physical Examination: [HEENT-PERRLA, EOMI. [...] Cervical strain/radiculopathy] This note was generated with ClaraStream dictation software. It may contain incorrect words, [...] your Primary Care Provider. Call [facility] ([phone]) or report to the closest Emergency Room. Call 911 if necessary. 07/09/18 3516 <Electronically signed by Momo Lopez DO> Date Momo Lopez DO Cosigner Signature (If Indicated): Date CC: Gilson Menon MD BRAIN/HEAD WITHOUT Observed: 07/09/2018 Status: F Source: [place] CONTRAST 10:59 PM [facility], [facility] HOSPITAL REPOSITORY [facility] Imaging Services [address] [place] [address] Brain/Head without Contrast MR#: [id number] Acct: [id number] Name: AYSHA SAVAGE Rep #: [id number] : 1965 M 52 From: Miguel Rajan MD PCP: Gilson Menon MD Status: REG ER Study: Brain/Head without Contrast Date of Exam: 07/09/18 Exam# [id number] Ordering Dr: Momo Lopez DO STUDY: CT [...] CC: Momo Lopez DO; Gilson Menon MD Zyglo Technician: Signed SPINE CERVICAL Observed: 07/09/2018 Status: F Source: [place] WITHOUT CONTRAS 10:59 PM [facility] HOSPITAL REPOSITORY [facility] Imaging Services [address] [place] [address] Spine Cervical without Contras MR#: [id number] Acct: [id number] Name: AYSHA SAVAGE Rep #: [id number] : 1965 M 52 From: Miguel Rajan MD PCP: Gilson Menon MD Status: REG ER Study: Spine Cervical without Contras Date of Exam: 07/09/18 Exam# [id number] Ordering Dr: Momo Lopez DO STUDY: CT [...] CC: Momo Lopez DO; Gilson Menon MD Zyglo Technician: Signed XR CERVICAL 4V Observed: 07/07/2018 Status: F Source: [place] AP/LAT/OBL 9:28 AM CL[facility]IC MAIN CAMPUS REPOSITORY * * [...] and degenerative changes as detailed in report. Zyglo Technician: SAJAN Transcribe Date/Time: Jul 07 2018 12:42P Dictated by : ANNIKA NG MD This examination was interpreted and the report reviewed and electronically signed by: ANNIKA NG MD on Jul 07 2018 12:43PM EST [id number] PROGRESS Observed: 07/07/2018 Status: COMPLETED Source: [place] 9:16 AM [facility] REPOSITORY HNO ID: [id number] Author: Kaitlynn Gamino (Rt) [place] Service: (none) Author Type: Shoe Fitter Type: Progress Notes Filed: 07/07/2018 9:28 AM [...] AM PROGRESS Observed: 07/07/2018 Status: COMPLETED Source: [place] 8:32 AM [facility] REPOSITORY HNO ID: [id number] Author: Gilson Menon Service: (none) Author Type: [...] had previous surgery in the past by [facility]. Does get pain that goes down the [...] his ivc filter removed. Apparently saw a chief estimator in the past who diagnosed him with [...] prn. CNOV Observed: 07/07/2018 Status: COMPLETED Source: [place] 8:00 AM [facility] REPOSITORY Office Visit (FAMPWS) AYSHA SAVAGE ([id number]) 1965 M Date Time Provider Department 07/07/18 [...] had previous surgery in the past by [facility]. Does get pain that goes down the [...] his ivc filter removed. Apparently saw a chief estimator in the past who diagnosed him with [...] 1 LIPID PANEL BASIC [SQLIPB] Order #: [id number] FUTURE COMP METABOLIC PANEL [SQCMP] Order #: [id number] FUTURE CBC + DIFF [SQCBCDIF] Order #: [id number] FUTURE XR CERV OTHER 4V AP/LAT/OBL [9677196] Order #: [id number] FUTURE CONSULT TO NEUROLOGY [9019] Order #: [id number]: 1 CONSULT TO VASCULAR SURGERY [9042] Order #: [id number]: 1 Prescriptions as of 07/07/2018 Sig: RIVAROXABAN [...] HEAD WITHOUT Observed: 05/30/2018 Status: F Source: [place] CONTRAST 3:58 AM SYSTEM ([place]) REPOSITORY EXAM: CT HEAD WITHOUT CONTRAST , [...] WITH CONTRAST Observed: 05/30/2018 Status: F Source: [place] 3:58 AM [place] ([place]) REPOSITORY EXAM: CT [...] effusion. CBC Collected: 05/30/2018 Status: F Source: [place] 2:35 AM [place] ([place] REPOSITORY TYPE CODE [...] BAS 0.0 Result Comment: Testing performed at [place] [address] Performed By: #### ACBC, ESR, ITROT, PT, CMPF, CREACT #### Testing [place] [address] ESR Collected: 05/30/2018 Status: F Source: [place] 2:35 AM [place] ([place]) REPOSITORY TYPE CODE TESTS RESULT OUT OF RANGE REFERENCE UNITS LAB ESR MM/HR ESR 1 Result Comment: Testing performed at [place] [address] Performed By: #### ACBC, ESR, ITROT, PT, CMPF, CREACT #### Testing [place] [address] ISTAT TROPONIN I Collected: 05/30/2018 Status: F Source: [place] 2:35 AM [place] ([place] REPOSITORY TYPE CODE TESTS RESULT OUT OF REFERENCE UNITS RANGE LAB ITRO 0-0.08 ng/mL ISTAT TROPONIN <0.02 I Result Comment: Testing performed at [place] [address] Performed By: #### ACBC, ESR, ITROT, PT, CMPF, CREACT #### Testing performed at [address] [place] [address] PROTIME Collected: 05/30/2018 Status: F Source: [place] 2:35 AM [place] REPOS[place] TYPE CODE TESTS RESULT OUT OF REFERENCE UNITS RANGE LAB PT1 11.6-14.0 SEC PROTIME 13.8 LAB INR 0.88-1.12 INR 1.12 Result Comment: 2.0-3.0 THERAPEUTIC RANGE 2.5-3.5 PROSTHETIC VALVE RANGE Testing performed at [place] [address] Performed By: #### ACBC, ESR, ITROT, PT, CMPF, CREACT #### Testing [place] [address] CMP FASTING Collected: 05/30/2018 Status: F Source: [place] 2:35 AM [place] ([place] REPOSITORY TYPE CODE [...] LAB GFRB ml/min/1.73s q.m EST. GFR, >60 [place] [facility] GFRCOM GFR Information Average GFR for 50-59 years old = 93. Result Comment: Chronic Kidney disease, GFR = <60. Kidney failure, GFR = <15. The GFR estimate is not adjusted for extreme body surface area or acute process, nor has it been validated for women or ethnic groups other than and . Testing performed at [place] [address] Performed By: #### ACBC, ESR, ITROT, PT, CMPF, CREACT #### Testing [place] [address] C REACTIVE PROTEIN Collected: 05/30/2018 Status: F [facility] [place] REPOSITORY TYPE CODE TESTS RESULT OUT OF REFERENCE UNITS RANGE LAB CREACT 0-10 MG/L C REACTIVE <5.0 PROTEIN Result Comment: Testing performed at [place] [address] Performed By: #### ACBC, ESR, ITROT, PT, CMPF, CREACT #### Testing [place] [address] DOWNTIME REPORT Observed: 05/06/2018 Status: F Source: [place] 1:39 PM [facility] Medical Records Department [address] [place] [address] Downtime Report MR#: [id number] Acct: [id number] Name: AYSHA SAVAGE A Rep #: [id number] : 1965 52 From: Wilmer Malik MD PCP: Gilson Menon MD Status: DEP ER This patient was seen during an EMR downtime April 20, 2018 - April 27, 2018. This patient may have a combination of paper and electronic documentation or all paper documentation. All documentation is viewable within the e-chart portion of [employer] for each patient visit. EMERGENCY DEPARTMENT Observed: 04/27/2018 Status: F Source: [place] SUMMARY 11:23 PM [facility] Medical Records Department [address] [place] [address] Emergency Department Summary 04/27/18 2315 MR#: [id number] Acct: [id number] Name: SHAWNAYSHA Rep #: [id number] : 1965 52 From: Justin Keen MD [...] Conversion reaction This note was generated with ClaraStream dictation software. It may contain incorrect words, [...] your Primary Care Provider. Call [facility] ([phone]) or report to the closest Emergency Room. Call 911 if necessary. 04/27/18 3949 <Electronically signed by Justin Keen MD> Date Justin Keen MD Cosigner Signature (If Indicated): Date CC: Gilson Menon MD CBC W/DIFF, AUTOMATED Collected: 04/27/2018 Status: F Source: [place] 10:[address] [facility] REPOSITORY TYPE CODE TESTS RESULT OUT OF [...] Lymph 2.04 Performed By: #### L100.0100 #### [facility] [address] [place], [place], [id number] BASIC METABOLIC Collected: 04/27/2018 Status: F Source: [place] PROFILE (BMP) 10:[address] [facility] REPOSITORY TYPE CODE TESTS RESULT OUT OF [...] GAP 5 Performed By: #### L500.2500 #### [facility] [address] [facility] [place], [address] DISCHARGE INSTRUCTION Observed: 03/23/2018 Status: F Source: [place] 9:[address] [facility] REPOSITORY [facility] Medical Records Department [address] [place] [address] Discharge Instruction 03/23/182118 MR#: [id number] Acct: [id number] Name: AYSHA SAVAGE A Rep #: [id number] : 1965 52 From: Momo Lopez DO [...] your Primary Care Provider. Call [facility] ([phone]) or report to the closest Emergency Room. Call 911 if necessary. 03/23/182118 <Electronically signed by Momo Lopez DO> Date Momo Lopez DO Cosigner Signature (If Indicated): Date CC: GERA BRODY EMERGENCY DEPARTMENT Observed: 03/23/2018 Status: F Source: [place] SUMMARY 9:[address] [facility] REPOSITORY [facility] Medical Records Department [address] [place] [address] Emergency Department Summary 03/23/182114 MR#: [id number] Acct: [id number] Name: AYSHA SAVAGE Rep #: [id number] : 1965 52 From: Momo Lopez DO [...] upper and lower extremities. Patient has normal configuration management advisor strength bilaterally. Extremities-intact 4, normal range of [...] neck pain.] This note was generated with ClaraStream dictation software. It may contain incorrect words, [...] your Primary Care Provider. Call [facility] ([phone]) or report to the closest Emergency Room. Call 911 if necessary. 03/23/182117 <Electronically signed by Momo Lopez DO> Date Momo Lopez DO Cosigner Signature (If Indicated): Date CC: GERA BRODY EMERGENCY DEPARTMENT Observed: 03/18/2018 Status: F Source: [place] SUMMARY 9:[address] [facility] REPOSITORY [facility] Medical Records Department [address] [place] [address] Emergency Department Summary 03/18/18 2100 MR#: [id number] Acct: [id number] Name: AYSHA SAVAGE Rep #: [id number] : 1965 52 From: Rich Rogers MD [...] back pain This note was generated with ClaraStream dictation software. It may contain incorrect words, [...] problems, contact your Primary Care Provider. Call [facility] ([phone]) or report to the closest Emergency Room. Call 911 if necessary. 03/18/18 0778 <Electronically signed by Rich Rogers MD> Date Rich Rogers MD Cosigner Signature (If Indicated): Date CC: GERA BRODY DISCHARGE INSTRUCTION Observed: 03/18/2018 Status: F Source: [place] 9:[address] [facility] REPOSITORY [facility] Medical Records Department [address] [place] [address] Discharge Instruction 03/18/182101 MR#: [id number] Acct: [id number] Name: AYSHA SAVAGE Rep #: [id number] : 1965 52 From: Rich Rogers MD [...] your Primary Care Provider. Call [facility] ([phone]) or report to the closest Emergency Room. Call 911 if necessary. 03/18/182101 <Electronically signed by Rich Rogers MD> Date Rich Rogers MD Cosigner Signature (If Indicated): Date CC: GERA BRODY HEPATIC FUNCTN PANEL Collected: 03/12/2018 Status: F Source: [place] 12:38 PM CL[facility]IC MAIN CAMPUS REPOSITORY TYPE [...] #### HFP, MG1, TSH, B12, SERFOL #### [facility] [address] [place] [phone] MAGNESIUM Collected: 03/12/2018 Status: F Source: [place] [address] [place] [address] REPOSITORY TYPE CODE TESTS RESULT OUT OF REFERENCE UNITS RANGE LAB MG 1.7-2.3 mg/dL Magnesium 2.1 Performed By: #### HFP, MG1, TSH, B12, SERFOL #### [facility] [address] [place] [phone] TSH Collected: 03/12/2018 Status: F Source: [place] 12:[address] [place] [address] REPOSITORY TYPE CODE TESTS RESULT OUT OF RANGE REFERENCE UNITS LAB TSH 0.400-5.500 uU/mL TSH 2.790 Performed By: #### HFP, MG1, TSH, B12, SERFOL #### [facility] [address] [place] [phone] VITAMIN B12 Collected: 03/12/2018 Status: F Source: [place] [address] [place] [address] REPOSITORY TYPE CODE TESTS RESULT OUT OF REFERENCE UNITS RANGE LAB B12 232-1245 pg/mL Vitamin B12 628 Performed By: #### HFP, MG1, TSH, B12, SERFOL #### [facility] [address] [place] [phone] FOLATE, SERUM Collected: 03/12/2018 Status: F Source: [place] 12:[address] [place] [address] REPOSITORY TYPE CODE TESTS RESULT OUT OF REFERENCE UNITS RANGE LAB SERFOL >4.7 ng/mL Folate, 17.2 Serum Performed By: #### HFP, MG1, TSH, B12, SERFOL #### [facility] [address] [facility] [place] [address] CERV SPINE OBL/FLEX/EXT Observed: 03/06/2018 Status: F Source: [place] COMP 4:[address] [facility] REPOSITORY [facility] Imaging Services [address] [place] [address] Cerv Spine Obl/Flex/Ext Comp MR#: [id number] Acct: [id number] Name: AYSHA SAVAGE Rep #: [id number] : 1965 M 52 From: Brunilda Shah MD PCP: GERA BRODY Status: REG CLI Study: Cerv Spine Obl/Flex/Ext Comp Date of Exam: 03/06/18 Exam# [id number] Ordering Dr: GLORIA ROLAND STUDY: X-RAY - [...] Shah MD at 16:10 EDT Tel Direct: [phone], Service support , CC: GERA BRODY; GLORIA ROLAND Zyglo Technician: Signed PROGRESS Observed: 02/12/2018 Status: COMPLETED Source: [place] 4:00 PM CLINIC OTHER CAMPUS REPOSITORY HNO ID: [id number] Author: Herbert Slaughter Service: (none) Author Type: [...] medical record. REFERRING PHYSICIAN: Gera Brody MD [address] [facility] [address] [facility] [address] Accompanied by: Self ASSESSMENT: 52 year old [...] gait. Normal tandem gait. Herbert Slaughter M.D. [facility] Department of Neurology February 12, 2018 Total time in minutes spent with patient, reviewing records, labs, imaging, formulating plan, and documentin minutes with more than 50% of the time spent in patient education/counselling/coordinating care with the patient and /or family. CNOV Observed: 02/12/2018 Status: COMPLETED Source: [place] 4:00 PM [facility] OTHER CAMPUS REPOSITORY Office Visit (SILASEURRP) AYSHA SAVAGE ([id number]) 1965 M Date Time Provider Department 02/12/18 [...] medical record. REFERRING PHYSICIAN: Gera Brody MD [address] [facility] [address] [facility] [address] Accompanied by: Self ASSESSMENT: 52 year old [...] gait. Normal tandem gait. Herbert Slaughter M.D. [facility] Department of Neurology February 12, 2018 Total time in minutes spent with patient, reviewing records, labs, imaging, formulating plan, and documentin minutes with more than 50% of the time spent in patient education/counselling/coordinating care with the patient and /or family. Referring Provider: GERA BRODY [[id number]] Allergies As of Date: 02/12/2018 (No Known Allergies) Date Reviewed: 02/12/2018 Reviewed by: Alyssa Sosa) Patsy - Fully Assessed Primary Visit Diagnosis:Spells of decreased attentiveness [R68.89] Order(s):EEG ROUTINE NEURO [6989696] Order #: [id number] VITAMIN B12 BLOOD [SQB12] Order #: [id number] FUTURE TSH BLD [SQTSH] Order #: [id number] FUTURE MAGNESIUM BLD [SQMG1] Order #: [id number] FUTURE FOLATE SERUM [SQSERFOL] Order #: [id number] FUTURE HEPATIC FUNCTION PNL [SQHFP] Order #: [id number] FUTURE magnesium oxide (MAG-OX) 400 mg tabletTake 1 tablet by mouth once daily.Disp: 30 tabletRfl: 6 US CAROTID BILAT [3245666] Order #: [id number] FUTURE topiramate (TOPAMAX) 25 mg tabletTake 1 [...] LEAD ELECTROCARDIOGRAM Observed: 02/12/2018 Status: F Source: [place] 2:[address] [facility] REPOSITORY [facility] Cardiovascular [place] [place] [address] 12 Lead EKG 02/09/18 2215 MR#: [id number] Acct: [id number] Name: AYSHA SAVAGE Rep #: [id number] : 1965 52 From: Aston Obrien MD [...] Normal sinus rhythm Normal ECG Confirmed by CLEO DC, ASTON ([id number]), society editor GERDA MALIK ([id number]) on 02/12/2018 2:52:18 PM Referred By: SHANIKA Confirmed By:ASTON OBRIEN MD 02/12/18 1452 Date Aston Obrien MD CC: GERA BRODY; Jameson Zamora MD Signed ANES POST Observed: 02/10/2018 Status: COMPLETED Source: [place] 4:00 PM CLINIC OTHER CAMPUS REPOSITORY O ID: [id number] Author: Jered Patel Service: Anesthesiology Author Type: [...] OPERATIVE NO Observed: 02/10/2018 Status: COMPLETED Source: [place] 3:28 PM [facility] OTHER CAMPUS REPOSITORY HNO ID: [id number] Author: Armen Earl Service: Urology Author Type: [...] fashion. Pressure points were padded. A 21 Lithuanian sheath rigid cystoscope was advanced through the urethra and into the bladder. There was mild bilateral lateral lobe hypertrophy of the prostate. After thorough inspection bladder mucosa appeared normal with two ureteral orifices in orthotopic position. Retrograde pyelograms were performed. A 8 macedonian cone tip catheter was used to inject [...] Savage DATE: 02/10/2018 TIME: 3:28 PM PAGER: [phone] BRIEF OP NOT Observed: 02/10/2018 Status: COMPLETED Source: [place] 3:27 PM [facility] REPOSITORY O ID: [id number] Author: Armen Earl Service: Urology Author Type: Resident Type: Brief Op Note Filed: 02/10/2018 3:28 PM Note Text: Attestation signed by Yanira Dyer at 02/10/2018 4:27 PM I was present for the entire case and was immediately available to provide assistance during any critical and sandra portions of the surgery Yanira Dyer MD UROLOGY BRIEF OPERATIVE NOTE Date: 02/10/2018 Patient Name: Aysha Savage Date of : 1965 Surgeon: Yanira Dyer MD Acoustical Material Worker: Armen Earl MD Anesthesia: General Preop Diagnosis: Hematuria Postop Diagnosis: Same Procedure: Cystoscopy, retrograde pyelograms, digital rectal exam Estimated Blood Loss: <50cc Findings: See OP note Specimens: None Complications: None SIGNATURE: Armen Earl MD PATIENT NAME: Aysha Savage DATE: February 10, 2018 TIME: 3:27 PM PAGER/CONTACT #: [phone] UROGRAM RETROGRADE Observed: 02/10/2018 Status: F Source: [place] 2:15 PM [facility] REPOSITORY Performed at [facility] APPROVED BY: Franklin Guy MD Exam: Fluoroscopy [...] ANES PREOP Observed: 02/10/2018 Status: COMPLETED Source: [place] 12:20 PM [facility] REPOSITORY HNO ID: [id number] Author: Arthur Armas Service: Anesthesiology Author Type: [...] February 10, 2018 TIME: 12:20 PM CSN: [id number] EMERGENCY DEPARTMENT Observed: 02/10/2018 Status: F Source: [place] SUMMARY 2:[address] [facility] REPOSITORY [facility] Medical Records Department [address] [place] [address] Emergency Department Summary 02/09/18 2234 MR#: [id number] Acct: [id number] Name: AYSHA SAVAGE Rep #: [id number] : 1965 52 From: Jameson Zamora MD [...] suspected malingering This note was generated with [employer]Stream dictation software. It may contain incorrect words, [...] your Primary Care Provider. Call [facility] ([phone]) or report to the closest Emergency Room. Call 911 if necessary. 02/10/18 0219 <Electronically signed by Jameson Zamora MD> Date Jameson Zamora MD Cosigner Signature (If Indicated): Date CC: GERA BRODY DISCHARGE INSTRUCTION Observed: 02/10/2018 Status: F Source: [place] 2:19 AM [facility] Medical Records Department [address] [place] [address] Discharge Instruction 02/09/18 2328 MR#: [id number] Acct: [id number] Name: AYSHA SAVAGE Rep #: [id number] : 1965 52 From: Jameson Zamora MD PCP: GERA BRODY Status: [facility] ER ED Disposition - Plan for ED Patient: Disposition: Home or Assisted Living Chief Complaint: Dizziness Instructions: ED Dizziness [facility] Referrals: Gera Brody [Primary Care Provider] - What to do if you have Problems For any increased pain, shortness of breath, bleeding, nausea or vomiting, chest pain, or any unexpected problems, contact your Primary Care Provider. Call [facility] ([phone]) or report to the closest Emergency Room. Call 911 if necessary. 02/10/18 0219 <Electronically signed by Jameson Zamora MD> Date Jameson Zamora MD Cosigner Signature (If Indicated): Date CC: GERA HAND Observed: 02/10/2018 Status: COMPLETED Source: [place] 12:00 AM CLINIC OTHER CAMPUS REPOSITORY Telephone (AKPRAD) AYSHA SAVAGE ([id number]) 1965 M Date Time Provider Department 02/10/18 YANIRA DYER During your visit today, we recorded the following information about you: Yanira Dyre MD 02/10/2018 2:25 PM Signed S/p negative cysto and HUSSAIN- tell pt to call if any additional bleeding, no f/u needed Maritza Nava Coord 02/11/2018 9:09 AM Signed LM for patient to call back. Maritza Nava Coord Allergies As of Date: 02/10/2018 (No Known Allergies) Date Reviewed: 02/10/2018 Reviewed by: Koki RoseRn) VALERIA Krishnamurthy - Fully Assessed Reason for [...] 02/10/18 YAZAN Observed: 02/10/2018 Status: COMPLETED Source: [place] 12:00 AM [facility] REPOSITORY Telephone (AKPRAD) AYSHA SAVAGE ([id number]) 1965 M Date Time Provider Department 02/10/18 YANIRA DYER During your visit today, we recorded the following information about you: Yanira Dyer MD 02/10/2018 2:46 PM Signed See if PCP has a PSA- if not will have to order one- thx Georgie Latham CMA 02/10/2018 2:53 PM Signed PSA in [facility] from 10/2017. 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 REPOSITORY TYPE CODE TESTS RESULT OUT OF [...] GAP 9 Performed By: #### L500.2500 #### [facility] [address] [place], [address] OBSOLETE Observed: 02/06/2018 Status: COMPLETED Source: [place] 12:00 AM CLINIC OTHER CAMPUS REPOSITORY Refill ([facility]) SHAWNAYSHA ([id number]) 1965 M Date Time Provider Department 02/06/18 GERA BRODY [facility] During your visit today, we recorded the following information about you: Atul Ramirez CMA 02/06/2018 10:00 AM Signed Pharmacy faxed requesting the following refill. Pending Prescriptions Disp Refills XARELTO 20 MG TABLET 90 tablet 1 Sig: TAKE ONE TABLET BY MOUTH ONCE DAILY WITH DINNER ADRIANA: No Last refill: 11/11/2017 Patient last appointment: 10/27/2017 Patient next appointment: 04/27/2018 Patient Phone numbers: [phone] (home) Request is for script(s) to be escript to pharmacy. Atul Ramirez CMA Allergies As of Date: 02/06/2018 (No Known Allergies) Date Reviewed: 02/02/2018 Reviewed by: Atul Chen (Sigifredo) SIGIFREDO Arthur.CLOTH WEIGHER - Fully Assessed Reason for Visit: Refill [...] 02/06/18 PROGRESS Observed: 02/03/2018 Status: COMPLETED Source: [place] 11:37 AM [facility] OTHER CAMPUS REPOSITORY HNO ID: [id number] Author: Nicci Andres APRN.CNP Service: Anesthesiology Author Type: Nurse Practitioner Type: Progress Notes Filed: 02/03/2018 11:57 AM Note Text: RED DOT FOLLOW UP: I reviewed the chart in [facility] , ED note from nickie 01/03/18. CT scan brain 01/03/18 with anesthesia . Per this patient is ok to proceed with planned procedure. PROGRESS Observed: 02/02/2018 Status: COMPLETED Source: [place] 12:15 PM [facility] REPOSITORY HNO ID: [id number] Author: Atul Arthur Service: (none) Author Type: [...] Observed: 02/02/2018 Status: F Source: [facility] CULT URINE 12:03 PM [facility] REPOSITORY Test performed at [facility] <10,000 CFU/ml gram positive organisms cultured. No further identification or susceptibility testing will be performed. Plates will be held for 5 days. Performed By: #### C_URI #### [facility] [address] Observed: 02/02/2018 Status: COMPLETED Source: [place] 11:20 AM [facility] [place] REPOSITORY [facility] AYSHA SAVAGE ([id number]) 1965 M Date Time Provider Department 02/02/18 11:20 AM PST [facility] 1 [facility] During your visit today, we recorded the following information about you: Temperature Pulse Respiration Blood pressure 97.9 degrees 73/minute 18/minute 152/92 Weight Height 93 kg 1.829 m Atul Arthur, SAFETY INTERN 02/02/2018 12:17 PM Signed HISTORY AND PHYSICAL [...] Initiated: Paper order from surgeon entered into [facility]- urine culture Planned Anesthetic: MAC Instructions Given to Patient: Patient given verbal and written preop instructions and voices comprehension and compliance. 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 - Stop Vitamin E, [...] prescribed. Please bring inhalers. Call PCP or tension machine operator for directions regarding your diabetes medications for [...] PCP prescribes Xarelto. Referring Provider: YANIRA DYER [[id number]] Allergies As of Date: 02/02/2018 (No Known Allergies) Date Reviewed: 02/02/2018 Reviewed by: Atul Arthur - Fully Assessed Reason for Visit: Hematuria [335] Primary Visit Diagnosis:Pre-op exam [Z01.818] Order(s):URINE CULTURE [SQURCUL] Order #: [id number] FUTURE Prescriptions as of 02/02/2018 Sig: RIVAROXABAN [...] encounter LISINOPRIL 20 MG TABLET >> Atul Arthur 02/02/2018 11:38 AM >> ATUL ARTHUR SAFETY INTERN FriFeb 02, 2018 11:38 AM Not taking MELOXICAM 7.5 MG TABLET >> Atul Arthur, 02/02/2018 11:38 AM >> ATUL ARTHUR [facility] [employer] FriFeb 02, 2018 11:38 AM Not taking METOPROLOL SUCCINATE ER 50 MG TABLET,EXTENDED RELEASE 24 HR >> Atul Arthur, 02/02/2018 11:38 AM >> ATUL ARTHUR [facility] FriFeb 02, 2018 11:38 AM Not taking BUSPIRONE 10 MG TABLET >> Atul Arthur, 02/02/2018 11:38 AM >> ATUL ARTHUR [facility] FriFeb 02, 2018 11:38 AM Not taking MORPHINE ER 15 MG TABLET,EXTENDED RELEASE >> Atul Arthur, 02/02/2018 11:39 AM >> ATUL ARTHUR [facility] FriFeb 02, 2018 11:39 AM Not taking Problem List As Of Date 02/02/2018 Noted Resolved Postlaminectomy syndrome [M96.1] INVALID FOR* Migraine with typical aura [G43.109] INVALID FOR* 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 - Stop Vitamin E, [...] prescribed. Please bring inhalers. Call PCP or tension machine operator for directions regarding your diabetes medications for [...] HISTORY PHYSICAL Observed: 02/02/2018 Status: COMPLETED Source: [place] 8:47 AM CLINIC OTHER CAMPUS REPOSITORY O ID: [id number] Author: Atul Arthur Service: (none) Author Type: [...] Initiated: Paper order from surgeon entered into [facility]- urine culture Planned Anesthetic: MAC Instructions Given to Patient: Patient given verbal and written preop instructions and voices comprehension and compliance. SIGNATURE: Atul Arthur APRN PATIENT NAME: Aysha Savage DATE: February 02, 2018 TIME: 8:47 AM PAGER/CONTACT #: 12 LEAD ELECTROCARDIOGRAM Observed: 01/28/2018 Status: F Source: [place] 3:[address] [facility] REPOSITORY [facility] Cardiovascular Services [address] [place] [address] 12 Lead EKG 01/26/18 1843 MR#: [id number] Acct: [id number] Name: AYSHA SAVAGE Rep #: [id number] : 1965 52 From: Aston Obrien MD Attending Dr: Status: DEP ER Ordering Dr: Provider, Ed P. Date: 01/26/18 Location: ED Sex: M [...] ECG Confirmed by ASTON OBRIEN MD ([id number]), society editor GERDA MALIK ([id number]) on 01/28/2018 3:41:59 PM Referred By: Confirmed By:ASTON OBRIEN MD 01/28/18 1542 Date Aston Obrien MD CC: GERA BRODY; ED PHYSICIAN PROVIDER Signed EMERGENCY DEPARTMENT Observed: 01/27/2018 Status: F Source: [place] SUMMARY 3:[address] [facility] REPOSITORY [facility] Medical Records Department [address] [place] [address] Emergency Department Summary 01/26/18 2343 MR#: [id number] Acct: [id number] Name: AYSHA SAVAGE Rep #: [id number] : 1965 52 From: Jillian Jaimes MD [...] risks of leaving AGAINST MEDICAL ADVICE including [place] and . Patient understands and signed out AGAINST MEDICAL ADVICE. Disposition: AGAINST MEDICAL ADVICE Impression: Chest pain This note was generated with ClaraStream dictation software. It may contain incorrect words, [...] your Primary Care Provider. Call [facility] ([phone]) or report to the closest Emergency Room. Call 911 if necessary. 01/27/18 0330 <Electronically signed by Jillian Jaimes MD> Date Jillian Jaimes MD Cosigner Signature (If Indicated): Date CC: GERA BRODY DISCHARGE INSTRUCTION Observed: 01/26/2018 Status: F Source: [place] 11:[address] [facility] REPOSITORY [facility] Medical Records Department [address] [address] [address] Discharge Instruction 01/26/18 2345 MR#: [id number] Acct: [id number] Name: AYSHA SAVAGE Rep #: [id number] : 1965 52 From: Jillian Jaimes MD [...] your Primary Care Provider. Call [facility] ([phone]) or report to the closest Emergency Room. Call 911 if necessary. 01/26/18 5223 <Electronically signed by Jillian Jaimes MD> Date Jillian Jaimes MD Cosigner Signature (If Indicated): Date CC: GERA BRODY TROPONIN-I Collected: 01/26/2018 Status: F Source: [place] 10:[address] [facility] REPOSITORY Order Comment: 'TROP' Serial specimen #1, #2, #3, or #4: 2 TYPE CODE TESTS RESULT OUT OF RANGE REFERENCE UNITS LAB L501.4010 <0.06 ng/mL Normal < 0.02 TROPONIN-I Result Comment: TROPONIN-I EXPECTED VALUES <0.05 NEGATIVE 0.06 - 0.59 AT RISK OF [place] > OR = 0.60 SUGGEST [place] Performed By: #### L501.4010 #### [facility] [address] [place], [address] CBC W/DIFF, AUTOMATED Collected: 01/26/2018 Status: F Source: [place] 6:[address] [facility] REPOSITORY TYPE CODE TESTS RESULT OUT OF [...] Lymph 1.76 Performed By: #### L100.0100 #### [facility] [address] [place], [address] BASIC METABOLIC Collected: 01/26/2018 Status: F Source: [place] PROFILE ([facility]) 6:[address] [facility] REPOSITORY Order Comment: 'TROP' Serial specimen #1, [...] 5 Performed By: #### L500.2500, L501.4010 #### [facility] [address] [facility] [place], [address] TROPONIN-I Collected: 01/26/2018 Status: F Source: [place] 6:[address] [facility] REPOSITORY Order Comment: 'TROP' Serial specimen #1, #2, #3, or #4: 1 TYPE CODE TESTS RESULT OUT OF RANGE REFERENCE UNITS LAB L501.4010 <0.06 ng/mL Normal < 0.02 TROPONIN-I Result Comment: TROPONIN-I EXPECTED VALUES <0.05 NEGATIVE 0.06 - 0.59 AT RISK OF [place] > OR = 0.60 SUGGEST [place] Performed By: #### L500.2500, L501.4010 #### [facility] [address] [place], [place], [address] CHEST PA AND LATERAL Observed: 01/26/2018 Status: F Source: [place] 6:[address] [facility] REPOSITORY [facility] Imaging Services [address] [place] [address] Chest PA and Lateral MR#: [id number] Acct: [id number] Name: AYSHA SAVAGE Rep #: [id number] : 1965 M 52 From: Maggie Malik MD PCP: GERA BRODY Status: PRE ER Study: Chest PA and Lateral Date of Exam: 01/26/18 Exam# [id number] Ordering Dr: Vidhi, Dionicio P. STUDY: X-RAY CHEST REASON FOR EXAM: [...] , CC: GERA BRODY; ED PHYSICIAN PROVIDER Zyglo Technician: Signed HOSP Observed: 01/12/2018 Status: COMPLETED Source: [place] 12:00 AM CLINIC OTHER CAMPUS REPOSITORY Patient:Aysha Savage MRN: <[id number]> Height:6' 0(1.829 m) Weight:205 lb (92.987 kg) [...] Patient next appointment: 04/27/2018 Patient Phone numbers: [phone] (home) Request is for script(s) to be escript to pharmacy. Atul Ramirez CMA Progress Notes (PRE SURG TESTING [facility]): Atul Arthur APRN.YONI PASTRANA 02/02/2018 12:17 PM Signed HISTORY AND [...] Initiated: Paper order from surgeon entered into [facility]- urine culture Planned Anesthetic: MAC Instructions Given to Patient: Patient given verbal and written preop instructions and voices comprehension and compliance. 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 - Stop Vitamin E, [...] prescribed. Please bring inhalers. Call PCP or tension machine operator for directions regarding your diabetes medications for [...] regret any inconvenience. Previous Version Atul Arthur, SAFETY INTERN.CLOTH WEIGHER, SAFETY INTERN.CLOTH WEIGHER 02/02/2018 12:19 PM Addendum Please have anesthesia [...] LEAD ELECTROCARDIOGRAM Observed: 01/07/2018 Status: F Source: [place] 2:[address] [facility] REPOSITORY [facility] Cardiovascular Services [address] [place] [address] 12 Lead EKG 01/03/18 2151 MR#: [id number] Acct: [id number] Name: AYSHA SAVAGE Rep #: [id number] : 1965 52 From: Fausto Dean MD [...] Abnormal ECG Confirmed by PENELOPE DC, FAUSTO ([id number]), society editor GERDA MALIK ([id number]) on 01/07/2018 2:11:31 PM Referred By: KRISTINE Confirmed By:FAUSTO DEAN MD 01/07/18 1411 Date Fausto Dean MD CC: GERA BRODY; Jameson Zamora MD Signed EMERGENCY DEPARTMENT Observed: 01/04/2018 Status: F Source: [place] SUMMARY 6:[address] [facility] REPOSITORY [facility] Medical Records Department [address] [place] [address] Emergency Department Summary 01/03/18 2213 MR#: [id number] Acct: [id number] Name: AYSHA SAVAGE Rep #: [id number] : 1965 52 From: Jameson Zamora MD [...] suspected malingering This note was generated with ClaraStream dictation software. It may contain incorrect words, [...] problems, contact your Primary Care Provider. Call [facility] ([phone]) or report to the closest Emergency Room. Call 911 if necessary. 01/04/18 7081 <Electronically signed by Jameson Zamora MD> Date Jameson Zamora MD Cosigner Signature (If Indicated): Date CC: GERA BRODY DISCHARGE INSTRUCTION Observed: 01/04/2018 Status: F Source: [place] 6:[address] [facility] REPOSITORY [facility] Medical Records Department [address] [place] [address] Discharge Instruction 01/03/180 MR#: [id number] Acct: [id number] Name: AYSHA SAVAGE Rep #: [id number] : 1965 52 From: Jamesno Zamora MD PCP: GERA BRODY Status: DEP [...] your Primary Care Provider. Call [facility] ([phone]) or report to the closest Emergency Room. Call 911 if necessary. 01/04/18 0655 <Electronically signed by Jameson Zamora MD> Date Jameson Zamora MD Cosigner Signature (If Indicated): Date CC: GEAR BRODY BASIC METABOLIC Collected: 01/03/2018 Status: F Source: [place] PROFILE (BMP) 10:[address] [facility] REPOSITORY Order Comment: 'TROP' Serial specimen #1, [...] 6 Performed By: #### L500.2500, L501.4010 #### [facility] [address] [place], [place], [address] TROPONIN-I Collected: 01/03/2018 Status: F Source: [place] 10:[address] [facility] REPOSITORY Order Comment: 'TROP' Serial specimen #1, #2, #3, or #4: 1 TYPE CODE TESTS RESULT OUT OF RANGE REFERENCE UNITS LAB L501.4010 <0.06 ng/mL Normal < 0.02 TROPONIN-I Result Comment: TROPONIN-I EXPECTED VALUES <0.05 NEGATIVE 0.06 - 0.59 AT RISK OF [place] > OR = 0.60 SUGGEST [place] Performed By: #### L500.2500, L501.4010 #### [facility] [address] [place], [address] CHEST 1 VIEW Observed: 01/03/2018 Status: F Source: [place] (PORTABLE) 10:11 PM [facility] HOSPITAL REPOSITORY [facility] Imaging Services [address] [place] [address] Chest 1 View (Portable) MR#: [id number] Acct: [id number] Name: AYSHA SAVAGE Rep #: [id number] : 1965 M 52 From: Jesus Quezada MD PCP: GERA BRODY Status: REG ER Study: Chest 1 View (Portable) Date of Exam: 01/03/18 Exam# [id number] Ordering Dr: Jameson Zamora MD STUDY: X-RAY [...] , CC: GERA BRODY; Jameson Zamora MD Zyglo Technician: Signed BRAIN/HEAD WITHOUT Observed: 01/03/2018 Status: F Source: [place] CONTRAST 10:11 PM [facility] HOSPITAL REPOSITORY [facility] Imaging Services [address] [place] [address] Brain/Head without Contrast MR#: [id number] Acct: [id number] Name: AYSHA SAVAGE Rep #: [id number] : 1965 M 52 From: Homer Kaiser MD PCP: GERA BRODY Status: REG ER Study: Brain/Head without Contrast Date of Exam: 01/03/18 Exam# [id number] Ordering Dr: Jameson Zamora MD STUDY: CT [...] , CC: GERA BRODY; Jameson Zamora MD Zyglo Technician: Signed BEDSIDE GLUCOSE Collected: 01/03/2018 Status: F Source: [place] 9:[address] [facility] REPOSITORY TYPE CODE TESTS RESULT OUT OF RANGE REFERENCE UNITS LAB L501.080 70-110 mg/dL Normal BEDSIDE GLU 80 Result Comment: MANAGEMENT OF PATIENT CARE PER NURSING PROTOCOL Performed By: #### L501.080 #### [facility] Laboratory Point of Care [address] [place] [address] DISCHARGE SUMMARY Observed: 12/23/2017 Status: F Source: [place] 7:[address] [facility] REPOSITORY [facility] Medical Records Department [address] [place] [address] Discharge Summary 12/06/17 1318 MR#: [id number] Acct: [id number] Name: AYSHA SAVAGE Rep #: [id number] : 1965 52 From: Brandy GUSMAN PCP: GERA BRODY Status: DIS BINDU Y Location: [place] [address] ADDENDUM by UZMA Chaney on 12/06/17 at [...] 12/06/17 1332 <Electronically signed by Brandy Chaney LAND SURVEYOR MANAGER-C> Date Brandy Chaney LAND SURVEYOR MANAGER-C Cosigner Signature (if applicable): Date CC: LAND SURVEYOR MANAGER-C Brandy Chaney; GERA BRODY; Irais Perkins Signed CNPN Observed: 12/22/2017 Status: COMPLETED Source: [place] 12:00 AM [facility] REPOSITORY Telephone ([facility]) AYSHA SAVAGE ([id number]) 1965 M Date Time Provider Department 12/22/17 GERA BRODY [facility] During your visit today, we recorded the following information about you: Martín Gardner Tool Coordinator 12/22/2017 1:39 PM Signed Order placed via [employer] online referrals portal for consult to neurology. Referral # [id number] Martín Gardner Tool Coordinator 12/24/2017 2:49 PM Signed Good Afternoon, This e-mail is a confirmation that your patient listed below has been scheduled for an appointment with [facility], should you have any questions or concerns regarding this appointment please contact the appropriate office directly: Medical Records (Please Note) x Medical Records Are Not Required: Referring Office ANDamp; Specialist Are Both On [facility]. Medical Records Are Required: Fax Appropriate Records Including: Order, Last Office Note, ANDamp; Any Necessary Imaging/Labs/Etc. To: Additional Office Location Information ANDamp; Phone Numbers x [facility] ? [facility] [facility], [address], [place] [address] ? Allergies As of Date: 12/22/2017 (No [...] been se*INVALID FOR* Deep vein thrombosis (DVT) ([facility]) [I82.409] 04/30/2017 History of DVT of lower extremity- 2009 [Z86.71*INVALID FOR* Chronic back pain [M54.9, G89.29] INVALID FOR* Mood disorder ([facility]) [F39] INVALID FOR* HTN (hypertension) [I10] Hypothyroidism [E03.9] Smoking [F17.200] Asthma [J45.909] 10/30/2016 Bipolar disease, chronic ([facility]) [F31.9] INVALID FOR* Family history of colon [...] 12/22/17 YAZAN Observed: 12/19/2017 Status: COMPLETED Source: [place] 12:00 AM [facility] [place] REPOSITORY Telephone ([facility]) AYSHA SAVAGE ([id number]) 1965 M Date Time Provider Department 12/19/17 GERA BRODY [facility] During your visit today, we recorded the [...] She stated that the pt was in [facility] with symptoms of a stroke on 12/10/2017 but a stroke was ruled out (hospital encounter is in epic) she states that he is still having symptoms and wanted to know if you feel it would be an issue for him to go off of his Xarelto. Please advise. DANNIE Melara, MD 12/20/2017 3:16 PM Signed Tell the [...] Neurology. Colonoscopy has already been cancelled in [facility] but I will call Sharita tomorrow when she gets back in. Merced Blackwood Stephan 12/23/2017 9:25 AM Signed Khadijah from the [...] [Z86.718] Order(s):CONSULT TO NEUROLOGY [9019] Order #: [id number]: 1 Prescriptions as of 12/19/2017 Sig: RIVAROXABAN [...] 12/20/17 PROGRESS Observed: 12/18/2017 Status: COMPLETED Source: [place] 2:00 PM CLINIC OTHER CAMPUS REPOSITORY HNO ID: [id number] Author: Vijaya Oliva (Egg Pasteurizer) ZEINA Martin Service: (none) Author Type: Nurse Practitioner Type: Progress Notes Filed: 12/18/2017 2:53 PM Note Text: Chart routed to anesthesia for review given recent presentation to [facility] for possible TIA while on anticoagulation, unknown clotting disorder. Per Dr. Ike Malik, anesthesiologist, recommends waiting 3 months after ischemic stroke for an elective procedure per AHA 2014 perioperative guidelines. Will notify scheduling to cancel procedure. DISCHARGE INSTRUCTION Observed: 12/06/2017 Status: F Source: [place] 1:[address] [facility] REPOSITORY [facility] Medical Records Department [facility] [place] [address] Instructions for Home/Discharge Instructions 12/06/17 1315 MR#: [id number] Acct: [id number] Name: AYSHA SAVAGE Rep #: [id number] : 1965 52 From: Brandy GUSMAN PCP: [...] F Source: [place] NO DIFF 5:[address] [facility] REPOSITORY TYPE CODE TESTS RESULT OUT OF [...] MPV 9.8 Performed By: #### L100.0500 #### [facility] [address] [place], [address] BASIC METABOLIC Collected: 12/06/2017 Status: F Source: [place] PROFILE ([facility]) 5:[address] [facility] REPOSITORY TYPE CODE TESTS RESULT OUT OF [...] By: #### L500.2500, L500.4100, L501.5200, L501.9520 #### [facility] [address] [place], [place], [id number] LIPID PROFILE Collected: 12/06/2017 Status: F Source: [place] 5:[address] [facility] REPOSITORY TYPE CODE TESTS RESULT OUT OF [...] By: #### L500.2500, L500.4100, L501.5200, L501.9520 #### [facility] [address] [place], [place], [id number] MAGNESIUM Collected: 12/06/2017 Status: F Source: [place] 5:[address] [facility] REPOSITORY TYPE CODE TESTS RESULT OUT OF RANGE REFERENCE UNITS LAB L501.5200 1.6-2.6 mg/dL Normal MG 2.0 Result Comment: Please note revised Magnesium reference range effective 2017. Performed By: #### L500.2500, L500.4100, L501.5200, L501.9520 #### [facility] [address] [place], [place], [address] THYROID STIM HORMONE Collected: 12/06/2017 Status: F Source: [place] ([facility]) 5:[address] [facility] REPOSITORY TYPE CODE TESTS RESULT OUT OF RANGE REFERENCE UNITS LAB L501.9520 0.358-3.74 uIU/mL High TSH 5.39 Performed By: #### L500.2500, L500.4100, L501.5200, L501.9520 #### [facility] [address] [place], [address] BRAIN WITHOUT Observed: 12/06/2017 Status: F Source: [place] CONTRAST 4:[address] [facility] REPOSITORY [facility] Imaging Services [address] [place] [address] Brain without Contrast MR#: [id number] Acct: [id number] Name: AYSHA ASVAGE Rep #: [id number] : 1965 M 52 From: Gilson Berry MD PCP: GERA BRODY Status: ADM BINDU Study: Brain without Contrast Date of Exam: 12/06/17 Exam# [id number] Ordering Dr: Veronica Ocampo STUDY: MRI BRAIN [...] support , CC: GERA BRODY; Veronica Ocampo Zyglo Technician: Signed MRA NECK WITHOUT Observed: 12/06/2017 Status: F Source: [place] CONTRAST 4:[address] [facility] REPOSITORY [facility] Imaging Services [address] [place] [address] MRA Neck without Contrast MR#: [id number] Acct: [id number] Name: AYSHA SAVAGE Rep #: [id number] : 1965 M 52 From: Gilson Berry MD PCP: GERA BRODY Status: ADM BINDU Study: MRA Neck without Contrast Date of Exam: 12/06/17 Exam# [id number] Ordering Dr: Veronica Ocampo STUDY: MRA NECK [...] support , CC: GERA BRODY; Veronica Ocampo Zyglo Technician: Signed HISTORY AND PHYSICAL Observed: 12/06/2017 Status: F Source: [place] EXAM 4:[address] [facility] REPOSITORY [facility] Medical Records Department [address] [place] [address] History and Physical 12/06/17 0337 MR#: [id number] Acct: [id number] Name: AYSHA SAVAGE Rep #: [id number] : 1965 52 From: Veronica Ocampo PCP: GERA BRODY Status: ADM BINDU Y Location: [place] [address] Problem List (1) History of DVT (deep [...] Chronic Pain Syndrome who presents to the [facility] ED on 12/06/17 with history of onset [...] Chronic Pain Syndrome who presents to the [facility] ED on 12/06/17 with history of onset [...] xarelto. Code Visit OBSV E AND M: [id number] Initial observation care L3 12/06/17 0413 <Electronically signed by Veronica Ocampo > Date Veronica Ocampo Cosigner Signature: Date (if applicable) CC: GERA BRODY; Veronica Ocampo Signed EMERGENCY DEPARTMENT Observed: 12/06/2017 Status: F Source: [place] SUMMARY 3:[address] [facility] REPOSITORY [facility] Medical Records Department [address] [place] [address] Emergency Department Summary 12/06/17 0344 MR#: [id number] Acct: [id number] Name: AYSHA SAVAGE Rep #: [id number] : 1965 52 From: Robinson Rodriguez PCP: [...] 2. Cephalgia This note was generated with ClaraStream dictation software. It may contain incorrect words, spelling, and punctuation that were not noted in review of the chart prior to signing ED Disposition - Plan for ED Patient: Disposition: Acute Care Hospital [facility] Chief Complaint: Neuro S/Sx Diagnosis: TIA (transient ischemic attack), Cephalgia Referrals: Gera Brody [Primary Care Provider] - What to do if you have Problems For any increased pain, shortness of breath, bleeding, nausea or vomiting, chest pain, or any unexpected problems, contact your Primary Care Provider. Call [facility] ([phone]) or report to the closest Emergency Room. Call 911 if necessary. 12/06/17 0347 <Electronically signed by Robinson Rodriguez> Date Robinson Rodriguez Cosigner Signature (If Indicated): Date CC: GERA BRODY BRAIN/HEAD WITHOUT Observed: 12/06/2017 Status: F Source: [place] CONTRAST 1:[address] [facility] REPOSITORY [facility] Imaging Services [address] [place] [address] Brain/Head without Contrast MR#: [id number] Acct: [id number] Name: AYSHA SAVAGE Rep #: [id number] : 1965 M 52 From: Martin Lassiter MD PCP: GERA BRODY Status: REG ER Study: Brain/Head without Contrast Date of Exam: 12/06/17 Exam# [id number] Ordering Dr: Robinson Michel DO STUDY: CT [...] support , CC: GERA BRODY; Robinson Michel Zyglo Technician: Signed CBC W/DIFF, AUTOMATED Collected: 12/06/2017 Status: F Source: [place] 1:[address] [facility] REPOSITORY TYPE CODE TESTS RESULT OUT OF [...] Lymph 2.19 Performed By: #### L100.0100 #### [facility] [address] [place], [address] BASIC METABOLIC Collected: 12/06/2017 Status: F Source: [place] PROFILE (BMP) 1:[address] [facility] REPOSITORY Order Comment: 'TROP' Serial specimen #1, [...] 7 Performed By: #### L500.2500, L501.4010 #### [facility] [address] [place], [address] TROPONIN-I Collected: 12/06/2017 Status: F Source: [place] 1:[address] [facility] REPOSITORY Order Comment: 'TROP' Serial specimen #1, #2, #3, or #4: 1 TYPE CODE TESTS RESULT OUT OF RANGE REFERENCE UNITS LAB L501.4010 <0.06 ng/mL Normal < 0.02 TROPONIN-I Result Comment: TROPONIN-I EXPECTED VALUES <0.05 NEGATIVE 0.06 - 0.59 AT RISK OF [place] > OR = 0.60 SUGGEST [place] Performed By: #### L500.2500, L501.4010 #### [facility] [address] [place], [address] PROTHROMBIN TIME W/INR Collected: 12/06/2017 Status: F Source: [place] 1:[address] [facility] REPOSITORY TYPE CODE TESTS RESULT OUT OF RANGE REFERENCE UNITS LAB L300.4150 11.7-14.9 SECONDS Normal PROTIME 13.9 LAB L300.4200 Normal INR 1.1 Performed By: #### L300.3900, L300.4310 #### [facility] [address] [place], [address] PARTIAL THROMBOPLAST Collected: 12/06/2017 Status: F Source: [place] TIME 1:[address] [facility] REPOSITORY TYPE CODE TESTS RESULT OUT OF RANGE REFERENCE UNITS LAB L300.4310 24.1-36.2 Seconds Normal PTT 29.6 Performed By: #### L300.3900, L300.4310 #### [facility] [address] [place], [address] BEDSIDE GLUCOSE Collected: 12/06/2017 Status: F Source: [place] 12:[address] [facility] REPOSITORY TYPE CODE TESTS RESULT OUT OF RANGE REFERENCE UNITS LAB L501.080 70-110 mg/dL Normal BEDSIDE GLU 93 Result Comment: MANAGEMENT OF PATIENT CARE PER NURSING PROTOCOL Performed By: #### L501.080 #### [facility] Point of Care [address] [place] [address] ALLERGIES ALLERGIES DATE TYPE / CODE NAME / CODE REACTION SEVERITY SOURCE 10/30/2018 Drug No Known Unknown [facility] Allergy/416 Allergies/M14458 Hospital 317667(SNOM 0388(RXNORM) Repository ED CT) Drug NO KNOWN [facility] Class/94433 ALLERGIES [facility] [place] 1003(SNOMED Repository CT) NG/[id number] NO KNOWN [facility] 6(SNOMED ALLERGIES Health System CT) Repository ENCOUNTERS ENCOUNTERS ADMIT/DISCHARGE ACCOUNT NUMBER ADMITTING ENCOUNTER LOCATION SOURCE CLASS 12/02/2018 [id number] Ambulatory [facility] ding:PT Repository 10/30/2018/10/30/20 [id number] Emergency [address] ding:ED Repository 10/26/2018/10/26/20 [id number] Ambulatory [address] Other [place] Repository 10/26/2018/10/26/20 [id number] Ambulatory [address] MEDICAL Repository CENTERBuildi ng:AGPOB1 10/22/2018/10/22/20 [id number] Ambulatory [address] Other [place] Repository 10/22/2018/10/22/20 [id number] Ambulatory [address] MEDICAL Repository CENTERBuildi ng:AKMRB 10/05/2018/10/05/20 [id number] Ambulatory [address] Other [place] Repository 10/05/2018/10/05/20 [id number] Ambulatory [address] MEDICAL Repository CENTERBuildi ng:AGPOB1 09/28/2018/09/29/20 [id number] Ambulatory [address] Main [place] Repository 09/14/2018/09/14/20 [id number] Emergency [address] ding:ED Repository 09/03/2018/09/03/20 [id number] Ambulatory [address] Main [place] Repository 09/03/2018/09/03/20 [id number] Ambulatory [address] [place] Repository 08/17/2018/08/17/20 [id number] Ambulatory [address] [place] Repository 08/17/2018/08/18/20 [id number] Ambulatory [address] Main [place] Repository 07/24/2018 [id number] Ambulatory [facility] Main [place] Repository 07/21/2018/07/21/20 [id number] Ambulatory [address] [place] Repository 07/09/2018/07/10/20 [id number] Emergency Nickie[address] ding:ED Repository 07/07/2018/07/07/20 [id number] Ambulatory [address] [place] Repository 07/07/2018/07/08/20 [id number] Ambulatory [address] [place] Repository 05/30/2018/05/30/20 [id number] Emergency [address] [place] [address] EDRoom: System ([place]) M539Yxu: Repository E009 04/27/2018/04/27/20 [id number] Emergency [address] ding:ED Repository 04/27/2018 [id number] Ambulatory [facility] MEDICAL Repository CENTERBuildi ng:[id number] 03/23/2018/03/23/20 [id number] Emergency [address] ding:ED Repository 03/23/2018 [id number] Ambulatory [facility] MEDICAL Repository CENTERBuildi ng:AKVASLB 03/23/2018 [id number] Ambulatory [facility] MEDICAL Repository CENTERBuildi ng:AKNEUR 03/18/2018/03/18/20 [id number] Emergency [address] ding:ED Repository 03/12/2018 [id number] Ambulatory [facility] Repository 03/06/2018 [id number] Ambulatory [facility] ding:MTRAD Repository 02/12/2018/02/13/20 [id number] Ambulatory [address] Other [place] Repository 02/12/2018/02/13/20 [id number] Ambulatory [address] MEDICAL Repository CENTERBuildi ng:AGNEURRP 02/10/2018/02/11/20 [id number] YANIRA DYER Ambulatory [address] Other [place] Repository 02/10/2018/02/11/20 [id number] Ovi DYER Inpatient [address] [facility]ICAL [facility]AKORRoom: POOLBed: 25 02/09/2018/02/10/20 [id number] Emergency [address] ding:ED Repository 02/02/2018 [id number] Ambulatory [facility] Repository 02/02/2018/02/03/20 [id number] Ambulatory [address] MEDICAL Repository CENTERBuildi ng:AKLB 02/02/2018 [id number] Ambulatory [facility] Repository 02/02/2018 [id number] Ambulatory [facility] MEDICAL Repository CENTERBuildi ng:AKPAT 01/26/2018/01/28/20 [id number] Emergency Nickie Nickie [address] [place] [address] ding:ED Repository 01/03/2018/01/03/20 [id number] Emergency [place] [facility]ie [facility] ding:ED Repository 12/24/2017 [id number] SALVINO, Ambulatory MOSAMUEL [facility] M.D. [facility] MEDICAL Repository CENTERBuildi ng:AKASCOR 12/24/2017 [id number] KWADWOINO, Ambulatory [facility] Ovi [facility] MEDICAL Repository CENTERBuildi ng:AKASCOR 12/06/2017/12/06/19 [id number] White, Ambulatory [place] [address] [place] [address] ding:PCURoom Repository : [id number]: 1 PAYERS PAYERS ENCOUNTER GUARANTOR PAYER SUBSCRIBER SOURCE 12/02/2018 AYSHA FRIAS E Primary SOLANGE SHAWNDOB: Nickie [address] Insurance:MEDICARE [id number] [address]Tel: (330) Number: Repository [phone] () [id number] Date:2005-12-18 12/02/2018 Secondary AYSHA Riley ISABELLAB: [place] [facility] [id number] Number: [facility] [id number] Repository Date:2018-10-17 12/02/2018 Tertiary NOT GIVENUNK [place] Insurance:SELF PAY [facility] Number: Effective Repository Date:2018-10-27 10/30/2018 SOLANGE [id number] E Primary SOLANGE ELEAZARXDOB: Nickie [address] Insurance:MEDICARE [id number] [address]Tel: (330) Number: Repository [phone] () [id number] Date:2018-10-30 10/30/2018 Secondary SOLANGE ISABELLAB: [place] Insurance:MEDICAIDPol [id number] Community icy Number: Hospital [id number] Repository Date:2018-10-30 10/30/2018 Tertiary NOT GIVENUNK [place] Insurance:SELF PAY [facility] Number: Effective Repository Date:2018-10-30 10/26/2018 AYSHA Riley ELEAZARXDOB: Primary SOLANGE MARXDOB: [facility] E Insurance:MEDICARE A [id number] County Health Center [facility] InstituteT AND BPolicy Number: Repository [address] [place] [address] [id number]: (330) Date: [phone] () 10/26/2018 Secondary SOLANGE MARXDOB: [facility] Insurance:[place] [id number] [facility] MEDICAIDPolicy Repository Number: [id number] Date: 10/22/2018 SOLANGE MARXDOB: Primary [facility] Insurance:MEDICARE A [id number] Scott & [facility] AND [facility] Number: Repository [address] [place] [address] [id number]: (330) Date: [phone] () 10/22/2018 Secondary SOLANGE MARXDOB: [facility] [place] [id number] [facility] MEDICAIDPolicy Repository Number: [id number] Date: 10/05/2018 SOLANGE ELEAZARXDOB: Primary SOLANGE MARXDOB: [facility] E Insurance:MEDICARE A [id number] Scott & [facility] AND olicy Number: Repository [address] [place] [address] [id number]: (330) Date: [phone] () 10/05/2018 Secondary SOLANGE MARXDOB: [facility] Insurance:[place] [id number] [facility] MEDICAIDPolicy Repository Number: [id number] Date: 09/14/2018 SOLANGE [id number] E Primary SOLANGE MARXDOB: Nickie [address] Insurance:MEDICARE [id number] PART A [facility] [address]Myy: (330) Number: Repository [phone] () [id number] Date:2018-09-14 09/14/2018 Secondary AYSHA SAVAGEDOB: Nick[place] Insurance:MEDICAIDPol [id number] Community icy Number: Hospital [id number] Repository Date:2018-09-14 09/14/2018 Tertiary NOT GIVENUNK Nick[place] Insurance:SELF PAY [facility] Number: Effective Repository Date:2018-09-14 07/09/2018 AYSHA Riley [id number] E Primary AYSHA SAVAGEDOB: Nickie [address] Insurance:MEDICARE [id number] [address]Wqi: (330) Number: Repository [phone] () [id number] Date:2018-07-09 07/09/2018 Secondary AYSHA MASONB: [place] Insurance:MEDICAIDPol [id number] Community icy Number: Hospital [id number] Repository Date:2018-07-09 07/09/2018 Tertiary NOT GIVENUNK Nickie Insurance:SELF PAY [facility] Number: Effective Repository Date:2018-07-09 04/27/2018 AYSHA Riley [id number] E Primary AYSHA SAVAGEDOB: [place] [address] Insurance:MEDICARE [id number] [place] [id number]: (330) Number: Repository [phone] () [id number] Date:2018-04-27 04/27/2018 Secondary AYSHA SAVAGEDOB: [place] Insurance:MEDICAIDPol [id number] Community icy Number: [facility] [id number] Repository Date:2018-04-27 04/27/2018 Tertiary NOT GIVENUNK Nickie Insurance:SELF PAY [facility] Number: Effective Repository Date:2018-04-27 03/23/2018 AYSHA Riley [id number] E Primary AYSHA SAVAGEDOB: [place] [address] Insurance:MEDICARE [id number] [address]Xyy: (330) Number: Repository [phone] () [id number] Date:2018-03-23 03/23/2018 Secondary AYSHA Riley MARXDOB: [place] Insurance:[facility]ID[facility] [id number] Community icy Number: Hospital [id number] Repository Date:2018-03-23 03/23/2018 Tertiary NOT GIVENUNK Nickie Insurance:SELF PAY [facility] Number: Effective Repository Date:2018-03-23 03/23/2018 SOLANGE MARXDOB: Primary SOLANGE MARXDOB: [facility] E Insurance:MEDICARE A [id number] Scott & White Medical [facility] AND [facility] Number: Repository [address] [place] [address] [id number]: (330) Date: () 03/23/2018 Secondary SOLANGE MARXDOB: [facility] Insurance:[place] [id number] Health [facility] MEDICAIDPolicy Repository Number: [id number] Date: 03/23/2018 SOLANGE MARXDOB: Primary SOLANGE MARXDOB: [facility] E Insurance:MEDICARE A [id number] Scott & [facility] Number: Repository [address] [place] [address] [id number]: (330) Date: () 03/23/2018 Secondary SOLANGE MARXDOB: [facility] Insurance:[place] [id number] [facility] MEDICAIDPolicy Repository Number: [id number] Date: 03/18/2018 AYSHA Riley [id number] E Primary AYSHA Riley MARXDOB: [place] MARRY [facility] Insurance:MEDICARE [id number] PART A [facility] [address]Vbx: (330) Number: Repository [phone] () [id number] Date:2018-03-18 03/18/2018 Secondary AYSAH Riley MARXDOB: [place] Insurance:[facility]ID[facility] [id number] Community icy Number: Hospital [id number] Repository Date:2018-03-18 03/18/2018 Tertiary NOT GIVENUNK [place] Insurance:SELF PAY Community [facility] Number: Effective Repository Date:2018-03-18 03/06/2018 SOLANGE [id number] E Primary SOLANGE MARXDOB: Nickie [address] Insurance:MEDICARE [id number] PART A [facility] [address]Mip: (330) Number: Repository [phone] () [id number] Date:2018-03-06 03/06/2018 Secondary SOLANGE MARXDOB: Nickie Insurance:MEDICAIDPol [id number] Health [facility] Number: Hospital [id number] Repository Date:2018-03-06 03/06/2018 Tertiary NOT GIVENUNK [place] Insurance:SELF PAY [facility] Number: Effective Repository Date:2018-03-06 02/12/2018 SOLANGE MARXDOB: Primary SOLANGE MARXDOB: [facility] E Insurance:MEDICARE A [id number] of Michigan Health–West [address] AND olicy Number: Repository [address] [place] [address] [id number]: (330) Date: [phone] () 02/12/2018 Secondary SOLANGE MARXDOB: [facility] Insurance:[place] [id number] [facility] MEDICAIDPolicy Repository Number: [id number] Date: 02/10/2018 SOLANGE MARXDOB: Primary SOLANGE MARXDOB: [facility] E Insurance:MEDICARE A [id number] of Michigan Health–West [address] AND olicy Number: Repository [address] [place] [address] [id number]: (330) Date: [phone] (HP) 02/10/2018 Secondary SOLANGE MARXDOB: [facility] Insurance:[place] [id number] [facility] MEDICAIDPolicy Repository Number: [id number] Date: 02/09/2018 SOLANGE [id number] E Primary SOLANGE MARXDOB: Nickie [address] Insurance:MEDICARE [id number] PART A [facility] [address]Fax: (330) Number: Repository [phone] () [id number] Date:2018-02-09 02/09/2018 Secondary SOLANGE MARXDOB: [place] Insurance:MEDICAIDPol [id number] Community icy Number: Hospital [id number] Repository Date:2018-02-09 02/09/2018 Tertiary NOT GIVENUNK [place] Insurance:SELF PAY [facility] Number: Effective Repository Date:2018-02-09 02/02/2018 SOLANGE MARXDOB: Primary SOLANGE MARXDOB: [facility] E Insurance:MEDICARE A [id number] Scott & White [facility] AND [facility] Number: Repository [address] [place] [address] [id number]: (330) Date: [phone] () 02/02/2018 Secondary SOLANGE MARXDOB: [facility] Insurance:[place] [id number] Health [facility] MEDICAIDPolicy Repository Number: [id number] Date: 02/02/2018 SOLANGE MARXDOB: Primary SOLANGE MARXDOB: [facility] E Insurance:MEDICARE A [id number] Scott & White Medical [facility] AND [facility] Number: Repository [address] [place] [address] [id number]: (330) Date: [phone] () 02/02/2018 Secondary SOLANGE MARXDOB: [facility] Insurance:[place] [id number] of Michigan Health[facility]ID[facility] Repository Number: [id number] Date: 01/26/2018 SOLANGE [id number] E Primary SOLANGE MARXDOB: Nickie [address] Insurance:MEDICARE [id number] PART A [facility] [address]Aqa: (330) Number: Repository [phone] () [id number] Date:2018-01-26 01/26/2018 Secondary SOLANGE MARXDOB: Nickie Insurance:MEDICAIDPol [id number] [facility] icy Number: Hospital [id number] Repository Date:2018-01-26 01/26/2018 Tertiary NOT GIVENUNK Nickie Insurance:SELF PAY [facility] Number: Effective Repository Date:2018-01-26 01/03/2018 AYSHA Riley [id number] E Primary SOLANGE MARXDOB: Nickie [address] Insurance:MEDICARE [id number] PART A [facility] [address]Wpj: (330) Number: Repository [phone] () [id number] Date:2018-01-03 01/03/2018 Secondary SOLANGE MARXDOB: Nick[place] Insurance:[facility]ICAID[facility] [id number] Health [facility] Number: Hospital [id number] Repository Date:2018-01-03 01/03/2018 Tertiary NOT GIVENUNK [place] Insurance:SELF PAY [facility] Number: Effective Repository Date:2018-01-03 12/24/2017 AYSHA Riley SHAWNDOB: Primary SOLANGE MARXDOB: [facility] S Insurance:MEDICARE A [id number] Health Troy AND [facility] Number: Repository [address] [place] [address] [id number]: (330) Date: [phone] () 12/24/2017 Secondary SOLANGE MARXDOB: [facility] Insurance:[place] [id number] [facility] MEDICAIDPolicy Repository Number: [id number] Date: 12/24/2017 SOLANGE ELEAZARXDOB: Primary SOLANGE MARXDOB: [facility] S Insurance:MEDICARE A [id number] Health Troy AND [facility] Number: Repository [address] [place] [address] [id number]: (330) Date: [phone] () 12/24/2017 Secondary SOLANGE MARXDOB: [facility] Insurance:[place] [id number] [facility] MEDICAIDPolicy Repository Number: [id number] Date: 12/06/2017 Aysha Hodges22 E Primary Aysha MarxDOB: Nickie Marry Insurance:MEDICARE [id number] [place] PART A [facility] [address]Ztf: (330) Number: Repository [phone] ) [id number] Date:2017-12-06 12/06/2017 Secondary Aysah Guzman: [place] Insurance:[facility]ICAIDQu[facility] [id number] [facility] Number: [facility] [id number] Repository Date:2017-12-06 12/06/2017 Tertiary NOT GIVENUNK Nickie Insurance:SELF PAY Community [facility] Number: Effective Repository Date:2017-12-06
--- NOTE | 2019-02-22 10:54 | HP.PT.NRP ---
HP - Discharge Summary (1) - Patient Information AYSHA ESCOBAR was seen in my office for initial evaluation on 11/02/18. The following Plan of Care was established for this patient: Initial Frequency: 2x /Week Initial Duration: 4 Weeks - Anticipated Interventions Patient/Client Instruction: Educate patient on: Condition, Plan of Care For the Purpose of:: To decrease pain, To increase ROM, To improve muscle performance and motor function, To increase tolerance to activity/condition/position, To improve ability of physical actions for home/community/work/leisure, To improve gait and locomotor functions, To decrease soft tissue restriction, To increase flexibility/ROM, To improve ability to perform tasks related to life management Therapeutic Exercise to Include: Strength training, Postural training, Passive ROM, Sanjana Exercises For the Purpose of:: To decrease pain, To increase ROM, To improve muscle performance and motor function, To improve ability to perform ADL's, To increase tolerance to activity/condition/position, To improve ability of physical actions for home/community/work/leisure, To improve health of tissue, To decrease soft tissue restriction, To increase flexibility/ROM, To improve ability to perform tasks related to life management TENS: Yes IF ES: Yes Cryotherapy (ice pack, ice massage): Yes Thermo therapy (hot pack): Yes Ultrasound (thermal/non thermal): Yes For the Purpose of:: To decrease pain, To decrease swelling/inflammation, To increase ROM, To improve nutrient delivery to tissue, To increase oxygenation perfusion, To improve health of tissue, To decrease soft tissue restriction This patient was last seen in our office . Pertinent comments regarding their Physical therapy will appear below: At this point I will be discontinuing this patient from physical therapy. I would be happy to see this patient again in the future if found appropriate by the physician. Thank you! Franklin Yeh, PT, Cert MDT, OCS
--- NOTE | 2019-02-22 10:57 | HP.PT.NRP ---
HP - Discharge Summary (1) - Patient Information AYSHA ESCOBAR was seen in my office for initial evaluation on 11/02/18. The following Plan of Care was established for this patient: Initial Frequency: 2x /Week Initial Duration: 4 Weeks - Anticipated Interventions Patient/Client Instruction: Educate patient on: Condition, Plan of Care For the Purpose of:: To decrease pain, To increase ROM, To improve muscle performance and motor function, To increase tolerance to activity/condition/position, To improve ability of physical actions for home/community/work/leisure, To improve gait and locomotor functions, To decrease soft tissue restriction, To increase flexibility/ROM, To improve ability to perform tasks related to life management Therapeutic Exercise to Include: Strength training, Postural training, Passive ROM, Sanjana Exercises For the Purpose of:: To decrease pain, To increase ROM, To improve muscle performance and motor function, To improve ability to perform ADL's, To increase tolerance to activity/condition/position, To improve ability of physical actions for home/community/work/leisure, To improve health of tissue, To decrease soft tissue restriction, To increase flexibility/ROM, To improve ability to perform tasks related to life management TENS: Yes IF ES: Yes Cryotherapy (ice pack, ice massage): Yes Thermo therapy (hot pack): Yes Ultrasound (thermal/non thermal): Yes For the Purpose of:: To decrease pain, To decrease swelling/inflammation, To increase ROM, To improve nutrient delivery to tissue, To increase oxygenation perfusion, To improve health of tissue, To decrease soft tissue restriction This patient was last seen in our office 12/02/18. Pertinent comments regarding their Physical therapy will appear below: This patient was seen for PT left RTC tear with treatment focusing on ROM,strength,modlaties. Patient was to follow up with MD for further assessment.Thus is d/c At this point I will be discontinuing this patient from physical therapy. I would be happy to see this patient again in the future if found appropriate by the physician. Thank you! Franklin Yeh, PT, Cert MDT, OCS
== END 2018-12-02 19:00 | disposition home or self-care (01) ==
LOC: PT 13:30
PROVIDERS: Family Provider Family Medicine; PCP Family Medicine
DX: M75.112 Incomplete rotator cuff tear or rupture of left shoulder, not specified as traumatic (principal)
CPT/HCPCS: 97014; 97035; 97110; 97162; 97530; G0283

== ENCOUNTER 2019-01-28 13:05 | Emergency (ER) | payer MEDICARE, MEDICAID, SELFPAY ==
[2019-01-28 13:07] VITALS: BP 170/92; PULSE 64; RESP 17; RESP 18; TEMP 36.4; O2SAT 98; BMI 30.6
--- NOTE | 2019-01-28 13:16 | CT_ITS ---
STUDY: CT BRAIN WITHOUT CONTRAST REASON FOR EXAM: Male, 53 years old. Neck pain and right orbital pain. The patient is on Xer alto RADIATION DOSAGE (If Supplied By Facility): CTDIvol = ( 44.99 ) mGy, DLP = ( 812.98 ) mGycm TECHNIQUE: Transaxial CT imaging of the brain was performed without administration of intravenous contrast material. Individualized dose optimization techniques were used for this CT. COMPARISON: Comparison is made with prior study dated July 09, 2018. FINDINGS: Normal soft tissue structures. Normal calvarium. Normal size ventricles and extra-axial spaces for the patient's age. Normal white matter tracts of the cerebral hemispheres. Normal basal ganglia and thalami. Normal brainstem. Normal cerebellum. There is no intracranial hemorrhage. There are no findings of an acute ischemic infarction. Normal visualized paranasal sinuses. CT/Brain/Head without Contrast IMPRESSION: Normal unenhanced CT scan of the brain. Electronically Signed: Kishan Mcmahon, at 14:29 EDT , Service support ,
--- NOTE | 2019-01-28 13:17 | RAD_ITS ---
STUDY: X-RAY CHEST REASON FOR EXAM: Male, 53 years old. Chest pain. TECHNIQUE: Single AP portable view of the chest. COMPARISON: Comparison is made with prior study dated October 30, 2018. FINDINGS: Hyperinflation. Scattered calcified granulomas. No acute abnormality is seen. There is no demonstrated pleural abnormality. Normal size heart. Normal mediastinum and hema. Normal visualized pulmonary arteries. Normal visualized aortic arch and descending thoracic aorta. There are degenerative changes of the visualized thoracic spine. Normal visualized ribs, clavicles, and shoulders. There is no demonstrated abnormality of the visualized soft tissue structures of the upper abdomen. RAD/Chest 1 View (Portable) IMPRESSION: Hyperinflation. No acute abnormality is seen. Electronically Signed: Kishan Mcmahon, at 13:47 EDT , Service support ,
--- NOTE | 2019-01-28 13:17 | EKG12_ITS ---
Test Reason : GEN ILLNESS Blood Pressure : / mmHG Vent. Rate : 063 BPM Atrial Rate : 063 BPM P-R Int : 194 ms QRS Dur : 108 ms QT Int : 436 ms P-R-T Axes : 015 -18 051 degrees QTc Int : 446 ms Normal sinus rhythm Minimal voltage criteria for LVH, may be normal variant Borderline ECG Confirmed by JUAN LUIS ALBERTO ([id number]), editor producer MELODY BRO ([id number] on 02/01/2019 4:52:29 PM Referred By: BEATRICE Confirmed By:JUAN LUIS ALBERTO
--- NOTE | 2019-01-28 13:24 | ED.VISSUMM ---
- ER Visit Summary Date of Service: 01/28/19 Chief Complaint: Disorientation History of Present Illness: The patient is a 53 M with disorientation. He describes this is a dizziness. Symptoms started gradually earlier today. He is not sure what brought them on. Nothing seems to make them better or worse. It is associated with high blood pressures, neck pain and pain behind his eyes. Patient has a history of chronic neck pain. He also has a history of DVT. He does have an IVC filter and takes Xarelto. Denies any vision changes, weakness, numbness. He does have a history of hypothyroidism, anxiety, depression, chronic pain, back and neck surgery. He is a former smoker. Physical Examination: Afebrile. Blood pressure 170/92. Otherwise vitals normal. Patient is alert and oriented. Head and neck are atraumatic. HEENT exam unremarkable. Cranial nerves grossly intact. Heart regular. Lungs clear. Abdomen soft. Skin appears normal. No focal or lateralizing neurologic abnormalities grossly. Test Results: EKG showed sinus rhythm at a rate of 63. No acute changes. Laboratory studies and imaging pending. Emergency Department Course and Treatment: Patient presents with disorientation and high blood pressure. It sounds like his neck pain is chronic. No new injuries or other issues. No meningeal findings or other red flag features. 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 Patient was treated with Compazine and Benadryl for his headache while awaiting results. On reevaluation, blood pressure is 170/92. Patient is ambulating and alert and oriented. He has no strokelike symptoms. His laboratory studies, EKG were unremarkable. CT brain showed normal findings. Chest x-ray was also normal. Patient will be discharged to follow-up with his primary care doctor for blood pressure checks and maintenance. Return for any new or worsening issues. Treatment Plan: Above Disposition: Discharge Impression: 1. Cephalgia 2. Hypertension This note was generated with [employer] dictation software. It may contain incorrect words, spelling, and punctuation that were not noted in review of the chart prior to signing ED Disposition - Plan for ED Patient: Referrals: Gilson Yusuf MD [Primary Care Provider] -
--- NOTE | 2019-01-28 13:27 | ED.DCSUM_ITS ---
- ER Visit Summary Date of Service: 01/28/19 Chief Complaint: Disorientation History of Present Illness: The patient is a 53 M with disorientation. He describes this is a dizziness. Symptoms started gradually earlier today. He is not sure what brought them on. Nothing seems to make them better or worse. It is associated with high blood pressures, neck pain and pain behind his eyes. Patient has a history of chronic neck pain. He also has a history of DVT. He does have an IVC filter and takes Xarelto. Denies any vision changes, weakness, numbness. He does have a history of hypothyroidism, anxiety, depression, chronic pain, back and neck surgery. He is a former smoker. Physical Examination: Afebrile. Blood pressure 170/92. Otherwise vitals normal. Patient is alert and oriented. Head and neck are atraumatic. HEENT exam unremarkable. Cranial nerves grossly intact. Heart regular. Lungs clear. Abdomen soft. Skin appears normal. No focal or lateralizing neurologic abnormalities grossly. Test Results: EKG showed sinus rhythm at a rate of 63. No acute changes. Laboratory studies and imaging pending. Emergency Department Course and Treatment: Patient presents with disorientation and high blood pressure. It sounds like his neck pain is chronic. No new injuries or other issues. No meningeal findings or other red flag features. He was worked up for hypertensive urgency including [employer] and cardiac abnormalities. Patient was treated with Compazine and Benadryl for his headache while awaiting results. On reevaluation, blood pressure is 170/92. Patient is ambulating and alert and oriented. He has no strokelike symptoms. His laboratory studies, EKG were unremarkable. CT brain showed normal findings. Chest x-ray was also normal. Patient will be discharged to follow-up with his primary care doctor for blood pressure checks and maintenance. Return for any new or worsening issues. Treatment Plan: Above Disposition: Discharge Impression: 1. Cephalgia 2. Hypertension This note was generated with [employer] dictation software. It may contain incorrect words, spelling, and punctuation that were not noted in review of the chart prior to signing ED Disposition - Plan for ED Patient: Referrals: Gilson Yusuf MD [Primary Care Provider] -
[2019-01-28] MEDS: proCHLORPERazine 10 MG/2 ML Vial IV (13:58)
[2019-01-28] MEDS: DiphenhydrAMINE 50 MG/ML Syringe IV (13:58)
[2019-01-28 14:02] VITALS: O2SAT 97
[2019-01-28 14:02] LABS: Absolute Lymphocyte Count 1.22 X10^3/ul (0.83-4.51); Absolute Neutrophil Count 2.6 X10^3/uL (2.0-7.7); Basophil# 0.02 X10^3/uL; Basophil% 0.5 % (0-1); Eosinophil# 0.15 X10^3/uL; Eosinophils% 3.5 % (0-5); Hematocrit 38.8 % (40-54); Hemoglobin 13.6 g/dl (13.0-16.5); Lymphocyte # 1.22 X10^3/ul (4.0); Lymphocyte % 28.3 % (19-41); Mean Corp Hgb Conc 35.1 g/gl (32-36); Mean Corpuscular Hgb 30.2 pg (27.0-32.0); Monocyte# 0.28 X10^3/uL; Monocyte% 6.5 % (0-10); Neutrophil # 2.63 X10^3/uL (2.7-7.7); Platelet Count 128 K/mm3 (150-450); RBC Distribution Width CV 12.6 % (11.6-14.6); RBC Distribution Width SD 39.3 fl (35.1-43.9); Red Blood Count 4.51 M/mm3 (4.6-6.2); White Blood Count 4.3 K/mm3 (4.4-11.0)
[2019-01-28 14:04] LABS: POSITIVE COUNT NO; POSITIVE DIFFERENTIAL NO; POSITIVE MORPHOLOGY NO
[2019-01-28 14:17] LABS: Anion Gap 4 (5-15); BUN 12 mg/dL (7-18); BUN/Creat Ratio 12.7 RATIO (10-20); Calcium,Total 8.7 mg/dL (8.5-10.1); Chloride 113 mmol/L (98-107); Creatinine, Serum 0.94 mg/dL (0.70-1.30); EST Glomerular Filtration Rate 88 mL/min (>60); Est Glom Filt Rate - Afr Amer 107 mL/min (>60); Estimated Creatinine Clearance 98.61 ml/min; Glucose 93 mg/dL (74-106); Potassium 3.9 mmol/L (3.5-5.1); Sodium Level 142 mmol/L (136-145)
--- NOTE | 2019-01-28 14:42 | ED.DEP ---
ED Disposition - Plan for ED Patient: Instructions: Discharge Instructions for High Blood Pressure (Hypertension) Referrals: Gilson Yusuf MD [Primary Care Provider] -
[2019-01-28 14:47] VITALS: BP 140/84; PULSE 72; RESP 15; O2SAT 97
== END 2019-01-28 14:48 | disposition home or self-care (01) ==
PROVIDERS: Emergency Provider Emergency Medicine; Family Provider Family Medicine; PCP Family Medicine
DX: R51 Headache (principal); I10 Essential (primary) hypertension; M54.2 Cervicalgia; G89.29 Other chronic pain; E03.9 Hypothyroidism, unspecified; F32.9 Major depressive disorder, single episode, unspecified; F41.9 Anxiety disorder, unspecified; Z86.718 Personal history of other venous thrombosis and embolism; Z79.01 Long term (current) use of anticoagulants; Z79.899 Other long term (current) drug therapy; Z86.73 Personal history of transient ischemic attack (TIA), and cerebral infarction without residual deficits; Z87.891 Personal history of nicotine dependence
CPT/HCPCS: 70450; 71045; 80048; 84484; 85025; 93005; 96374; 96375; 99285; A4216

== ENCOUNTER 2019-03-11 16:00 | Emergency (ER) | payer MEDICARE, MEDICAID, SELFPAY ==
[2019-03-11 16:01] VITALS: BP 141/97; PULSE 90; RESP 17; TEMP 36.9; O2SAT 97; BMI 28.3
--- NOTE | 2019-03-11 16:54 | ED.VISSUMM ---
- ER Visit Summary Date of Service: 03/11/19 Chief Complaint: Neck and back pain. History of Present Illness: The patient is a 53 M worsening neck pain over the past 2 weeks. Symptoms started after starting physical therapy with traction. History of chronic neck and mid back pain followed by pain management Dr. Holland, last seen a month ago who ordered physical therapy. He had history of ACDF in 2013 from [facility] from C4-C6. He states last MRI August of last year noting increasing degenerative changes per his report. 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 He saw PCP office, ROMEO Sánchez today who wrote a prescription for Medrol Dosepak and was told to go to ED if pain increases. He reports coming directly from the office here. States intermittent numbness of bilateral arms. There is no loss of bowel or bladder control. He has a follow-up with pain management tomorrow. He denies any trauma previously or recently. Reports his back pain is controlled. Physical Examination: General: Alert and oriented ?3, no acute distress HEENT: Normocephalic, atraumatic. Moist mucosa membranes Neck: supple, nontender. Anterior left cervical scar. Cardiovascular: Regular rate and rhythm, no murmurs Respiratory: Normal breath sounds, symmetric, no distress Back: There is a mid thoracic scar noted. Abdomen: Soft, nontender, nondistended Extremities: Nontender, no edema, pulses intact ?4 Neuro: no focal neurological deficits. Upper extremity strength and sensation intact and symmetric. Neurovascular intact. Test Results: Emergency Department Course and Treatment: Patient no focal neurologic deficits. Complaint of intermittent radicular symptoms both arms have not intact currently. Able to walk, no cauda equina symptoms. He see pain management. Discuss ED visit for assistance with symptom control. He does tolerate Dilaudid, Norflex, and receiving Phenergan due to nausea symptoms in the past. Reports he is still active walking daily. He keep his appointment with pain management tomorrow for medicine adjustments and further testing as needed. All questions were answered. Treatment Plan: [] Disposition: Discharged Impression: Acute on chronic neck pain This note was generated with [employer] software. It may contain incorrect words, spelling, and punctuation that were not noted in review of the chart prior to signing ED Disposition - Plan for ED Patient: Disposition: Home or Assisted Living Diagnosis: Acute on chronic neck pain Instructions: ED Neck Back Pain General Referrals: Gilson Yusuf MD [Primary Care Provider] - Additional Instructions: Keep your appointment with Dr. Holland tomorrow. Fill your Medrol Dosepak and start taking.
[2019-03-11] MEDS: proMETHazine 25 MG Tablet PO (17:20)
[2019-03-11] MEDS: HYDROmorphone 1 MG/ML Syringe SC (17:20)
[2019-03-11] MEDS: Orphenadrine 100 MG Tablet PO (17:20)
[2019-03-11 17:57] VITALS: BP 132/79; PULSE 89; RESP 16; O2SAT 99
== END 2019-03-11 18:03 | disposition home or self-care (01) ==
PROVIDERS: Emergency Provider Emergency Medicine; Family Provider Family Medicine; PCP Family Medicine
DX: M54.2 Cervicalgia (principal); G89.29 Other chronic pain; I10 Essential (primary) hypertension; D68.59 Other primary thrombophilia; Z79.01 Long term (current) use of anticoagulants
CPT/HCPCS: 96372; 99283

== ENCOUNTER 2019-03-24 11:00 | Outpatient (RCR) | payer MEDICARE, MEDICAID, SELFPAY ==
--- NOTE | 2019-03-03 17:15 | HP.PTEVAL_ITS ---
Patient's Visit Information AYSHA ESCOBAR is a 53 year old M referred to Physical Therapy by IKER GREENBERG with a diagnosis of degeneration of cervical region. Date of Evaluation: 02/24/19 Physical Therapist: Dilshad Abrams DPT - Visit Plan Frequency: 2x /Week Duration: 4 Weeks Plan: Cont w/ POC. - Subjective Findings: Pt. is here today for his initial evaluation with diagnosis of degeneration of cervical region. Pt. reports over the past few months having increased neck and B shoulder pain. His symptoms also extend down both of his arms to his fingers, L worse than R. Pt. reports increased pain with walking, standing and upright positions. Pt. reports being very active walking upto 10 miles per day. He also does gym exercises, mostly core and shoulder exercises. Pt did recently have a shoulder injection which helped his shoulder, but did not effect his neck pain. Pt. has a history of spinal fusion a few years ago. Pt. has intermittent numbness/tingling in his UEs as well. Pt. reports no marked weakness in either UE. Pt. reports not having injections in his neck with this episode of symptoms. - Pain c-spine Pain Intensity (Out of 10): 5 Pain Intensity Range: 2, 8 Comment: mostly on the R side and UT. - Objective POSTURE: Pt. increased thoracic kyphosis, rounded shoulders and FH posture. PALPATION: Pt. has increased tenderness throughout B UT and B levator scapulea. Pt. had increased tenderness with PAs throughotu cervical spine, hypombility noted throughout. NEURO: normal througout, normal sensation to light and sharp touch, normal DTR bilterally. No upper limb tension issues. ROM: CERVICAL SPINE: flexion min loss increase NW, ext mod loss increase NW, rotationn R min/mod loss increase NW, rotation L min/mod loss increase NW, SB mod loss bilat increase NW/ea. direction. MMT: CERVICAL ISO- normal throughout. RUE- 5/5 throughout; LUE- 5/5, except had increased pain with shoulder testing (likely from RTC injury that he is recovering from. Lining Cleaner strength- 15# greater on R side, expected increased strength on dominant side. - Special Tests C/S Radiculapathy - Left Spurlings: Positive C/S Radiculapathy - Right Spurlings: Positive C/S Radiculapathy - Left Relief test: Positive C/S Radiculapathy - Right Relief test: Positive Sharp Adriana: Negative Vertebral Artery Test: Negative Alar Ligament Test: Negative Cervical Sitting: Protrusion - Mechanical Response: No effect Cervical Sitting: Protrusion - Symptoms During Testing: No effect Cervical Sitting: Protrusion - Symptoms After Testing: No effect Cervical Sitting: Retraction - Mechanical Response: No effect Cervical Sitting: Retraction - Symptoms During Testing: Increases Cervical Sitting: Retraction - Symptoms After Testing: No worse Cervical Sitting: Retraction-Extension - Mechanical Response: No effect Cerv Sitting: Retraction-Extension - Symptoms During Testing: Increases Cerv Sitting: Retraction-Extension - Symptoms After Testing: Worse Cervical Sitting: Sidebend Right - Mechanical Response: No effect Cervical Sitting: Sidebend Right - Symptoms During Testing: No effect Cervical Sitting: Sidebend Right - Symptoms After Testing: No effect Cervical Sitting: Sidebend Left - Mechanical Response: No effect Cervical Sitting: Sidebend Left - Symptoms During Testing: No effect Cervical Sitting: Sidebend Left - Symptoms After Testing: No effect Cervical Sitting: Rotation Right - Mechanical Response: No effect Cervical Sitting: Rotation Right - Symptoms During Testing: Increases Cervical Sitting: Rotation Right - Symptoms After Testing: No worse Cervical Sitting: Rotation Left - Mechanical Response: No effect Cervical Sitting: Rotation Left - Symptoms During Testing: Increases Cervical Sitting: Rotation Left - Symptoms After Testing: No worse Cervical Sitting: Flexion - Mechanical Response: No effect Cervical Sitting: Flexion - Symptoms During Testing: No effect Cervical Sitting: Flexion - Symptoms After Testing: No effect - Goals Goal 1:: Pt. to be I with HEP. Goal Time Frame: 4-6 Weeks Goal 2:: Pt. to demonstrate improved posture in sitting and standing throughout PT session, indicating increased postural awareness. Goal Time Frame: 4-6 Weeks Goal 3:: Pt. to have increased cervical ROM by 25% in all directions without increase in symptoms. Goal Time Frame: 4-6 Weeks Goal 4:: Pt. to sleep throughout the night without increase in symptoms. Goal Time Frame: 4-6 Weeks Goal 5:: Pt. to complete increased gym exercises withotu increase insymptoms. Goal Time Frame: 4-6 Weeks - Rehabilitation Potential Physical Therapy Diagnosis: Pt. has signs and symptoms consistent with radiating neck pain into bilateral shoulders. Pt. has poor posture with increases his symptoms. He also has a history of cervical fusion. Pt. would benefit from PT to increase ROM and increase neck/postural stability. Rehabilitation Potential: Fair - Anticipated Interventions Patient/Client Instruction: Educate patient on: Condition, Plan of Care, Risk Factors, Benefits of Fitness Program For the Purpose of:: To facilitate caregiver knowledge, To improve self management, To prevent re-injury, To improve ability to perform tasks related to life management, To improve tolerance to ADL's Therapeutic Exercise to Include: Strength training, Power training, Endurance training, Body mechanics, Postural training, Flexibilty training, Passive ROM, Active ROM, Sanjana Exercises, Scapular Strength/Stabilization For the Purpose of:: To decrease pain, To decrease swelling/inflammation, To increase ROM, To improve muscle performance and motor function, To improve health of tissue, To decrease soft tissue restriction, To increase flexibility/ROM Manual Therapy Techniques to Include: Mobilization, Passive ROM, Soft tissue mobilization For the Purpose of:: To decrease pain, To decrease swelling/inflammation, To inc rease ROM, To improve health of tissue, To decrease soft tissue restriction, To increase flexibility/ROM Cryotherapy (ice pack, ice massage): Yes Thermo therapy (hot pack): Yes Ultrasound (thermal/non thermal): Yes For the Purpose of:: To decrease pain, To decrease swelling/inflammation, To increase ROM Thank you for the opportunity to evaluate your patient. For Medicare and Medicare HMO plans, please review the plan of care and approve it. It will need to be FAXED BACK to us at [phone] for Medicare purposes. For Medicare only, by signing this I certify the plan of care. Please let me know if there are questions or concerns regarding this plan of care. Physician Signature: Date:
--- NOTE | 2019-06-28 08:17 | HP.PT.NRP ---
HP - Discharge Summary (1) - Patient Information AYSHA ESCOBAR was seen in my office for initial evaluation on 02/24/19. The following Plan of Care was established for this patient: Initial Frequency: 2x /Week Initial Duration: 4 Weeks - Anticipated Interventions Patient/Client Instruction: Educate patient on: Condition, Plan of Care, Risk Factors, Benefits of Fitness Program For the Purpose of:: To facilitate caregiver knowledge, To improve self management, To prevent re-injury, To improve ability to perform tasks related to life management, To improve tolerance to ADL's Therapeutic Exercise to Include: Strength training, Power training, Endurance training, Body mechanics, Postural training, Flexibilty training, Passive ROM, Active ROM, Sanjana Exercises, Scapular Strength/Stabilization For the Purpose of:: To decrease pain, To decrease swelling/inflammation, To increase ROM, To improve muscle performance and motor function, To improve health of tissue, To decrease soft tissue restriction, To increase flexibility/ROM Manual Therapy Techniques to Include: Mobilization, Passive ROM, Soft tissue mobilization For the Purpose of:: To decrease pain, To decrease swelling/inflammation, To increase ROM, To improve health of tissue, To decrease soft tissue restriction, To increase flexibility/ROM Cryotherapy (ice pack, ice massage): Yes Thermo therapy (hot pack): Yes Ultrasound (thermal/non thermal): Yes For the Purpose of:: To decrease pain, To decrease swelling/inflammation, To increase ROM This patient was last seen in our office 03/24/19. Pertinent comments regarding their Physical therapy will appear below: Pt. was not been seen in several months and will be DC from PT at this point in time. At this point I will be discontinuing this patient from physical therapy. I would be happy to see this patient again in the future if found appropriate by the physician. Thank you! Dilshad Abrams, JAVIERT
== END 2019-03-24 19:00 | disposition home or self-care (01) ==
LOC: PT 11:00
PROVIDERS: Family Provider Family Medicine; PCP Family Medicine
DX: M50.320 Other cervical disc degeneration, mid-cervical region, unspecified level (principal)
CPT/HCPCS: 97035; 97110; 97140; 97161

== ENCOUNTER → 2019-04-19 07:07 | Outpatient (CLI) | payer MEDICARE, MEDICAID, SELFPAY ==
--- NOTE | 2019-04-19 07:17 | MRI_ITS ---
STUDY: MRI CERVICAL SPINE WITHOUT CONTRAST REASON FOR EXAM: Male, 53 years old. Neck pain and bilateral upper lingula is seen TECHNIQUE: Standardized fat and water weighted pulse sequences were obtained in the sagittal and axial planes. COMPARISON: CT cervical spine 07/09/2018 FINDINGS: There is anterior fusion of C4-C6. Normal foramen magnum and brainstem-cervical cord junction. Normal craniovertebral junction. Normal anterior atlantoaxial articulation. Normal odontoid process. Normal cervical lordosis. Normal vertebral bodies and posterior osseous elements. C2-3: Normal endplates. Normal disc height, signal and morphology. Normal central canal and intervertebral neural foramina. C3-4: Normal endplates. Mild ventral thecal sac narrowing. Normal Intervertebral neural foramina. C4-5: Normal endplates. Mild ventral thecal sac narrowing. Normal Intervertebral neural foramina. C5-6: There is small posterior disc osteophyte complex and mild ventral thecal sac narrowing. There is left uncovertebral hypertrophy causing moderate left foraminal narrowing. C6-7: Normal endplates. Normal disc height, signal and morphology. Normal central canal and intervertebral neural foramina. C7-T1: Normal endplates. Normal disc height, signal and morphology. Normal central canal and intervertebral neural foramina. Normal cervical cord. Normal visualized soft tissue structures. MRI/Spine Cervical (Routine) IMPRESSION: Anterior fusion of C4-C6. Mild degenerative changes are most prominent at C5-C6. Electronically Signed: Youngnishant Allen, at 9:47 EDT Tel , Service support ,
--- NOTE | 2019-04-19 07:28 | RAD_ITS ---
STUDY: X-RAY - THORACIC SPINE REASON FOR EXAM: Male, 53 years old. Back pain TECHNIQUE: 5 view(s) of the thoracic spine were obtained. COMPARISON: 09/10/2017. FINDINGS: There is no evidence of fracture or dislocation in the thoracic spine. The vertebral body heights are well-maintained. There are stable mild degenerative changes. RAD/Thoracic Spine Min 4 Views IMPRESSION: No fracture or dislocation in the thoracic spine. Stable mild degenerative change. Electronically Signed: Miguel Rajan, at 17:01 EDT Tel , Service support ,
== END ==
PROVIDERS: Family Provider Family Medicine; PCP Family Medicine
DX: M54.12 Radiculopathy, cervical region (principal)
CPT/HCPCS: 72074; 72141